=== PATIENT | female | born 1955 | race Caucasian/White ===

== ENCOUNTER 2019-04-12 14:16 | Outpatient (CLI) | payer MEDICARE ==
--- NOTE | 2019-04-12 16:46 | CT ---
CT Abdomen WO Con 04/12/2019 12:00 AM HISTORY: Cirrhosis in a patient with hepatitis. Hepatic encephalopathy. COMPARISON: 03/17/2016 Technique: Multiple contiguous axial CT images are obtained through the abdomen and pelvis without IV contrast. Coronal reformats are provided. FINDINGS: This examination is limited for the evaluation of solid organs and vascular structures due to the lac k of intravenous contrast. Lower Chest: No consolidation or pleural fluid is seen at either lung base. There is evidence of kamla iation of fat into the posterior mediastinum from the upper abdomen with prominent vessels in the region of the area of fat likely related to varices. However, this is a stable finding dating back to prior study in 2012. Abdomen: Liver: Peripheral nodular contour is present suggesting cirrhosis. Calcified granuloma seen left hepa tic lobe. Gallbladder: Surgically absent. Pancreas: Grossly normal nonenhanced CT appearance. Spleen: Enlarged measuring 14.1 cm in craniocaudal dimensions. Adrenals: Grossly normal nonenhanced CT appearance. Kidneys: Stable superior pole hypodense lesions are again seen in each kidney and are likely related to renal cysts. Lymph Nodes: No enlarged lymph nodes. Bowel: Normal caliber. Peritoneum: No free fluid, free air, or fluid collection. Retroperitoneum: within normal limits. Vessels: Vascular calcifications are seen in the abdominal aorta and involving the iliac arteries. Abdominal Wall: within normal limits. Bones: Degenerative changes are seen in the lumbar spine with was thought to be prominent Schmorl's n ode in the superior endplate of the L3 vertebral body with degenerative changes at this level. IMPRESSION: 1. Evidence of cirrhosis and splenomegaly with probable portal hypertension with varices seen in the region of the gastrohepatic ligament and probable varices within the herniated fat into the posterior mediastinum. 2. Cholecystectomy. 3. Probable superior pole renal cysts.
== END 2019-04-12 14:17 | disposition home or self-care (01) ==
LOC: BICCT 14:16
PROVIDERS: ATTEND Physician Assistant Medical
DX: K72.90 Hepatic failure, unspecified without coma (principal); B18.2 Chronic viral hepatitis C; K74.60 Unspecified cirrhosis of liver; I85.00 Esophageal varices without bleeding; B37.2 Candidiasis of skin and nail; R16.1 Splenomegaly, not elsewhere classified; I86.4 Gastric varices; Z90.49 Acquired absence of other specified parts of digestive tract
CPT/HCPCS: 74150; 82565

== ENCOUNTER 2019-05-10 07:00 | Day surgery (SDC) | payer MEDICARE, MEDICAID ==
[2019-05-09 09:49] VITALS: BMI 41.1
--- NOTE | 2019-05-10 09:45 | OP ---
DATE OF PROCEDURE: 05/10/2019 PROCEDURE PERFORMED: Esophagogastroduodenoscopy. PREOPERATIVE DIAGNOSES: 1. Esophageal varices. 2. Portal hypertension. DESCRIPTION OF PROCEDURE: Informed consent was obtained from the patient. She was sedated with total intravenous anesthesia. The bite block was placed and the endoscope was advanced easily to the second portion of the duodenum and retroflexion was performed in the stomach. The esophagus was normal. The GE junction was normal. There were no varices present. The stomach was normal including retroflexed views. The pylorus and first and second portions of the duodenum were normal. Air was suctioned from the stomach and the procedure was completed. IMPRESSION: Normal esophagogastroduodenoscopy. RECOMMENDATIONS: Repeat EGD in a year for varices surveillance. Job ID: [id number]
[2019-05-10] MEDS ORDERED: PROPOFOL 200 MG/20 ML VIAL ONE (10:44)
[2019-05-10] MEDS ORDERED: Lidocaine 1% PF 5 ML VIAL ONE (10:44)
--- NOTE | 2019-05-11 13:09 | HP ---
DATE OF PROCEDURE: 05/10/2019. CHIEF COMPLAINT: Hepatitis C and cirrhosis of the liver, here for esophageal varices screening. HISTORY OF PRESENT ILLNESS: Ms. Puentes has hepatitis C and cirrhosis. She presents for screening for varices with endoscopy. PAST MEDICAL HISTORY: Hepatitis C, cirrhosis, diabetes, depression, gastroesophageal reflux, and hepatic encephalopathy. FAMILY HISTORY: Negative for GI malignancy or liver disease. SOCIAL HISTORY: No alcohol, tobacco, or drugs. ALLERGIES: SULFA. MEDICATIONS: 1. Abilify. 2. Aldactone. 3. Alendronate. 4. Alprazolam. 5. Aripiprazole. 6. Lactulose. 7. Epclusa. 8. Fentanyl. 9. Furosemide. 10. Fentanyl patch 25 mcg/hour. 11. Furosemide. 12. Gabapentin. 13. Glipizide. 14. Hydrocodone. 15. Hydroxyzine. 16. Januvia. 17. Lantus. 18. Lyrica. 19. Metformin. 20. Nystatin. 21. Omeprazole. 22. Oxcarbazepine. 23. Sertraline. 24. Propranolol. 25. Spironolactone. 26. Trazodone. PHYSICAL EXAMINATION: GENERAL: She is awake, alert, and oriented x3. LUNGS: Clear to auscultation bilaterally. HEART: Regular rate and rhythm without murmur. ABDOMEN: Soft, nontender, and nondistended. Bowel sounds are present. EXTREMITIES: No lower extremity edema. IMPRESSION: Cirrhosis and hepatitis C with a history of hepatic encephalopathy and evidence of varices by imaging. PLAN: Upper endoscopy. Job ID: [id number]
== END 2019-05-10 10:10 | disposition home or self-care (01) ==
LOC: SDC 07:00
PROVIDERS: ATTEND Internal Medicine Gastroenterology
PROC: 0DJ08ZZ Inspection of Upper Intestinal Tract, Via Natural or Artificial Opening Endoscopic (ICD-10-PCS; principal; 2019-05-10)
DX: K76.6 Portal hypertension (principal); K74.60 Unspecified cirrhosis of liver; I85.10 Secondary esophageal varices without bleeding; B18.2 Chronic viral hepatitis C; E11.9 Type 2 diabetes mellitus without complications; K21.9 Gastro-esophageal reflux disease without esophagitis; Z79.4 Long term (current) use of insulin; Z79.899 Other long term (current) drug therapy; Z88.2 Allergy status to sulfonamides
CPT/HCPCS: 36416; J2001; J2704

== ENCOUNTER 2020-04-12 23:11 | Inpatient (IN) | payer MEDICARE, MEDICAID ==
[2020-04-12] MEDS ORDERED: cefTRIAXone\\ROCEPHIN 2 GM VIAL ONE (23:46)
[2020-04-12] MEDS ORDERED: Albuterol 200 PUFF (6.7GM INHALER) ONE (23:46)
[2020-04-12] MEDS ORDERED: methylPREDNISolone Sod Succ/PF 125 MG/2 ML VIAL ONE (23:46)
[2020-04-12] MEDS ORDERED: Magnesium 2 GM/50 ML BAG (IN WATER) ONE (23:46)
[2020-04-12] MEDS ORDERED: Nitroglycerin 2% Ointment 1 INCH/1 GM Packet ONE ×2 (23:46)
[2020-04-12] MEDS ORDERED: Nitroglycerin 50 MG/250 ML BOT 0 ML ONE (23:47)
--- NOTE | 2020-04-12 23:50 | RAD ---
EXAM: Single view of the chest HISTORY: Chest pain and shortness of breath COMPARISON: 03/22/2016 FINDINGS: Single view of the chest shows an enlarged cardiomediastinal silhouette. Bilateral pulmona ry vascular enlargement is seen. Increased interstitial markings are present. There may be left basilar atelectasis versus infiltrate. No acute osseous abnormality. IMPRESSION: 1. Findings are most consistent with congestive heart failure 2. Possible left lower lobe infiltrate
[2020-04-12 23:56] LABS: Hemoglobin 10.7 g/dL (12.0-16.0); Mean Corpuscular HGB CONC 33.4 g/dL (32.0-36.0); Mean Corpuscular Hemoglobin 29.1 pg (27.0-31.0); Mean Corpuscular Volume 87.3 fL (78.0-98.0); RBC Distribution Width 14.9 % (11.5-14.5); Red Blood Cell (RBC) Count 3.67 mill/uL (4.20-5.40); White Blood Cell (WBC) Count 5.5 thou/uL (4.8-10.8)
[2020-04-13 00:13] LABS: ALT (SGPT) 17 U/L (8-55); AST (SGOT) 23 U/L (5-34); Albumin 3.6 g/dL (3.4-4.8); Alkaline Phosphatase 98 U/L (40-110); Anion Gap 12 mmol/L (10-20); BUN (Urea Nitrogen) 21 mg/dL (9.8-20.1); Bilirubin, Total 0.9 mg/dL (0.2-1.2); Calc. Creatinine Clearance 0 mL/min (70-130); Calcium 8.4 mg/dL (7.8-10.44); Carbon Dioxide 29 mmol/L (23-31); Chloride 94 mmol/L (98-107); Globulin 3.9 g/dL (2.4-3.5); Glucose 194 mg/dL (80-115); Potassium 5.2 mmol/L (3.5-5.1); Protein, Total 7.5 g/dL (5.8-8.1); Sodium 130 mmol/L (136-145)
[2020-04-13 00:20] LABS: #Basophils 0.1 thou/uL (0.0-0.2); #Lymphocytes 0.3 thou/uL (1.20-3.40); #Monocytes 0.3 thou/uL (0.11-0.59); #Neutrophils 4.8 thou/uL (1.40-6.50); %Eosinophils 0.1 % (0.0-10.0); %Lymphocytes 4.8 % (21.0-51.0); %Monocytes 5.8 % (0.0-10.0); %Neutrophils 87.3 % (42.0-75.0); Mean Platelet Volume 7.6 fL (7.4-10.4); Platelet Count 81 thou/uL (130-400); Platelet Morphology Comment Appears Decreased
[2020-04-13] MEDS ORDERED: Azithromycin 500 MG VIAL ONE (00:21)
[2020-04-13] MEDS ORDERED: Azithromycin 250 MG TAB ONE (00:32)
[2020-04-13 01:04] LABS: Bilirubin Negative (Negative); Blood, Urine 2+ (Negative); Clarity Clear (Clear); Glucose, Urine (Dipstick) Normal (Negative); Ketone, Urine Negative (Negative); Leukocyte Negative Leu/uL (Negative); Nitrite Negative (Negative); Protein, Urine (Dipstick) 100 mg/dL (Neg-Trace); Specific Gravity, Urine 1.009 (1.002-1.036); Squamous Epithelial 0-3 HPF (0-3); Urobilinogen Normal mg/dL (Less than 2); WBC/HPF 0-3 HPF (0-3); pH, Urine 5.5 (5.0-9.0)
[2020-04-13 01:05] LABS: Bacteria/HPF Rare-Few HPF (None Seen)
[2020-04-13] MEDS ORDERED: Lorazepam 2 MG/ML VIAL ONE (01:06)
[2020-04-13] MEDS ORDERED: Furosemide 40 MG/4 ML VIAL ONE (02:10)
--- NOTE | 2020-04-13 02:50 | PDOC.FPRHP ---
- History of Present Illness Chief Complaint: SOB History of Present Illness: Pt is a 64yo female with hx of cirrhosis, COPD, DM2 who presents with worsening SOB. She comes from a [facility] in [place]. She was diagnosed with a UTI 2 weeks ago and started on an antibiotic. Since that time she has had increased swelling in her legs, hands and abdomen. For the past week she has had worsening SOB and CAMPBELL. Also positive for orthopnea. She describes a feeling in her chest of "feeling like I am drowning". She denies any significant heart history and has never been to a relay associate. She says she has been taken off all anti-hyp ertensives. She continues to smoke 6 cigarettes per day. Normally she does not need home O2 but this week she has been on 3L nasal cannula. It also seems that they were giving her 80mg of lasix daily and a medrol dose pack, according to [facility] records sent with patient. In the ED she was noted to be tachypneic and put on short trial of bipap with improvement in work of breathing. ED Course: lasix 40mg IV, ativan 0.5mg, hydralazine 10mg, azithromycin, ceftriaxone, methylprenisolone, nitro paste, mag sulfate - Allergies/Adverse Reactions Allergies Allergy/AdvReac Type Severity Reaction Status Date / Time Sulfa (Sulfonamide Allergy Unknown Verified 07/31/19 22:07 Antibiotics) - Home Medications Medication Instructions Recorded Confirmed Type Furosemide [Lasix] 40 mg PO BID 04/02/14 04/13/20 History Omeprazole 20 mg PO DAILY 04/02/14 04/13/20 History Sertraline HCl [Zoloft] 100 mg PO DAILY 04/02/14 04/13/20 History hydrOXYzine [Atarax] 25 mg PO Q6H PRN 04/02/14 04/13/20 History traZODone HCl 100 mg PO QPM 04/02/14 04/13/20 History ARIPiprazole [Abilify] 15 mg PO DAILY 03/18/16 04/13/20 History Alendronate Sodium [Fosamax] 70 mg PO Q7D 05/09/19 04/13/20 History Alprazolam [ALPRAZolam] 0.25 mg PO BID 05/09/19 04/13/20 History Cetirizine HCl [Zyrtec] 10 mg PO PRN PRN 05/09/19 04/13/20 History Docusate [Colace] 100 mg PO DAILY PRN 05/09/19 04/13/20 History Gabapentin 600 mg PO TID 05/09/19 04/13/20 History Ibuprofen 400 mg PO BID 05/09/19 04/13/20 History Insulin Glargine,Hum.Rec.Anlog 40 units SQ QAM 05/09/19 04/13/20 History [Lantus] Ipratropium/Albuterol Sulfate 3 ml NEB QID PRN 05/09/19 04/13/20 History [Duoneb] Loperamide HCl [Loperamide] 2 mg PO PRN PRN 05/09/19 04/13/20 History Ondansetron HCl [Zofran] 4 mg PO Q4HR PRN 05/09/19 04/13/20 History fentaNYL [Fentanyl] 1 each TD ASDIR 05/09/19 04/13/20 History glipiZIDE [Glipizide] 5 mg PO BID 05/09/19 04/13/20 History sitaGLIPtin Phosphate [Januvia] 100 mg PO DAILY 05/09/19 04/13/20 History HYDROcodone Bit/APAP 7.5/325 1 tab PO TID 04/13/20 04/13/20 History [[place] 7.5/325] Insulin Glargine,Hum.Rec.Anlog 20 units SC QPM 04/13/20 04/13/20 History [Lantus] Losartan [Cozaar] 25 mg PO DAILY 04/13/20 04/13/20 History Meloxicam 15 mg PO QPM 04/13/20 04/13/20 History busPIRone HCl [Buspirone HCl] 10 mg PO BID 04/13/20 04/13/20 History - History PMHx: cirrhosis, Hep C - treated, COPD, DM2, HTN, GERD PSHx: tubal ligation, tonsillectomy, cholecystectomy, appendectomy FHx: drug and alcohol abuse Social: smokes 6 cigarettes/day, has smoked since she was a child, no alcohol or drug use. Lives in [facility] in [place] - Review of Systems General: reports: weight/appetite/sleep changes. denies: fever/chills Eyes: denies: vision changes ENT: denies: nasal congestion Respiratory: reports: shortness of breath. denies: cough, congestion Cardiovascular: reports: edema, orthopnea. denies: chest pain Gastrointestinal: reports: diarrhea, other (bloating). denies: nausea, vomiting Genitourinary: reports: incontinence (chronic). denies: dysuria Skin: denies: rashes Musculoskeletal: reports: swelling Neurological: denies: numbness, syncope Psychological: reports: anxiety - Vital signs BP: 206/86, HR 92, RR 20, O2 100% on 3L, T 98.7F - Physical Exam Constitutional: NAD, awake, alert and oriented HEENT: normocephalic and atraumatic, grossly normal hearing -HEENT: pupils unequal, R pupil dilated and not reactive to light, pt states this is chronic Neck: supple, trachea midline Chest: no-tender to palpation Heart: RRR, normal S1/S2, pulses present -Heart: pitting edema of b/l LE Lungs: no respiratory distress -Lungs: b/l inspiratory wheezing on upper lung campbell Abdomen: bowel sounds present -Abdomen: distended, taught abdomen, caput medusa Musculoskeletal: normal structure, normal tone Neurological: no focal deficit Heme/Lymphatic: no unusual bruising or bleeding Psychiatric: normal mood and affect, good judgment and insight, intact recent and remote memory FMR H&P: Results - Labs Result Diagrams: 04/12/20 23:43 04/13/20 03:47 Lab results: WBC 5.5 thou/uL (4.8-10.8) 04/12/20 23:43 Hgb 10.7 g/dL (12.0-16.0) L 04/12/20 23:43 Hct 32.0 % (36.0-47.0) L 04/12/20 23:43 MCV 87.3 fL (78.0-98.0) 04/12/20 23:43 Plt Count 81 thou/uL (130-400) L 04/12/20 23:43 Neutrophils % 87.3 % (42.0-75.0) H 04/12/20 23:43 Sodium 130 mmol/L (136-145) L 04/12/20 23:43 Potassium 5.2 mmol/L (3.5-5.1) H 04/12/20 23:43 Chloride 94 mmol/L (98-107) L 04/12/20 23:43 Carbon Dioxide 29 mmol/L (23-31) 04/12/20 23:43 BUN 21 mg/dL (9.8-20.1) H 04/12/20 23:43 Creatinine 1.27 mg/dL (0.6-1.1) H 04/12/20 23:43 Glucose 194 mg/dL (80-115) H 04/12/20 23:43 Lactic Acid 1.2 mmol/L (0.5-2.2) 04/13/20 00:10 Calcium 8.4 mg/dL (7.8-10.44) 04/12/20 23:43 Total Bilirubin 0.9 mg/dL (0.2-1.2) 04/12/20 23:43 AST 23 U/L (5-34) 04/12/20 23:43 ALT 17 U/L (8-55) 04/12/20 23:43 Alkaline Phosphatase 98 U/L (40-110) 04/12/20 23:43 B-Natriuretic Peptide 1001.9 pg/mL (0-100) H 04/12/20 23:43 Serum Total Protein 7.5 g/dL (5.8-8.1) 04/12/20 23:43 Albumin 3.6 g/dL (3.4-4.8) 04/12/20 23:43 Urine Ketones Negative mg/dL (Negative) 04/13/20 00:50 Urine Blood 2+ (Negative) A 04/13/20 00:50 Urine Nitrite Negative (Negative) 04/13/20 00:50 Ur Leukocyte Esterase Negative Katey/uL (Negative) 04/13/20 00:50 Urine RBC 4-6 HPF (0-3) A 04/13/20 00:50 Urine WBC 0-3 HPF (0-3) 04/13/20 00:50 Ur Squamous Epith Cells 0-3 HPF (0-3) 04/13/20 00:50 Urine Bacteria Rare-Few HPF (None Seen) 04/13/20 00:50 - EKG Interpretation EKG: reviewed: sinus w/ PACs - Radiology Interpretation Chest x-ray Status: report reviewed by mt FMR H&P: A/P - Plan Acute hypoxic respiratory failure 2/2 likely new onset CHF w/exacerbation - CXR: cardiomegaly, b/l pulm vascular enlargement, BNP 1000 - dependent pitting edema - was put on bipap in ED, currently on 3L NC, will wean as tolerated - pending echo - s/p Lasix 40 IV in ED, will continue 40 IV daily, strict I/Os - admit to tele: ekg showed sinus rhythm with PACs and possible dropped beats Cirrhosis 2/2 Hep C - treated -GI, Dr. Gaspar -has had 1 paracentesis in the past -on physical exam, abdomen very distended and uncomfortable, may resolve with diuresis -consider further work up for ascites Hypertensive urgency - SBP 200 in ED, given hydralazine and nitro paste - Restart home losartan, hydralazine prn, expect improvement with diuresis JOANNE vs CKD -Cr 1.25, was 1.27 in January -continue to monitor while diuresing COPD -was started on Azithromycin and ceftriaxone in ED, will not continue as pt is not in acute exacerbation -pt was on duoneb treatments at [facility], will continue Chronic thrombocytopenia - At baseline, 2/2 liver disease Hypervolemic hyponatremia - Na 130 - Expect improvement with diuresis Elevated d-dimer - 2.24 with negative CTA report per ED, await official report DM -continue home meds -accuchecks ACHS, mild SSI Code: FULL (Has OOH-DNR on chart but patient is clear she wants FULL code while in hospital) VTE ppx: Lovenox PCP: CC - OOT Diet: HH/CC Disposition: Admit inpatient tele, pending echo, continue diuresing, LOS > 48hrs FMR H&P: Upper Level - Plan Date/Time: 04/13/20 0250 Prisca Moore, have evaluated this patient and agree with findings/plan as outlined by international trade analyst resident. Pertinent changes/additions are listed here. 64 yo F with PMH cirrhosis, COPD presents to ED from [place] for SOB and swelling worsening over the past 2 weeks. She was started on O2 3L one week ago, is not chronically on this. Seems to have tried to been managed outpatient with PO lasix and maybe a medrol dose pack. Has significant abdominal fluid retention and extremities, dyspnea with any exertion, orthopnea, feels like she is "drowning". No cough, fever. Had negative COVID test today in her facility. Temp: 98.9, 186/130, Pulse: 94, Resp: 22, Pain: 5, O2 sat: 100 on (3L Oxygen) PE: Gen: NAD HEENT: dilated, fixed R pupil Heart: few dropped beats, no murmurs. Normal cap refill Lungs: Wheezing, No increased work of breathing. Abd: nontender, distended with ascites, caput medusae Ext: edema in BLE up to abdomen, small amount in feet Skin: no rashes, various petechial areas on extremities Acute hypoxic respiratory failure likely 2/2 new onset CHF w/exacerbation - CXR with cardiomegaly and interstitial markings, new O2 requirement, BNP 1000, dependent pitting edema up to abdomen - Initial troponin negative, continue to trend - EKG with rate 95, normal [place] , QTc, no ST changes, few dropped beats, being monitored on telemetry - Echo in am - Just given Lasix 40 IV in ED, will order another 40 to be given this morning, will monitor I/Os and response, may need more HTN urgency - Likely 2/2 volume overload, nitro patch given in ED - Restart home losartan, hydralazine prn, expect improvement with diuresis Cirrhosis 2/2 Hep C treated - Seems to have regular follow up and routine screenings with Dr. Gaspar, had 1 paracentesis years ago. Pending clinical course may consider paracentesis this hospitalization - Albumin is normal - Imaging reviewed from past year shows splenomegaly, signs of portal HTN COPD, not in exacerbation - Some wheezing on exam, no signs of infection at this time. SOB more likely 2/2 volume overload rather than COPD. Will not continue antibiotics or steroids at this time. Monitor for clinical improvement with diuresis and continue bibi duonebs (patient gets 4x daily at home). Chronic thrombocytopenia - At baseline, 2/2 liver disease Hypervolemic hyponatremia - New for patient, 130 on admission - Expect gradual improvement with diuresis Elevated d-dimer - 2.24 with negative CTA report per ED, await official report Other lab abnormalities include mild hyperkalemia, chronic normocytic anemia, C KD3 Code: FULL (Has OOH-DNR on chart but patient is clear she wants FULL code while in hospital). Medical decision makers would be her sister and granddaughter. Prophylaxis: Lovenox PCP: Dr. Melodie Estevez from [place] Attending: Tayler Disposition: admit to telemetry inpatient, expected LOS >48h Addendum - Attending - Attending Attestation Date/Time: 04/13/20 3031 I personally evaluated the patient and discussed the management with Dr. Mtz/Ankit. I agree with the History, Examination, Assessment and Plan documented above with any addition or exceptions noted below. Patient with longstanding history of end stage cirrhosis here with increasing edema, hypertension, and respiratory issues. Reports this has occurred over the last 1 week. Suspect that she is either having volume overload issues related to her worsening cirrhosis, or has some new onset cardiac process. We will work to nevaeh, strict I/O, obtain TTE. She also has converted to Afib RVR, will begin Dilt. May need Cardiology and GI on board over the coming days depending on progression and clinical course.
[2020-04-13] MEDS ORDERED: HumaLOG 300 UNITS/3 ML VIAL SC PRN ×2 (02:53)
[2020-04-13] MEDS ORDERED: Dextrose 50% Abboject 50 ML SYRINGE SLOW IVP PRN (02:53)
[2020-04-13] MEDS ORDERED: Ondansetron ODT 4 MG TAB PO PRN (02:53)
[2020-04-13] MEDS ORDERED: Dextrose 5% in Water 1,000 ML IV PRN (02:53)
[2020-04-13 02:57] LABS: SARS-CoV-2 NAA Rapid Test Not Detected (NotDetected)
[2020-04-13] MEDS ORDERED: hydrOXYzine 25 MG TAB PO PRN ×2 (03:29→04:54)
[2020-04-13] MEDS ORDERED: Non-Formulary Item 1 EACH (Fentanyl [Fentanyl] 1 EACH Patch.Td72) TOP SCH (03:30)
[2020-04-13] MEDS ORDERED: hydrALAZINE 20 MG/ML VIAL ONE (03:38)
[2020-04-13 04:06] LABS: INR-International Normal Ratio 1.1; PTT 31.5 sec (22.9-36.1); Prothrombin Time 14.3 sec (12.0-14.7)
[2020-04-13 04:20] LABS: Anion Gap 13 mmol/L (10-20); BUN (Urea Nitrogen) 21 mg/dL (9.8-20.1); Calc. Creatinine Clearance 0 mL/min (70-130); Calcium 8.8 mg/dL (7.8-10.44); Carbon Dioxide 28 mmol/L (23-31); Chloride 93 mmol/L (98-107); Glucose 172 mg/dL (80-115); Sodium 129 mmol/L (136-145)
[2020-04-13] MEDS ORDERED: hydrALAZINE 10 MG TAB PO PRN (04:54)
[2020-04-13] MEDS ORDERED: Losartan 25 MG TAB PO SCH ×2 (05:00→09:00)
[2020-04-13] MEDS ORDERED: Ibuprofen 600 MG TAB PO SCH (06:30)
[2020-04-13] MEDS ORDERED: Diltiazem 125 MG in Sodium Chloride 0.9% 100 ML IVPB SCH (07:00)
[2020-04-13] MEDS ORDERED: Furosemide 40 MG/4 ML VIAL SLOW IVP SCH (09:00)
[2020-04-13] MEDS ORDERED: Enoxaparin Sodium 40 MG/0.4 ML SYRINGE SC SCH (09:00)
[2020-04-13] MEDS ORDERED: FLU VACC QS2020-21(6MOS UP)/PF 60 MCG/0.5 ML SYRINGE IM ONE (09:00)
--- NOTE | 2020-04-13 09:00 | CT ---
PRELIMINARY REPORT/[facility]/AFTER HOURS PROCEDURE CTA CHEST WITH IV CONTRAST: CLINICAL HISTORY: Dyspnea. TECHNIQUE: Axial CTA images of the chest with intravenous contrast. Three-dimensional MIP/volume rendered reform ations were performed. CONTRAST: With Isovue-370 60 mL. COMPARISON: None provided. FINDINGS: PULMONARY ARTERIES: No filling defects within the pulmonary arteries. Pulmonary artery is mildly enla rged suggesting possible hypertension. AORTA: No aortic aneurysm or dissection. LUNGS: Mild compressive atelectasis in the left lung base. No other consolidative airspace disease id entified. Suggestion of centrilobular emphysema. Prominent cyst is seen in left lung base. No pulmonary mass or concerning pulmonary nodule visualized. PLEURAL SPACES: Small to moderate volume left sided pleural effusion. No pneumothorax. HEART AND MEDIASTINUM: Heart is mildly enlarged. Small pericardial effusion. Coronary calcifications. No mediastinal mass. LYMPH NODES: No lymphadenopathy. BONES: No focal osseous abnormality or acute fracture. CHEST WALL AND UPPER ABDOMEN: Liver demonstrates mildly nodular contour suggesting possible cirrhosis . There is also suggestion of a small amount of ascites along the periphery of the liver. Spleen also appears enlarged. Moderate-sized hiatal hernia. IMPRESSION: 1. No pulmonary embolism. Mild pulmonary artery enlargement suggesting possible hypertension. 2. Coronary calcifications as well as cardiac enlargement. 3. Small to moderate volume left sided pleural effusion with compressive atelectasis seen adjacently. 4. Finding suggestive of cirrhosis with nodular contour of the liver, small amount of ascites and spl enic enlargement is visualized. Correlate clinically. 5. See above for additional findings. ELECTRONICALLY SIGNED BY: Scott Bauer DO Apr 13, 2020 1:26:58 AM DESIGN COORDINATOR This report is intended for review by the ordering physician only, in accordance of law. If you recei ve this report in error, please call [facility] at [phone]. FINAL REPORT CT ANGIOGRAM CHEST INCLUDING 3D RENDERING: EMERGENCY AFTER HOURS EXAM 04/13/2020 12:58 a.m. FINDINGS: Evidence for cardiomegaly with small left pleural effusion. Evidence for cirrhosis of the liver with small amount ascites and splenic enlargement. No CT evidence for acute pulmonary embolism. Some fat herniation adjacent to the inferior esophagus. Report agrees with preliminary report. CODE QA Transcribed Date/Time: 04/13/2020 10:45 AM
[2020-04-13] MEDS: Aripiprazole 15 MG TAB PO SCH (09:35)
[2020-04-13] MEDS: glipiZIDE 5 MG TAB PO SCH ×2 (09:35→21:01)
[2020-04-13] MEDS: busPIRone HCl 10 MG TAB PO SCH ×2 (09:35→21:02)
[2020-04-13] MEDS: Gabapentin 300 MG CAP PO SCH ×3 (09:36→21:01)
[2020-04-13] MEDS: HYDROcodone/Acetaminophen 7.5/325 mg Tablet PO SCH ×3 (09:36→21:02)
[2020-04-13] MEDS: ALPRAZolam 0.5 MG TAB PO SCH ×2 (09:37→20:57)
[2020-04-13] MEDS: Calcium Carbonate 500 MG ChewTAB PO PRN ×2 (09:42→20:57)
[2020-04-13] MEDS: Ondansetron PF 4 MG/2 ML Vial IVP PRN ×2 (10:00→18:52)
[2020-04-13] MEDS ORDERED: Iopamidol-370 76% 500 ML 1 ML ONE (10:05)
[2020-04-13 10:17] LABS: Cardiac Risk 2.5 (Less than 4.5); Magnesium 1.6 mg/dL (1.6-2.6); Troponin I 0.036 ng/mL (< 0.028)
[2020-04-13] MEDS: Alogliptin 25 MG TAB PO SCH (10:51)
[2020-04-13] MEDS: Insulin Glargine 40 UNITS in Pre-Filled Syringe 1 EACH SC SCH (10:51)
--- NOTE | 2020-04-13 13:20 | CON ---
DATE OF CONSULTATION: 04/13/2020 REASON FOR CONSULTATION: A-flutter and possible heart failure. HISTORY OF PRESENT ILLNESS: Ms. Puentes is a pleasant 64-year-old white female, who comes to the hospital for shortness of breath. She had worsening shortness of breath. She has a history of cirrhosis and COPD. She was at a alf in [place], diagnosed with urinary tract infection about 2 weeks ago and had been on antibiotics. She had noticed from that time progressive increase in her swelling both legs and abdomen and could not lay flat anymore because she would get short of breath and she decided to come in for further evaluation. She was apparently taken off blood pressure medications and she smokes about 1/4 of a pack a day. She was placed in the hospital and on telemetry, she was found to be having runs of atrial flutter. Heart rate goes up to the 130s and then comes back down. On my evaluation, Ms. Puentes's only complaint was that she was having a lot of diarrhea as she was getting lactulose and it was really bad for her stomach. PAST MEDICAL HISTORY: 1. History of cirrhosis secondary to hep C, which has been treated. 2. Hep C, fully treated apparently. 3. COPD. 4. Type 2 diabetes. 5. Hypertension. 6. GERD. SURGICAL HISTORY: 1. Tubal ligation. 2. Tonsillectomy. 3. Cholecystectomy. 4. Appendectomy. FAMILY HISTORY: Noncontributory. SOCIAL HISTORY: Smokes 6 cigarettes a day since she was small kid. No alcohol or drugs. OUTPATIENT MEDICATIONS: Include: 1. Lasix 40 mg b.i.d. 2. Cozaar 25 mg a day. 3. Lantus. 4. Omeprazole. 5. Meloxicam. 6. Langston p.r.n. 7. Abilify. 8. BuSpar. 9. Alprazolam p.r.n. 10. Trazodone. 11. Atarax. 12. Januvia. 13. Glipizide. 14. Fentanyl topical. 15. Zoloft. 16. Zofran p.r.n. 17. Loperamide p.r.n. 18. DuoNeb. 19. Ibuprofen p.r.n. 20. Gabapentin. 21. Docusate. 22. Zyrtec. 23. Fosamax every week. ALLERGIES: SULFA DRUGS. REVIEW OF SYSTEMS: A 12-point review of systems was done and was found to be negative other than stated in the history of present illness. PHYSICAL EXAMINATION: VITAL SIGNS: Temperature 98.2, pulse anywhere from the 90s to 140s when she is in flutter and 90s when she is in sinus, respiratory rate 20, saturation 99% on 2 L, blood pressure 183/95; however, on arrival, her blood pressure was 206/86, as high as 203/121. GENERAL: Awake, alert and oriented to person and place, some difficulty with time was able to answer and in mild distress more for nausea and vomiting. She states that the medicine she is getting make her nauseated. HEENT: Normocephalic, atraumatic. NECK: Short secondary to body habitus. Cannot evaluate JVD. LUNGS: Distant lung sounds. CARDIOVASCULAR: Distant heart sounds. When I evaluated, she was in sinus. ABDOMEN: Prominent. Positive ascitic wave. EXTREMITIES: 3+ edema. SKIN: Warm and dry. LABORATORY DATA: Laboratory work was reviewed. White count of 5, hemoglobin of 10, hematocrit of 32, and platelet count of 81. Coags were reviewed. INR is 1.1. Chemistries were also reviewed. Her BNP was a 1001. Troponin was negative x3. Creatinine was 1.27, potassium was 5.2, and sodium 130. Her magnesium is normal at 1.6, and her bilirubin was also normal at 0.9 with normal AST, ALT, and alkaline phosphatase. Triglycerides of 82, cholesterol 153, LDL of 75, HDL of 62. UA with 2+ blood, 4-6 red cells. COVID-19 PCR was not detected. Echocardiogram was reviewed done earlier today. EF was 60%-65% with diastolic dysfunction grade 1, some LVH. RVSP was a little bit elevated at 47 mmHg and a small pericardial effusion without tamponade. CT of the chest showed no evidence of pulmonary embolism, pulmonary artery enlargement suggestive of hypertension, coronary calcification, cardiac enlargement. There is left-sided pleural effusions and a nodular contour of the liver suggestive of cirrhosis with a small amount of ascites and splenic enlargement. ASSESSMENT: 1. Volume overload. 2. Anemia. 3. Thrombocytopenia. 4. Atrial flutter/Afib. PLAN: - Concern this coming from a hepatic source versus just undiagnosed sleep apnea and right-sided heart failure. At this point, IV Lasix to get some of this fluid out. - Would recommend consultation with Gastroenterology to assess the extent of her cirrhosis given her normal bilirubin and her normal INR, I am not sure how bad her cirrhosis really is, it has been called end-stage in the past. Her albumin though is 3.6. - Will start diltiazem drip for rate control. Will start full anticoagulation with Lovenox. - Will consult EP for consideration of an ablatio in the near future. Currently she is unable to lay flat without breathing difficulty. Thank you for letting us to participate in the care of your patient. We will follow. Job ID: [id number] [id number]
[2020-04-13] MEDS: Furosemide 40 MG/4 ML VIAL SLOW IVP SCH (13:39)
[2020-04-13] MEDS: HumaLOG 300 UNITS/3 ML VIAL SC PRN (13:39)
[2020-04-13] MEDS: Diltiazem 125 MG in Sodium Chloride 0.9% 100 ML IVPB SCH (16:05)
[2020-04-13 17:02] LABS: Hemoglobin 10.8 g/dL (12.0-16.0)
[2020-04-13] MEDS ORDERED: Meloxicam 15 MG TAB PO SCH (21:00)
[2020-04-13] MEDS: traZODone HCl 50 MG TAB PO SCH (21:01)
[2020-04-13] MEDS: Insulin Glargine 20 UNITS in Pre-Filled Syringe 1 EACH SC SCH (21:03)
[2020-04-13] MEDS: Enoxaparin Sodium 120 MG/0.8 ML SYRINGE SC SCH (21:03)
[2020-04-13] MEDS ORDERED: Pantoprazole 40 MG VIAL IVP SCH (22:00)
[2020-04-13 22:03] LABS: Platelet Count 96 thou/uL (130-400)
[2020-04-13] MEDS: Promethazine HCl 12.5 MG in Sodium Chloride 0.9% 50 ML IVPB PRN (22:45)
[2020-04-14] MEDS: Ondansetron PF 4 MG/2 ML Vial IVP PRN (01:17)
[2020-04-14] MEDS: Calcium Carbonate 500 MG ChewTAB PO PRN ×3 (03:13→20:05)
[2020-04-14 04:30] LABS: Hemoglobin 11.3 g/dL (12.0-16.0); Platelet Count 112 thou/uL (130-400)
[2020-04-14] MEDS: Promethazine HCl 12.5 MG in Sodium Chloride 0.9% 50 ML IVPB PRN ×3 (04:44→21:44)
[2020-04-14 04:46] LABS: Anion Gap 18 mmol/L (10-20); BUN (Urea Nitrogen) 39 mg/dL (9.8-20.1); Calc. Creatinine Clearance 69 mL/min (70-130); Calcium 9.1 mg/dL (7.8-10.44); Carbon Dioxide 36 mmol/L (23-31); Chloride 87 mmol/L (98-107); Glucose 226 mg/dL (80-115); Magnesium 1.8 mg/dL (1.6-2.6); Potassium 3.6 mmol/L (3.5-5.1); Sodium 137 mmol/L (136-145)
[2020-04-14] MEDS: Furosemide 40 MG/4 ML VIAL SLOW IVP SCH (05:31)
--- NOTE | 2020-04-14 05:45 | PDOC.FM ---
- Subjective Subjective: Patient had episodes of N/V with dark emesis. Due to concern for bleed, her lovenox was held and she was given IV protonix with plans to consult GI this morning. She continues to reports pain due to her abdominal distension. She is still requiring O2. - Objective MAR Reviewed: Yes Vital Signs & Weight: Vital Signs (12 hours) Temp Pulse Resp BP Pulse Ox 04/14/20 03:14 97.8 F 100 20 161/88 H 93 L 04/14/20 00:49 20 04/13/20 19:45 97.9 F 100 20 165/90 H 94 L 04/13/20 18:27 64 20 100 Weight Weight 129.002 kg I&O: 04/12/20 04/13/20 04/14/20 06:59 06:59 06:59 Intake Total 120 Balance 120 Result Diagrams: 04/14/20 04:18 04/14/20 04:18 EKG Reviewed by me: Yes (Afib/flutter 100-130) Phys Exam - Physical Examination Constitutional: NAD Neck: supple Respiratory: no wheezing, clear to auscultation bilateral irregularly, irregula distended, diffusely tender to palpation 2+ pitting edema up to the knees Neurological: non-focal Psychiatric: normal affect, A&O x 3 Dx/Plan - Plan Plan: Acute hypoxic respiratory failure 2/2 likely new onset CHF w/exacerbation vs. cirrhosis - CXR: cardiomegaly, b/l pulm vascular enlargement, BNP 1000 - dependent pitting edema - O2: 2 L NC - ECHO: EF 60-65%, Grade 1/3 diastolic dysfunction - holding lasix today due to contraction alkalosis and bump in Cr. Afib/flutter with RVR - cardiology, Dr. Moreno consulted on 04/13 - started on dilt drip, continue lasix - recommended therapeutic lovenox, held due to concern for bleed - consulted EP N/V with dark emesis - concern for GI bleed, Hgb stable at 11.3 - Lovenox held - GI consulted as below - BID protonix, rocephin started for SBP ppx - zofran and phenergan prn Cirrhosis 2/2 Hep C - treated -GI, Dr. Gaspar - consulted on 04/14, will see patient, appreciate recs -has had 1 paracentesis in the past -on physical exam, abdomen very distended and uncomfortable, may resolve with diuresis Hypertensive urgency, improved - SBP 200 in ED, given hydralazine and nitro paste - Restart home losartan, hydralazine prn JOANNE vs CKD -Cr 1.25 > 1.68 - likely 2/2 to diuresis, will hold lasix today -continue to monitor while diuresing Contraction Alkalosis - 2/2 to diuresis, will hold lasix COPD -s/p Azithromycin and ceftriaxone in ED, will not continue as pt is not in acute exacerbation -pt was on duoneb treatments at [place], will continue Chronic thrombocytopenia - At baseline, 2/2 liver disease Hypervolemic hyponatremia, resolved - Na 130 > 137 - Expect improvement with diuresis Elevated d-dimer - 2.24 with negative CTA DM -continue home meds -accuchecks ACHS, mild SSI
[2020-04-14] MEDS: ALPRAZolam 0.5 MG TAB PO SCH ×2 (08:43→20:07)
[2020-04-14] MEDS: Gabapentin 300 MG CAP PO SCH ×3 (08:43→20:06)
[2020-04-14] MEDS: Aripiprazole 15 MG TAB PO SCH (08:44)
[2020-04-14] MEDS: HYDROcodone/Acetaminophen 7.5/325 mg Tablet PO SCH ×3 (08:44→20:07)
[2020-04-14] MEDS: Losartan 25 MG TAB PO SCH (08:44)
[2020-04-14] MEDS: glipiZIDE 5 MG TAB PO SCH ×2 (08:44→20:09)
[2020-04-14] MEDS: busPIRone HCl 10 MG TAB PO SCH ×2 (08:45→20:07)
[2020-04-14] MEDS: Pantoprazole 40 MG VIAL IVP SCH ×2 (09:11→20:06)
[2020-04-14] MEDS: Insulin Glargine 40 UNITS in Pre-Filled Syringe 1 EACH SC SCH (09:12)
[2020-04-14] MEDS: Enoxaparin Sodium 120 MG/0.8 ML SYRINGE SC SCH ×2 (09:13→20:09)
[2020-04-14] MEDS: cefTRIAXone\\ROCEPHIN 1 GM in Sodium Chloride 0.9% 100 ML IVPB SCH (09:26)
[2020-04-14] MEDS: Alogliptin 25 MG TAB PO SCH (10:26)
[2020-04-14] MEDS: HumaLOG 300 UNITS/3 ML VIAL SC PRN (12:35)
--- NOTE | 2020-04-14 14:14 | PDOC.CPN ---
- Subjective Date: 04/14/20 Time: 14:07 Interval history: Feels some improvement in her breathing but still SOB. Dark stool earlier today concerning for melena. - Review of Systems General: denies: fever/chills, weight/appetite/sleep changes, night sweats, fatigue Respiratory: reports: shortness of breath. denies: cough, congestion, exercise intolerance Cardiovascular: reports: edema. denies: chest pain, palpitation, paroxysmal nocturnal dyspnea, orthopnea Gastrointestinal: denies: nausea, vomiting, diarrhea, constipation, abd pain, GI bleeding Musculoskeletal: denies: pain, tenderness, stiffness, swelling, arthritis/arthralgias Neurological: denies: numbness, syncope, seizure, weakness - Objective Allergies/Adverse Reactions: Allergies Allergy/AdvReac Type Severity Reaction Status Date / Time Sulfa (Sulfonamide Allergy Unknown Verified 07/31/19 22:07 Antibiotics) Visit Medications: Current Medications Acetaminophen (Acetaminophen 325 Mg Tab) 650 mg PO Q4H PRN PRN Reason: Headache/Fever/Mild Pain (1-3) Hydrocodone Bitart/Acetaminophen (Hydrocodone/Acetaminophen 7.5/325 Mg Tablet) 1 tab PO TID [facility] Last Admin: 04/14/20 08:44 Dose: 1 tab Documented by: Albuterol/Ipratropium (Ipratropium/Albuterol Sulfate 3 Ml Neb) 3 ml NEB [id number] [facility] Last Admin: 04/14/20 13:31 Dose: 3 ml Documented by: Albuterol/Ipratropium (Ipratropium/Albuterol Sulfate 3 Ml Neb) 3 ml NEB Q4H PRN PRN Reason: SOB &/or Wheezing Last Admin: 04/13/20 04:57 Dose: 3 ml Documented by: Alogliptin Benzoate (Alogliptin 25 Mg Tab) 25 mg PO DAILY [facility] Last Admin: 04/14/20 10:26 Dose: 25 mg Documented by: Alprazolam (Alprazolam 0.5 Mg Tab) 0.25 mg PO BID [facility] Last Admin: 04/14/20 08:43 Dose: 0.25 mg Documented by: Aripiprazole (Aripiprazole 15 Mg Tab) 15 mg PO DAILY [facility] Last Admin: 04/14/20 08:44 Dose: 15 mg Documented by: Buspirone HCl (Buspirone Hcl 10 Mg Tab) 10 mg PO BID [facility] Last Admin: 04/14/20 08:45 Dose: 10 mg Documented by: Calcium Carbonate (Calcium Carbonate 500 Mg Chewtab) 1,000 mg PO Q4H PRN PRN Reason: Heartburn or Indigestion Last Admin: 04/14/20 08:42 Dose: 1,000 mg Documented by: Dextrose/Water (Dextrose 50% Abboject 50 Ml Syringe) 25 gm SLOW IVP PRN PRN PRN Reason: Hypoglycemia Enoxaparin Sodium (Enoxaparin Sodium 120 Mg/0.8 Ml Syringe) 120 mg SC 0900,2100 [facility] Last Admin: 04/14/20 09:13 Dose: Not Given Documented by: Furosemide (Furosemide 40 Mg/4 Ml Vial) 40 mg SLOW IVP 0600,1400 [facility] Last Admin: 04/14/20 05:31 Dose: 40 mg Documented by: Gabapentin (Gabapentin 300 Mg Cap) 600 mg PO TID [facility] Last Admin: 04/14/20 08:43 Dose: 600 mg Documented by: Glipizide (Glipizide 5 Mg Tab) 5 mg PO BID [facility] Last Admin: 04/14/20 08:44 Dose: 5 mg Documented by: Glucagon (Glucagon 1 Mg/Ml Vial) 1 mg IM PRN PRN PRN Reason: Hypoglycemia Hydralazine HCl (Hydralazine 10 Mg Tab) 10 mg PO Q4H PRN PRN Reason: Hypertension Hydroxyzine HCl (Hydroxyzine 25 Mg Tab) 25 mg PO Q6H PRN PRN Reason: Anxiety Last Admin: 04/13/20 05:13 Dose: 25 mg Documented by: Dextrose/Water (D5w) 1,000 mls @ 0 mls/hr IV .Q0M PRN PRN Reason: Hypoglycemia Insulin Glargine 20 units/ (Miscellaneous Medication) 0.2 mls @ 0 mls/hr SC HS [facility] Last Admin: 04/13/20 21:03 Dose: Not Given Documented by: Insulin Glargine 40 units/ (Miscellaneous Medication) 0.4 mls @ 0 mls/hr SC QAM [facility] Last Admin: 04/14/20 09:12 Dose: 0.4 mls Documented by: Diltiazem HCl 125 mg/ Sodium (Chloride) 125 mls @ 5 mls/hr IVPB INF [facility]; Protocol Last Admin: 04/13/20 16:05 Dose: 125 mls Documented by: Promethazine HCl 12.5 mg/ (Sodium Chloride) 50.5 mls @ 202 mls/hr IVPB Q6H PRN PRN Reason: Nausea/Vomiting Last Admin: 04/14/20 12:35 Dose: 50.5 mls Documented by: Ceftriaxone Sodium 1 gm/ (Sodium Chloride) 100 mls @ 200 mls/hr IVPB 0900 [facility] Last Admin: 04/14/20 09:26 Dose: 100 mls Documented by: Insulin Human Lispro (Humalog 300 Units/3 Ml Vial) 0 units SC .BEDTIME SLIDING SC PRN PRN Reason: Bedtime Correctional Scale Insulin Human Lispro (Humalog 300 Units/3 Ml Vial) 0 units SC .MODERATE SLIDING SC PRN PRN Reason: Moderate Correctional Scale Last Admin: 04/14/20 12:35 Dose: 2 unit Documented by: Losartan Potassium (Losartan 25 Mg Tab) 25 mg PO DAILY [facility] Last Admin: 04/14/20 08:44 Dose: 25 mg Documented by: Non-Formulary Medication (Fentanyl [Fentanyl]) [facility] Ondansetron HCl (Ondansetron Odt 4 Mg Tab) 4 mg PO Q6H PRN PRN Reason: Nausea/Vomiting Ondansetron HCl (Ondansetron Pf 4 Mg/2 Ml Vial) 4 mg IVP Q6H PRN PRN Reason: Nausea/Vomiting Last Admin: 04/14/20 01:17 Dose: 4 mg Documented by: Pantoprazole Sodium (Pantoprazole 40 Mg Vial) 40 mg IVP Q12HR [facility] Last Admin: 04/14/20 09:11 Dose: 40 mg Documented by: Sertraline HCl (Sertraline Hcl 100 Mg Tab) 100 mg PO DAILY [facility] Last Admin: 04/14/20 08:45 Dose: 100 mg Documented by: Trazodone HCl (Trazodone Hcl 50 Mg Tab) 100 mg PO QPM [facility] Last Admin: 04/13/20 21:01 Dose: 100 mg Documented by: Vital Signs & Weight: Vital Signs Temp Pulse Resp BP Pulse Ox 04/14/20 13:33 97 04/14/20 13:31 102 H 20 97 04/14/20 12:18 97.6 F 60 14 177/83 H 98 04/14/20 08:16 93 L 04/14/20 08:15 107 H 20 93 L 04/14/20 07:53 97 04/14/20 07:35 98.7 F 107 H 17 161/84 H 97 04/14/20 03:14 97.8 F 100 20 161/88 H 93 L Admit Weight 284 lb 6.4 oz Weight 278 lb 4 oz - Physical Exam General: alert & oriented x3 HEENT: mucus membranes moist Neck: supple neck Cardiac: irregularly regular Lungs: normal breath sounds Neuro: no lateralizing findings Abdomen: distended Extremities: 1+ LE edema Skin: clear Musculoskeletal: no pain - Labs Result Diagrams: 04/14/20 04:18 04/14/20 04:18 Troponin/CKMB Troponin I 0.036 ng/mL (< 0.028) H 04/13/20 09:14 - Telemetry Supraventricular conduction: atrial fibrillation - Assessment/Plan Assessment/Plan: 1. Paroxysmal afib/flutter. 2. Volume overload. 3. Diastolic heart failure. 4. Cirrhosis of the liver, appears compensated by lab values 5. Ascitis and pleural effusions 6. Hx of Esophageal varices. PLAN: - Will hold off on IV lasix for now as her creatinine continues to climb - Not suggestive of cardiorenal JOANNE as her LV function is normal - EP consult for her afib/flutter - Continue diltiazem drip for rate control for now. - Currently full dose lovenox on hold due to risk of bleeding and dark stool. High risk for bleeding usp due to cirrhosis and esophageal varices. - Will follow.
[2020-04-14] MEDS: Diltiazem 125 MG in Sodium Chloride 0.9% 100 ML IVPB SCH (16:06)
[2020-04-14] MEDS: Digoxin 0.5 MG/2 ML AMP SLOW IVP SCH ×2 (17:53→20:08)
[2020-04-14] MEDS: traZODone HCl 50 MG TAB PO SCH (20:06)
--- NOTE | 2020-04-14 21:19 | CON ---
DATE OF CONSULTATION: 04/14/2020 CHIEF COMPLAINT: Shortness of breath and abdominal swelling. HISTORY OF PRESENT ILLNESS: Ms. Puentes is a 64-year-old woman who presents to the hospital with shortness of breath. When she lies down at night she feels like she is drowning. She is very anxious about this. She has had no nausea or vomiting. No diarrhea or constipation or blood in the stool. Nursing reports that she has had just brown stools yesterday and no bowel movement today. She is unable to tell if her weight is increased or not; however, the swelling in her abdomen and legs has progressively worsened over the last 3 weeks. PAST MEDICAL HISTORY: Cirrhosis of the liver, previous hepatitis C, COPD, diabetes mellitus type 2, hypertension. PAST SURGICAL HISTORY: Tubal ligation, tonsillectomy, cholecystectomy, appendectomy. Her last upper endoscopy was in April of 2019 and at that time, she had no varices. FAMILY HISTORY: Negative for GI malignancy. SOCIAL HISTORY: She continues to smoke 6 cigarettes per day. She used to smoke much heavier up to 2 packs per day. She has a prior history of extensive drug abuse, but not recently. No alcohol. ALLERGIES: SULFA. MEDICATIONS: Currently in the hospital include; 1. Ceftriaxone. 2. Abilify. 3. Xanax. 4. Digoxin. 5. Diltiazem. 6. Enoxaparin 120 mg q.12 hours. 7. Furosemide she was getting 40 mg IV twice daily, but this has been held for now as her creatinine is bumped up. 8. Neurontin. 9. Glipizide. 10. Glucagon. 11. Hydrocodone. 12. Fentanyl patch. 13. Insulin. 14. Trazodone. 15. Sertraline. 16. Pantoprazole. REVIEW OF SYSTEMS: Negative x10 systems reviewed except as stated in History of Present Illness. PHYSICAL EXAMINATION: VITAL SIGNS: Temperature is 98.0, pulse 111, blood pressure 140/76. GENERAL: She is in no acute distress. Alert and oriented x3. HEENT: Eyes have no scleral icterus. Oropharynx is clear without lesions. No cervical or supraclavicular lymphadenopathy. LUNGS: Clear to auscultation bilaterally. HEART: Tachycardic, S1, S2, without murmur. ABDOMEN: Soft, somewhat distended, but currently nontender. She has shifting dullness. EXTREMITIES: Trace lower extremity edema. NEUROLOGICAL: Cranial nerves are grossly intact. LABORATORY DATA: White blood cell count 5.5, hemoglobin has increased from 10.8 to 11.3 from yesterday to today. INR 1.1. Creatinine is up to 1.68 from 1.25 yesterday. BNP 1000. IMPRESSION: 1. Cirrhosis of the liver secondary to previous hepatitis C. She failed ribavirin and interferon treatment in the past. More recently, she has taken Epclusa. We will check hepatitis C RNA level to verify cure. The synthetic function of her liver is well preserved given the normal INR, albumin of 3.6, normal bilirubin is 0.9. She has had no encephalopathy. Upper endoscopy in April of 2019 was negative for varices. Hepatoma screening is up to date. She does present with fluid retention and evidence of ascites by shifting dullness on exam now. This is her primary sign of decompensation; however, this likely has a significant contributing factor from a cardiac standpoint. 2. Ascites. Again, shifting dullness by physical exam. We will schedule ultrasound-guided paracentesis for tomorrow, but no more than 3 L removed. She currently has her diuretics on hold. 3. Acute renal insufficiency. Her creatinine is bumped up with diuresis. Her hemoglobin and platelets have increased likely from hemoconcentration. 4. Atrial flutter. She is on Lovenox full dose for that. I will hold the Lovenox in the morning for paracentesis. Given that she had no varices on her most recent upper endoscopy just close to year ago, there should not be any absolute contraindication for anticoagulation at this point. RECOMMENDATIONS: 1. Ultrasound-guided paracentesis tomorrow. No more than 3 L removed given the bump in her creatinine today with diuresis. 2. Enoxaparin will be held in the morning for the paracentesis. We can restart after that. 3. Regarding the ascites, she has been advised to maintain a low-salt diet, which she has already been doing. She can be started back on spironolactone and furosemide after her creatinine improves again. Job ID: [id number]
[2020-04-14] MEDS: Insulin Glargine 20 UNITS in Pre-Filled Syringe 1 EACH SC SCH (21:52)
[2020-04-14] MEDS ORDERED: hydrALAZINE 10 MG TAB PO PRN (22:40)
[2020-04-15] MEDS: Digoxin 0.5 MG/2 ML AMP SLOW IVP SCH ×2 (00:42→04:27)
--- NOTE | 2020-04-15 05:42 | PDOC.FM ---
- Subjective Subjective: Resting comfortably in bed. No episodes of dark emesis or melena reported. Denies pain this morning. Still having difficulty breathing while laying flat. - Objective MAR Reviewed: Yes Vital Signs & Weight: Vital Signs (12 hours) Temp Pulse Resp BP BP Pulse Ox 04/15/20 04:27 102 H 04/15/20 03:03 98.1 F 93 18 172/72 H 98 04/15/20 02:53 100 20 97 04/15/20 02:50 98 04/15/20 00:42 103 H 04/15/20 00:35 98 04/14/20 22:50 190/88 H 04/14/20 20:08 103 H 04/14/20 19:45 98.5 F 106 H 18 182/85 H 98 04/14/20 18:37 98 04/14/20 18:34 100 20 98 04/14/20 17:53 107 H Weight Admit Weight 129.002 kg Weight 126.212 kg I&O: 04/13/20 04/14/20 04/15/20 06:59 06:59 06:59 Intake Total 1275 457 Output Total 1000 700 Balance 275 -243 Result Diagrams: 04/14/20 04:18 04/15/20 06:24 EKG Reviewed by me: Yes (Afib 80-90) Phys Exam - Physical Examination Constitutional: NAD HEENT: moist MMs Neck: supple Respiratory: no wheezing, clear to auscultation bilateral irregularly, irregular distended, firm 2+ edema Neurological: non-focal, moves all 4 limbs Psychiatric: normal affect Dx/Plan - Plan Plan: Acute hypoxic respiratory failure 2/2 likely new onset CHF w/exacerbation vs. cirrhosis - CXR: cardiomegaly, b/l pulm vascular enlargement, BNP 1000 - dependent pitting edema - O2: 2 L NC - ECHO: EF 60-65%, Grade 1/3 diastolic dysfunction - holding lasix today due to contraction alkalosis and bump in Cr. Afib/flutter with RVR - cardiology, Dr. Moreno consulted on 04/13 - started on dilt drip, continue lasix once Cr improves - recommended therapeutic lovenox, held for paracentesis today - consulted EP N/V with dark emesis - concern for GI bleed, Hgb stable at 11.3 - GI consulted - due to normal EGD in Apr 2019 low concern for bleed, lovenox held for paracentesis this AM - BID protonix, rocephin started for SBP ppx - zofran and phenergan prn Cirrhosis 2/2 Hep C - treated -GI, Dr. Gaspar - consulted on 04/14, will see patient, appreciate recs - plan for paracentesis today - GI bleed unlikely given normal EGD in Apr 2019 - resume spironolactone and furosemide once Cr improves -has had 1 paracentesis in the past -on physical exam, abdomen very distended and uncomfortable, may resolve with diuresis Hypertensive urgency, improved - SBP 200 in ED, given hydralazine and nitro paste - Restart home losartan, hydralazine prn - will adjust BP meds following paracentesis today JOANNE vs CKD -Cr 1.25 > 1.68 - likely 2/2 to diuresis, will hold lasix today -continue to monitor while diuresing Contraction Alkalosis - 2/2 to diuresis, will hold lasix COPD -s/p Azithromycin and ceftriaxone in ED, will not continue as pt is not in acute exacerbation -pt was on duoneb treatments at [place], will continue Chronic thrombocytopenia - At baseline, 2/2 liver disease Hypervolemic hyponatremia, resolved - Na 130 > 137 - Expect improvement with diuresis Elevated d-dimer - 2.24 with negative CTA DM -continue home meds -accuchecks ACHS, mild SSI
[2020-04-15 07:13] LABS: Anion Gap 11 mmol/L (10-20); BUN (Urea Nitrogen) 49 mg/dL (9.8-20.1); Calc. Creatinine Clearance 68 mL/min (70-130); Calcium 9.4 mg/dL (7.8-10.44); Carbon Dioxide 36 mmol/L (23-31); Chloride 92 mmol/L (98-107); Glucose 187 mg/dL (80-115); Potassium 3.7 mmol/L (3.5-5.1); Sodium 135 mmol/L (136-145)
--- NOTE | 2020-04-15 07:36 | CON ---
DATE OF CONSULTATION: 04/14/2020 Dictated by Brooke Valverde, nurse practitioner, as a scribe for Dr. Dash Edward. REASON FOR CONSULTATION: Atrial fibrillation. HISTORY OF PRESENT ILLNESS: I am seeing Ms. Puentes for an electrophysiology consult while inpatient at [facility] on the telemetry unit. Her problems are as follows: 1. Atrial fibrillation with RVR, diagnosed this admission. a. Rate controlled with diltiazem. 2. History of cirrhosis. 3. History of hepatitis C, previously treated. 4. COPD. 5. Type 2 diabetes. 6. Hypertension. 7. GERD. 8. Recent urinary tract infection, 2 weeks ago, preceding onset of symptoms, treated with antibiotics. 9. Tobacco habituation, quarter pack a day. 10. Esophageal varices. a. Dark emesis concerning for upper GI bleed, pending GI consult. SUBJECTIVE: Ms. Puentes is a pleasant 64-year-old woman who presented to the hospital with progressive shortness of breath. Her symptoms began approximately 2 weeks ago when she was diagnosed with a urinary tract infection and started on antibiotics. A few days following that, her shortness of breath began, which was progressive with abdominal distention and peripheral edema correlating to her shortness of breath. Eventually, this was severe enough that she presented to the hospital for further evaluation. She was placed on telemetry and found to have runs of atrial fibrillation with RVR. She was placed on Lovenox for oral anticoagulation and diltiazem drip for rate control. Due to her recent concern over bloody emesis, her Lovenox is held pending GI consult. EP consultation was requested for recommendations and management of her atrial fibrillation. REVIEW OF SYSTEMS: Positive for shortness of breath, orthopnea, peripheral edema, abdominal distention. Negative for stroke, stroke-like symptoms/unilateral neurologic deficits. FAMILY HISTORY: Noncontributory. SOCIAL HISTORY: Positive for tobacco habituation since a small child. No alcohol or drugs. PAST MEDICAL HISTORY: As above. SURGICAL HISTORY: Tubal ligation, tonsillectomy, cholecystectomy, and appendectomy. ALLERGIES: SULFA-BASED MEDICATIONS. MEDICATIONS: Home medication list: 1. Cozaar 25 mg daily. 2. Lantus 40 q.a.m., 20 q.p.m. 3. Omeprazole 20 mg daily. 4. Meloxicam 15 mg q.p.m. 5. [place] 7.5/325 t.i.d. 6. Abilify 15 mg daily. 7. BuSpar 10 mg b.i.d. 8. Xanax 0.25 mg b.i.d. 9. Trazodone 100 mg q.p.m. 10. Atarax 25 mg p.r.n. 11. Januvia 100 mg p.o. daily. 12. Glipizide 5 mg b.i.d. 13. Fentanyl patch transdermal as directed. 14. Zoloft 100 mg daily. 15. Zofran 4 mg q.4 hours p.r.n. 16. Ibuprofen 400 mg p.o. b.i.d. 17. Gabapentin 600 mg t.i.d. 18. Furosemide 40 mg b.i.d. 19. Colace 100 mg p.o. daily. 20. Cetirizine 10 mg p.o. p.r.n. 21. Fosamax 70 mg p.o. weekly. OBJECTIVE: VITAL SIGNS: Temperature 97.6, pulse 102, respirations 20, oxygen is 97% on 2 L via nasal cannula, blood pressure 177/83. GENERAL: The patient is alert, oriented. Speech is clear. Affect is appropriate. She is resting in bed, in no apparent distress. HEENT: Normocephalic, atraumatic. Poor dentition. NECK: Supple with jugular venous distention. Trachea is midline. HEART: Rate is irregularly irregular, slightly rapid. PMI is nondisplaced, but minimally palpable due to habitus. LUNGS: Diminished, distant lung sounds throughout. Bibasilar crackles are appreciated. ABDOMEN: Hepatojugular reflux is positive. Abdomen is obese, distended, evidence of ascites. EXTREMITIES: Warm and dry to touch without clubbing or cyanosis, but positive for bilateral lower extremity edema. NEUROLOGIC: Grossly intact and nonfocal. LABORATORY DATA: WBC 5.5; hemoglobin 11.3; hematocrit 32.6; platelet count 112, initially 81. Chemistry; potassium 3.6, creatinine 1.68, magnesium 1.8. TSH 1.8. Liver enzymes within normal ranges on 04/12/2020. Albumin at that time was 3.6. BNP on admission 1002. Echocardiogram on 04/13/2020; LVEF 60% to 65%. LA dimension 4.4 cm, mild MR, sclerosis of the aortic valve, mild TR, RVSP 47, small pericardial effusion without tamponade. Telemetry and EKG show NSR originally. Now atrial fibrillation with RVR, moderately rate controlled. IMPRESSION: 1. Volume overload. 2. Atrial fibrillation with RVR. 3. Cirrhosis of the liver. 4. History of esophageal varices. PLAN AND RECOMMENDATIONS: Ms. Puentes is a 64-year-old woman with a complicated past medical history including cirrhosis; hepatitis C, which has previously been treated; esophageal bleeding, esophageal varices, who presents with volume overload in atrial fibrillation. At this point, the etiology of her symptoms and fluid overload are unclear, atrial fibrillation versus liver disease versus a combination. GI consult is pending. Anticoagulation with Lovenox is on hold due to concern for bloody emesis this morning despite stable hemoglobin. She does have a history of bleeding esophageal varices. I discussed atrial fibrillation and its disease process as well as treatment options at length with Ms. Puentes. Right now, our goal is rate control, but there is concern that her atrial arrhythmias are a significant contributor to her symptoms and volume overload. Unfortunately, ablative options cannot be considered unless consistent oral anticoagulation can be tolerated for at least 3 months post ablation. She has significant comorbidities that make her a less ideal candidate for antoiarhythmic medicatins as well. Long-term if she is felt to be high risk for continued oral anticoagulation due to her esophageal varices, we could consider evaluation for a Watchman implant, although this would need to be done as an outpatient in [place] and she would still need to tolerate a short course of oral anticoagulation for at least 6 weeks surrounding the time of Watchman implant. For now, continue with rate control. Loading with Dig tonight. Titrate PO Diltiazem. Hope to wean off dilt gtt tomorrow. Thank you for allowing me to participate in the care of this patient. Job ID: [id number] [id number]
[2020-04-15] MEDS: Gabapentin 300 MG CAP PO SCH ×3 (08:34→22:25)
[2020-04-15] MEDS: ALPRAZolam 0.5 MG TAB PO SCH ×2 (08:36→22:25)
[2020-04-15] MEDS: busPIRone HCl 10 MG TAB PO SCH ×2 (08:39→22:25)
[2020-04-15] MEDS: HYDROcodone/Acetaminophen 7.5/325 mg Tablet PO SCH ×3 (08:39→22:26)
[2020-04-15] MEDS: Aripiprazole 15 MG TAB PO SCH (08:40)
[2020-04-15] MEDS: Losartan 25 MG TAB PO SCH (08:40)
[2020-04-15] MEDS: Pantoprazole 40 MG VIAL IVP SCH ×2 (08:41→22:24)
[2020-04-15] MEDS: Promethazine HCl 12.5 MG in Sodium Chloride 0.9% 50 ML IVPB PRN (09:16)
[2020-04-15 09:42] LABS: #Eosinphils 0.1 thou/uL (0.0-0.7); #Lymphocytes 0.7 thou/uL (1.20-3.40); %Eosinophils 0.5 % (0.0-10.0); %Lymphocytes 6.3 % (21.0-51.0); %Monocytes 9.3 % (0.0-10.0); %Neutrophils 83.9 % (42.0-75.0); Mean Corpuscular HGB CONC 32.6 g/dL (32.0-36.0); Mean Corpuscular Hemoglobin 29.4 pg (27.0-31.0); Mean Corpuscular Volume 90.3 fL (78.0-98.0); Platelet Count 92 thou/uL (130-400); RBC Distribution Width 14.9 % (11.5-14.5); Red Blood Cell (RBC) Count 3.41 mill/uL (4.20-5.40); White Blood Cell (WBC) Count 10.7 thou/uL (4.8-10.8)
[2020-04-15] MEDS: cefTRIAXone\\ROCEPHIN 1 GM in Sodium Chloride 0.9% 100 ML IVPB SCH (09:53)
[2020-04-15] MEDS: Alogliptin 25 MG TAB PO SCH (12:07)
[2020-04-15] MEDS: glipiZIDE 5 MG TAB PO SCH ×2 (12:07→22:26)
[2020-04-15] MEDS: Insulin Glargine 40 UNITS in Pre-Filled Syringe 1 EACH SC SCH (12:08)
--- NOTE | 2020-04-15 12:12 | PDOC.CPN ---
- Subjective Date: 04/15/20 Time: 12:11 Interval history: No new issues. Awaiting paracenthesis. - Review of Systems General: denies: fever/chills, weight/appetite/sleep changes, night sweats, fatigue Respiratory: denies: cough, congestion, shortness of breath, exercise intolerance Cardiovascular: denies: chest pain, palpitation, edema, paroxysmal nocturnal dyspnea, orthopnea Gastrointestinal: denies: nausea, vomiting, diarrhea, constipation, abd pain, GI bleeding Musculoskeletal: reports: pain. denies: tenderness, stiffness, swelling, arthritis/arthralgias Neurological: denies: numbness, syncope, seizure, weakness - Objective Allergies/Adverse Reactions: Allergies Allergy/AdvReac Type Severity Reaction Status Date / Time Sulfa (Sulfonamide Allergy Unknown Verified 07/31/19 22:07 Antibiotics) Visit Medications: Current Medications Acetaminophen (Acetaminophen 325 Mg Tab) 650 mg PO Q4H PRN PRN Reason: Headache/Fever/Mild Pain (1-3) Hydrocodone Bitart/Acetaminophen (Hydrocodone/Acetaminophen 7.5/325 Mg Tablet) 1 tab PO TID [facility] Last Admin: 04/15/20 08:39 Dose: 1 tab Documented by: Albuterol/Ipratropium (Ipratropium/Albuterol Sulfate 3 Ml Neb) 3 ml NEB [id number] [facility] Last Admin: 04/15/20 07:22 Dose: 3 ml Documented by: Albuterol/Ipratropium (Ipratropium/Albuterol Sulfate 3 Ml Neb) 3 ml NEB Q4H PRN PRN Reason: SOB &/or Wheezing Last Admin: 04/13/20 04:57 Dose: 3 ml Documented by: Alogliptin Benzoate (Alogliptin 25 Mg Tab) 25 mg PO DAILY [facility] Last Admin: 04/15/20 12:07 Dose: Not Given Documented by: Alprazolam (Alprazolam 0.5 Mg Tab) 0.25 mg PO BID [facility] Last Admin: 04/15/20 08:36 Dose: 0.25 mg Documented by: Aripiprazole (Aripiprazole 15 Mg Tab) 15 mg PO DAILY [facility] Last Admin: 04/15/20 08:40 Dose: 15 mg Documented by: Buspirone HCl (Buspirone Hcl 10 Mg Tab) 10 mg PO BID [facility] Last Admin: 04/15/20 08:39 Dose: 10 mg Documented by: Calcium Carbonate (Calcium Carbonate 500 Mg Chewtab) 1,000 mg PO Q4H PRN PRN Reason: Heartburn or Indigestion Last Admin: 04/14/20 20:05 Dose: 1,000 mg Documented by: Dextrose/Water (Dextrose 50% Abboject 50 Ml Syringe) 25 gm SLOW IVP PRN PRN PRN Reason: Hypoglycemia Digoxin (Digoxin 0.125 Mg Tab) 0.125 mg PO DAILY [facility] Diltiazem HCl (Diltiazem Hcl 30 Mg Tablet) 60 mg PO QID [facility] Furosemide (Furosemide 40 Mg/4 Ml Vial) 40 mg SLOW IVP 0600,1400 [facility] Last Admin: 04/14/20 05:31 Dose: 40 mg Documented by: Gabapentin (Gabapentin 300 Mg Cap) 600 mg PO TID [facility] Last Admin: 04/15/20 08:34 Dose: 600 mg Documented by: Glipizide (Glipizide 5 Mg Tab) 5 mg PO BID [facility] Last Admin: 04/15/20 12:07 Dose: Not Given Documented by: Glucagon (Glucagon 1 Mg/Ml Vial) 1 mg IM PRN PRN PRN Reason: Hypoglycemia Hydralazine HCl (Hydralazine 20 Mg/Ml Vial) 10 mg SLOW IVP Q4H PRN PRN Reason: SBP Greater Than 180 Hydroxyzine HCl (Hydroxyzine 25 Mg Tab) 25 mg PO Q6H PRN PRN Reason: Anxiety Last Admin: 04/13/20 05:13 Dose: 25 mg Documented by: Dextrose/Water (D5w) 1,000 mls @ 0 mls/hr IV .Q0M PRN PRN Reason: Hypoglycemia Insulin Glargine 20 units/ (Miscellaneous Medication) 0.2 mls @ 0 mls/hr SC HS [facility] Last Admin: 04/14/20 21:52 Dose: Not Given Documented by: Insulin Glargine 40 units/ (Miscellaneous Medication) 0.4 mls @ 0 mls/hr SC QAM [facility] Last Admin: 04/15/20 12:08 Dose: Not Given Documented by: Diltiazem HCl 125 mg/ Sodium (Chloride) 125 mls @ 5 mls/hr IVPB INF [facility]; Protocol Last Admin: 04/14/20 16:06 Dose: 125 mls Documented by: Promethazine HCl 12.5 mg/ (Sodium Chloride) 50.5 mls @ 202 mls/hr IVPB Q6H PRN PRN Reason: Nausea/Vomiting Last Admin: 04/15/20 09:16 Dose: 50.5 mls Documented by: Ceftriaxone Sodium 1 gm/ (Sodium Chloride) 100 mls @ 200 mls/hr IVPB 0900 [facility] Last Admin: 04/15/20 09:53 Dose: 100 mls Documented by: Insulin Human Lispro (Humalog 300 Units/3 Ml Vial) 0 units SC .BEDTIME SLIDING SC PRN PRN Reason: Bedtime Correctional Scale Insulin Human Lispro (Humalog 300 Units/3 Ml Vial) 0 units SC .MODERATE SLIDING SC PRN PRN Reason: Moderate Correctional Scale Last Admin: 04/14/20 12:35 Dose: 2 unit Documented by: Losartan Potassium (Losartan 25 Mg Tab) 25 mg PO DAILY [facility] Last Admin: 04/15/20 08:40 Dose: 25 mg Documented by: Non-Formulary Medication (Fentanyl [Fentanyl]) 1 [facility] Ondansetron HCl (Ondansetron Odt 4 Mg Tab) 4 mg PO Q6H PRN PRN Reason: Nausea/Vomiting Ondansetron HCl (Ondansetron Pf 4 Mg/2 Ml Vial) 4 mg IVP Q6H PRN PRN Reason: Nausea/Vomiting Last Admin: 04/14/20 01:17 Dose: 4 mg Documented by: Pantoprazole Sodium (Pantoprazole 40 Mg Vial) 40 mg IVP Q12HR [facility] Last Admin: 04/15/20 08:41 Dose: 40 mg Documented by: Sertraline HCl (Sertraline Hcl 100 Mg Tab) 100 mg PO DAILY [facility] Last Admin: 04/15/20 08:41 Dose: 100 mg Documented by: Trazodone HCl (Trazodone Hcl 50 Mg Tab) 100 mg PO QPM [facility] Last Admin: 04/14/20 20:06 Dose: 100 mg Documented by: Vital Signs & Weight: Vital Signs Temp Pulse Resp BP Pulse Ox 04/15/20 11:14 98.1 F 92 16 141/67 H 98 04/15/20 09:22 142/66 H 04/15/20 09:04 96 04/15/20 07:27 97.4 F L 91 18 196/84 H 96 04/15/20 07:24 98 04/15/20 07:22 89 20 98 04/15/20 04:27 102 H 04/15/20 03:03 98.1 F 93 18 172/72 H 98 04/15/20 02:53 100 20 97 04/15/20 02:50 98 04/15/20 00:42 103 H 04/15/20 00:35 98 Admit Weight 284 lb 6.4 oz Weight 277 lb 9 oz - Physical Exam General: alert & oriented x3 HEENT: mucus membranes moist Neck: supple neck Cardiac: irregularly regular Lungs: normal breath sounds Neuro: no lateralizing findings Abdomen: active bowel sounds, other (Ascitis.) Extremities: 1+ LE edema Skin: clear Musculoskeletal: normal range of motion - Labs Result Diagrams: 04/15/20 06:24 04/15/20 06:24 Troponin/CKMB Troponin I 0.036 ng/mL (< 0.028) H 04/13/20 09:14 - Telemetry Supraventricular conduction: atrial fibrillation - Assessment/Plan Assessment/Plan: 1. Paroxysmal afib/flutter. 2. Volume overload. 3. Diastolic heart failure. 4. Cirrhosis of the liver, appears compensated by lab values 5. Ascitis and pleural effusions 6. Hx of Esophageal varices. PLAN: - Continue diltiazem drip for rate control for now. - Lovenox on hold as she needs paracenthesis. - No evidence of varices on endoscopy about a year ago per GI. 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 - Currently rate controlled.
--- NOTE | 2020-04-15 12:33 | PDOC.EP ---
- Subjective Date: 04/15/20 Time: 08:00 Interval History: No events/significant changes overnight. Plan for paracentesis later today. - Review of Systems Constitutional: denies: chills, fever, malaise, sweats, weakness, other Respiratory: reports: shortness of breath. denies: cough, dry, hemoptysis, pleuritic pain, SOB with excertion, sputum, wheezing, other Cardiology: denies: chest pain, edema, heart racing, light headedness, paroxysmal noc. dyspnea, orthopnea, palpitations, passing out, pleuritic pain, pressure, swelling, other Gastrointestinal: reports: abdominal pain Musculoskeletal: reports: unstable gait. denies: falls, neck pain, shoulder pain, arm pain, hand pain, leg pain, foot pain, other - Objective Allergies/Adverse Reactions: Allergies Allergy/AdvReac Type Severity Reaction Status Date / Time Sulfa (Sulfonamide Allergy Unknown Verified 07/31/19 22:07 Antibiotics) Current Medications Acetaminophen (Acetaminophen 325 Mg Tab) 650 mg PO Q4H PRN PRN Reason: Headache/Fever/Mild Pain (1-3) Hydrocodone Bitart/Acetaminophen (Hydrocodone/Acetaminophen 7.5/325 Mg Tablet) 1 tab PO TID [facility] Last Admin: 04/15/20 08:39 Dose: 1 tab Documented by: Albuterol/Ipratropium (Ipratropium/Albuterol Sulfate 3 Ml Neb) 3 ml NEB [id number] [facility] Last Admin: 04/15/20 07:22 Dose: 3 ml Documented by: Albuterol/Ipratropium (Ipratropium/Albuterol Sulfate 3 Ml Neb) 3 ml NEB Q4H PRN PRN Reason: SOB &/or Wheezing Last Admin: 04/13/20 04:57 Dose: 3 ml Documented by: Alogliptin Benzoate (Alogliptin 25 Mg Tab) 25 mg PO DAILY [facility] Last Admin: 04/15/20 12:07 Dose: Not Given Documented by: Alprazolam (Alprazolam 0.5 Mg Tab) 0.25 mg PO BID [facility] Last Admin: 04/15/20 08:36 Dose: 0.25 mg Documented by: Aripiprazole (Aripiprazole 15 Mg Tab) 15 mg PO DAILY [facility] Last Admin: 04/15/20 08:40 Dose: 15 mg Documented by: Buspirone HCl (Buspirone Hcl 10 Mg Tab) 10 mg PO BID [facility] Last Admin: 04/15/20 08:39 Dose: 10 mg Documented by: Calcium Carbonate (Calcium Carbonate 500 Mg Chewtab) 1,000 mg PO Q4H PRN PRN Reason: Heartburn or Indigestion Last Admin: 04/14/20 20:05 Dose: 1,000 mg Documented by: Dextrose/Water (Dextrose 50% Abboject 50 Ml Syringe) 25 gm SLOW IVP PRN PRN PRN Reason: Hypoglycemia Digoxin (Digoxin 0.125 Mg Tab) 0.125 mg PO DAILY [facility] Diltiazem HCl (Diltiazem Hcl 30 Mg Tablet) 60 mg PO QID [facility] Last Admin: 04/15/20 12:13 Dose: 60 mg Documented by: Furosemide (Furosemide 40 Mg/4 Ml Vial) 40 mg SLOW IVP 0600,1400 [facility] Last Admin: 04/14/20 05:31 Dose: 40 mg Documented by: Gabapentin (Gabapentin 300 Mg Cap) 600 mg PO TID [facility] Last Admin: 04/15/20 08:34 Dose: 600 mg Documented by: Glipizide (Glipizide 5 Mg Tab) 5 mg PO BID [facility] Last Admin: 04/15/20 12:07 Dose: Not Given Documented by: Glucagon (Glucagon 1 Mg/Ml Vial) 1 mg IM PRN PRN PRN Reason: Hypoglycemia Hydralazine HCl (Hydralazine 20 Mg/Ml Vial) 10 mg SLOW IVP Q4H PRN PRN Reason: SBP Greater Than 180 Hydroxyzine HCl (Hydroxyzine 25 Mg Tab) 25 mg PO Q6H PRN PRN Reason: Anxiety Last Admin: 04/13/20 05:13 Dose: 25 mg Documented by: Dextrose/Water (D5w) 1,000 mls @ 0 mls/hr IV .Q0M PRN PRN Reason: Hypoglycemia Insulin Glargine 20 units/ (Miscellaneous Medication) 0.2 mls @ 0 mls/hr SC HS [facility] Last Admin: 04/14/20 21:52 Dose: Not Given Documented by: Insulin Glargine 40 units/ (Miscellaneous Medication) 0.4 mls @ 0 mls/hr SC QAM [facility] Last Admin: 04/15/20 12:08 Dose: Not Given Documented by: Diltiazem HCl 125 mg/ Sodium (Chloride) 125 mls @ 5 mls/hr IVPB INF [facility]; Protocol Last Admin: 04/14/20 16:06 Dose: 125 mls Documented by: Promethazine HCl 12.5 mg/ (Sodium Chloride) 50.5 mls @ 202 mls/hr IVPB Q6H PRN PRN Reason: Nausea/Vomiting Last Admin: 04/15/20 09:16 Dose: 50.5 mls Documented by: Ceftriaxone Sodium 1 gm/ (Sodium Chloride) 100 mls @ 200 mls/hr IVPB 0900 [facility] Last Admin: 04/15/20 09:53 Dose: 100 mls Documented by: Insulin Human Lispro (Humalog 300 Units/3 Ml Vial) 0 units SC .BEDTIME SLIDING SC PRN PRN Reason: Bedtime Correctional Scale Insulin Human Lispro (Humalog 300 Units/3 Ml Vial) 0 units SC .MODERATE SLIDING SC PRN PRN Reason: Moderate Correctional Scale Last Admin: 04/14/20 12:35 Dose: 2 unit Documented by: Losartan Potassium (Losartan 25 Mg Tab) 25 mg PO DAILY [facility] Last Admin: 04/15/20 08:40 Dose: 25 mg Documented by: Non-Formulary Medication (Fentanyl [Fentanyl]) 1 each TOP ASDIR [facility] Ondansetron HCl (Ondansetron Odt 4 Mg Tab) 4 mg PO Q6H PRN PRN Reason: Nausea/Vomiting Ondansetron HCl (Ondansetron Pf 4 Mg/2 Ml Vial) 4 mg IVP Q6H PRN PRN Reason: Nausea/Vomiting Last Admin: 04/14/20 01:17 Dose: 4 mg Documented by: Pantoprazole Sodium (Pantoprazole 40 Mg Vial) 40 mg IVP Q12HR [facility] Last Admin: 04/15/20 08:41 Dose: 40 mg Documented by: Sertraline HCl (Sertraline Hcl 100 Mg Tab) 100 mg PO DAILY [facility] Last Admin: 04/15/20 08:41 Dose: 100 mg Documented by: Trazodone HCl (Trazodone Hcl 50 Mg Tab) 100 mg PO QPM [facility] Last Admin: 04/14/20 20:06 Dose: 100 mg Documented by: Vital Signs & Weight: Vital Signs Temp Pulse Resp BP Pulse Ox 04/15/20 11:14 98.1 F 92 16 141/67 H 98 04/15/20 09:22 142/66 H 04/15/20 09:04 96 04/15/20 07:27 97.4 F L 91 18 196/84 H 96 04/15/20 07:24 98 04/15/20 07:22 89 20 98 04/15/20 04:27 102 H 04/15/20 03:03 98.1 F 93 18 172/72 H 98 04/15/20 02:53 100 20 97 04/15/20 02:50 98 04/15/20 00:42 103 H 04/15/20 00:35 98 Admit Weight 284 lb 6.4 oz Weight 277 lb 9 oz I/O: I/O 04/14/20 04/15/20 04/16/20 06:59 06:59 06:59 Intake Total 1275 912 Output Total 1000 1150 Balance 275 -238 - Quality Measures Condition: Atrial Fibrillation/Flutter (hx or current) - Medication Contraindications No Anticoagulant reason: Anticoagulant not tolerated - Physical Exam General: alert & oriented x3, no apparent distress, speech clear, affect appropriate. negative: appears well HEENT: mucus membranes moist, normocephaly Neck: supple neck, midline trachea, no JVD/HJR, no masses, no bruit, no lymphadenopathy, no thromegaly Cardiology: irregularly irregular Lungs: no wheeze, rales, rhonchi, decreased breath sounds Neurology: cranial nerve 2-12 intact, grossly intact Abdomen: HJR negative, ascites Extremities: dry, strong pulses, warm - Chadsvasc Risk factors Hypertension: 1 Female: 1 Risk Score: 2 - Labs Result Diagrams: 04/15/20 06:24 04/15/20 06:24 - EKG Interpretation EKG Method: Telemetry EKG shows: Atrial fibrillation - Assessment/Plan Assessment/Plan: 1. Atrial fibrillation with RVR, diagnosed this admission. a. Rate controlled with diltiazem. 2. History of cirrhosis. 3. History of hepatitis C, previously treated. 4. COPD. 5. Type 2 diabetes. 6. Hypertension. 7. GERD. 8. Recent urinary tract infection, 2 weeks ago, preceding onset of symptoms, treated with antibiotics. 9. Tobacco habituation, quarter pack a day. 10. Esophageal varices. a. Dark emesis concerning for upper GI bleed, pending GI consult. 11. Preserved LVEF 60-65% 12. History of esophageal varices Dig loading completed last night. Dilt gtt at 5mg/hr this AM. Rate control is better. Started PO diltiazem 60mg QID. Stop diltiazem gtt when HR staying <100bpm. Added po digoxin as well. No ideal antiarrhythmic options for her with her liver disease, kidney disease,and COPD.
[2020-04-15] MEDS ORDERED: Digoxin 0.5 MG/2 ML AMP SLOW IVP SCH (13:00)
--- NOTE | 2020-04-15 13:39 | ULT ---
LIMITED ABDOMINAL ULTRASOUND: 04/15/20 HISTORY: Assessment for ascites. Real time imaging in all four quadrants of the abdomen showed no ascites. IMPRESSION: No evidence of ascites. POS: ROSALIE
--- NOTE | 2020-04-15 14:08 | PRG ---
DATE OF SERVICE: 04/15/2020 SUBJECTIVE: Ms. Puentes is breathing much better today. She could sleep last night without feeling if she was drowning. OBJECTIVE: VITAL SIGNS: Her temperature is 98.1, pulse is 89, and blood pressure 141/67. LUNGS: Clear to auscultation bilaterally. HEART: Irregularly irregular without murmur. ABDOMEN: Soft, nontender. Bowel sounds are present. EXTREMITIES: Trace lower extremity edema. LABORATORY DATA: INR is 1.1. White blood cell count 10.7, hemoglobin 10.0, and platelets 92. Creatinine 1.66. IMPRESSION: 1. Cirrhosis of the liver secondary to past hepatitis C. her synthetic function of her liver is well preserved at this point with normal bilirubin, normal INR, normal albumin, no encephalopathy. She does have mild ascites, but ultrasound today showed inadequate fluid to perform paracentesis. 2. History of esophageal varices. She had small grade 1 varices noted by esophagogastroduodenoscopy in 2015. However, followup esophagogastroduodenoscopy in April of 2019 actually showed no significant varices. There is no contraindication directly for anticoagulation at this point from a GI standpoint. We have not seen signs of overt bleeding. 3. Atrial fibrillation, now rate controlled. 4. Acute kidney disease. She had a rise in her creatinine with diuresis and her diuretics are currently held. RECOMMENDATIONS: 1. Primary treatment for the ascites will be sought restriction and she can restart furosemide and spironolactone when it is reasonable from a renal standpoint. 2. Rechecked hepatitis C RNA level to verify if she achieved cure with Epclusa with previous treatment. 3. We will continue to follow trend of her creatinine and hemoglobin. Job ID: [id number]
[2020-04-15] MEDS: Nitroglycerin 0.4 MG TAB (25 Tab Bottle) SL PRN (16:19)
[2020-04-15] MEDS: traZODone HCl 50 MG TAB PO SCH (22:25)
[2020-04-15] MEDS: Insulin Glargine 20 UNITS in Pre-Filled Syringe 1 EACH SC SCH (22:26)
--- NOTE | 2020-04-16 07:52 | PDOC.FM ---
- Subjective Subjective: Patient had episode of Afib with RVR which responded to Dig push. She was also experiencing chest pain. The patient O2 had been removed and her O2sats were in the high 70s. An EKG was obtained which revealed new T wave inversions. A troponin was obtained which was negative. The patient's chest pain resolved with placement of O2. She was also given a Nitro during this time. The patient denies chest pain since this episodes, but reports some chest soreness that is tender to palpation. She denies any episodes of melena or emesis. She reports continued abdominal tenderness. - Objective MAR Reviewed: Yes Vital Signs & Weight: Vital Signs (12 hours) Temp Pulse Resp BP Pulse Ox 04/16/20 07:15 96 04/16/20 07:13 98 16 96 04/16/20 03:00 97.6 F 93 16 107/51 L 95 04/16/20 00:22 100 20 97 04/15/20 22:20 97.5 F L 96 16 120/63 95 Weight Admit Weight 129.002 kg Weight 126.297 kg I&O: 04/15/20 04/16/20 04/17/20 06:59 06:59 06:59 Intake Total 912 1140 Output Total 1150 150 Balance -238 990 Result Diagrams: 04/16/20 08:51 04/16/20 08:51 EKG Reviewed by me: Yes Phys Exam - Physical Examination Constitutional: NAD HEENT: moist MMs NC in place Respiratory: no wheezing, clear to auscultation bilateral Cardiovascular: no significant murmur Distended, mildly tender 2+ edema Neurological: non-focal, moves all 4 limbs Psychiatric: normal affect Dx/Plan - Plan Plan: Acute hypoxic respiratory failure 2/2 likely new onset CHF w/exacerbation vs. cirrhosis - CXR: cardiomegaly, b/l pulm vascular enlargement, BNP 1000 - dependent pitting edema - O2: 2 L NC - ECHO: EF 60-65%, Grade 1/3 diastolic dysfunction - holding lasix today due to elevated Cr. Afib/flutter with RVR - cardiology, Dr. Moreno consulted on 04/13 - started on dilt drip, continue lasix once Cr improves - recommended therapeutic lovenox, held due to concern for bleed - consulted EP - EP, Dr. Edward - dilt drip stopped, PO dilt - started on dig - possible conversion if on anticoagulants for appropriate amount of time Typical Chest Pain, resolved - EKG: inverted T waves - Trop: 0.025 - likely 2/2 to hypoxia as patient's NC was removed - resolved with replacement of NC N/V with dark emesis - concern for GI bleed; Hgb 11.3 > 10 > 10.3 - GI consulted - BID protonix, rocephin started for SBP ppx - zofran and phenergan prn Cirrhosis 2/2 Hep C - treated -GI, Dr. Gaspar - consulted on 04/14, will see patient, appreciate recs - no fluid seen for paracentesis - resume spironolactone and furosemide once Cr improves -has had 1 paracentesis in the past -on physical exam, abdomen very distended and uncomfortable, may resolve with diuresis Hypertensive urgency, improved - SBP 200 in ED, given hydralazine and nitro paste - Restart home losartan, hydralazine prn JOANNE vs CKD -Cr 1.25 > 1.68 > 2.10; concern for hepatorenal - likely 2/2 to diuresis, diuretics currently being held -continue to monitor while diuresing Contraction Alkalosis - 2/2 to diuresis, will hold lasix COPD -s/p Azithromycin and ceftriaxone in ED, will not continue as pt is not in acute exacerbation -pt was on duoneb treatments at [place], will continue Chronic thrombocytopenia - At baseline, 2/2 liver disease Hypervolemic hyponatremia, resolved - Na 130 > 137 - Expect improvement with diuresis Elevated d-dimer - 2.24 with negative CTA DM -continue home meds -accuchecks ACHS, mild SSI
[2020-04-16 09:14] LABS: Anion Gap 15 mmol/L (10-20); BUN (Urea Nitrogen) 58 mg/dL (9.8-20.1); Calc. Creatinine Clearance 54 mL/min (70-130); Calcium 9.1 mg/dL (7.8-10.44); Carbon Dioxide 24 mmol/L (23-31); Chloride 98 mmol/L (98-107); Glucose 222 mg/dL (80-115); Potassium 4.4 mmol/L (3.5-5.1); Sodium 133 mmol/L (136-145)
[2020-04-16] MEDS: Insulin Glargine 40 UNITS in Pre-Filled Syringe 1 EACH SC SCH (09:30)
[2020-04-16] MEDS: Digoxin 0.125 MG TAB PO SCH (09:30)
[2020-04-16] MEDS: glipiZIDE 5 MG TAB PO SCH ×2 (09:30→21:07)
[2020-04-16] MEDS: busPIRone HCl 10 MG TAB PO SCH ×2 (09:31→21:00)
[2020-04-16] MEDS: Gabapentin 300 MG CAP PO SCH ×3 (09:31→21:00)
[2020-04-16] MEDS: Aripiprazole 15 MG TAB PO SCH (09:31)
[2020-04-16] MEDS: ALPRAZolam 0.5 MG TAB PO SCH ×2 (09:32→21:00)
[2020-04-16] MEDS: cefTRIAXone\\ROCEPHIN 1 GM in Sodium Chloride 0.9% 100 ML IVPB SCH (09:34)
[2020-04-16] MEDS: HYDROcodone/Acetaminophen 7.5/325 mg Tablet PO SCH ×3 (09:34→21:00)
[2020-04-16] MEDS: Losartan 25 MG TAB PO SCH (09:34)
[2020-04-16] MEDS: Pantoprazole 40 MG VIAL IVP SCH ×2 (09:35→21:09)
[2020-04-16 09:36] LABS: #Eosinphils 0.1 thou/uL (0.0-0.7); #Lymphocytes 0.5 thou/uL (1.20-3.40); #Monocytes 0.6 thou/uL (0.11-0.59); #Neutrophils 6.4 thou/uL (1.40-6.50); %Eosinophils 1.5 % (0.0-10.0); %Monocytes 7.9 % (0.0-10.0); %Neutrophils 83.7 % (42.0-75.0); Hemoglobin 10.3 g/dL (12.0-16.0); MDiff Complete? YES; Mean Corpuscular HGB CONC 30.4 g/dL (32.0-36.0); Mean Corpuscular Hemoglobin 27.7 pg (27.0-31.0); Mean Platelet Volume 8.5 fL (7.4-10.4); Platelet Count 99 thou/uL (130-400); Platelet Morphology Comment Appears Decreased; Polychromasia SLIGHT = 2-3 cells (100X) (0-2/hpf); RBC Distribution Width 15.2 % (11.5-14.5); White Blood Cell (WBC) Count 7.6 thou/uL (4.8-10.8)
[2020-04-16] MEDS: Alogliptin 25 MG TAB PO SCH (09:45)
--- NOTE | 2020-04-16 11:00 | PRG ---
DATE OF SERVICE: 04/16/2020 SUBJECTIVE: Mrs. Puentes continues to feel better. She is able to sleep without orthopnea. She is breathing much better. Appetite remains poor with intermittent nausea. PHYSICAL EXAMINATION: VITAL SIGNS: Temperature is 97.3, blood pressure 119/58, pulse of 85. GENERAL: She is alert and lucid. HEENT: Anicteric sclerae. CV: Shows normal S1, S2. Regular rate and rhythm. CHEST: Shows breath sounds. No obvious adventitious sounds. ABDOMEN: Very protuberant, but soft. She has active bowel sounds. Ascites and organomegaly cannot be assessed secondary to size. EXTREMITIES: Show trace to 1+ pretibial and pedal edema. LABORATORY DATA: Electrolytes fairly stable. Creatinine 2.1, up from 1.66 yesterday. WBC 7.6, hemoglobin 10.3, and platelet count of 99. ASSESSMENT: 1. Cirrhosis from previous hepatitis C, synthetic function remains intact. She appears to be fairly compensated with minimal ascites on ultrasound and no varices on upper endoscopy. 2. Acute renal failure, increasing creatinine, likely from diuresis. The patient is currently on furosemide 40 mg b.i.d. 3. Diastolic heart failure with evidence of right-sided heart failure. 4. Atrial fibrillation, rate controlled. 5. History of hepatitis C, cleared with antiviral therapy. RECOMMENDATION: 1. Overall doing well from GI standpoint. 2. Continue symptomatic treatment for nausea. Increase the liquid nutritional supplement with Ensure ad natali. 3. Close monitoring of renal function, may have to reduce her diuresis per Primary Care Team and Cardiology. 4. Otherwise stable from GI standpoint without any acute issues. GI will sign off for now, please recall if needed. Job ID: [id number]
[2020-04-16] MEDS ORDERED: Lactated Ringer's 500 ML IV SCH (11:45)
--- NOTE | 2020-04-16 14:10 | PDOC.EP ---
- Subjective Date: 04/16/20 Time: 14:06 Interval History: no significant change overnight. no paracentesis done yesterday/not needed. - Review of Systems Constitutional: denies: chills, fever, malaise, sweats, weakness, other Respiratory: reports: shortness of breath. denies: cough, dry, hemoptysis, pleuritic pain, wheezing Cardiology: denies: chest pain, edema, heart racing, light headedness, palpitat ions, passing out Gastrointestinal: reports: abdominal pain. denies: constipation, nausea, vomitting Musculoskeletal: denies: unstable gait, falls, leg pain, foot pain - Objective Allergies/Adverse Reactions: Allergies Allergy/AdvReac Type Severity Reaction Status Date / Time Sulfa (Sulfonamide Allergy Unknown Verified 07/31/19 22:07 Antibiotics) Current Medications Acetaminophen (Acetaminophen 325 Mg Tab) 650 mg PO Q4H PRN PRN Reason: Headache/Fever/Mild Pain (1-3) Hydrocodone Bitart/Acetaminophen (Hydrocodone/Acetaminophen 7.5/325 Mg Tablet) 1 tab PO TID [facility] Last Admin: 04/16/20 09:34 Dose: 1 tab Documented by: Albuterol/Ipratropium (Ipratropium/Albuterol Sulfate 3 Ml Neb) 3 ml NEB [id number] [facility] Last Admin: 04/16/20 12:25 Dose: 3 ml Documented by: Albuterol/Ipratropium (Ipratropium/Albuterol Sulfate 3 Ml Neb) 3 ml NEB Q4H PRN PRN Reason: SOB &/or Wheezing Last Admin: 04/13/20 04:57 Dose: 3 ml Documented by: Alogliptin Benzoate (Alogliptin 25 Mg Tab) 25 mg PO DAILY [facility] Last Admin: 04/16/20 09:45 Dose: 25 mg Documented by: Alprazolam (Alprazolam 0.5 Mg Tab) 0.25 mg PO BID [facility] Last Admin: 04/16/20 09:32 Dose: 0.25 mg Documented by: Aripiprazole (Aripiprazole 15 Mg Tab) 15 mg PO DAILY [facility] Last Admin: 04/16/20 09:31 Dose: 15 mg Documented by: Buspirone HCl (Buspirone Hcl 10 Mg Tab) 10 mg PO BID [facility] Last Admin: 04/16/20 09:31 Dose: 10 mg Documented by: Calcium Carbonate (Calcium Carbonate 500 Mg Chewtab) 1,000 mg PO Q4H PRN PRN Reason: Heartburn or Indigestion Last Admin: 04/14/20 20:05 Dose: 1,000 mg Documented by: Dextrose/Water (Dextrose 50% Abboject 50 Ml Syringe) 25 gm SLOW IVP PRN PRN PRN Reason: Hypoglycemia Digoxin (Digoxin 0.125 Mg Tab) 0.125 mg PO DAILY [facility] Last Admin: 04/16/20 09:30 Dose: 0.125 mg Documented by: Diltiazem HCl (Diltiazem Hcl 30 Mg Tablet) 60 mg PO QID [facility] Last Admin: 04/16/20 09:31 Dose: 60 mg Documented by: Furosemide (Furosemide 40 Mg/4 Ml Vial) 40 mg SLOW IVP 0600,1400 [facility] Last Admin: 04/14/20 05:31 Dose: 40 mg Documented by: Gabapentin (Gabapentin 300 Mg Cap) 600 mg PO TID [facility] Last Admin: 04/16/20 09:31 Dose: 600 mg Documented by: Glipizide (Glipizide 5 Mg Tab) 5 mg PO BID [facility] Last Admin: 04/16/20 09:30 Dose: 5 mg Documented by: Glucagon (Glucagon 1 Mg/Ml Vial) 1 mg IM PRN PRN PRN Reason: Hypoglycemia Hydralazine HCl (Hydralazine 20 Mg/Ml Vial) 10 mg SLOW IVP Q4H PRN PRN Reason: SBP Greater Than 180 Hydroxyzine HCl (Hydroxyzine 25 Mg Tab) 25 mg PO Q6H PRN PRN Reason: Anxiety Last Admin: 04/13/20 05:13 Dose: 25 mg Documented by: Dextrose/Water (D5w) 1,000 mls @ 0 mls/hr IV .Q0M PRN PRN Reason: Hypoglycemia Insulin Glargine 20 units/ (Miscellaneous Medication) 0.2 mls @ 0 mls/hr SC HS [facility] Last Admin: 04/15/20 22:26 Dose: Not Given Documented by: Insulin Glargine 40 units/ (Miscellaneous Medication) 0.4 mls @ 0 mls/hr SC QAM [facility] Last Admin: 04/16/20 09:30 Dose: Not Given Documented by: Promethazine HCl 12.5 mg/ (Sodium Chloride) 50.5 mls @ 202 mls/hr IVPB Q6H PRN PRN Reason: Nausea/Vomiting Last Admin: 04/15/20 09:16 Dose: 50.5 mls Documented by: Ceftriaxone Sodium 1 gm/ (Sodium Chloride) 100 mls @ 200 mls/hr IVPB 0900 [facility] Last Admin: 04/16/20 09:34 Dose: 100 mls Documented by: Insulin Human Lispro (Humalog 300 Units/3 Ml Vial) 0 units SC .BEDTIME SLIDING SC PRN PRN Reason: Bedtime Correctional Scale Insulin Human Lispro (Humalog 300 Units/3 Ml Vial) 0 units SC .MODERATE SLIDING SC PRN PRN Reason: Moderate Correctional Scale Last Admin: 04/14/20 12:35 Dose: 2 unit Documented by: Losartan Potassium (Losartan 25 Mg Tab) 25 mg PO DAILY [facility] Last Admin: 04/16/20 09:34 Dose: 25 mg Documented by: Nitroglycerin (Nitroglycerin 0.4 Mg Tab (25 Tab Bottle)) 0.4 mg SL Q5MIN PRN PRN Reason: Chest Pain Last Admin: 04/15/20 16:19 Dose: 0.4 mg Documented by: Ondansetron HCl (Ondansetron Odt 4 Mg Tab) 4 mg PO Q6H PRN PRN Reason: Nausea/Vomiting Ondansetron HCl (Ondansetron Pf 4 Mg/2 Ml Vial) 4 mg IVP Q6H PRN PRN Reason: Nausea/Vomiting Last Admin: 04/14/20 01:17 Dose: 4 mg Documented by: Pantoprazole Sodium (Pantoprazole 40 Mg Vial) 40 mg IVP Q12HR [facility] Last Admin: 04/16/20 09:35 Dose: 40 mg Documented by: Sertraline HCl (Sertraline Hcl 100 Mg Tab) 100 mg PO DAILY [facility] Last Admin: 04/16/20 09:31 Dose: 100 mg Documented by: Trazodone HCl (Trazodone Hcl 50 Mg Tab) 100 mg PO QPM [facility] Last Admin: 04/15/20 22:25 Dose: 100 mg Documented by: Vital Signs & Weight: Vital Signs Temp Pulse Resp BP Pulse Ox 04/16/20 12:25 85 16 97 04/16/20 07:50 97.3 F L 85 16 119/58 L 94 L 04/16/20 07:15 96 04/16/20 07:13 98 16 96 04/16/20 03:00 97.6 F 93 16 107/51 L 95 Admit Weight 284 lb 6.4 oz Weight 278 lb 7 oz I/O: I/O 04/15/20 04/16/20 04/17/20 06:59 06:59 06:59 Intake Total 912 1140 Output Total 1150 150 Balance -238 990 - Quality Measures Condition: Atrial Fibrillation/Flutter (hx or current) - Physical Exam General: alert & oriented x3, appears well, no apparent distress, speech clear, affect appropriate HEENT: mucus membranes moist, normocephaly Neck: supple neck, midline trachea, no JVD/HJR, no masses, no bruit, no lymphadenopathy, no thromegaly Cardiology: regular rate, PMI nondisplaced, irregularly irregular Lungs: no wheeze, rales, rhonchi, decreased breath sounds Neurology: cranial nerve 2-12 intact, grossly intact, no lateralizing findings Abdomen: active bowel sounds, no pulsations/bruits, ascites Extremities: dry, strong pulses, warm - Labs Result Diagrams: 04/16/20 08:51 04/16/20 08:51 - EKG Interpretation EKG Method: Telemetry EKG shows: Atrial fibrillation - Assessment/Plan Assessment/Plan: 1. Atrial fibrillation with RVR, diagnosed this admission. a. Rate controlled with diltiazem 60 QID and dig 125mcg daily 2. History of cirrhosis. 3. History of hepatitis C, previously treated. 4. COPD. 5. Type 2 diabetes. 6. Hypertension. 7. GERD. 8. Recent urinary tract infection, 2 weeks ago, preceding onset of symptoms, treated with antibiotics. 9. Tobacco habituation, quarter pack a day. 10. Esophageal varices. a. Dark emesis concerning for upper GI bleed 11. Preserved LVEF 60-65% 12. History of esophageal varices GI states she has no contraindication to OAC. Eliquis 5mg BID would be adequate. dilt gtt was stopped yesterday before PO meds were given and RVR was seen. Now she is adequately rate controlled on PO regimen of dilt 60mg QID and dig 125mcg daily. BP better controlled as well. No good antiarrhythmic options. Would continue rate control and could attempt OAC. I feel she is still high risk for bleeding, could consider future watchman implant. CV after 30 days on OAC. If symptomatic then consider OSBALDO/CV prior to DC.
[2020-04-16] MEDS: Furosemide 40 MG/4 ML VIAL SLOW IVP SCH (15:43)
--- NOTE | 2020-04-16 17:12 | PDOC.CPN ---
- Subjective Date: 04/16/20 Time: 17:11 Interval history: She is feeling a lot better. She has diuresed, There was no significant pool of ascitis to tap so diuresis is the only option for fluid control at this time. - Review of Systems General: denies: fever/chills, weight/appetite/sleep changes, night sweats, fatigue Respiratory: denies: cough, congestion, shortness of breath, exercise intolerance Cardiovascular: denies: chest pain, palpitation, edema, paroxysmal nocturnal dyspnea, orthopnea Gastrointestinal: denies: nausea, vomiting, diarrhea, constipation, abd pain, GI bleeding Musculoskeletal: denies: pain, tenderness, stiffness, swelling, arth ritis/arthralgias Neurological: denies: numbness, syncope, seizure, weakness - Objective Allergies/Adverse Reactions: Allergies Allergy/AdvReac Type Severity Reaction Status Date / Time Sulfa (Sulfonamide Allergy Unknown Verified 07/31/19 22:07 Antibiotics) Visit Medications: Current Medications Acetaminophen (Acetaminophen 325 Mg Tab) 650 mg PO Q4H PRN PRN Reason: Headache/Fever/Mild Pain (1-3) Hydrocodone Bitart/Acetaminophen (Hydrocodone/Acetaminophen 7.5/325 Mg Tablet) 1 tab PO TID [facility] Last Admin: 04/16/20 15:43 Dose: 1 tab Documented by: Albuterol/Ipratropium (Ipratropium/Albuterol Sulfate 3 Ml Neb) 3 ml NEB [id number] [facility] Last Admin: 04/16/20 12:25 Dose: 3 ml Documented by: Albuterol/Ipratropium (Ipratropium/Albuterol Sulfate 3 Ml Neb) 3 ml NEB Q4H PRN PRN Reason: SOB &/or Wheezing Last Admin: 04/13/20 04:57 Dose: 3 ml Documented by: Alogliptin Benzoate (Alogliptin 25 Mg Tab) 25 mg PO DAILY [facility] Last Admin: 04/16/20 09:45 Dose: 25 mg Documented by: Alprazolam (Alprazolam 0.5 Mg Tab) 0.25 mg PO BID [facility] Last Admin: 04/16/20 09:32 Dose: 0.25 mg Documented by: Apixaban (Apixaban 5 Mg Tab) 5 mg PO BID [facility] Aripiprazole (Aripiprazole 15 Mg Tab) 15 mg PO DAILY [facility] Last Admin: 04/16/20 09:31 Dose: 15 mg Documented by: Buspirone HCl (Buspirone Hcl 10 Mg Tab) 10 mg PO BID [facility] Last Admin: 04/16/20 09:31 Dose: 10 mg Documented by: Calcium Carbonate (Calcium Carbonate 500 Mg Chewtab) 1,000 mg PO Q4H PRN PRN Reason: Heartburn or Indigestion Last Admin: 04/14/20 20:05 Dose: 1,000 mg Documented by: Dextrose/Water (Dextrose 50% Abboject 50 Ml Syringe) 25 gm SLOW IVP PRN PRN PRN Reason: Hypoglycemia Digoxin (Digoxin 0.125 Mg Tab) 0.125 mg PO DAILY [facility] Last Admin: 04/16/20 09:30 Dose: 0.125 mg Documented by: Diltiazem HCl (Diltiazem Hcl 30 Mg Tablet) 60 mg PO QID [facility] Last Admin: 04/16/20 15:43 Dose: 60 mg Documented by: Furosemide (Furosemide 40 Mg/4 Ml Vial) 40 mg SLOW IVP 0600,1400 [facility] Last Admin: 04/16/20 15:43 Dose: 40 mg Documented by: Gabapentin (Gabapentin 300 Mg Cap) 600 mg PO TID [facility] Last Admin: 04/16/20 15:43 Dose: 600 mg Documented by: Glipizide (Glipizide 5 Mg Tab) 5 mg PO BID [facility] Last Admin: 04/16/20 09:30 Dose: 5 mg Documented by: Glucagon (Glucagon 1 Mg/Ml Vial) 1 mg IM PRN PRN PRN Reason: Hypoglycemia Hydralazine HCl (Hydralazine 20 Mg/Ml Vial) 10 mg SLOW IVP Q4H PRN PRN Reason: SBP Greater Than 180 Hydroxyzine HCl (Hydroxyzine 25 Mg Tab) 25 mg PO Q6H PRN PRN Reason: Anxiety Last Admin: 04/13/20 05:13 Dose: 25 mg Documented by: Dextrose/Water (D5w) 1,000 mls @ 0 mls/hr IV .Q0M PRN PRN Reason: Hypoglycemia Insulin Glargine 20 units/ (Miscellaneous Medication) 0.2 mls @ 0 mls/hr SC [facility] Last Admin: 04/15/20 22:26 Dose: Not Given Documented by: Insulin Glargine 40 units/ (Miscellaneous Medication) 0.4 mls @ 0 mls/hr SC QAM [facility] Last Admin: 04/16/20 09:30 Dose: Not Given Documented by: Promethazine HCl 12.5 mg/ (Sodium Chloride) 50.5 mls @ 202 mls/hr IVPB Q6H PRN PRN Reason: Nausea/Vomiting Last Admin: 04/15/20 09:16 Dose: 50.5 mls Documented by: Ceftriaxone Sodium 1 gm/ (Sodium Chloride) 100 mls @ 200 mls/hr IVPB 0900 [facility] Last Admin: 04/16/20 09:34 Dose: 100 mls Documented by: Insulin Human Lispro (Humalog 300 Units/3 Ml Vial) 0 units SC .BEDTIME SLIDING SC PRN PRN Reason: Bedtime Correctional Scale Insulin Human Lispro (Humalog 300 Units/3 Ml Vial) 0 units SC .MODERATE SLIDING SC PRN PRN Reason: Moderate Correctional Scale Last Admin: 04/14/20 12:35 Dose: 2 unit Documented by: Losartan Potassium (Losartan 25 Mg Tab) 25 mg PO DAILY [facility] Last Admin: 04/16/20 09:34 Dose: 25 mg Documented by: Nitroglycerin (Nitroglycerin 0.4 Mg Tab (25 Tab Bottle)) 0.4 mg SL Q5MIN PRN PRN Reason: Chest Pain Last Admin: 04/15/20 16:19 Dose: 0.4 mg Documented by: Ondansetron HCl (Ondansetron Odt 4 Mg Tab) 4 mg PO Q6H PRN PRN Reason: Nausea/Vomiting Ondansetron HCl (Ondansetron Pf 4 Mg/2 Ml Vial) 4 mg IVP Q6H PRN PRN Reason: Nausea/Vomiting Last Admin: 04/14/20 01:17 Dose: 4 mg Documented by: Pantoprazole Sodium (Pantoprazole 40 Mg Vial) 40 mg IVP Q12HR [facility] Last Admin: 04/16/20 09:35 Dose: 40 mg Documented by: Sertraline HCl (Sertraline Hcl 100 Mg Tab) 100 mg PO DAILY [facility] Last Admin: 04/16/20 09:31 Dose: 100 mg Documented by: Trazodone HCl (Trazodone Hcl 50 Mg Tab) 100 mg PO QPM [facility] Last Admin: 04/15/20 22:25 Dose: 100 mg Documented by: Vital Signs & Weight: Vital Signs Temp Pulse Resp BP Pulse Ox 04/16/20 15:55 98.1 F 75 18 118/57 L 96 04/16/20 12:40 97.4 F L 81 18 133/60 97 04/16/20 12:25 85 16 97 04/16/20 07:50 97.3 F L 85 16 119/58 L 94 L 04/16/20 07:15 96 04/16/20 07:13 98 16 96 Admit Weight 284 lb 6.4 oz Weight 278 lb 7 oz - Medication Contraindications No Anticoagulant reason: Anticoagulant not tolerated - Physical Exam General: alert & oriented x3 HEENT: mucus membranes moist Neck: supple neck Cardiac: regular rate and rhythm, other (2-1 flutter.) Lungs: clear to auscultation Neuro: grossly intact Abdomen: non-tender, distended, other Extremities: 1+ LE edema Skin: clear Musculoskeletal: no pain - Labs Result Diagrams: 04/16/20 08:51 04/16/20 08:51 Troponin/CKMB Troponin I 0.025 ng/mL (< 0.028) 04/15/20 15:57 - Telemetry Supraventricular conduction: atrial flutter - Assessment/Plan Assessment/Plan: 1. Paroxysmal afib/flutter. 2. Volume overload. 3. Diastolic heart failure. 4. Cirrhosis of the liver, appears compensated by lab values 5. Hx of Esophageal varices, none seen on EGD in late 2019. PLAN: - Continue rate control. - High risk for bleeding and would agree she would benefit from watchman device. - May need Cardioversion in the near future if she can tolerate Anticoagulation. - Agree with Eliquis 5 mg BID for stroke prophlyaxis. - Switch lasix to PO daily dosage. - Home soon.
[2020-04-16] MEDS: HumaLOG 300 UNITS/3 ML VIAL SC PRN (17:39)
[2020-04-16] MEDS: Apixaban 5 MG TAB PO SCH (21:00)
[2020-04-16] MEDS: Insulin Glargine 20 UNITS in Pre-Filled Syringe 1 EACH SC SCH (21:00)
[2020-04-16] MEDS: traZODone HCl 50 MG TAB PO SCH (21:07)
[2020-04-16] MEDS: Promethazine HCl 12.5 MG in Sodium Chloride 0.9% 50 ML IVPB PRN (21:40)
[2020-04-17 05:17] LABS: Hemoglobin 8.8 g/dL (12.0-16.0); Platelet Count 77 thou/uL (130-400)
--- NOTE | 2020-04-17 05:34 | PDOC.FM ---
- Subjective Subjective: Patient denies any episodes of dark emesis or melena overnight, but nurse reported a black stool early this morning. Patient did not urinate overnight. She reports feeling the urge to go, but says that she is unable to go. Nurse performed in and out cath with 500 mls of urine. Her abdomen remains tender, but improved. She converted to SR around 0118. - Objective MAR Reviewed: Yes Vital Signs & Weight: Vital Signs (12 hours) Temp Pulse Resp BP Pulse Ox 04/17/20 03:58 97.7 F 63 18 102/55 L 95 04/17/20 00:53 96 04/16/20 23:57 97.5 F L 74 102/55 L 04/16/20 19:25 96.2 F L 80 22 H 106/51 L 98 04/16/20 18:50 96 Weight Admit Weight 129.002 kg Weight 126.297 kg I&O: 04/15/20 04/16/20 04/17/20 06:59 06:59 06:59 Intake Total 912 1140 Output Total 1150 150 Balance -238 990 Result Diagrams: 04/17/20 04:21 04/17/20 04:21 EKG Reviewed by me: Yes (converted to SR @ 0118) Phys Exam - Physical Examination Constitutional: NAD HEENT: moist MMs NC in place Neck: supple, full ROM Respiratory: no wheezing, clear to auscultation bilateral Cardiovascular: RRR Gastrointestinal: soft diffusley tender to palpation 1+ edema Neurological: moves all 4 limbs Psychiatric: normal affect Skin: no rash Dx/Plan - Plan Plan: Acute hypoxic respiratory failure 2/2 likely new onset CHF w/exacerbation vs. cirrhosis - CXR: cardiomegaly, b/l pulm vascular enlargement, BNP 1000 - dependent pitting edema - O2: 2 L NC - ECHO: EF 60-65%, Grade 1/3 diastolic dysfunction - Cardiology ordered IV lasix yesterday and switched to PO today Afib/flutter with RVR - cardiology, Dr. Moreno consulted on 04/13 - started on dilt drip, on PO lasix - consulted EP - EP, Dr. Edward - dilt drip stopped, PO dilt - started on dig - started on Eliquis, but held this am due to concern for bleed Typical Chest Pain, resolved - EKG: inverted T waves - Trop: 0.025 - likely 2/2 to hypoxia as patient's NC was removed - resolved with replacement of NC N/V with dark emesis, melena - concern for GI bleed; Hgb 11.3 > 10 > 10.3 > 8.8 - GI consulted, eliquis held - BID protonix, rocephin started for SBP ppx - zofran and phenergan prn Cirrhosis 2/2 Hep C - treated -GI, Dr. Gaspar - consulted on 04/14, will see patient, appreciate recs - no fluid seen for paracentesis - resume spironolactone and furosemide once Cr improves -has had 1 paracentesis in the past -on physical exam, abdomen very distended and uncomfortable, may resolve with diuresis Hypertensive urgency, improved - SBP 200 in ED, given hydralazine and nitro paste - Restart home losartan, hydralazine prn JOANNE vs CKD -Cr 1.25 > 1.68 > 2.10 > 2.93; concern for hepatorenal vs. cardiorenal -will likely consult nephro today -continue to monitor Urinary Retention - 500 mls with straight cath - will continue to monitor, could be 2/2 to medication Contraction Alkalosis, resolved COPD -s/p Azithromycin and ceftriaxone in ED, will not continue as pt is not in acute exacerbation -pt was on duoneb treatments at [facility], will continue Chronic thrombocytopenia - At baseline, 2/2 liver disease Hypervolemic hyponatremia, resolved - Na 130 > 137 - Expect improvement with diuresis Elevated d-dimer - 2.24 with negative CTA DM -continue home meds -accuchecks ACHS, mild SSI Dispo: will hold Eliquis at this time, will discuss further medical management with specialists.
[2020-04-17] MEDS: HumaLOG 300 UNITS/3 ML VIAL SC PRN ×2 (06:20→17:58)
[2020-04-17] MEDS ORDERED: Furosemide 40 MG TAB PO SCH (07:30)
[2020-04-17] MEDS ORDERED: Enoxaparin Sodium 40 MG/0.4 ML SYRINGE SC SCH (09:00)
[2020-04-17] MEDS: cefTRIAXone\\ROCEPHIN 1 GM in Sodium Chloride 0.9% 100 ML IVPB SCH (09:26)
[2020-04-17] MEDS: Pantoprazole 40 MG VIAL IVP SCH ×2 (09:27→22:31)
[2020-04-17] MEDS: HYDROcodone/Acetaminophen 7.5/325 mg Tablet PO SCH ×3 (09:27→22:25)
[2020-04-17] MEDS: Insulin Glargine 40 UNITS in Pre-Filled Syringe 1 EACH SC SCH (09:27)
[2020-04-17] MEDS: ALPRAZolam 0.5 MG TAB PO SCH ×2 (09:28→22:24)
[2020-04-17] MEDS: Gabapentin 300 MG CAP PO SCH ×3 (09:28→22:22)
[2020-04-17] MEDS: Losartan 25 MG TAB PO SCH (09:29)
[2020-04-17] MEDS: glipiZIDE 5 MG TAB PO SCH ×2 (09:29→22:25)
[2020-04-17] MEDS: Digoxin 0.125 MG TAB PO SCH (09:30)
[2020-04-17] MEDS: Apixaban 5 MG TAB PO SCH (10:23)
[2020-04-17] MEDS: Alogliptin 25 MG TAB PO SCH (10:23)
[2020-04-17] MEDS: Aripiprazole 15 MG TAB PO SCH (11:25)
[2020-04-17] MEDS: Promethazine HCl 12.5 MG in Sodium Chloride 0.9% 50 ML IVPB PRN (11:25)
[2020-04-17] MEDS: busPIRone HCl 10 MG TAB PO SCH ×2 (11:26→22:25)
[2020-04-17 12:11] LABS: Hep C PCR-Quant HCV Not Detected IU/mL (.)
--- NOTE | 2020-04-17 13:15 | EKG ---
Test Reason : C/O CHEST PAIN Blood Pressure : / mmHG Vent. Rate : 106 BPM Atrial Rate : 106 BPM P-R Int : 216 ms QRS Dur : 086 ms QT Int : 302 ms P-R-T Axes : 075 -20 122 degrees QTc Int : 401 ms Sinus tachycardia with 1st degree A-V block Abnormal ECG When compared with ECG of 12-APR-2020 23:23, (Unconfirmed) Premature supraventricular complexes are no longer Present CO interval has increased T wave inversion now evident in Lateral leads Confirmed by DR. Lori GOODRICH ([id number]) on 04/17/2020 1:14:55 PM Referred By: MIHIR Confirmed By:DR. Lori GOODRICH
--- NOTE | 2020-04-17 15:45 | PDOC.EP ---
- Subjective Date: 04/17/20 Time: 08:00 Interval History: Dark tarry stool this AM. Corrine galeano. - Review of Systems Constitutional: denies: chills, fever, malaise, sweats, weakness, other Respiratory: reports: shortness of breath. denies: cough, dry, hemoptysis, pleuritic pain, SOB with excertion, sputum, wheezing, other Cardiology: denies: chest pain, edema, heart racing, light headedness, paroxysmal noc. dyspnea, orthopnea, palpitations, passing out, pleuritic pain, pressure, swelling, other Gastrointestinal: reports: abdominal pain, melena. denies: constipation, diarrh ea, hematochezia, nausea, vomitting, other - Objective Allergies/Adverse Reactions: Allergies Allergy/AdvReac Type Severity Reaction Status Date / Time Sulfa (Sulfonamide Allergy Unknown Verified 07/31/19 22:07 Antibiotics) Current Medications Acetaminophen (Acetaminophen 325 Mg Tab) 650 mg PO Q4H PRN PRN Reason: Headache/Fever/Mild Pain (1-3) Hydrocodone Bitart/Acetaminophen (Hydrocodone/Acetaminophen 7.5/325 Mg Tablet) 1 tab PO TID [facility] Last Admin: 04/17/20 15:10 Dose: 1 tab Documented by: Albuterol/Ipratropium (Ipratropium/Albuterol Sulfate 3 Ml Neb) 3 ml NEB [id number] [facility] Last Admin: 04/17/20 13:48 Dose: 3 ml Documented by: Albuterol/Ipratropium (Ipratropium/Albuterol Sulfate 3 Ml Neb) 3 ml NEB Q4H PRN PRN Reason: SOB &/or Wheezing Last Admin: 04/13/20 04:57 Dose: 3 ml Documented by: Alogliptin Benzoate (Alogliptin 25 Mg Tab) 25 mg PO DAILY [facility] Last Admin: 04/17/20 10:23 Dose: Not Given Documented by: Alprazolam (Alprazolam 0.5 Mg Tab) 0.25 mg PO BID [facility] Last Admin: 04/17/20 09:28 Dose: 0.25 mg Documented by: Apixaban (Apixaban 5 Mg Tab) 5 mg PO BID [facility] Last Admin: 04/17/20 10:23 Dose: Not Given Documented by: Aripiprazole (Aripiprazole 15 Mg Tab) 15 mg PO DAILY [facility] Last Admin: 04/17/20 11:25 Dose: 15 mg Documented by: Buspirone HCl (Buspirone Hcl 10 Mg Tab) 10 mg PO BID [facility] Last Admin: 04/17/20 11:26 Dose: 10 mg Documented by: Calcium Carbonate (Calcium Carbonate 500 Mg Chewtab) 1,000 mg PO Q4H PRN PRN Reason: Heartburn or Indigestion Last Admin: 04/14/20 20:05 Dose: 1,000 mg Documented by: Dextrose/Water (Dextrose 50% Abboject 50 Ml Syringe) 25 gm SLOW IVP PRN PRN PRN Reason: Hypoglycemia Digoxin (Digoxin 0.125 Mg Tab) 0.125 mg PO DAILY [facility] Last Admin: 04/17/20 09:30 Dose: 0.125 mg Documented by: Diltiazem HCl (Diltiazem Hcl 30 Mg Tablet) 60 mg PO QID [facility] Last Admin: 04/17/20 15:09 Dose: 60 mg Documented by: Furosemide (Furosemide 40 Mg Tab) 40 mg PO DAILY[facility] Last Admin: 04/17/20 09:30 Dose: 40 mg Documented by: Gabapentin (Gabapentin 300 Mg Cap) 600 mg PO TID [facility] Last Admin: 04/17/20 15:10 Dose: 600 mg Documented by: Glipizide (Glipizide 5 Mg Tab) 5 mg PO BID [facility] Last Admin: 04/17/20 09:29 Dose: 5 mg Documented by: Glucagon (Glucagon 1 Mg/Ml Vial) 1 mg IM PRN PRN PRN Reason: Hypoglycemia Hydralazine HCl (Hydralazine 20 Mg/Ml Vial) 10 mg SLOW IVP Q4H PRN PRN Reason: SBP Greater Than 180 Hydroxyzine HCl (Hydroxyzine 25 Mg Tab) 25 mg PO Q6H PRN PRN Reason: Anxiety Last Admin: 04/13/20 05:13 Dose: 25 mg Documented by: Dextrose/Water (D5w) 1,000 mls @ 0 mls/hr IV .Q0M PRN PRN Reason: Hypoglycemia Insulin Glargine 20 units/ (Miscellaneous Medication) 0.2 mls @ 0 mls/hr SC [facility] Last Admin: 04/16/20 21:00 Dose: 0.2 mls Documented by: Insulin Glargine 40 units/ (Miscellaneous Medication) 0.4 mls @ 0 mls/hr SC QAM [facility] Last Admin: 04/17/20 09:27 Dose: 0.4 mls Documented by: Promethazine HCl 12.5 mg/ (Sodium Chloride) 50.5 mls @ 202 mls/hr IVPB Q6H PRN PRN Reason: Nausea/Vomiting Last Admin: 04/17/20 11:25 Dose: 50.5 mls Documented by: Ceftriaxone Sodium 1 gm/ (Sodium Chloride) 100 mls @ 200 mls/hr IVPB 0900 [facility] Last Admin: 04/17/20 09:26 Dose: 100 mls Documented by: Insulin Human Lispro (Humalog 300 Units/3 Ml Vial) 0 units SC .BEDTIME SLIDING SC PRN PRN Reason: Bedtime Correctional Scale Insulin Human Lispro (Humalog 300 Units/3 Ml Vial) 0 units SC .MODERATE SLIDING SC PRN PRN Reason: Moderate Correctional Scale Last Admin: 04/17/20 06:20 Dose: 2 unit Documented by: Losartan Potassium (Losartan 25 Mg Tab) 25 mg PO DAILY [facility] Last Admin: 04/17/20 09:29 Dose: 25 mg Documented by: Nitroglycerin (Nitroglycerin 0.4 Mg Tab (25 Tab Bottle)) 0.4 mg SL Q5MIN PRN PRN Reason: Chest Pain Last Admin: 04/15/20 16:19 Dose: 0.4 mg Documented by: Ondansetron HCl (Ondansetron Odt 4 Mg Tab) 4 mg PO Q6H PRN PRN Reason: Nausea/Vomiting Ondansetron HCl (Ondansetron Pf 4 Mg/2 Ml Vial) 4 mg IVP Q6H PRN PRN Reason: Nausea/Vomiting Last Admin: 04/14/20 01:17 Dose: 4 mg Documented by: Pantoprazole Sodium (Pantoprazole 40 Mg Vial) 40 mg IVP Q12HR [facility] Last Admin: 04/17/20 09:27 Dose: 40 mg Documented by: Sertraline HCl (Sertraline Hcl 100 Mg Tab) 100 mg PO DAILY [facility] Last Admin: 04/17/20 09:28 Dose: 100 mg Documented by: Trazodone HCl (Trazodone Hcl 50 Mg Tab) 100 mg PO QPM [facility] Last Admin: 04/16/20 21:07 Dose: 100 mg Documented by: Vital Signs & Weight: Vital Signs Temp Pulse Resp BP Pulse Ox 04/17/20 15:00 97.1 F L 63 18 112/53 L 93 L 04/17/20 13:48 64 16 99 04/17/20 12:00 97.4 F L 18 L 18 118/76 98 04/17/20 09:30 63 04/17/20 07:43 63 18 100 04/17/20 07:30 97.5 F L 68 16 118/56 L 92 L 04/17/20 03:58 97.7 F 63 18 102/55 L 95 Admit Weight 284 lb 6.4 oz Weight 285 lb 11.2 oz I/O: I/O 04/16/20 04/17/20 04/18/20 06:59 06:59 06:59 Intake Total 1140 240 Output Total 150 600 Balance 990 240 -600 - Quality Measures Condition: Atrial Fibrillation/Flutter (hx or current) - Medication Contraindications No Anticoagulant reason: Anticoagulant not tolerated - Physical Exam General: alert & oriented x3, appears well, no apparent distress, speech clear, affect appropriate HEENT: mucus membranes moist, normocephaly Neck: supple neck, midline trachea, no JVD/HJR, no masses, no bruit, no lymphadenopathy, no thromegaly Cardiology: regular rate, irregularly irregular Lungs: clear to auscultation, normal breath sounds, no wheeze, rales, rhonchi Neurology: cranial nerve 2-12 intact, grossly intact, no lateralizing findings Abdomen: unremarkable, active bowel sounds, no pulsations/bruits - Labs Result Diagrams: 04/17/20 04:21 04/17/20 04:21 - EKG Interpretation EKG Method: Telemetry EKG shows: Atrial fibrillation - Assessment/Plan Assessment/Plan: 1. Atrial fibrillation with RVR, diagnosed this admission. a. Rate controlled with diltiazem 60 QID and dig 125mcg daily 2. History of cirrhosis. 3. History of hepatitis C, previously treated. 4. COPD. 5. Type 2 diabetes. 6. Hypertension. 7. GERD. 8. Recent urinary tract infection, 2 weeks ago, preceding onset of symptoms, treated with antibiotics. 9. Tobacco habituation, quarter pack a day. 10. Esophageal varices. a. Dark emesis concerning for upper GI bleed b. melena stool 2/4, with Hgb drop 11. Preserved LVEF 60-65% 12. History of esophageal varices Rate control is adequate. Had dark stool this AM concerning for melena wth Hgb decrease from 10 --> 8.8. Unsure if guiac was tested. OAC now on hold. Continue rate control for AF. If short term OAC of 2-3 months would be possible we could discuss OP watchman implant, but this does require short term OAC.
--- NOTE | 2020-04-17 16:56 | PDOC.CPN ---
- Subjective Date: 04/17/20 Time: 16:56 Interval history: No new issues. A little more somnolent today. had black tarry stools today and hgb dropped so ELiquis has been held. - Review of Systems ROS unobtainable: due to mental status - Objective Allergies/Adverse Reactions: Allergies Allergy/AdvReac Type Severity Reaction Status Date / Time Sulfa (Sulfonamide Allergy Unknown Verified 07/31/19 22:07 Antibiotics) Visit Medications: Current Medications Acetaminophen (Acetaminophen 325 Mg Tab) 650 mg PO Q4H PRN PRN Reason: Headache/Fever/Mild Pain (1-3) Hydrocodone Bitart/Acetaminophen (Hydrocodone/Acetaminophen 7.5/325 Mg Tablet) 1 tab PO TID [facility] Last Admin: 04/17/20 15:10 Dose: 1 tab Documented by: Albuterol/Ipratropium (Ipratropium/Albuterol Sulfate 3 Ml Neb) 3 ml NEB [id number] [facility] Last Admin: 04/17/20 13:48 Dose: 3 ml Documented by: Albuterol/Ipratropium (Ipratropium/Albuterol Sulfate 3 Ml Neb) 3 ml NEB Q4H PRN PRN Reason: SOB &/or Wheezing Last Admin: 04/13/20 04:57 Dose: 3 ml Documented by: Alogliptin Benzoate (Alogliptin 25 Mg Tab) 25 mg PO DAILY [facility] Last Admin: 04/17/20 10:23 Dose: Not Given Documented by: Alprazolam (Alprazolam 0.5 Mg Tab) 0.25 mg PO BID [facility] Last Admin: 04/17/20 09:28 Dose: 0.25 mg Documented by: Aripiprazole (Aripiprazole 15 Mg Tab) 15 mg PO DAILY [facility] Last Admin: 04/17/20 11:25 Dose: 15 mg Documented by: Buspirone HCl (Buspirone Hcl 10 Mg Tab) 10 mg PO BID [facility] Last Admin: 04/17/20 11:26 Dose: 10 mg Documented by: Calcium Carbonate (Calcium Carbonate 500 Mg Chewtab) 1,000 mg PO Q4H PRN PRN Reason: Heartburn or Indigestion Last Admin: 04/14/20 20:05 Dose: 1,000 mg Documented by: Dextrose/Water (Dextrose 50% Abboject 50 Ml Syringe) 25 gm SLOW IVP PRN PRN PRN Reason: Hypoglycemia Digoxin (Digoxin 0.125 Mg Tab) 0.125 mg PO DAILY [facility] Last Admin: 04/17/20 09:30 Dose: 0.125 mg Documented by: Diltiazem HCl (Diltiazem Hcl 30 Mg Tablet) 60 mg PO QID [facility] Last Admin: 04/17/20 15:09 Dose: 60 mg Documented by: Furosemide (Furosemide 40 Mg Tab) 40 mg PO DAILY-AC [facility] Last Admin: 04/17/20 09:30 Dose: 40 mg Documented by: Gabapentin (Gabapentin 300 Mg Cap) 600 mg PO TID [facility] Last Admin: 04/17/20 15:10 Dose: 600 mg Documented by: Glipizide (Glipizide 5 Mg Tab) 5 mg PO BID [facility] Last Admin: 04/17/20 09:29 Dose: 5 mg Documented by: Glucagon (Glucagon 1 Mg/Ml Vial) 1 mg IM PRN PRN PRN Reason: Hypoglycemia Hydralazine HCl (Hydralazine 20 Mg/Ml Vial) 10 mg SLOW IVP Q4H PRN PRN Reason: SBP Greater Than 180 Hydroxyzine HCl (Hydroxyzine 25 Mg Tab) 25 mg PO Q6H PRN PRN Reason: Anxiety Last Admin: 04/13/20 05:13 Dose: 25 mg Documented by: Dextrose/Water (D5w) 1,000 mls @ 0 mls/hr IV .Q0M PRN PRN Reason: Hypoglycemia Insulin Glargine 20 units/ (Miscellaneous Medication) 0.2 mls @ 0 mls/hr SC HS [facility] Last Admin: 04/16/20 21:00 Dose: 0.2 mls Documented by: Insulin Glargine 40 units/ (Miscellaneous Medication) 0.4 mls @ 0 mls/hr SC QAM [facility] Last Admin: 04/17/20 09:27 Dose: 0.4 mls Documented by: Promethazine HCl 12.5 mg/ (Sodium Chloride) 50.5 mls @ 202 mls/hr IVPB Q6H PRN PRN Reason: Nausea/Vomiting Last Admin: 04/17/20 11:25 Dose: 50.5 mls Documented by: Ceftriaxone Sodium 1 gm/ (Sodium Chloride) 100 mls @ 200 mls/hr IVPB 0900 [facility] Last Admin: 04/17/20 09:26 Dose: 100 mls Documented by: Insulin Human Lispro (Humalog 300 Units/3 Ml Vial) 0 units SC .BEDTIME SLIDING SC PRN PRN Reason: Bedtime Correctional Scale Insulin Human Lispro (Humalog 300 Units/3 Ml Vial) 0 units SC .MODERATE SLIDING SC PRN PRN Reason: Moderate Correctional Scale Last Admin: 04/17/20 06:20 Dose: 2 unit Documented by: Losartan Potassium (Losartan 25 Mg Tab) 25 mg PO DAILY [facility] Last Admin: 04/17/20 09:29 Dose: 25 mg Documented by: Nitroglycerin (Nitroglycerin 0.4 Mg Tab (25 Tab Bottle)) 0.4 mg SL Q5MIN PRN PRN Reason: Chest Pain Last Admin: 04/15/20 16:19 Dose: 0.4 mg Documented by: Ondansetron HCl (Ondansetron Odt 4 Mg Tab) 4 mg PO Q6H PRN PRN Reason: Nausea/Vomiting Ondansetron HCl (Ondansetron Pf 4 Mg/2 Ml Vial) 4 mg IVP Q6H PRN PRN Reason: Nausea/Vomiting Last Admin: 04/14/20 01:17 Dose: 4 mg Documented by: Pantoprazole Sodium (Pantoprazole 40 Mg Vial) 40 mg IVP Q12HR [facility] Last Admin: 04/17/20 09:27 Dose: 40 mg Documented by: Sertraline HCl (Sertraline Hcl 100 Mg Tab) 100 mg PO DAILY [facility] Last Admin: 04/17/20 09:28 Dose: 100 mg Documented by: Trazodone HCl (Trazodone Hcl 50 Mg Tab) 100 mg PO QPM [facility] Last Admin: 04/16/20 21:07 Dose: 100 mg Documented by: Vital Signs & Weight: Vital Signs Temp Pulse Resp BP Pulse Ox 04/17/20 15:00 97.1 F L 63 18 112/53 L 93 L 04/17/20 13:48 64 16 99 04/17/20 12:00 97.4 F L 78 18 118/76 98 04/17/20 09:30 63 04/17/20 07:43 63 18 100 04/17/20 07:30 97.5 F L 68 16 118/56 L 92 L Admit Weight 284 lb 6.4 oz Weight 285 lb 11.2 oz - Medication Contraindications No Anticoagulant reason: Anticoagulant not tolerated - Physical Exam General: no apparent distress HEENT: normocephaly Neck: supple neck Cardiac: regular rate and rhythm Lungs: clear to auscultation Neuro: no lateralizing findings Abdomen: active bowel sounds Extremities: 1+ LE edema Skin: clear Musculoskeletal: normal range of motion - Labs Result Diagrams: 04/17/20 04:21 04/17/20 04:21 Troponin/CKMB Troponin I 0.025 ng/mL (< 0.028) 04/15/20 15:57 - Telemetry Sinus rhythms and dysrhythmias: sinus rhythm - Assessment/Plan Assessment/Plan: 1. Paroxysmal afib/flutter. 2. Volume overload. 3. Diastolic heart failure. 4. Cirrhosis of the liver, appears compensated by lab values 5. Hx of Esophageal varices, none seen on EGD in late 2019. 6. JOANNE on CKD. PLAN: - Seems to be in sinus this morning HR in the 80's. - Likely GI bleeding from varices. GI following. - Would be high risk for any anticoagulation. Hold Eliquis indefinitely for now. - Continue other meds. - Hold any further diuresis at this time due to worsening renal failure.
--- NOTE | 2020-04-17 21:17 | PRG ---
DATE OF SERVICE: 04/17/2020 SUBJECTIVE: The patient had a black bowel movement yesterday and also dropped her hemoglobin from 10.3 to 8.8, platelet dropped too from 99 to 77. She has had no nausea or vomiting. No real abdominal pain. OBJECTIVE: VITAL SIGNS: Temperature 97.1, pulse 63, respiratory rate 18, and blood pressure 112/53. CHEST: Clear. CARDIOVASCULAR: Regular rate and rhythm. ABDOMEN: Protuberant, obese, soft, nontender. LABORATORY DATA: As mentioned in above note. ASSESSMENT: 1. Melena with drop in hemoglobin and hematocrit. 2. Diastolic heart failure with evidence of right-sided heart failure. 3. Atrial fibrillation. 4. History of hepatitis C. RECOMMENDATIONS: 1. EGD in a.m. 2. Recheck H and H in a.m. Job ID: [id number]
[2020-04-17] MEDS: Furosemide 20 MG TAB PO SCH (22:24)
[2020-04-17] MEDS: traZODone HCl 50 MG TAB PO SCH (22:25)
[2020-04-17] MEDS: Insulin Glargine 20 UNITS in Pre-Filled Syringe 1 EACH SC SCH (22:26)
--- NOTE | 2020-04-18 02:25 | CON ---
DATE OF CONSULTATION: REASON FOR CONSULTATION: Acute on chronic kidney disease. IMPRESSION: 1. Acute on chronic kidney disease. This is likely hemodynamically mediated in the context of improved blood pressure with attendant reduced renal perfusion. 2. Chronic kidney disease, partly cardiorenal. 3. End-stage liver disease may have a contributing factor to potential hepatorenal, but I do believe that acute kidney injury is mainly hemodynamically mediated. 4. Chronic obstructive pulmonary disease. 5. Morbid obesity. PLAN: 1. 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 2. Lasix changed to 20 mg p.o. b.i.d. to maintain consistent smooth diuresis. 3. Renally dosed all medications and avoid potentially nephrotoxic agents. 4. Further management will be dependent on the clinical course. HISTORY OF PRESENT ILLNESS: History is that of a 64, morbidly obese patient, who presented here with apparent atrial flutter with symptoms of heart failure. According to record, the patient was taken off some antihypertensive medications and on presentation noted to be hypertensive. The patient was started on diuretics with diuretic response. However, over the past couple of days, the patient's blood pressure has improved, dropping up to 70 points and this drop in blood pressure relates with the rise in the creatinine of this patient, which I do believe is a strong indication of this rise in creatinine being a reflection of reduced renal perfusion in a patient that is used to hire a mean arterial pressure for renal perfusion. As a result of the rise of creatinine of up to 2.9, decision has been taken to involve Renal in the management of this case. PAST MEDICAL HISTORY: Significant for cirrhosis, likely in the context of hepatitis C; COPD; type 2 diabetes; hypertension; reflux disease. MEDICATIONS: Reviewed as documented on [employer]. FAMILY HISTORY: Not significantly related to present illness. SOCIAL HISTORY: Significant for tobacco use, which she has been doing for long time. No alcohol. No illicit drug use. REVIEW OF SYSTEMS: As documented in the body of the history. All the other systems were reviewed and found not to be significantly related to the presenting illness. ALLERGIES: TO SULFA DRUGS. PHYSICAL EXAMINATION: GENERAL: The patient was found not to be in any obvious distress. VITAL SIGNS: Noted with the following vital signs; afebrile, temperature 97.1, pulse 63, respiratory rate of 18, O2 saturation 93%, blood pressure 102/53. HEENT: Unremarkable. CARDIOVASCULAR: First and second heart sounds were heard. RESPIRATORY SYSTEM: Clear to auscultation anteriorly. DIGESTIVE SYSTEM: Revealed an obese abdomen. EXTREMITIES: Showed 2+ bilateral lower extremity edema. SKIN: No new gross rash. LYMPHATICS: No peripheral lymphadenopathy. LABORATORY DATA: Laboratory investigation showed a hemoglobin of 8.8, creatinine of 2.93 with BUN of 58. In summary, a 64-year-old female patient who is experiencing acute on chronic kidney disease, likely hemodynamically mediated. Thank you for this consultation. We will follow with you. Job ID: [id number]
[2020-04-18 04:36] LABS: #Eosinphils 0.1 thou/uL (0.0-0.7); #Lymphocytes 0.5 thou/uL (1.20-3.40); #Monocytes 0.5 thou/uL (0.11-0.59); #Neutrophils 4.8 thou/uL (1.40-6.50); %Basophils 0.5 % (0.0-1.0); %Eosinophils 1.5 % (0.0-10.0); %Lymphocytes 7.8 % (21.0-51.0); %Monocytes 8.1 % (0.0-10.0); %Neutrophils 82.1 % (42.0-75.0); Hemoglobin 8.5 g/dL (12.0-16.0); Mean Corpuscular HGB CONC 32.6 g/dL (32.0-36.0); Mean Platelet Volume 8.7 fL (7.4-10.4); Platelet Count 71 thou/uL (130-400); RBC Distribution Width 15.4 % (11.5-14.5); Red Blood Cell (RBC) Count 2.84 mill/uL (4.20-5.40); White Blood Cell (WBC) Count 5.9 thou/uL (4.8-10.8)
[2020-04-18 04:54] LABS: Anion Gap 15 mmol/L (10-20); BUN (Urea Nitrogen) 78 mg/dL (9.8-20.1); Calc. Creatinine Clearance 28 mL/min (70-130); Calcium 8.7 mg/dL (7.8-10.44); Carbon Dioxide 32 mmol/L (23-31); Chloride 94 mmol/L (98-107); Glucose 164 mg/dL (80-115); Potassium 4.9 mmol/L (3.5-5.1); Sodium 136 mmol/L (136-145)
--- NOTE | 2020-04-18 06:48 | PDOC.FM ---
- Subjective Subjective: Patient NPO and heading to EGD this morning. Patient required straight cath yesterday, but has since been urinating without difficulty. No episodes of emesis or melena. Denies pain. - Objective MAR Reviewed: Yes Vital Signs & Weight: Vital Signs (12 hours) Temp Pulse Resp BP Pulse Ox 04/18/20 04:50 97.4 F L 70 18 133/62 92 L 04/18/20 01:55 98 04/17/20 23:45 98.0 F 69 18 124/60 96 04/17/20 20:10 97.4 F L 67 17 127/61 97 04/17/20 18:56 98 04/17/20 18:55 98 Weight Admit Weight 129.002 kg Weight 128.367 kg I&O: 04/16/20 04/17/20 04/18/20 06:59 06:59 06:59 Intake Total 0304 709 6564 Output Total 150 1200 Balance 990 240 -50 Result Diagrams: 04/18/20 04:13 04/18/20 04:13 EKG Reviewed by me: Yes (SR) Phys Exam - Physical Examination Constitutional: NAD Respiratory: no wheezing, clear to auscultation bilateral Cardiovascular: RRR Neurological: moves all 4 limbs Psychiatric: normal affect, A&O x 3 Skin: no rash Dx/Plan - Plan Plan: Acute hypoxic respiratory failure 2/2 likely new onset CHF w/exacerbation vs. cirrhosis - CXR: cardiomegaly, b/l pulm vascular enlargement, BNP 1000 - dependent pitting edema - O2: 2 L NC - ECHO: EF 60-65%, Grade 1/3 diastolic dysfunction - Cardiology, GI, and Nephro consulted; currently on 20 mg PO lasix BID added by nephro Afib/flutter with RVR - cardiology, Dr. Moreno consulted on 04/13 - started on dilt drip, on PO lasix - consulted EP - EP, Dr. Edward - dilt drip stopped, PO dilt - started on dig - started on Eliquis, but held this am due to concern for bleed Typical Chest Pain, resolved - EKG: inverted T waves - Trop: 0.025 - likely 2/2 to hypoxia as patient's NC was removed - resolved with replacement of NC N/V with dark emesis, melena - concern for GI bleed; Hgb 11.3 > 10 > 10.3 > 8.8 > 8.5 - GI consulted, sonu galeano -EGD this morning - BID protonix, rocephin started for SBP ppx Cirrhosis 2/2 Hep C - treated -GI, Dr. Gaspar - consulted on 04/14, will see patient, appreciate recs - no fluid seen for paracentesis - resume spironolactone and furosemide once Cr improves -has had 1 paracentesis in the past -on physical exam, abdomen very distended and uncomfortable, may resolve with diuresis Hypertensive urgency, improved - SBP 200 in ED, given hydralazine and nitro paste - Restart home losartan, hydralazine prn JOANNE vs CKD -Cr 1.25 > 1.68 > 2.10 > 2.93 > 4.15; concern for hepatorenal vs. cardiorenal -BUN: 78 -Nephro consulted (04/17), decreased lasix to 20 mg PO BID, discontinued losartan,avoid renal cleared meds -discontinued glipizide -concern that patient may need dialysis in the future -will continue to follow recs Urinary Retention - 500 mls with straight cath, no issues reported overnight - will continue to monitor Contraction Alkalosis, resolved COPD -s/p Azithromycin and ceftriaxone in ED, will not continue as pt is not in acute exacerbation -pt was on duoneb treatments at [place], will continue Chronic thrombocytopenia - At baseline, 2/2 liver disease Hypervolemic hyponatremia, resolved - Na 130 > 137 - Expect improvement with diuresis Elevated d-dimer - 2.24 with negative CTA DM -continue home meds -accuchecks ACHS, mild SSI Dispo: EGD today, will continue to follow recs of specialists
[2020-04-18] MEDS ORDERED: Ketamine 50 MG/ML (10ML VIAL) ONE (08:38)
[2020-04-18] MEDS: Pantoprazole 40 MG VIAL IVP SCH ×2 (10:06→21:19)
[2020-04-18] MEDS: Metoclopramide HCl 10 MG/2 ML VIAL IVP SCH ×2 (10:06→17:11)
[2020-04-18] MEDS: Gabapentin 300 MG CAP PO SCH ×3 (10:07→21:19)
[2020-04-18] MEDS: Digoxin 0.125 MG TAB PO SCH (10:07)
[2020-04-18] MEDS: Insulin Glargine 40 UNITS in Pre-Filled Syringe 1 EACH SC SCH (10:07)
[2020-04-18] MEDS: Furosemide 20 MG TAB PO SCH ×2 (10:07→21:16)
[2020-04-18] MEDS: cefTRIAXone\\ROCEPHIN 1 GM in Sodium Chloride 0.9% 100 ML IVPB SCH (10:07)
[2020-04-18] MEDS: HYDROcodone/Acetaminophen 7.5/325 mg Tablet PO SCH ×3 (10:08→21:16)
[2020-04-18] MEDS: busPIRone HCl 10 MG TAB PO SCH ×2 (10:08→21:19)
[2020-04-18] MEDS: ALPRAZolam 0.5 MG TAB PO SCH ×2 (10:09→21:16)
[2020-04-18] MEDS: Alogliptin 25 MG TAB PO SCH (10:30)
[2020-04-18] MEDS: Aripiprazole 15 MG TAB PO SCH (10:36)
[2020-04-18] MEDS ORDERED: Lidocaine 1% PF 5 ML VIAL ONE (11:14)
[2020-04-18] MEDS ORDERED: PROPOFOL 200 MG/20 ML VIAL ONE (11:14)
--- NOTE | 2020-04-18 11:52 | OP ---
DATE OF PROCEDURE: 04/18/2020 PREOPERATIVE DIAGNOSIS: Melena. DESCRIPTION OF PROCEDURE: After informed consent was obtained, the patient was placed in a left lateral decubitus position. Anesthesia was administered by the Anesthesia Department. Forward-viewing endoscope was inserted into esophagus under direct visualization with ease and passed to the second portion of the duodenum with ease. Second portion of the duodenum was normal. The duodenal bulb was normal. There was retained gastric and duodenal contents. There was a superficial erosion in the pylorus. No visible vessel or bleeding was noted. The antrum, body, fundus, and cardia were all normal with decreased visualization secondary to retained gastric contents. Portal hypertensive gastropathy was noted. No blood was seen in the upper GI tract. The distal third of the esophagus showed grade 4 reflux esophagitis. Again, no visible vessels or other abnormalities were noted. ASSESSMENT: 1. Portal hypertensive gastropathy. 2. Large amount of retained gastric contents. 3. Grade D reflux esophagitis involving the distal third of the esophagus. 4. Superficial pyloric erosion. RECOMMENDATIONS: 1. Continue b.i.d. PPI. 2. 24 to 48 hours of IV Reglan. We will need to hold Phenergan, Abilify and trazodone secondary to interaction. We will restart these once the patient is off Reglan. 3. Minimize narcotics as this may be contributing to the patient's abnormal gastric emptying. 4. Safe to resume Eliquis if needed in 3 days. Job ID: [id number]
--- NOTE | 2020-04-18 12:30 | PDOC.EP ---
- Subjective Date: 04/18/20 Time: 12:28 Interval History: Back in SR this am. Felling better. S/p GI evaluation/EGD. - Review of Systems Constitutional: denies: chills, fever, malaise, sweats, weakness, other Respiratory: reports: SOB with excertion Cardiology: denies: chest pain, edema, heart racing, light headedness, paroxysmal noc. dyspnea, orthopnea, palpitations, passing out, pleuritic pain, pressure, swelling, other Gastrointestinal: reports: melena Musculoskeletal: denies: unstable gait, falls, neck pain, shoulder pain, arm pain, hand pain, leg pain, foot pain, other Neurological: denies: headache, vision changes, other - Objective Allergies/Adverse Reactions: Allergies Allergy/AdvReac Type Severity Reaction Status Date / Time Sulfa (Sulfonamide Allergy Unknown Verified 07/31/19 22:07 Antibiotics) Current Medications Acetaminophen (Acetaminophen 325 Mg Tab) 650 mg PO Q4H PRN PRN Reason: Headache/Fever/Mild Pain (1-3) Hydrocodone Bitart/Acetaminophen (Hydrocodone/Acetaminophen 7.5/325 Mg Tablet) 1 tab PO TID [facility] Last Admin: 04/18/20 10:08 Dose: 1 tab Documented by: Albuterol/Ipratropium (Ipratropium/Albuterol Sulfate 3 Ml Neb) 3 ml NEB [id number] [facility] Last Admin: 04/18/20 07:11 Dose: 3 ml Documented by: Albuterol/Ipratropium (Ipratropium/Albuterol Sulfate 3 Ml Neb) 3 ml NEB Q4H PRN PRN Reason: SOB &/or Wheezing Last Admin: 04/13/20 04:57 Dose: 3 ml Documented by: Alogliptin Benzoate (Alogliptin 25 Mg Tab) 25 mg PO DAILY [facility] Last Admin: 04/18/20 10:30 Dose: 25 mg Documented by: Alprazolam (Alprazolam 0.5 Mg Tab) 0.25 mg PO BID [facility] Last Admin: 04/18/20 10:09 Dose: 0.25 mg Documented by: Buspirone HCl (Buspirone Hcl 10 Mg Tab) 10 mg PO BID [facility] Last Admin: 04/18/20 10:08 Dose: 10 mg Documented by: Calcium Carbonate (Calcium Carbonate 500 Mg Chewtab) 1,000 mg PO Q4H PRN PRN Reason: Heartburn or Indigestion Last Admin: 04/14/20 20:05 Dose: 1,000 mg Documented by: Dextrose/Water (Dextrose 50% Abboject 50 Ml Syringe) 25 gm SLOW IVP PRN PRN PRN Reason: Hypoglycemia Digoxin (Digoxin 0.125 Mg Tab) 0.125 mg PO DAILY [facility] Last Admin: 04/18/20 10:07 Dose: 0.125 mg Documented by: Diltiazem HCl (Diltiazem Hcl 30 Mg Tablet) 60 mg PO QID [facility] Last Admin: 04/18/20 10:08 Dose: 60 mg Documented by: Furosemide (Furosemide 20 Mg Tab) 20 mg PO BID [facility] Last Admin: 04/18/20 10:07 Dose: 20 mg Documented by: Gabapentin (Gabapentin 300 Mg Cap) 600 mg PO TID [facility] Last Admin: 04/18/20 10:07 Dose: 600 mg Documented by: Glucagon (Glucagon 1 Mg/Ml Vial) 1 mg IM PRN PRN PRN Reason: Hypoglycemia Hydralazine HCl (Hydralazine 20 Mg/Ml Vial) 10 mg SLOW IVP Q4H PRN PRN Reason: SBP Greater Than 180 Hydroxyzine HCl (Hydroxyzine 25 Mg Tab) 25 mg PO Q6H PRN PRN Reason: Anxiety Last Admin: 04/13/20 05:13 Dose: 25 mg Documented by: Dextrose/Water (D5w) 1,000 mls @ 0 mls/hr IV .Q0M PRN PRN Reason: Hypoglycemia Insulin Glargine 20 units/ (Miscellaneous Medication) 0.2 mls @ 0 mls/hr SC HS [facility] Last Admin: 04/17/20 22:26 Dose: 0.2 mls Documented by: Insulin Glargine 40 units/ (Miscellaneous Medication) 0.4 mls @ 0 mls/hr SC QAM [facility] Last Admin: 04/18/20 10:07 Dose: 0.4 mls Documented by: Ceftriaxone Sodium 1 gm/ (Sodium Chloride) 100 mls @ 200 mls/hr IVPB 0900 [facility] Last Admin: 04/18/20 10:07 Dose: 100 mls Documented by: Insulin Human Lispro (Humalog 300 Units/3 Ml Vial) 0 units SC .BEDTIME SLIDING SC PRN PRN Reason: Bedtime Correctional Scale Insulin Human Lispro (Humalog 300 Units/3 Ml Vial) 0 units SC .MODERATE SLIDING SC PRN PRN Reason: Moderate Correctional Scale Last Admin: 04/17/20 17:58 Dose: 2 unit Documented by: Metoclopramide HCl (Metoclopramide Hcl 10 Mg/2 Ml Vial) 10 mg IVP Q8H [facility] Last Admin: 04/18/20 10:06 Dose: 10 mg Documented by: Nitroglycerin (Nitroglycerin 0.4 Mg Tab (25 Tab Bottle)) 0.4 mg SL Q5MIN PRN PRN Reason: Chest Pain Last Admin: 04/15/20 16:19 Dose: 0.4 mg Documented by: Ondansetron HCl (Ondansetron Odt 4 Mg Tab) 4 mg PO Q6H PRN PRN Reason: Nausea/Vomiting Ondansetron HCl (Ondansetron Pf 4 Mg/2 Ml Vial) 4 mg IVP Q6H PRN PRN Reason: Nausea/Vomiting Last Admin: 04/14/20 01:17 Dose: 4 mg Documented by: Pantoprazole Sodium (Pantoprazole 40 Mg Vial) 40 mg IVP Q12HR [facility] Last Admin: 04/18/20 10:06 Dose: 40 mg Documented by: Sodium Chloride (Flush - Normal Saline 10 Ml Syringe) 10 ml IVF PRN PRN PRN Reason: Saline Flush Last Admin: 04/17/20 22:26 Dose: 10 ml Documented by: Trazodone HCl (Trazodone Hcl 50 Mg Tab) 100 mg PO QPM [facility] Last Admin: 04/17/20 22:25 Dose: 100 mg Documented by: Vital Signs & Weight: Vital Signs Temp Pulse Resp BP Pulse Ox 04/18/20 11:00 97.7 F 77 16 130/61 92 L 04/18/20 10:07 77 04/18/20 07:11 57 L 18 93 L 04/18/20 07:02 97.8 F 71 18 112/49 L 92 L 04/18/20 04:50 97.4 F L 70 18 133/62 92 L 04/18/20 01:55 98 Admit Weight 284 lb 6.4 oz Weight 283 lb I/O: I/O 04/17/20 04/18/20 04/19/20 06:59 06:59 06:59 Intake Total 240 1150 Output Total 1200 Balance 240 -50 - Quality Measures Condition: Atrial Fibrillation/Flutter (hx or current) - Medication Contraindications No Anticoagulant reason: Anticoagulant not tolerated - Physical Exam General: alert & oriented x3, appears well, other (Morbidly obese) HEENT: normocephaly Neck: no JVD/HJR Cardiology: no murmur, regular rate Lungs: normal breath sounds Neurology: grossly intact, motor function intact Abdomen: non-tender Extremities: warm Skin: device site stable w/o swelling Musculoskeletal: no pain - Chadsvasc Risk factors Congestive heart failure: 1 Hypertension: 1 Diabetes mellitus: 1 Female: 1 Risk Score: 4 - Labs Result Diagrams: 04/18/20 04:13 04/18/20 04:13 - EKG Interpretation EKG Method: Telemetry EKG shows: Sinus rhythm, Atypical atrial flutter (Converted to SR this am.) - Assessment/Plan Assessment/Plan: 1. Atrial fibrillation with RVR, diagnosed this admission, organised to slow atypical atrial flutter/atch with variable VR. a. Rate controlled with diltiazem 60 QID and dig 125mcg daily b. Converted to SR 04/18/20 1 am. 2. History of cirrhosis. 3. History of hepatitis C, previously treated. 4. COPD. 5. Type 2 diabetes. 6. Hypertension. 7. GERD. 8. Recent urinary tract infection, 2 weeks ago, preceding onset of symptoms, treated with antibiotics. 9. Tobacco habituation, quarter pack a day. 10. Esophageal varices. a. Dark emesis concerning for upper GI bleed b. melena stool 2/, with Hgb drop 11. Preserved LVEF 60-65% 12. History of esophageal varices Rate control is adequate. Had dark stool this AM concerning for melena wth Hgb decrease from 10 --> 8.8. Unsure if guiac was tested. OAC now on hold. Continue rate control for AF. If short term OAC of 2-3 months would be possible we could discuss OP watchman implant, but this does require short term OAC. 04/18/20 Converted to SR this am. Continue PO dilt. May consolidate to Dilt CD 240mg once stable absorption. S/P EGD. with no acute bleed, but esophagitis found. Questionable senior care candidate for OAC - now on hold. If short term OAC of 2-3 months would be possible we could discuss OP watchman implant, but this does require short term OAC. Happy to follow as outpt. Would sign off. call if further questions.
--- NOTE | 2020-04-18 13:23 | PDOC.CPN ---
- Subjective Date: 04/18/20 Time: 13:21 Interval history: She is feeling better today. She had her EGD and it showed erosive gastritis. Likely source of bleeding. No varices. Her creatinine continues to climb - Review of Systems General: denies: fever/chills, weight/appetite/sleep changes, night sweats, fatigue Respiratory: denies: cough, congestion, shortness of breath, exercise intolerance Cardiovascular: denies: chest pain, palpitation, edema, paroxysmal nocturnal dyspnea, orthopnea Gastrointestinal: denies: nausea, vomiting, diarrhea, constipation, abd pain, GI bleeding Musculoskeletal: denies: pain, tenderness, stiffness, swelling, arthritis/ar thralgias Neurological: denies: numbness, syncope, seizure, weakness - Objective Allergies/Adverse Reactions: Allergies Allergy/AdvReac Type Severity Reaction Status Date / Time Sulfa (Sulfonamide Allergy Unknown Verified 07/31/19 22:07 Antibiotics) Visit Medications: Current Medications Acetaminophen (Acetaminophen 325 Mg Tab) 650 mg PO Q4H PRN PRN Reason: Headache/Fever/Mild Pain (1-3) Hydrocodone Bitart/Acetaminophen (Hydrocodone/Acetaminophen 7.5/325 Mg Tablet) 1 tab PO TID [facility] Last Admin: 04/18/20 10:08 Dose: 1 tab Documented by: Albuterol/Ipratropium (Ipratropium/Albuterol Sulfate 3 Ml Neb) 3 ml NEB [id number] [facility] Last Admin: 04/18/20 07:11 Dose: 3 ml Documented by: Albuterol/Ipratropium (Ipratropium/Albuterol Sulfate 3 Ml Neb) 3 ml NEB Q4H PRN PRN Reason: SOB &/or Wheezing Last Admin: 04/13/20 04:57 Dose: 3 ml Documented by: Alogliptin Benzoate (Alogliptin 25 Mg Tab) 25 mg PO DAILY [facility] Last Admin: 04/18/20 10:30 Dose: 25 mg Documented by: Alprazolam (Alprazolam 0.5 Mg Tab) 0.25 mg PO BID [facility] Last Admin: 04/18/20 10:09 Dose: 0.25 mg Documented by: Buspirone HCl (Buspirone Hcl 10 Mg Tab) 10 mg PO BID [facility] Last Admin: 04/18/20 10:08 Dose: 10 mg Documented by: Calcium Carbonate (Calcium Carbonate 500 Mg Chewtab) 1,000 mg PO Q4H PRN PRN Reason: Heartburn or Indigestion Last Admin: 04/14/20 20:05 Dose: 1,000 mg Documented by: Dextrose/Water (Dextrose 50% Abboject 50 Ml Syringe) 25 gm SLOW IVP PRN PRN PRN Reason: Hypoglycemia Digoxin (Digoxin 0.125 Mg Tab) 0.125 mg PO DAILY [facility] Last Admin: 04/18/20 10:07 Dose: 0.125 mg Documented by: Diltiazem HCl (Diltiazem Hcl 30 Mg Tablet) 60 mg PO QID [facility] Last Admin: 04/18/20 10:08 Dose: 60 mg Documented by: Furosemide (Furosemide 20 Mg Tab) 20 mg PO BID [facility] Last Admin: 04/18/20 10:07 Dose: 20 mg Documented by: Gabapentin (Gabapentin 300 Mg Cap) 600 mg PO TID [facility] Last Admin: 04/18/20 10:07 Dose: 600 mg Documented by: Glucagon (Glucagon 1 Mg/Ml Vial) 1 mg IM PRN PRN PRN Reason: Hypoglycemia Hydralazine HCl (Hydralazine 20 Mg/Ml Vial) 10 mg SLOW IVP Q4H PRN PRN Reason: SBP Greater Than 180 Hydroxyzine HCl (Hydroxyzine 25 Mg Tab) 25 mg PO Q6H PRN PRN Reason: Anxiety Last Admin: 04/13/20 05:13 Dose: 25 mg Documented by: Dextrose/Water (D5w) 1,000 mls @ 0 mls/hr IV .Q0M PRN PRN Reason: Hypoglycemia Insulin Glargine 20 units/ (Miscellaneous Medication) 0.2 mls @ 0 mls/hr SC HS [facility] Last Admin: 04/17/20 22:26 Dose: 0.2 mls Documented by: Insulin Glargine 40 units/ (Miscellaneous Medication) 0.4 mls @ 0 mls/hr SC QAM [facility] Last Admin: 04/18/20 10:07 Dose: 0.4 mls Documented by: Ceftriaxone Sodium 1 gm/ (Sodium Chloride) 100 mls @ 200 mls/hr IVPB 0900 [facility] Last Admin: 04/18/20 10:07 Dose: 100 mls Documented by: Insulin Human Lispro (Humalog 300 Units/3 Ml Vial) 0 units SC .BEDTIME SLIDING SC PRN PRN Reason: Bedtime Correctional Scale Insulin Human Lispro (Humalog 300 Units/3 Ml Vial) 0 units SC .MODERATE SLIDING SC PRN PRN Reason: Moderate Correctional Scale Last Admin: 04/17/20 17:58 Dose: 2 unit Documented by: Metoclopramide HCl (Metoclopramide Hcl 10 Mg/2 Ml Vial) 10 mg IVP Q8H [facility] Last Admin: 04/18/20 10:06 Dose: 10 mg Documented by: Nitroglycerin (Nitroglycerin 0.4 Mg Tab (25 Tab Bottle)) 0.4 mg SL Q5MIN PRN PRN Reason: Chest Pain Last Admin: 04/15/20 16:19 Dose: 0.4 mg Documented by: Ondansetron HCl (Ondansetron Odt 4 Mg Tab) 4 mg PO Q6H PRN PRN Reason: Nausea/Vomiting Ondansetron HCl (Ondansetron Pf 4 Mg/2 Ml Vial) 4 mg IVP Q6H PRN PRN Reason: Nausea/Vomiting Last Admin: 04/14/20 01:17 Dose: 4 mg Documented by: Pantoprazole Sodium (Pantoprazole 40 Mg Vial) 40 mg IVP Q12HR [facility] Last Admin: 04/18/20 10:06 Dose: 40 mg Documented by: Sodium Chloride (Flush - Normal Saline 10 Ml Syringe) 10 ml IVF PRN PRN PRN Reason: Saline Flush Last Admin: 04/17/20 22:26 Dose: 10 ml Documented by: Trazodone HCl (Trazodone Hcl 50 Mg Tab) 100 mg PO QPM [facility] Last Admin: 04/17/20 22:25 Dose: 100 mg Documented by: Vital Signs & Weight: Vital Signs Temp Pulse Resp BP Pulse Ox 04/18/20 11:00 97.7 F 77 16 130/61 92 L 04/18/20 10:07 77 04/18/20 07:11 57 L 18 93 L 04/18/20 07:02 97.8 F 71 18 112/49 L 92 L 04/18/20 04:50 97.4 F L 70 18 133/62 92 L 04/18/20 01:55 98 Admit Weight 284 lb 6.4 oz Weight 283 lb - Medication Contraindications No Anticoagulant reason: Anticoagulant not tolerated - Physical Exam General: alert & oriented x3 HEENT: mucus membranes moist Neck: supple neck Cardiac: regular rate and rhythm Lungs: normal breath sounds Neuro: grossly intact Abdomen: active bowel sounds Extremities: 1+ LE edema Skin: clear Musculoskeletal: no pain - Labs Result Diagrams: 04/18/20 04:13 04/18/20 04:13 Troponin/CKMB Troponin I 0.025 ng/mL (< 0.028) 04/15/20 15:57 - Telemetry Sinus rhythms and dysrhythmias: sinus rhythm - Assessment/Plan Assessment/Plan: 1. Paroxysmal afib/flutter. Back in sinus. 2. Volume overload. 3. Diastolic heart failure. Improved. 4. Cirrhosis of the liver, appears compensated by lab values 5. Hx of Esophageal varices, none seen on EGD today. 6. JOANNE on CKD. Worsening. 7. Portal hypertensive gastropathy. PLAN: - Remains in sinus HR in the 70's. - Anemia from gastritis. - Would be high risk for any anticoagulation. Hold Eliquis indefinitely for now. Candidate for Watchman in the future. - Unlikely renal failure to be cardiorenal given normal LV function, pt back in sinus and diastolic dysfunction is compensated for days now. Would suspect hepatorenal vs ATN vs hypotension from bleeding. - CV currently stable. - Continue to hold any diuresis.
[2020-04-18] MEDS: HumaLOG 300 UNITS/3 ML VIAL SC PRN (17:12)
[2020-04-18] MEDS: Insulin Glargine 20 UNITS in Pre-Filled Syringe 1 EACH SC SCH (21:33)
[2020-04-19] MEDS: Metoclopramide HCl 10 MG/2 ML VIAL IVP SCH ×2 (01:59→09:10)
[2020-04-19 04:58] LABS: #Eosinphils 0.1 thou/uL (0.0-0.7); #Lymphocytes 0.4 thou/uL (1.20-3.40); #Monocytes 0.5 thou/uL (0.11-0.59); #Neutrophils 4.9 thou/uL (1.40-6.50); %Eosinophils 1.9 % (0.0-10.0); %Lymphocytes 6.9 % (21.0-51.0); %Monocytes 8.4 % (0.0-10.0); %Neutrophils 82.9 % (42.0-75.0); Hemoglobin 8.6 g/dL (12.0-16.0); Mean Corpuscular Hemoglobin 30.1 pg (27.0-31.0); Mean Corpuscular Volume 91.3 fL (78.0-98.0); Mean Platelet Volume 8.9 fL (7.4-10.4); Platelet Count 86 thou/uL (130-400); RBC Distribution Width 15.3 % (11.5-14.5); Red Blood Cell (RBC) Count 2.86 mill/uL (4.20-5.40); White Blood Cell (WBC) Count 5.9 thou/uL (4.8-10.8)
[2020-04-19 05:05] LABS: Anion Gap 17 mmol/L (10-20); BUN (Urea Nitrogen) 85 mg/dL (9.8-20.1); Calc. Creatinine Clearance 23 mL/min (70-130); Calcium 8.3 mg/dL (7.8-10.44); Carbon Dioxide 31 mmol/L (23-31); Chloride 93 mmol/L (98-107); Glucose 86 mg/dL (80-115); Potassium 5.5 mmol/L (3.5-5.1); Sodium 135 mmol/L (136-145)
--- NOTE | 2020-04-19 05:34 | PDOC.FM ---
- Subjective Subjective: Resting comfortably in bed this morning. Reports improved pain. Continues to have pain to palpation of chest and abdomen. Denies any episodes of emesis or melena. Reports that she is unable to urinate. - Objective MAR Reviewed: Yes Vital Signs & Weight: Vital Signs (12 hours) Temp Pulse Resp BP Pulse Ox 04/19/20 03:54 97.9 F 70 18 136/59 L 94 L 04/18/20 23:51 95 04/18/20 20:13 98.0 F 67 18 121/57 L 97 04/18/20 19:41 94 L 04/18/20 19:40 93 L Weight Admit Weight 129.002 kg Weight 129.472 kg I&O: 04/17/20 04/18/20 04/19/20 06:59 06:59 06:59 Intake Total 240 1150 700 Output Total 1200 Balance 240 -50 700 Result Diagrams: 04/19/20 04:21 04/19/20 04:21 Phys Exam - Physical Examination Constitutional: NAD HEENT: moist MMs Neck: supple, full ROM Respiratory: no wheezing, clear to auscultation bilateral Cardiovascular: RRR, no significant murmur Gastrointestinal: positive bowel sounds distended, mildly tender to palpation Musculoskeletal: pulses present 1+ edema of BLE Neurological: non-focal, normal sensation Psychiatric: normal affect, A&O x 3 Skin: no rash Dx/Plan - Plan Plan: Acute hypoxic respiratory failure 2/2 likely new onset CHF w/exacerbation vs. cirrhosis - CXR: cardiomegaly, b/l pulm vascular enlargement, BNP 1000 - dependent pitting edema - O2: 2 L NC - ECHO: EF 60-65%, Grade 1/3 diastolic dysfunction - Cardiology, GI, EP, and Nephro consulted; currently on 20 mg PO lasix BID added by nephro - cote to be placed for strict Is and Os and due to concern for anuria JOANNE on CKD -Cr 1.25 > 1.68 > 2.10 > 2.93 > 4.15 > 5.40 -BUN: 78 > 85 -Nephro consulted (/), decreased lasix to 20 mg PO BID, discontinued losartan, avoid renal cleared meds -discontinued glipizide, decreased alogliptine -concern that patient may need dialysis in the future -will continue to follow recs -cote placed to monitor Is and Os and due to concern for anuria Afib/flutter with RVR, resolved - cardiology, Dr. Moreno consulted on 04/13 - started on dilt drip, on PO lasix - consulted EP - EP, Dr. Edward - dilt drip stopped, PO dilt - started on dig - started on Eliquis, but held this am due to concern for bleed Typical Chest Pain, resolved - EKG: inverted T waves - Trop: 0.025 - likely 2/2 to hypoxia as patient's NC was removed - resolved with replacement of NC Anemia - resolution of N/V with dark emesis, melena - concern for GI bleed; Hgb 11.3 > 10 > 10.3 > 8.8 > 8.5 - GI consulted, eliquis held -EGD: portal HTN gastropathy, large armount of retained gastric contents, superficial pyloric erosion - started on reglan for 24-48 hours, avoid abilify, trazodone, and phenergan during this time - okay to resume eliquis in 3 days - BID protonix, rocephin started for SBP ppx Cirrhosis 2/ Hep C - treated -GI, Dr. Gaspar - consulted on 04/14, will see patient, appreciate recs - no fluid seen for paracentesis - resume spironolactone and furosemide once Cr improves -has had 1 paracentesis in the past -on physical exam, abdomen very distended and uncomfortable, may resolve with diuresis Hyperkalemia -K: 5.5 -will repeat BMP and order EKG Hypertensive urgency, resolved - SBP 200 in ED, given hydralazine and nitro paste - Losartan DC'd due to renal function, on dilt 2/2 to Afib with RVR, hydralazine prn Contraction Alkalosis, resolved COPD -s/p Azithromycin and ceftriaxone in ED, will not continue as pt is not in acute exacerbation -pt was on duoneb treatments at [facility], will continue Chronic thrombocytopenia - At baseline, 2/2 liver disease Hypervolemic hyponatremia, resolved - Na 130 > 137 - Expect improvement with diuresis Elevated d-dimer - 2.24 with negative CTA DM -continue home meds -DC'd glipizide and decreased alogliptine -accuchecks ACHS, mild SSI Dispo: continue to monitor patient on tele, appreciate recs from GI, Cardiology, EP, and Nephro Addendum - Attending - Attending Attestation Date/Time: 04/19/20 [id number] I personally evaluated the patient and discussed the management with the team. I agree with the History, Examination, Assessment and Plan documented above with any addition or exceptions noted below.
--- NOTE | 2020-04-19 05:50 | PRG ---
DATE OF SERVICE: 04/18/2020 SUBJECTIVE: The patient is seen, claims to be feeling better. Noted with the following vital signs. OBJECTIVE: VITAL SIGNS: Afebrile. Temperature 97.6, pulse 68, respiratory rate of 18, O2 saturations are 94% with blood pressure 120/58. HEENT: Unremarkable. CARDIOVASCULAR SYSTEM: First and second heart sounds were heard. RESPIRATORY SYSTEM: Clear to auscultation. DIGESTIVE SYSTEM: Revealed a benign abdomen with positive bowel sounds. EXTREMITIES: No peripheral edema. SKIN: No new gross rash. LYMPHATICS: No peripheral lymphadenopathy. LABORATORY INVESTIGATION: Hemoglobin 8.5. Chemistry showed a creatinine of 4.15 with BUN of 78, bicarb of 32. BNP 353. IMPRESSION: 1. Smlri-js-titzoid kidney disease. This is likely hemodynamically mediated in the context of relative hypotension in a patient who is used to a higher level of blood pressure. 2. Anemia, partly due to iatrogenic, on daily blood draws. PLAN: 1. Continue current renal supportive measures allowing liberalizing the hemodynamics. 2. Avoid potentially nephrotoxic agents. 3. Deescalate daily blood draws to avoid worsening iatrogenic anemia. 4. Further management to be dependent on the clinical course. Job ID: [id number]
[2020-04-19] MEDS ORDERED: Alogliptin 25 MG TAB PO SCH (08:56)
[2020-04-19] MEDS: Gabapentin 300 MG CAP PO SCH ×3 (09:06→20:55)
[2020-04-19] MEDS: busPIRone HCl 10 MG TAB PO SCH ×2 (09:07→20:58)
[2020-04-19] MEDS: ALPRAZolam 0.5 MG TAB PO SCH ×2 (09:07→20:53)
[2020-04-19] MEDS: Digoxin 0.125 MG TAB PO SCH (09:07)
[2020-04-19] MEDS: Furosemide 20 MG TAB PO SCH (09:07)
[2020-04-19] MEDS: HYDROcodone/Acetaminophen 7.5/325 mg Tablet PO SCH ×3 (09:07→20:56)
[2020-04-19] MEDS: cefTRIAXone\\ROCEPHIN 1 GM in Sodium Chloride 0.9% 100 ML IVPB SCH (09:09)
[2020-04-19] MEDS: Insulin Glargine 40 UNITS in Pre-Filled Syringe 1 EACH SC SCH (09:09)
[2020-04-19] MEDS: Pantoprazole 40 MG VIAL IVP SCH ×2 (09:10→20:59)
[2020-04-19 11:25] LABS: Bilirubin Negative (Negative); Blood, Urine 1+ (Negative); Clarity Turbid (Clear); Glucose, Urine (Dipstick) Normal (Negative); Ketone, Urine Negative (Negative); Leukocyte Negative Leu/uL (Negative); Nitrite Negative (Negative); Protein, Urine (Dipstick) 50 mg/dL (Neg-Trace); Specific Gravity, Urine 1.018 (1.002-1.036); Squamous Epithelial 0-3 HPF (0-3); Urobilinogen Normal mg/dL (Less than 2); Yeast-Budding 1+ HPF (None Seen)
[2020-04-19 11:26] LABS: Bacteria/HPF 1+ HPF (None Seen)
[2020-04-19 11:27] LABS: Urine Culture Reflex Yes Yes
[2020-04-19 12:15] LABS: Anion Gap 16 mmol/L (10-20); BUN (Urea Nitrogen) 86 mg/dL (9.8-20.1); Calc. Creatinine Clearance 23 mL/min (70-130); Calcium 8.2 mg/dL (7.8-10.44); Carbon Dioxide 30 mmol/L (23-31); Chloride 93 mmol/L (98-107); Glucose 90 mg/dL (80-115); Potassium 5.1 mmol/L (3.5-5.1); Sodium 134 mmol/L (136-145)
[2020-04-19] MEDS ORDERED: Furosemide 100 MG/10 ML VIAL SLOW IVP SCH (13:15)
[2020-04-19] MEDS ORDERED: Metolazone 5 MG TAB PO SCH (13:15)
--- NOTE | 2020-04-19 13:42 | PRG ---
DATE OF SERVICE: 04/19/2020 SUBJECTIVE: The patient is complaining of difficulty urinating. She did have one bowel movement, which she described as dark. She has had no nausea or vomiting. She has no abdominal pain. OBJECTIVE: VITAL SIGNS: Temperature 97.6, pulse 67, respiratory rate 18, and blood pressure 177/70. CHEST: Clear. CARDIOVASCULAR: Regular rate and rhythm. ABDOMEN: Soft, nontender without organomegaly or masses. LABORATORY DATA: Shows a hemoglobin of 8.6, hematocrit 26.1, platelet count of 86,000, white blood cell count 5.9. Chemistries significant for sodium 134, BUN 86, creatinine 4.99. ASSESSMENT: 1. Gastrointestinal bleed - probably secondary to portal hypertensive gastropathy and/or grade D reflux esophagitis. 2. Retained gastric contents. 3. Portal hypertensive gastropathy. 4. Grade D reflux esophagitis. 5. Pyloric erosion. 6. Cirrhosis. RECOMMENDATIONS: 1. Continue PPI. 2. Discontinue Reglan. 3. Continue to follow H and H. Job ID: [id number]
--- NOTE | 2020-04-19 14:02 | ULT ---
RENAL ULTRASOUND HISTORY: Acute renal failure COMPARISON: CT the abdomen without contrast dated April 12, 2019 FINDINGS: Right Kidney: Size: 9.6 x 4.8 x 3.8 cm Abnormality: There is a 2 x 1.9 x 1.6 cm cyst seen within the superior pole of the right kidney. Left Kidney: Size: 9.6 x 4.8 x 3.8 cm Abnormality: There is a 1.5 cm cyst seen within the superior pole of the left kidney. Urinary bladder: The bladder is decompressed with a Dove catheter. IMPRESSION: No focal solid renal lesion or hydronephrosis. Bilateral renal cysts.
[2020-04-19] MEDS: hydrALAZINE 20 MG/ML VIAL SLOW IVP PRN (16:26)
[2020-04-19] MEDS: traZODone HCl 50 MG TAB PO SCH (20:55)
[2020-04-19] MEDS: Melatonin 3 MG TAB PO PRN (20:55)
[2020-04-19] MEDS: Metoprolol Tartrate 25 MG TAB PO SCH (20:57)
[2020-04-19] MEDS: Insulin Glargine 20 UNITS in Pre-Filled Syringe 1 EACH SC SCH (20:59)
[2020-04-19] MEDS: Ondansetron PF 4 MG/2 ML Vial IVP PRN (21:06)
[2020-04-20] MEDS: Furosemide 40 MG/4 ML VIAL SLOW IVP SCH ×2 (05:26→15:31)
[2020-04-20 05:38] LABS: #Eosinphils 0.1 thou/uL (0.0-0.7); #Lymphocytes 0.5 thou/uL (1.20-3.40); #Monocytes 0.6 thou/uL (0.11-0.59); #Neutrophils 4.8 thou/uL (1.40-6.50); %Eosinophils 1.9 % (0.0-10.0); %Lymphocytes 8.8 % (21.0-51.0); %Monocytes 9.5 % (0.0-10.0); %Neutrophils 79.8 % (42.0-75.0); Hemoglobin 8.7 g/dL (12.0-16.0); Mean Corpuscular HGB CONC 31.5 g/dL (32.0-36.0); Mean Corpuscular Hemoglobin 28.8 pg (27.0-31.0); Mean Corpuscular Volume 91.3 fL (78.0-98.0); Mean Platelet Volume 9.2 fL (7.4-10.4); Platelet Count 105 thou/uL (130-400); RBC Distribution Width 15.4 % (11.5-14.5); Red Blood Cell (RBC) Count 3.02 mill/uL (4.20-5.40)
[2020-04-20 05:46] LABS: Albumin 3.1 g/dL (3.4-4.8); Anion Gap 13 mmol/L (10-20); BUN (Urea Nitrogen) 83 mg/dL (9.8-20.1); BUN/Creatinine Ratio 17.55; Calc. Creatinine Clearance 25 mL/min (70-130); Calcium 7.8 mg/dL (7.8-10.44); Carbon Dioxide 33 mmol/L (23-31); Chloride 91 mmol/L (98-107); Glucose 69 mg/dL (80-115); Phosphorus 7.1 mg/dL (2.3-4.7); Potassium 4.9 mmol/L (3.5-5.1); Sodium 132 mmol/L (136-145)
--- NOTE | 2020-04-20 06:06 | PDOC.FM ---
- Subjective Subjective: Patient reports that she slept well throughout the night. Denies N/V/D. Reports minimal chest and abdominal pain to palpation, but improved from initial pain. Denies SOB. - Objective MAR Reviewed: Yes Vital Signs & Weight: Vital Signs (12 hours) Temp Pulse Resp BP Pulse Ox 04/20/20 04:23 97.7 F 50 L 20 117/56 L 94 L 04/20/20 00:00 98.1 F 56 L 22 H 139/65 98 04/19/20 23:50 95 04/19/20 20:10 96 04/19/20 20:09 97.4 F L 63 18 185/74 H 96 04/19/20 18:55 95 Weight Admit Weight 129.002 kg Weight 129.501 kg I&O: 04/18/20 04/19/20 04/20/20 06:59 06:59 06:59 Intake Total 1150 940 878 Output Total 1200 1250 Balance -50 940 -372 Result Diagrams: 04/20/20 04:49 04/20/20 04:49 Phys Exam - Physical Examination Constitutional: NAD HEENT: moist MMs Neck: supple, full ROM Respiratory: no wheezing, clear to auscultation bilateral bradycardia distended, mildly tender to palpation 1+ pitting edema of BLE Neurological: non-focal, moves all 4 limbs Psychiatric: normal affect Skin: no rash Dx/Plan - Plan Plan: Acute hypoxic respiratory failure 2/2 likely new onset CHF w/exacerbation vs. cirrhosis - CXR: cardiomegaly, b/l pulm vascular enlargement, BNP 1000 - dependent pitting edema - O2: 2 L NC - ECHO: EF 60-65%, Grade 1/3 diastolic dysfunction - Cardiology, GI, EP, and Nephro consulted; switched to 40 mg IV lasix BID added by nephro - cote to be placed for strict Is and Os JOANNE on CKD -Cr 1.25 > 1.68 > 2.10 > 2.93 > 4.15 > 5.40 > 4.73 -BUN: 78 > 85 > 83 -Nephro consulted (04/17), Lasix 40 IV BID, discontinued losartan, avoid renal cleared meds -discontinued glipizide -concern that patient may need dialysis in the future -will continue to follow recs -cote placed to monitor Is and Os; ipatroprium dc'd due to concerns for urinary retention Afib/flutter with RVR, resolved - cardiology, Dr. Moreno consulted on 04/13 - started on dilt drip, transitioned to po dilt and dig added - consulted EP - EP, Dr. Edward - dilt drip stopped, PO dilt - started on dig - started on Eliquis, but held due to anemia Typical Chest Pain, resolved - EKG: inverted T waves - Trop: 0.025 - likely 2/2 to hypoxia as patient's NC was removed - resolved with replacement of NC Anemia - resolution of N/V with dark emesis, melena - concern for GI bleed; Hgb 11.3 > 10 > 10.3 > 8.8 > 8.5 > 8.7 - GI consulted, eliquis held -EGD: portal HTN gastropathy, large armount of retained gastric contents, superficial pyloric erosion - s/p reglan for 24 hours - okay to resume eliquis 3 days after EGD - BID protonix, rocephin started for SBP ppx Cirrhosis 2/2 Hep C - treated -GI, Dr. Gaspar - consulted on 04/14 - no fluid seen for paracentesis - resume spironolactone and furosemide once Cr improves -has had 1 paracentesis in the past -on physical exam, abdomen very distended and uncomfortable, may resolve with diuresis -s/p rocephin for SBP ppx Hyperkalemia -K: 5.5 > 4.2 -no EKG changes Hypertensive urgency, resolved - SBP 200 in ED, given hydralazine and nitro paste - Losartan DC'd due to renal function, on dilt 2/2 to Afib with RVR, hydralazine prn Contraction Alkalosis - likely 2/2 to diuresis COPD -s/p Azithromycin and ceftriaxone in ED, will not continue as pt is not in acute exacerbation -dc'd duoneb due to possible urinary retention, albuterol neb prn Chronic thrombocytopenia - At baseline, 2/2 liver disease Hypervolemic hyponatremia, resolved - Na 130 > 137 - Expect improvement with diuresis Elevated d-dimer - 2.24 with negative CTA DM -continue home meds -DC'd glipizide -accuchecks ACHS, mild SSI Dispo: continue to monitor patient on tele, appreciate recs from GI, Cardiology, EP, and Nephro Addendum - Attending - Attending Attestation Date/Time: 04/20/20 1027 I personally evaluated the patient and discussed the management with Dr. Rodriguez. I agree with the History, Examination, Assessment and Plan documented above with any addition or exceptions noted below. Symptomatically worse today. Await recovery of kidney function. Unfortunately started on metoprolol with resultant bradycardia. Metoprolol dc'd. Consultants believe JONANE may be hemodynamically mediated. Meds adjusted d/t eGFR yesterday. Increased back to prior dose by government operations consultant per EHR.
[2020-04-20] MEDS ORDERED: Albuterol Sulfate 2.5 mg/3 ml Neb NEB PRN (07:56)
--- NOTE | 2020-04-20 10:01 | PRG ---
DATE OF SERVICE: 04/19/2020 SUBJECTIVE: The patient was seen and examined, seems to be in some respiratory distress as well as physical distress from abdominal distention. Noted with the following vital signs. OBJECTIVE: VITAL SIGNS: Afebrile, temperature 97.4, pulse 64, respiratory rate of 18, O2 saturation of 97% on 2 L with a blood pressure of 177/72 to 207/82. HEENT: Unremarkable. CARDIOVASCULAR SYSTEM: First and second heart sounds were heard. RESPIRATORY SYSTEM: Clear to auscultation anteriorly. DIGESTIVE SYSTEM: Noted grossly distended abdomen. EXTREMITIES: Showed no significant edema. LABORATORY INVESTIGATION: Significant for potassium of 5.5 and BUN of 87 with a creatinine of 5.04. IMPRESSION: 1. Acute on chronic kidney disease in the context of acute tubular necrosis, likely secondary to contrast nephropathy. The patient did expose to contrast and 48 hours later, the patient started experiencing rise in creatinine, typical of contrast nephropathy. the patient has shown pattern of established contrast-induced acute tubular necrosis. 2. Hypervolemia with . 3. Chronic kidney disease. 4. Diabetes mellitus. PLAN: 1. The patient will be started on aggressive diuretics. 2. Renally dose all medications. 3. Pay close attention to the patient's electrolytes, especially potassium. 4. I did discuss with the patient that hopefully kidney function turn around. Otherwise, if the patient does not respond well to medical diuresis and renal function continues to deteriorate, will prepare for management and potassium management, hemodialysis will become an option. 5. Further management to be dependent on the clinical course. Job ID: [id number]
[2020-04-20] MEDS: Alogliptin 25 MG TAB PO SCH (10:15)
[2020-04-20] MEDS: ALPRAZolam 0.5 MG TAB PO SCH ×2 (10:15→21:15)
[2020-04-20] MEDS: Digoxin 0.125 MG TAB PO SCH (10:16)
[2020-04-20] MEDS: HYDROcodone/Acetaminophen 7.5/325 mg Tablet PO SCH ×3 (10:16→21:16)
[2020-04-20] MEDS: Insulin Glargine 40 UNITS in Pre-Filled Syringe 1 EACH SC SCH (10:17)
[2020-04-20] MEDS: Metoprolol Tartrate 25 MG TAB PO SCH (10:18)
[2020-04-20] MEDS: busPIRone HCl 10 MG TAB PO SCH ×2 (10:27→21:16)
[2020-04-20] MEDS: Gabapentin 300 MG CAP PO SCH ×3 (10:28→21:17)
[2020-04-20] MEDS: Pantoprazole 40 MG VIAL IVP SCH ×2 (10:34→21:17)
--- NOTE | 2020-04-20 12:18 | PRG ---
DATE OF SERVICE: 04/20/2020 SUBJECTIVE: The patient reports she feels poorly. She describes abdominal discomfort, chest discomfort, and just feels generalized fatigue. She has had one bowel movement today which was dark. No nausea or vomiting. OBJECTIVE: VITAL SIGNS: Temperature is 97.3, pulse 48, respiratory rate 18, blood pressure 121/58. CHEST: Clear. CARDIOVASCULAR: Regular rate and rhythm. ABDOMEN: Obese, nontender with anasarca. EXTREMITIES: Show bilateral edema. LABORATORY DATA: Shows a hemoglobin 8.7, hematocrit 27.5, platelet counts 105. Chemistries significant for sodium of 132, BUN 83, creatinine of 4.73, glucose 69, albumin of 3.1. Renal ultrasound showed no abnormalities. ASSESSMENT: 1. GI bleed-H and H is stabilized. Her stools seem to be still dark, but no active bleeding. It is probably related to portal hypertensive gastropathy and possibly her grade D reflux esophagitis. 2. Retained gastric contents-treated with 24 hours of IV Reglan. 3. Portal hypertensive gastropathy. 4. Grade D reflux esophagitis. 5. Pyloric erosion. 6. Cirrhosis-stable. 7. Atrial fib/flutter with rapid ventricular rate-resolved. 8. Anemia-multifactorial. 9. Renal insufficiency-renal team thinks this is secondary to contrast. RECOMMENDATIONS: 1. Continue PPI. 2. Serial H and H. 3. Reglan discontinued. 4. Consider Sandostatin, midodrine, and IV albumin if renal function continues to deteriorate. Job ID: [id number]
--- NOTE | 2020-04-20 16:41 | PRG ---
DATE OF SERVICE: 04/20/2020 SUBJECTIVE: The patient was seen and examined, seems to be feeling much better today. Noted with the following vital signs. OBJECTIVE: VITAL SIGNS: Afebrile, temperature 97.4, pulse 61, respiratory rate of 18, O2 saturation of 94% with a blood pressure of 158/69. HEENT: Unremarkable. CARDIOVASCULAR SYSTEM: First and second heart sounds were heard. RESPIRATORY SYSTEM: Clear to auscultation. DIGESTIVE SYSTEM: Revealed an obese abdomen. EXTREMITIES: Showed improving peripheral edema. SKIN: No new gross rash. LABORATORY INVESTIGATION: Showed hemoglobin of 8.7. Chemistry showed a creatinine down to 4.73 with BUN of 83 and bicarb of 33. IMPRESSION: 1. Hypervolemia, seems to be responding well to diuretics. 2. Acute on chronic kidney disease in the context of contrast-induced acute tubular necrosis, seems to be stabilizing. 3. Morbid obesity. PLAN: 1. We will continue with renal supportive measures. 2. Diuresis to continue. 3. Maintain stable hemodynamics. 4. Further management to be dependent on the clinical course. Job ID: [id number]
[2020-04-20] MEDS ORDERED: Metoprolol Tartrate 25 MG TAB PO SCH (21:00)
[2020-04-20] MEDS: Melatonin 3 MG TAB PO PRN (21:16)
[2020-04-20] MEDS: traZODone HCl 50 MG TAB PO SCH (21:16)
[2020-04-20] MEDS: Insulin Glargine 20 UNITS in Pre-Filled Syringe 1 EACH SC SCH (21:32)
--- NOTE | 2020-04-20 22:02 | PDOC.BPN ---
- Brief Progress Note Transition of Care Note Patient is a 64 yo F with past medical history of cirrhosis, COPD, and DM2 admitted for AHRF 04/15 to Fluid Overload. The patient was initially started on IV lasix for diuresis; however, she experienced a bump in her Cr. and a contraction alkalosis so the diuretic was held. The patient also developed Afib/flutter with RVR on 04/13. At this time, cardiology and EP were consulted. The patient was initially started on a dilt drip and was later transitioned to PO dilt and dig. She was also started on Therapeutic lovenox. GI was also consulted due to patient's cirrhosis and possible paracentesis. Paracentesis was unable to be performed as a fluid pocket was not visualized. The patient's Hgb was initially stable, but she experienced a drop from 10.3 to 8.8 on 04/17. Anticoagulants have since been held. GI performed EGD on 04/18 which revealed portal HTN gastropathy, large armount of retained gastric contents, superficial pyloric erosion. Despite adjustments in the patient's diuretics and home medication (stopped home losartan and glipizide), the patient's kidney function has continued to decline. Nephro was consulted on 04/17. On 04/19, metoprolol was added to the patient's orders by another provider. The patient experienced bradycardia with the medication and it was quickly discontinued. Consults: Cardiology, EP, GI, Nephro Abx history: Rocephin and Azithro in ED, Rocephin from 04/14-04/19 for SBP ppx Ppx: BID protonix; anticoagulation currently being held Changes in home meds: DC'd losartan and glipizide due to renal function; renally adjusted alogliptin to 6.25 mg, but medication has since been increased back to home dose.
[2020-04-21 05:35] LABS: #Eosinphils 0.1 thou/uL (0.0-0.7); #Lymphocytes 0.4 thou/uL (1.20-3.40); #Monocytes 0.5 thou/uL (0.11-0.59); #Neutrophils 4.4 thou/uL (1.40-6.50); %Basophils 0.3 % (0.0-1.0); %Eosinophils 1.3 % (0.0-10.0); %Monocytes 9.8 % (0.0-10.0); %Neutrophils 81.7 % (42.0-75.0); Hemoglobin 8.5 g/dL (12.0-16.0); Mean Corpuscular HGB CONC 32.8 g/dL (32.0-36.0); Mean Corpuscular Hemoglobin 29.9 pg (27.0-31.0); Mean Corpuscular Volume 91.2 fL (78.0-98.0); Mean Platelet Volume 8.9 fL (7.4-10.4); Platelet Count 105 thou/uL (130-400); RBC Distribution Width 15.5 % (11.5-14.5); Red Blood Cell (RBC) Count 2.83 mill/uL (4.20-5.40); White Blood Cell (WBC) Count 5.4 thou/uL (4.8-10.8)
[2020-04-21 05:48] LABS: Albumin 3.3 g/dL (3.4-4.8); Anion Gap 16 mmol/L (10-20); BUN (Urea Nitrogen) 94 mg/dL (9.8-20.1); BUN/Creatinine Ratio 20.66; Calc. Creatinine Clearance 26 mL/min (70-130); Calcium 7.9 mg/dL (7.8-10.44); Carbon Dioxide 31 mmol/L (23-31); Chloride 90 mmol/L (98-107); Glucose 129 mg/dL (80-115); Phosphorus 6.5 mg/dL (2.3-4.7); Potassium 4.7 mmol/L (3.5-5.1); Sodium 132 mmol/L (136-145)
--- NOTE | 2020-04-21 06:25 | PDOC.FM ---
- Subjective Subjective: Pt resting comfortably this morning. She says she continues to have decreased appetite 2/2 abd distention. Denies SOB, CP, N/V. - Objective Vital Signs & Weight: Vital Signs (12 hours) Temp Pulse Resp BP Pulse Ox 04/21/20 04:26 97 04/21/20 04:00 97.0 F L 97 18 148/66 H 97 04/20/20 23:33 97.5 F L 64 146/66 H 93 L 04/20/20 20:43 95 04/20/20 20:42 95 04/20/20 20:00 95 04/20/20 19:57 97.4 F L 67 18 166/70 H 93 L Weight Admit Weight 129.002 kg Weight 129.501 kg I&O: 04/19/20 04/20/20 04/21/20 06:59 06:59 06:59 Intake Total 940 958 650 Output Total 1750 280 Balance 940 -792 370 Result Diagrams: 04/21/20 04:45 04/21/20 04:45 Phys Exam - Physical Examination Constitutional: NAD Neck: supple, full ROM crackles R lung base Cardiovascular: RRR, no significant murmur Gastrointestinal: soft, non-tender abd distention b/l LE edemea Neurological: non-focal Psychiatric: normal affect, A&O x 3 Dx/Plan - Plan Plan: Acute hypoxic respiratory failure 2/2 likely new onset CHF w/exacerbation vs. cirrhosis - CXR: cardiomegaly, b/l pulm vascular enlargement, BNP 1000 - dependent pitting edema - O2: 2 L NC - ECHO: EF 60-65%, Grade 1/3 diastolic dysfunction - Cardiology, GI, EP, and Nephro consulted; switched to 40 mg IV lasix BID added by nephro - cote placed for strict Is and Os JOANNE on CKD -Cr 1.25 > 1.68 > 2.10 > 2.93 > 4.15 > 5.40 > 4.73> 4.55 -BUN: 78 > 85 > 83 > 94 -Nephro consulted (04/17), Lasix 40 IV BID, discontinued losartan, avoid renal cleared meds -discontinued glipizide -concern that patient may need dialysis in the future -will continue to follow recs -cote placed to monitor Is and Os; ipatroprium dc'd due to concerns for urinary retention Afib/flutter with RVR, resolved - cardiology, Dr. Moreno consulted on 04/13 - started on dilt drip, transitioned to po dilt and dig added - indefinite hold on eliquis for now, consider watchman in future - consulted EP - EP, Dr. Edward - dilt drip stopped, PO dilt - started on dig - started on Eliquis, but held due to anemia Typical Chest Pain, resolved - EKG: inverted T waves - Trop: 0.025 - likely 2/2 to hypoxia as patient's NC was removed - resolved with replacement of NC Anemia - resolution of N/V with dark emesis, melena - concern for GI bleed; Hgb 11.3 > 10 > 10.3 > 8.8 > 8.5 > 8.7 - GI consulted, eliquis held -EGD: portal HTN gastropathy, large armount of retained gastric contents, superficial pyloric erosion - s/p reglan for 24 hours - okay to resume eliquis 3 days after EGD - BID protonix Cirrhosis 2/2 Hep C - treated -GI, Dr. Gaspar - consulted on 04/14 - no fluid seen for paracentesis - resume spironolactone and furosemide once Cr improves -has had 1 paracentesis in the past -on physical exam, abdomen very distended and uncomfortable, may resolve with diuresis -s/p rocephin for SBP ppx Hyperkalemia -K: 5.5 > 4.2 -no EKG changes Hypertensive urgency, resolved - SBP 200 in ED, given hydralazine and nitro paste - Losartan DC'd due to renal function, on dilt 2/2 to Afib with RVR, hydralazine prn - will adjust po meds to optimize control of BP Contraction Alkalosis - likely 2/2 to diuresis COPD -s/p Azithromycin and ceftriaxone in ED, will not continue as pt is not in acute exacerbation -dc'd duoneb due to possible urinary retention, albuterol neb prn Chronic thrombocytopenia - At baseline, 2/2 liver disease Hypervolemic hyponatremia - Na 130 > 137 > 132 - Expect improvement with diuresis Elevated d-dimer - 2.24 with negative CTA DM -continue home meds, will adjust as needed due to pt decrease appetite -DC'd glipizide -accuchecks ACHS, mild SSI Dispo: continue to monitor patient on tele, appreciate recs from GI, Cardiology, EP, and Nephro Addendum - Attending - Attending Attestation Date/Time: 04/21/20 3587 I personally evaluated the patient and discussed the management with Dr. Mtz. I agree with the History, Examination, Assessment and Plan documented above with any addition or exceptions noted below.
[2020-04-21] MEDS: Furosemide 40 MG/4 ML VIAL SLOW IVP SCH ×2 (07:12→13:58)
[2020-04-21] MEDS: ALPRAZolam 0.5 MG TAB PO SCH ×2 (08:52→21:23)
[2020-04-21] MEDS: HYDROcodone/Acetaminophen 7.5/325 mg Tablet PO SCH ×3 (08:52→21:16)
[2020-04-21] MEDS: busPIRone HCl 10 MG TAB PO SCH ×2 (08:52→21:15)
[2020-04-21] MEDS: Digoxin 0.125 MG TAB PO SCH (08:54)
[2020-04-21] MEDS: Pantoprazole 40 MG VIAL IVP SCH ×2 (08:55→21:15)
[2020-04-21] MEDS: Gabapentin 300 MG CAP PO SCH ×3 (08:55→21:15)
[2020-04-21] MEDS: Insulin Glargine 40 UNITS in Pre-Filled Syringe 1 EACH SC SCH (08:56)
[2020-04-21] MEDS: Alogliptin 25 MG TAB PO SCH (08:56)
--- NOTE | 2020-04-21 13:03 | PRG ---
DATE OF SERVICE: SUBJECTIVE: Ms. Puentes says she is feeling pretty well today. Nausea and chest discomfort have improved. She has been tolerating her diet. Minimal abdominal discomfort. Renal function remains tenuous. She has no other complaints. OBJECTIVE: VITAL SIGNS: Temperature 98, pulse 74, blood pressure 153/69, 95% oxygen saturation on 2 L nasal cannula. GENERAL: Obese, appearing comfortable, sitting up in bed, in no acute distress. HEART: Regular rate and rhythm. LUNGS: Clear to auscultation bilaterally. ABDOMEN: Obese. Bowel sounds present. Nontender to palpation. EXTREMITIES: No peripheral edema. LABORATORY STUDIES: Hemoglobin stable at 8.5, WBC 5.4, platelets 105. INR 1.1. Sodium 132, potassium 4.7, BUN 94, creatinine slightly down to 4.55, glucose 132, phosphorus 6.5, albumin 3.3. Hepatitis C RNA not detected. COVID negative. ASSESSMENT AND PLAN: 1. GI bleeding, felt to be secondary to portal hypertensive gastropathy and grade D reflux esophagitis. This appears to be resolved. Hemoglobin is stable. 2. Anemia, chronic, multifactorial. 3. Grade D reflux esophagitis. She continues on twice daily PPI. 4. Cirrhosis, stable. 5. Renal insufficiency. This is possibly secondary to contrast nephropathy. Nephrology is following. GI will sign off at this time. Please call back anytime with questions or concerns. Job ID: [id number]
[2020-04-21] MEDS ORDERED: NIFEdipine XL 30 MG TAB PO SCH (13:30)
--- NOTE | 2020-04-21 13:47 | PDOC.EP ---
- Subjective Date: 04/21/20 Time: 08:00 Interval History: No new cardiac concerns over the weekend. Some low appetite reported. - Review of Systems Constitutional: reports: weakness. denies: chills, fever Respiratory: denies: cough, hemoptysis, pleuritic pain, shortness of breath Cardiology: reports: edema. denies: chest pain, heart racing, light headedness, palpitations, passing out Gastrointestinal: reports: abdominal pain. denies: constipation, diarrhea - Objective Allergies/Adverse Reactions: Allergies Allergy/AdvReac Type Severity Reaction Status Date / Time Sulfa (Sulfonamide Allergy Unknown Verified 07/31/19 22:07 Antibiotics) Current Medications Acetaminophen (Acetaminophen 325 Mg Tab) 650 mg PO Q4H PRN PRN Reason: Headache/Fever/Mild Pain (1-3) Hydrocodone Bitart/Acetaminophen (Hydrocodone/Acetaminophen 7.5/325 Mg Tablet) 1 tab PO TID [facility] Last Admin: 04/21/20 08:52 Dose: 1 tab Documented by: Albuterol Sulfate (Albuterol Sulfate 2.5 Mg/3 Ml Neb) 2.5 mg NEB [id number] PRN PRN Reason: Wheezing Alogliptin Benzoate (Alogliptin 25 Mg Tab) 25 mg PO DAILY [facility] Last Admin: 04/21/20 08:56 Dose: Not Given Documented by: Alprazolam (Alprazolam 0.5 Mg Tab) 0.25 mg PO BID [facility] Last Admin: 04/21/20 08:52 Dose: 0.25 mg Documented by: Buspirone HCl (Buspirone Hcl 10 Mg Tab) 10 mg PO BID [facility] Last Admin: 04/21/20 08:52 Dose: 10 mg Documented by: Calcium Carbonate (Calcium Carbonate 500 Mg Chewtab) 1,000 mg PO Q4H PRN PRN Reason: Heartburn or Indigestion Last Admin: 04/14/20 20:05 Dose: 1,000 mg Documented by: Dextrose/Water (Dextrose 50% Abboject 50 Ml Syringe) 25 gm SLOW IVP PRN PRN PRN Reason: Hypoglycemia Digoxin (Digoxin 0.125 Mg Tab) 0.125 mg PO DAILY [facility] Last Admin: 04/21/20 08:54 Dose: 0.125 mg Documented by: Diltiazem HCl (Diltiazem Hcl 30 Mg Tablet) 60 mg PO QID [facility] Last Admin: 04/21/20 08:53 Dose: 60 mg Documented by: Furosemide (Furosemide 40 Mg/4 Ml Vial) 40 mg SLOW IVP 0600,1400 [facility] Last Admin: 04/21/20 07:12 Dose: 40 mg Documented by: Gabapentin (Gabapentin 300 Mg Cap) 600 mg PO TID [facility] Last Admin: 04/21/20 08:55 Dose: 600 mg Documented by: Glucagon (Glucagon 1 Mg/Ml Vial) 1 mg IM PRN PRN PRN Reason: Hypoglycemia Hydralazine HCl (Hydralazine 20 Mg/Ml Vial) 10 mg SLOW IVP Q4H PRN PRN Reason: SBP Greater Than 180 Last Admin: 04/19/20 16:26 Dose: 10 mg Documented by: Hydroxyzine HCl (Hydroxyzine 25 Mg Tab) 25 mg PO Q6H PRN PRN Reason: Anxiety Last Admin: 04/13/20 05:13 Dose: 25 mg Documented by: Dextrose/Water (D5w) 1,000 mls @ 0 mls/hr IV .Q0M PRN PRN Reason: Hypoglycemia Insulin Glargine 20 units/ (Miscellaneous Medication) 0.2 mls @ 0 mls/hr SC HS [facility] Last Admin: 04/20/20 21:32 Dose: Not Given Documented by: Insulin Glargine 40 units/ (Miscellaneous Medication) 0.4 mls @ 0 mls/hr SC QAM [facility] Last Admin: 04/21/20 08:56 Dose: Not Given Documented by: Insulin Human Lispro (Humalog 300 Units/3 Ml Vial) 0 units SC .BEDTIME SLIDING SC PRN PRN Reason: Bedtime Correctional Scale Insulin Human Lispro (Humalog 300 Units/3 Ml Vial) 0 units SC .MODERATE SLIDING SC PRN PRN Reason: Moderate Correctional Scale Last Admin: 04/18/20 17:12 Dose: 2 unit Documented by: Melatonin (Melatonin 3 Mg Tab) 3 mg PO HS PRN PRN Reason: Insomnia Last Admin: 04/20/20 21:16 Dose: 3 mg Documented by: Nifedipine (Nifedipine Xl 30 Mg Tab) 30 mg PO DAILY [facility] Nifedipine (Nifedipine Xl 30 Mg Tab) 30 mg PO NOW [facility] Stop: 04/21/20 15:30 Nitroglycerin (Nitroglycerin 0.4 Mg Tab (25 Tab Bottle)) 0.4 mg SL Q5MIN PRN PRN Reason: Chest Pain Last Admin: 04/15/20 16:19 Dose: 0.4 mg Documented by: Ondansetron HCl (Ondansetron Odt 4 Mg Tab) 4 mg PO Q6H PRN PRN Reason: Nausea/Vomiting Ondansetron HCl (Ondansetron Pf 4 Mg/2 Ml Vial) 4 mg IVP Q6H PRN PRN Reason: Nausea/Vomiting Last Admin: 04/19/20 21:06 Dose: 4 mg Documented by: Pantoprazole Sodium (Pantoprazole 40 Mg Vial) 40 mg IVP Q12HR [facility] Last Admin: 04/21/20 08:55 Dose: 40 mg Documented by: Sodium Chloride (Flush - Normal Saline 10 Ml Syringe) 10 ml IVF PRN PRN PRN Reason: Saline Flush Last Admin: 04/17/20 22:26 Dose: 10 ml Documented by: Trazodone HCl (Trazodone Hcl 50 Mg Tab) 100 mg PO HS [facility] Last Admin: 04/20/20 21:16 Dose: 100 mg Documented by: Vital Signs & Weight: Vital Signs Temp Pulse Resp BP Pulse Ox 04/21/20 11:24 98.0 F 74 16 153/69 H 95 04/21/20 08:54 74 04/21/20 07:09 97.4 F L 72 20 163/70 H 95 04/21/20 04:26 97 04/21/20 04:00 97.0 F L 97 18 148/66 H 97 Admit Weight 284 lb 6.4 oz Weight 285 lb 6 oz I/O: I/O 04/20/20 04/21/20 04/22/20 06:59 06:59 06:59 Intake Total 958 890 Output Total 5040 1030 Balance -792 140 - Quality Measures Condition: Atrial Fibrillation/Flutter (hx or current) - Medication Contraindications No Anticoagulant reason: Anticoagulant not tolerated - Physical Exam General: alert & oriented x3, appears well, no apparent distress, speech clear, affect appropriate HEENT: mucus membranes moist, normocephaly Neck: supple neck, midline trachea, no lymphadenopathy Cardiology: regular rate and rhythm, no murmur, PMI nondisplaced Lungs: clear to auscultation, no wheeze, rales, rhonchi, decreased breath sounds Neurology: cranial nerve 2-12 intact, grossly intact, no lateralizing findings Abdomen: decreased bowel sounds, tender, ascites - Chadsvasc Risk factors Hypertension: 1 Diabetes mellitus: 1 Female: 1 Risk Score: 3 - Labs Result Diagrams: 04/21/20 04:45 04/21/20 04:45 - EKG Interpretation EKG Method: Telemetry EKG shows: Sinus rhythm - Assessment/Plan Assessment/Plan: 1. Atrial fibrillation with RVR, diagnosed this admission, organised to slow atypical atrial flutter/atch with variable VR. a. Rate controlled with diltiazem 60 QID and dig 125mcg daily b. Converted to SR 04/18/20 1 am. 2. History of cirrhosis. 3. History of hepatitis C, previously treated. 4. COPD. 5. Type 2 diabetes. 6. Hypertension. 7. GERD. 8. Recent urinary tract infection, 2 weeks ago, preceding onset of symptoms, treated with antibiotics. 9. Tobacco habituation, quarter pack a day. 10. Esophageal varices. a. Dark emesis concerning for upper GI bleed b. melena stool 04/17, with Hgb drop 11. Preserved LVEF 60-65% 12. History of esophageal varices 04/18/20 Converted to SR. Continue PO dilt. May consolidate to Dilt CD 240mg once stable absorption. S/P EGD. with no acute bleed, but esophagitis found. Questionable shelter candidate for OAC - now on hold. If short term OAC of 2-3 months would be possible we could discuss OP watchman implant, but this does require short term OAC. 2.8.21- Remains in SR over weekend. Short pauses up to 1.3 seconds seen. Co ntinue current regimen.
[2020-04-21] MEDS ORDERED: Calcium Acetate 667 MG CAP PO SCH (18:00)
[2020-04-21] MEDS: HumaLOG 300 UNITS/3 ML VIAL SC PRN (18:02)
--- NOTE | 2020-04-21 18:07 | PDOC.CPN ---
- Subjective Date: 04/21/20 Time: 18:04 Interval history: Remains in sinus. No new issues. No angina, no SOB. - Review of Systems General: denies: fever/chills, weight/appetite/sleep changes, night sweats, fatigue Respiratory: denies: cough, congestion, shortness of breath, exercise intolerance Cardiovascular: reports: edema. denies: chest pain, palpitation, paroxysmal nocturnal dyspnea, orthopnea Gastrointestinal: denies: nausea, vomiting, diarrhea, constipation, abd pain, GI bleeding Musculoskeletal: denies: pain, tenderness, stiffness, swelling, arthritis/arthralgias Neurological: denies: numbness, syncope, seizure, weakness - Objective Allergies/Adverse Reactions: Allergies Allergy/AdvReac Type Severity Reaction Status Date / Time Sulfa (Sulfonamide Allergy Unknown Verified 07/31/19 22:07 Antibiotics) Visit Medications: Current Medications Acetaminophen (Acetaminophen 325 Mg Tab) 650 mg PO Q4H PRN PRN Reason: Headache/Fever/Mild Pain (1-3) Hydrocodone Bitart/Acetaminophen (Hydrocodone/Acetaminophen 7.5/325 Mg Tablet) 1 tab PO TID [facility] Last Admin: 04/21/20 13:58 Dose: 1 tab Documented by: Albuterol Sulfate (Albuterol Sulfate 2.5 Mg/3 Ml Neb) 2.5 mg NEB [id number] PRN PRN Reason: Wheezing Alogliptin Benzoate (Alogliptin 25 Mg Tab) 25 mg PO DAILY [facility] Last Admin: 04/21/20 08:56 Dose: Not Given Documented by: Alprazolam (Alprazolam 0.5 Mg Tab) 0.25 mg PO BID [facility] Last Admin: 04/21/20 08:52 Dose: 0.25 mg Documented by: Buspirone HCl (Buspirone Hcl 10 Mg Tab) 10 mg PO BID [facility] Last Admin: 04/21/20 08:52 Dose: 10 mg Documented by: Calcium Acetate (Calcium Acetate 667 Mg Cap) 1,334 mg PO TID-[facility] Calcium Acetate (Calcium Acetate 667 Mg Cap) 1,334 mg PO NOW [facility] Stop: 04/21/20 20:00 Calcium Carbonate (Calcium Carbonate 500 Mg Chewtab) 1,000 mg PO Q4H PRN PRN Reason: Heartburn or Indigestion Last Admin: 04/14/20 20:05 Dose: 1,000 mg Documented by: Dextrose/Water (Dextrose 50% Abboject 50 Ml Syringe) 25 gm SLOW IVP PRN PRN PRN Reason: Hypoglycemia Digoxin (Digoxin 0.125 Mg Tab) 0.125 mg PO DAILY [facility] Last Admin: 04/21/20 08:54 Dose: 0.125 mg Documented by: Diltiazem HCl (Diltiazem Hcl 30 Mg Tablet) 60 mg PO QID [facility] Last Admin: 04/21/20 17:42 Dose: 60 mg Documented by: Furosemide (Furosemide 40 Mg Tab) 40 mg PO 0900,1400 [facility] Gabapentin (Gabapentin 300 Mg Cap) 600 mg PO TID [facility] Last Admin: 04/21/20 13:58 Dose: 600 mg Documented by: Glucagon (Glucagon 1 Mg/Ml Vial) 1 mg IM PRN PRN PRN Reason: Hypoglycemia Hydralazine HCl (Hydralazine 20 Mg/Ml Vial) 10 mg SLOW IVP Q4H PRN PRN Reason: SBP Greater Than 180 Last Admin: 04/19/20 16:26 Dose: 10 mg Documented by: Hydroxyzine HCl (Hydroxyzine 25 Mg Tab) 25 mg PO Q6H PRN PRN Reason: Anxiety Last Admin: 04/13/20 05:13 Dose: 25 mg Documented by: Dextrose/Water (D5w) 1,000 mls @ 0 mls/hr IV .Q0M PRN PRN Reason: Hypoglycemia Insulin Glargine 20 units/ (Miscellaneous Medication) 0.2 mls @ 0 mls/hr SC HS [facility] Last Admin: 04/20/20 21:32 Dose: Not Given Documented by: Insulin Glargine 40 units/ (Miscellaneous Medication) 0.4 mls @ 0 mls/hr SC QAM [facility] Last Admin: 04/21/20 08:56 Dose: Not Given Documented by: Insulin Human Lispro (Humalog 300 Units/3 Ml Vial) 0 units SC .BEDTIME SLIDING SC PRN PRN Reason: Bedtime Correctional Scale Insulin Human Lispro (Humalog 300 Units/3 Ml Vial) 0 units SC .MODERATE SLIDING SC PRN PRN Reason: Moderate Correctional Scale Last Admin: 04/18/20 17:12 Dose: 2 unit Documented by: Melatonin (Melatonin 3 Mg Tab) 3 mg PO HS PRN PRN Reason: Insomnia Last Admin: 04/20/20 21:16 Dose: 3 mg Documented by: Nifedipine (Nifedipine Xl 30 Mg Tab) 30 mg PO DAILY [facility] Nitroglycerin (Nitroglycerin 0.4 Mg Tab (25 Tab Bottle)) 0.4 mg SL Q5MIN PRN PRN Reason: Chest Pain Last Admin: 04/15/20 16:19 Dose: 0.4 mg Documented by: Ondansetron HCl (Ondansetron Odt 4 Mg Tab) 4 mg PO Q6H PRN PRN Reason: Nausea/Vomiting Ondansetron HCl (Ondansetron Pf 4 Mg/2 Ml Vial) 4 mg IVP Q6H PRN PRN Reason: Nausea/Vomiting Last Admin: 04/19/20 21:06 Dose: 4 mg Documented by: Pantoprazole Sodium (Pantoprazole 40 Mg Vial) 40 mg IVP Q12HR JAMES Last Admin: 04/21/20 08:55 Dose: 40 mg Documented by: Sodium Chloride (Flush - Normal Saline 10 Ml Syringe) 10 ml IVF PRN PRN PRN Reason: Saline Flush Last Admin: 04/17/20 22:26 Dose: 10 ml Documented by: Trazodone HCl (Trazodone Hcl 50 Mg Tab) 100 mg PO HS [facility] Last Admin: 04/20/20 21:16 Dose: 100 mg Documented by: Vital Signs & Weight: Vital Signs Temp Pulse Resp BP Pulse Ox 04/21/20 16:23 148/65 H 04/21/20 16:00 97.6 F 67 20 190/80 H 96 04/21/20 11:24 98.0 F 74 16 153/69 H 95 04/21/20 08:54 74 04/21/20 07:09 97.4 F L 72 20 163/70 H 95 Admit Weight 284 lb 6.4 oz Weight 285 lb 6 oz - Medication Contraindications No Anticoagulant reason: Anticoagulant not tolerated - Physical Exam General: alert & oriented x3 HEENT: mucus membranes moist Neck: supple neck Cardiac: regular rate and rhythm Lungs: normal breath sounds Neuro: no lateralizing findings Abdomen: active bowel sounds Extremities: 1+ LE edema Skin: clear Musculoskeletal: no pain - Labs Result Diagrams: 04/21/20 04:45 04/21/20 04:45 Troponin/CKMB Troponin I 0.025 ng/mL (< 0.028) 04/15/20 15:57 - Telemetry Sinus rhythms and dysrhythmias: sinus rhythm - Assessment/Plan Assessment/Plan: 1. Paroxysmal afib/flutter. Back in sinus. 2. Volume overload. 3. Diastolic heart failure. Improved. 4. Cirrhosis of the liver, appears compensated by lab values 5. Hx of Esophageal varices, none seen on EGD last week. 6. JOANNE on CKD. Likely ATN, improving. 7. Portal hypertensive gastropathy. PLAN: - Remains in sinus HR in the 60's. - Anemia from gastritis. - Would be high risk for any anticoagulation. Hold Eliquis indefinitely. Candidate for Watchman in the future. - CV currently stable.
--- NOTE | 2020-04-21 18:12 | PRG ---
DATE OF SERVICE: 04/21/2020 SUBJECTIVE: The patient is seen and examined, noted with the following vital signs. OBJECTIVE: VITAL SIGNS: Afebrile, temperature 97.6, pulse , respiratory rate of 20, O2 saturations 96%, blood pressure 148/65 . HEENT: Unremarkable. CARDIOVASCULAR SYSTEM: First and second sounds were heard. RESPIRATORY SYSTEM: Clear to auscultation. DIGESTIVE SYSTEM: Revealed an obese abdomen. EXTREMITIES: No peripheral edema. SKIN: No new gross rash. LYMPHATIC: No peripheral lymphadenopathy. LABORATORY INVESTIGATION: Showed a hemoglobin of 8.5. Chemistry showed creatinine down to 4.55, BUN of 94, phosphorus of 6.5. IMPRESSION: 1. Acute on chronic kidney disease in the context of contrast nephropathy, seems to be improving, and the patient seems to be heading towards post acute tubular necrosis diuretic phase. 2. Hyperphosphatemia in the context of decreased renal clearance. 3. Obesity. PLAN: 1. Continue current renal supportive measures. We will gradually begin to deescalate diuresis. 2. We will start this patient on phosphate binders. 3. Start the patient on active vitamin D also. 4. Further management to be dependent on the clinical course. Job ID: [id number]
[2020-04-21] MEDS: Melatonin 3 MG TAB PO PRN (21:16)
[2020-04-21] MEDS: traZODone HCl 50 MG TAB PO SCH (21:16)
[2020-04-21] MEDS: Insulin Glargine 20 UNITS in Pre-Filled Syringe 1 EACH SC SCH (21:33)
[2020-04-22 05:05] LABS: #Eosinphils 0.1 thou/uL (0.0-0.7); #Lymphocytes 0.4 thou/uL (1.20-3.40); #Monocytes 0.5 thou/uL (0.11-0.59); %Basophils 0.2 % (0.0-1.0); %Lymphocytes 9.6 % (21.0-51.0); %Monocytes 12.5 % (0.0-10.0); %Neutrophils 75.7 % (42.0-75.0); Hemoglobin 8.2 g/dL (12.0-16.0); Mean Corpuscular HGB CONC 33.8 g/dL (32.0-36.0); Mean Corpuscular Hemoglobin 30.7 pg (27.0-31.0); Mean Corpuscular Volume 90.8 fL (78.0-98.0); Mean Platelet Volume 8.9 fL (7.4-10.4); Platelet Count 111 thou/uL (130-400); RBC Distribution Width 15.1 % (11.5-14.5); Red Blood Cell (RBC) Count 2.66 mill/uL (4.20-5.40)
[2020-04-22 05:21] LABS: Albumin 3.1 g/dL (3.4-4.8); Anion Gap 16 mmol/L (10-20); BUN (Urea Nitrogen) 93 mg/dL (9.8-20.1); BUN/Creatinine Ratio 22.14; Calc. Creatinine Clearance 28 mL/min (70-130); Calcium 7.8 mg/dL (7.8-10.44); Carbon Dioxide 32 mmol/L (23-31); Chloride 89 mmol/L (98-107); Glucose 140 mg/dL (80-115); Phosphorus 5.4 mg/dL (2.3-4.7); Potassium 4.3 mmol/L (3.5-5.1); Sodium 133 mmol/L (136-145)
--- NOTE | 2020-04-22 06:56 | PDOC.FM ---
- Subjective Subjective: Pt resting comfortably in bed with krish hugger in place. Overnight pt had episode of HR 30s-40s, asymptomatic and T of 94.1. She says she is feeling much better and that her swelling is improved. Denies CP, SOB, N/V. - Objective Vital Signs & Weight: Vital Signs (12 hours) Temp Pulse Resp BP Pulse Ox 04/22/20 04:00 56 L 18 149/66 H 92 L 04/22/20 03:39 92 L 04/21/20 20:00 97.6 F 59 L 18 161/69 H 92 L Weight Admit Weight 129.002 kg Weight 129.841 kg I&O: 04/20/20 04/21/20 04/22/20 06:59 06:59 06:59 Intake Total 958 890 778 Output Total 1750 1030 900 Balance -792 -140 -122 Result Diagrams: 04/22/20 04:17 04/22/20 04:17 Phys Exam - Physical Examination Constitutional: NAD HEENT: sclera anicteric Neck: supple, full ROM Respiratory: no wheezing, clear to auscultation bilateral Cardiovascular: RRR, no significant murmur Gastrointestinal: soft, non-tender b/l LE edema Neurological: non-focal Psychiatric: normal affect, A&O x 3 Dx/Plan - Plan Plan: Acute hypoxic respiratory failure 2/2 likely new onset CHF w/exacerbation vs. cirrhosis - CXR: cardiomegaly, b/l pulm vascular enlargement, BNP 1000 - dependent pitting edema - O2: 2 L NC - ECHO: EF 60-65%, Grade 1/3 diastolic dysfunction - Cardiology, GI, EP, and Nephro consulted; - nephro recs: 40 mg IV lasix BID, kidney function improving, likely to slow down diuresis soon - cote placed for strict Is and Os JOANNE on CKD -Cr 1.25 > 1.68 > 2.10 > 2.93 > 4.15 > 5.40 > 4.73> 4.55 >4.2 -Nephro consulted (04/17): recs as above -discontinued glipizide -ipatroprium dc'd due to concerns for urinary retention Afib/flutter with RVR, resolved - cardiology, Dr. Moreno consulted on 04/13: indefinite hold on eliquis for now, consider watchman in future - EP, Dr. Edward: PO dilt and dig, consider watchman in future if she can tolerate short course of oral anticoagulation - overnight had episode of symptomatic bradycardia, will reach out to Dr Edward to make him aware UTI -UCx: yeast -will do one time fluconazole Typical Chest Pain, resolved - EKG: inverted T waves - Trop: 0.025 - likely 2/2 to hypoxia as patient's NC was removed - resolved with replacement of NC Anemia - resolution of N/V with dark emesis, melena - concern for GI bleed; Hgb 11.3 > 10 > 10.3 > 8.8 > 8.5 > 8.7 - GI consulted, EGD: portal HTN gastropathy, large armount of retained gastric contents, superficial pyloric erosion - BID protonix Cirrhosis 2/2 Hep C - treated -GI, Dr. Gaspar - consulted on 04/14 - no fluid seen for paracentesis - resume spironolactone and furosemide once Cr improves -has had 1 paracentesis in the past -on physical exam, abdomen very distended and uncomfortable, may resolve with diuresis -s/p rocephin for SBP ppx Hyperkalemia -resolved, K 4.3 -no EKG changes Hypertensive urgency, resolved - SBP 200 in ED, given hydralazine and nitro paste - Losartan DC'd due to renal function, on dilt 2/2 to Afib with RVR, hydralazine prn - will adjust po meds to optimize control of BP Contraction Alkalosis - likely 2/2 to diuresis COPD -s/p Azithromycin and ceftriaxone in ED, will not continue as pt is not in acute exacerbation -dc'd duoneb due to possible urinary retention, albuterol neb prn Chronic thrombocytopenia - At baseline, 2/2 liver disease Hypervolemic hyponatremia - Na 133 - Expect improvement with diuresis Elevated d-dimer - 2.24 with negative CTA DM -continue home meds, will adjust as needed due to pt decrease appetite -DC'd glipizide -accuchecks ACHS, mild SSI Dispo: continue to monitor patient on tele, appreciate recs from GI, Cardiology, EP, and Nephro Addendum - Attending - Attending Attestation Date/Time: 04/22/20 1417 I personally evaluated the patient and discussed the management with Dr. Mtz. I agree with the History, Examination, Assessment and Plan documented above with any addition or exceptions noted below.
[2020-04-22] MEDS: Insulin Glargine 40 UNITS in Pre-Filled Syringe 1 EACH SC SCH (08:41)
[2020-04-22] MEDS: Alogliptin 25 MG TAB PO SCH (08:41)
[2020-04-22] MEDS: Digoxin 0.125 MG TAB PO SCH (08:42)
[2020-04-22] MEDS: ALPRAZolam 0.5 MG TAB PO SCH ×2 (08:45→21:54)
[2020-04-22] MEDS: HYDROcodone/Acetaminophen 7.5/325 mg Tablet PO SCH ×3 (08:45→21:41)
--- NOTE | 2020-04-22 08:45 | PDOC.EP ---
- Subjective Date: 04/22/20 Time: 08:44 - Review of Systems Constitutional: denies: chills, fever, malaise, sweats, weakness, other Respiratory: reports: SOB with excertion. denies: cough, dry, hemoptysis, pleuritic pain, shortness of breath, sputum, wheezing, other Cardiology: denies: chest pain, edema, heart racing, light headedness, paroxysmal noc. dyspnea, orthopnea, palpitations, passing out, pleuritic pain, pressure, swelling, other Gastrointestinal: denies: abdominal pain, constipation, diarrhea, hematochezia, melena, nausea, vomitting, other - Objective Allergies/Adverse Reactions: Allergies Allergy/AdvReac Type Severity Reaction Status Date / Time Sulfa (Sulfonamide Allergy Unknown Verified 07/31/19 22:07 Antibiotics) Current Medications Acetaminophen (Acetaminophen 325 Mg Tab) 650 mg PO Q4H PRN PRN Reason: Headache/Fever/Mild Pain (1-3) Hydrocodone Bitart/Acetaminophen (Hydrocodone/Acetaminophen 7.5/325 Mg Tablet) 1 tab PO TID [facility] Last Admin: 04/21/20 21:16 Dose: 1 tab Documented by: Albuterol Sulfate (Albuterol Sulfate 2.5 Mg/3 Ml Neb) 2.5 mg NEB [id number] PRN PRN Reason: Wheezing Alogliptin Benzoate (Alogliptin 25 Mg Tab) 25 mg PO DAILY [facility] Last Admin: 04/22/20 08:41 Dose: Not Given Documented by: Alprazolam (Alprazolam 0.5 Mg Tab) 0.25 mg PO BID [facility] Last Admin: 04/21/20 21:23 Dose: 0.25 mg Documented by: Buspirone HCl (Buspirone Hcl 10 Mg Tab) 10 mg PO BID [facility] Last Admin: 04/21/20 21:15 Dose: 10 mg Documented by: Calcium Acetate (Calcium Acetate 667 Mg Cap) 1,334 mg PO TID-[facility] Calcium Carbonate (Calcium Carbonate 500 Mg Chewtab) 1,000 mg PO Q4H PRN PRN Reason: Heartburn or Indigestion Last Admin: 04/14/20 20:05 Dose: 1,000 mg Documented by: Dextrose/Water (Dextrose 50% Abboject 50 Ml Syringe) 25 gm SLOW IVP PRN PRN PRN Reason: Hypoglycemia Digoxin (Digoxin 0.125 Mg Tab) 0.125 mg PO DAILY [facility] Last Admin: 04/22/20 08:42 Dose: Not Given Documented by: Diltiazem HCl (Diltiazem Hcl 30 Mg Tablet) 60 mg PO QID [facility] Last Admin: 04/22/20 08:41 Dose: Not Given Documented by: Furosemide (Furosemide 40 Mg Tab) 40 mg PO 0900,1400 [facility] Gabapentin (Gabapentin 300 Mg Cap) 600 mg PO TID [facility] Last Admin: 04/21/20 21:15 Dose: 600 mg Documented by: Glucagon (Glucagon 1 Mg/Ml Vial) 1 mg IM PRN PRN PRN Reason: Hypoglycemia Hydralazine HCl (Hydralazine 20 Mg/Ml Vial) 10 mg SLOW IVP Q4H PRN PRN Reason: SBP Greater Than 180 Last Admin: 04/19/20 16:26 Dose: 10 mg Documented by: Hydroxyzine HCl (Hydroxyzine 25 Mg Tab) 25 mg PO Q6H PRN PRN Reason: Anxiety Last Admin: 04/13/20 05:13 Dose: 25 mg Documented by: Dextrose/Water (D5w) 1,000 mls @ 0 mls/hr IV .Q0M PRN PRN Reason: Hypoglycemia Insulin Glargine 20 units/ (Miscellaneous Medication) 0.2 mls @ 0 mls/hr SC HS [facility] Last Admin: 04/21/20 21:33 Dose: Not Given Documented by: Insulin Glargine 40 units/ (Miscellaneous Medication) 0.4 mls @ 0 mls/hr SC QAM [facility] Last Admin: 04/22/20 08:41 Dose: Not Given Documented by: Insulin Human Lispro (Humalog 300 Units/3 Ml Vial) 0 units SC .BEDTIME SLIDING SC PRN PRN Reason: Bedtime Correctional Scale Insulin Human Lispro (Humalog 300 Units/3 Ml Vial) 0 units SC .MODERATE SLIDING SC PRN PRN Reason: Moderate Correctional Scale Last Admin: 04/21/20 18:02 Dose: 2 unit Documented by: Melatonin (Melatonin 3 Mg Tab) 3 mg PO HS PRN PRN Reason: Insomnia Last Admin: 04/21/20 21:16 Dose: 3 mg Documented by: Nifedipine (Nifedipine Xl 30 Mg Tab) 30 mg PO DAILY [facility] Nitroglycerin (Nitroglycerin 0.4 Mg Tab (25 Tab Bottle)) 0.4 mg SL Q5MIN PRN PRN Reason: Chest Pain Last Admin: 04/15/20 16:19 Dose: 0.4 mg Documented by: Ondansetron HCl (Ondansetron Odt 4 Mg Tab) 4 mg PO Q6H PRN PRN Reason: Nausea/Vomiting Ondansetron HCl (Ondansetron Pf 4 Mg/2 Ml Vial) 4 mg IVP Q6H PRN PRN Reason: Nausea/Vomiting Last Admin: 04/19/20 21:06 Dose: 4 mg Documented by: Pantoprazole Sodium (Pantoprazole 40 Mg Vial) 40 mg IVP Q12HR JAMES Last Admin: 04/21/20 21:15 Dose: 40 mg Documented by: Sodium Chloride (Flush - Normal Saline 10 Ml Syringe) 10 ml IVF PRN PRN PRN Reason: Saline Flush Last Admin: 04/17/20 22:26 Dose: 10 ml Documented by: Trazodone HCl (Trazodone Hcl 50 Mg Tab) 100 mg PO HS [facility] Last Admin: 04/21/20 21:16 Dose: 100 mg Documented by: Vital Signs & Weight: Vital Signs Temp Pulse Resp BP Pulse Ox 04/22/20 08:42 57 L 04/22/20 07:10 97.5 F L 60 16 170/74 H 92 L 04/22/20 04:00 56 L 18 149/66 H 92 L 04/22/20 03:39 92 L Admit Weight 284 lb 6.4 oz Weight 286 lb 4 oz I/O: I/O 04/21/20 04/22/20 04/23/20 06:59 06:59 06:59 Intake Total 890 778 Output Total 1030 900 Balance -140 -122 - Quality Measures Condition: Atrial Fibrillation/Flutter (hx or current) - Medication Contraindications No Anticoagulant reason: Anticoagulant not tolerated - Physical Exam General: appears well, other (M. Obese) HEENT: normocephaly Neck: supple neck, no JVD/HJR Cardiology: regular rate and rhythm, no murmur, audible murmur Lungs: normal breath sounds Neurology: grossly intact Abdomen: active bowel sounds - Chadsvasc Risk factors Hypertension: 1 Female: 1 Risk Score: 2 - Labs Result Diagrams: 04/22/20 04:17 04/22/20 04:17 - EKG Interpretation EKG Method: Telemetry EKG shows: Sinus rhythm - Assessment/Plan Assessment/Plan: 1. Atrial fibrillation with RVR, diagnosed this admission, organised to slow atypical atrial flutter/atch with variable VR. a. Rate controlled with diltiazem 60 QID and dig 125mcg daily b. Converted to SR 04/18/20 1 am. 2. History of cirrhosis. 3. History of hepatitis C, previously treated. 4. COPD. 5. Type 2 diabetes. 6. Hypertension. 7. GERD. 8. Recent urinary tract infection, 2 weeks ago, preceding onset of symptoms, treated with antibiotics. 9. Tobacco habituation, quarter pack a day. 10. Esophageal varices. a. Dark emesis concerning for upper GI bleed b. melena stool 04/17, with Hgb drop 11. Preserved LVEF 60-65% 12. History of esophageal varices 04/18/20 Converted to SR. Continue PO dilt. May consolidate to Dilt CD 240mg once stable absorption. S/P EGD. with no acute bleed, but esophagitis found. Questionable skilled nursing candidate for OAC - now on hold. If short term OAC of 2-3 months would be pos sible we could discuss OP watchman implant, but this does require short term OAC. 04.21.20- Remains in SR over weekend. Short pauses up to 1.3 seconds seen. Continue current regimen. 04/21/20- Continues in SR. remins off oAC. 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 Currently back in SR, but afib recurrence is likely. Once GI status improves may consider for watchman procedure as outptl.
[2020-04-22] MEDS: Furosemide 40 MG TAB PO SCH ×2 (08:46→14:29)
[2020-04-22] MEDS: busPIRone HCl 10 MG TAB PO SCH ×2 (08:46→21:54)
[2020-04-22] MEDS: Calcium Acetate 667 MG CAP PO SCH ×3 (08:46→16:22)
[2020-04-22] MEDS: Gabapentin 300 MG CAP PO SCH ×3 (08:46→21:41)
[2020-04-22] MEDS: Pantoprazole 40 MG VIAL IVP SCH ×2 (08:47→21:42)
[2020-04-22] MEDS ORDERED: NIFEdipine XL 30 MG TAB PO SCH (09:00)
--- NOTE | 2020-04-22 16:57 | PDOC.CPN ---
- Subjective Date: 04/22/20 Time: 16:56 Interval history: She is doing better every day. No chest pain. - Review of Systems General: denies: fever/chills, weight/appetite/sleep changes, night sweats, fatigue Respiratory: denies: cough, congestion, shortness of breath, exercise intolerance Cardiovascular: denies: chest pain, palpitation, edema, paroxysmal nocturnal dyspnea, orthopnea Gastrointestinal: denies: nausea, vomiting, diarrhea, constipation, abd pain, GI bleeding Musculoskeletal: denies: pain, tenderness, stiffness, swelling, arthritis/arthra lgias Neurological: denies: numbness, syncope, seizure, weakness - Objective Allergies/Adverse Reactions: Allergies Allergy/AdvReac Type Severity Reaction Status Date / Time Sulfa (Sulfonamide Allergy Unknown Verified 07/31/19 22:07 Antibiotics) Visit Medications: Current Medications Acetaminophen (Acetaminophen 325 Mg Tab) 650 mg PO Q4H PRN PRN Reason: Headache/Fever/Mild Pain (1-3) Hydrocodone Bitart/Acetaminophen (Hydrocodone/Acetaminophen 7.5/325 Mg Tablet) 1 tab PO TID [facility] Last Admin: 04/22/20 14:29 Dose: 1 tab Documented by: Albuterol Sulfate (Albuterol Sulfate 2.5 Mg/3 Ml Neb) 2.5 mg NEB [id number] PRN PRN Reason: Wheezing Alogliptin Benzoate (Alogliptin 25 Mg Tab) 25 mg PO DAILY [facility] Last Admin: 04/22/20 08:41 Dose: Not Given Documented by: Alprazolam (Alprazolam 0.5 Mg Tab) 0.25 mg PO BID [facility] Last Admin: 04/22/20 08:45 Dose: 0.25 mg Documented by: Buspirone HCl (Buspirone Hcl 10 Mg Tab) 10 mg PO BID [facility] Last Admin: 04/22/20 08:46 Dose: 10 mg Documented by: Calcium Acetate (Calcium Acetate 667 Mg Cap) 1,334 mg PO TID[facility] Last Admin: 04/22/20 16:22 Dose: 1,334 mg Documented by: Calcium Carbonate (Calcium Carbonate 500 Mg Chewtab) 1,000 mg PO Q4H PRN PRN Reason: Heartburn or Indigestion Last Admin: 04/14/20 20:05 Dose: 1,000 mg Documented by: Dextrose/Water (Dextrose 50% Abboject 50 Ml Syringe) 25 gm SLOW IVP PRN PRN PRN Reason: Hypoglycemia Digoxin (Digoxin 0.125 Mg Tab) 0.125 mg PO DAILY [facility] Last Admin: 04/22/20 08:42 Dose: Not Given Documented by: Diltiazem HCl (Diltiazem Hcl 30 Mg Tablet) 60 mg PO QID [facility] Last Admin: 04/22/20 16:22 Dose: 60 mg Documented by: Fluconazole (Fluconazole 100 Mg Tab) 150 mg PO DAILY [facility] Stop: 04/23/20 11:00 Furosemide (Furosemide 40 Mg Tab) 40 mg PO 0900,1400 [facility] Last Admin: 04/22/20 14:29 Dose: 40 mg Documented by: Gabapentin (Gabapentin 300 Mg Cap) 600 mg PO TID [facility] Last Admin: 04/22/20 14:30 Dose: 600 mg Documented by: Glucagon (Glucagon 1 Mg/Ml Vial) 1 mg IM PRN PRN PRN Reason: Hypoglycemia Hydralazine HCl (Hydralazine 20 Mg/Ml Vial) 10 mg SLOW IVP Q4H PRN PRN Reason: SBP Greater Than 180 Last Admin: 04/19/20 16:26 Dose: 10 mg Documented by: Hydroxyzine HCl (Hydroxyzine 25 Mg Tab) 25 mg PO Q6H PRN PRN Reason: Anxiety Last Admin: 04/13/20 05:13 Dose: 25 mg Documented by: Dextrose/Water (D5w) 1,000 mls @ 0 mls/hr IV .Q0M PRN PRN Reason: Hypoglycemia Insulin Glargine 20 units/ (Miscellaneous Medication) 0.2 mls @ 0 mls/hr SC [facility] Last Admin: 04/21/20 21:33 Dose: Not Given Documented by: Insulin Glargine 40 units/ (Miscellaneous Medication) 0.4 mls @ 0 mls/hr [facility] Last Admin: 04/22/20 08:41 Dose: Not Given Documented by: Insulin Human Lispro (Humalog 300 Units/3 Ml Vial) 0 units SC .BEDTIME SLIDING SC PRN PRN Reason: Bedtime Correctional Scale Insulin Human Lispro (Humalog 300 Units/3 Ml Vial) 0 units SC .MODERATE SLIDING SC PRN PRN Reason: Moderate Correctional Scale Last Admin: 04/21/20 18:02 Dose: 2 unit Documented by: Melatonin (Melatonin 3 Mg Tab) 3 mg PO HS PRN PRN Reason: Insomnia Last Admin: 04/21/20 21:16 Dose: 3 mg Documented by: Nifedipine (Nifedipine Xl 30 Mg Tab) 30 mg PO DAILY [facility] Last Admin: 04/22/20 08:46 Dose: 30 mg Documented by: Nitroglycerin (Nitroglycerin 0.4 Mg Tab (25 Tab Bottle)) 0.4 mg SL Q5MIN PRN PRN Reason: Chest Pain Last Admin: 04/15/20 16:19 Dose: 0.4 mg Documented by: Ondansetron HCl (Ondansetron Odt 4 Mg Tab) 4 mg PO Q6H PRN PRN Reason: Nausea/Vomiting Ondansetron HCl (Ondansetron Pf 4 Mg/2 Ml Vial) 4 mg IVP Q6H PRN PRN Reason: Nausea/Vomiting Last Admin: 04/19/20 21:06 Dose: 4 mg Documented by: Pantoprazole Sodium (Pantoprazole 40 Mg Vial) 40 mg IVP Q12HR [facility] Last Admin: 04/22/20 08:47 Dose: 40 mg Documented by: Sodium Chloride (Flush - Normal Saline 10 Ml Syringe) 10 ml IVF PRN PRN PRN Reason: Saline Flush Last Admin: 04/17/20 22:26 Dose: 10 ml Documented by: Trazodone HCl (Trazodone Hcl 50 Mg Tab) 100 mg PO HS [facility] Last Admin: 04/21/20 21:16 Dose: 100 mg Documented by: Vital Signs & Weight: Vital Signs Temp Pulse Resp BP Pulse Ox 04/22/20 15:10 98.3 F 70 18 149/66 H 92 L 04/22/20 11:20 97.6 F 63 16 155/67 H 93 L 04/22/20 08:46 57 L 04/22/20 08:42 57 L 04/22/20 07:10 97.5 F L 60 16 170/74 H 92 L Admit Weight 284 lb 6.4 oz Weight 286 lb 4 oz - Medication Contraindications No Anticoagulant reason: Anticoagulant not tolerated - Physical Exam General: alert & oriented x3 HEENT: mucus membranes moist Neck: supple neck Cardiac: regular rate and rhythm Lungs: normal breath sounds Neuro: grossly intact Abdomen: active bowel sounds, non-tender, distended Extremities: 1+ LE edema Skin: clear Musculoskeletal: no pain - Labs Result Diagrams: 04/22/20 04:17 04/22/20 04:17 Troponin/CKMB Troponin I 0.025 ng/mL (< 0.028) 04/15/20 15:57 - Telemetry Sinus rhythms and dysrhythmias: sinus rhythm - Assessment/Plan Assessment/Plan: 1. Paroxysmal afib/flutter. Remains in sinus. 2. Volume overload. 3. Diastolic heart failure. Improved. 4. Cirrhosis of the liver, appears compensated by lab values 5. Hx of Esophageal varices, none seen on EGD last week. 6. JOANNE on CKD. Likely ATN, improving. 7. Portal hypertensive gastropathy. PLAN: - Remains in sinus HR in the 60's. - Anemia from gastritis. - Would be high risk for any anticoagulation. Hold Eliquis indefinitely. Candidate for Watchman in the future. - CV remains stable.
[2020-04-22] MEDS: HumaLOG 300 UNITS/3 ML VIAL SC PRN (18:26)
--- NOTE | 2020-04-22 18:30 | PRG ---
DATE OF SERVICE: 04/22/2020 OBJECTIVE: VITAL SIGNS: The patient is noted with the following vital signs; afebrile, temperature 98.3, pulse 70, respiratory rate of 18, O2 saturations of 92%, blood pressure . HEENT: Unremarkable. CARDIOVASCULAR SYSTEM: First and second heart sounds were heard. RESPIRATORY SYSTEM: Clear to auscultation. DIGESTIVE SYSTEM: Revealed a benign abdomen with positive bowel sounds. EXTREMITIES: No peripheral edema. SKIN: No new gross rash. LYMPHATICS: No peripheral lymphadenopathy. LABORATORY INVESTIGATION: Showed a white count of 4000, hemoglobin 8.2. Chemistry showed a creatinine of 4.2 with BUN of 93, phosphorus 5.4. IMPRESSION: 1. Acute on chronic kidney disease in the context of contrast nephropathy, seems to be improving. 2. Anemia. 3. Hyponatremia. PLAN: 1. We will continue with current renal supportive measures. 2. No indication for renal replacement therapy. 3. Further management to be dependent on the clinical course. Job ID: [id number]
[2020-04-22] MEDS: traZODone HCl 50 MG TAB PO SCH (21:42)
[2020-04-22] MEDS: Insulin Glargine 20 UNITS in Pre-Filled Syringe 1 EACH SC SCH (23:52)
[2020-04-23 04:48] LABS: Albumin 3.4 g/dL (3.4-4.8); Anion Gap 15 mmol/L (10-20); BUN (Urea Nitrogen) 98 mg/dL (9.8-20.1); BUN/Creatinine Ratio 23.96; Calc. Creatinine Clearance 28 mL/min (70-130); Calcium 8.5 mg/dL (7.8-10.44); Carbon Dioxide 33 mmol/L (23-31); Chloride 89 mmol/L (98-107); Glucose 199 mg/dL (80-115); Phosphorus 5.1 mg/dL (2.3-4.7); Potassium 4.2 mmol/L (3.5-5.1); Sodium 133 mmol/L (136-145)
[2020-04-23] MEDS: HumaLOG 300 UNITS/3 ML VIAL SC PRN ×2 (06:28→17:48)
--- NOTE | 2020-04-23 06:28 | PDOC.FM ---
- Subjective Subjective: Pt resting comfortably. States she is having trouble sleeping. She says her breathing and her LE edema is improved. She says she has tried to get out of bed and use her walker once but would like to work with PT. C/o distention and pain in abdomen. - Objective Vital Signs & Weight: Vital Signs (12 hours) Temp Pulse Resp BP Pulse Ox 04/23/20 05:29 97.6 F 63 18 162/68 H 93 L 04/23/20 00:10 60 18 144/63 H 94 L 04/22/20 19:58 97.3 F L 61 18 137/62 94 L Weight Admit Weight 129.002 kg Weight 128.026 kg I&O: 04/21/20 04/22/20 04/23/20 06:59 06:59 06:59 Intake Total 285 598 6054 Output Total 1030 1100 850 Balance -140 -152 220 Result Diagrams: 04/22/20 04:17 04/23/20 03:57 Phys Exam - Physical Examination Constitutional: NAD HEENT: sclera anicteric Neck: supple, full ROM Respiratory: no wheezing, clear to auscultation bilateral Cardiovascular: RRR, no significant murmur Gastrointestinal: soft moderate distention 1+ b/l LE edema Neurological: non-focal, moves all 4 limbs Psychiatric: normal affect, A&O x 3 Dx/Plan - Plan Plan: Acute hypoxic respiratory failure 2/2 likely new onset CHF w/exacerbation vs. cirrhosis - CXR: cardiomegaly, b/l pulm vascular enlargement, BNP 1000 - dependent pitting edema - O2: 2 L NC - ECHO: EF 60-65%, Grade 1/3 diastolic dysfunction - Cardiology, GI, EP, and Nephro consulted; GI has signed off - nephro recs: 40 mg IV lasix BID, kidney function improving, likely to slow down diuresis soon - cote placed for strict Is and Os and had some urinary retention JOANNE on CKD -Cr 1.25 > 1.68 > 2.10 > 2.93 > 4.15 > 5.40 > 4.73> 4.55 >4.2>4.09 -Nephro consulted (04/17): recs as above -discontinued glipizide -ipatroprium dc'd due to concerns for urinary retention Afib/flutter with RVR, resolved - cardiology, Dr. Moreno consulted on 04/13: indefinite hold on eliquis for now, consider watchman in future - EP, Dr. Edward: PO dilt and dig, consider watchman in future if she can tolerate short course of oral anticoagulation - 2 nights ago had episode of asymptomatic bradycardia, spoke with Dr Edward and he recommended she get outpatient evaluation for RAJESH UTI -UCx: yeast -will do one time fluconazole Typical Chest Pain, resolved - EKG: inverted T waves - Trop: 0.025 - likely 2/2 to hypoxia as patient's NC was removed - resolved with replacement of NC Anemia - resolution of N/V with dark emesis, melena - GI consulted, EGD: portal HTN gastropathy, large armount of retained gastric contents, superficial pyloric erosion - BID protonix Cirrhosis 2/2 Hep C - treated -GI, Dr. Gaspar, consulted on 04/14: no fluid seen for paracentesis, resume spironolactone and furosemide once Cr improves -has had 1 paracentesis in the past -on physical exam, abdomen very distended and uncomfortable, may resolve with diuresis -s/p rocephin for SBP ppx Hyperkalemia -resolved, K 4.3 -no EKG changes Hypertensive urgency, resolved - SBP 200 in ED, given hydralazine and nitro paste - Losartan DC'd due to renal function, on dilt 2/2 to Afib with RVR, hydralazine prn - will adjust po meds to optimize control of BP Contraction Alkalosis - likely 2/2 to diuresis COPD -s/p Azithromycin and ceftriaxone in ED, will not continue as pt is not in acute exacerbation -dc'd duoneb due to possible urinary retention, albuterol neb prn Chronic thrombocytopenia - At baseline, 2/2 liver disease Hypervolemic hyponatremia - Na 133 - Expect improvement with diuresis Elevated d-dimer - 2.24 with negative CTA DM -continue home meds, will adjust as needed due to pt decreased appetite -DC'd glipizide -accuchecks ACHS, mild SSI Dispo: continue to monitor patient on tele, appreciate recs from GI, Cardiology, EP, and Nephro Addendum - Attending - Attending Attestation Date/Time: 04/23/20 3229 I personally evaluated the patient and discussed the management with Dr. Mtz. I agree with the History, Examination, Assessment and Plan documented above with any addition or exceptions noted below.
--- NOTE | 2020-04-23 07:55 | PDOC.CPN ---
- Subjective Date: 04/23/20 Time: 07:54 Interval history: No new issues. No angina. Still feels bloated. - Review of Systems General: denies: fever/chills, weight/appetite/sleep changes, night sweats, fatigue Respiratory: denies: cough, congestion, shortness of breath, exercise intolerance Cardiovascular: reports: edema. denies: chest pain, palpitation, paroxysmal nocturnal dyspnea, orthopnea Gastrointestinal: denies: nausea, vomiting, diarrhea, constipation, abd pain, GI bleeding Musculoskeletal: denies: pain, tenderness, stiffness, swelling, arthr itis/arthralgias Neurological: denies: numbness, syncope, seizure, weakness - Objective Allergies/Adverse Reactions: Allergies Allergy/AdvReac Type Severity Reaction Status Date / Time Sulfa (Sulfonamide Allergy Unknown Verified 07/31/19 22:07 Antibiotics) Visit Medications: Current Medications Acetaminophen (Acetaminophen 325 Mg Tab) 650 mg PO Q4H PRN PRN Reason: Headache/Fever/Mild Pain (1-3) Hydrocodone Bitart/Acetaminophen (Hydrocodone/Acetaminophen 7.5/325 Mg Tablet) 1 tab PO TID [facility] Last Admin: 04/22/20 21:41 Dose: 1 tab Documented by: Albuterol Sulfate (Albuterol Sulfate 2.5 Mg/3 Ml Neb) 2.5 mg NEB [id number] PRN PRN Reason: Wheezing Alogliptin Benzoate (Alogliptin 25 Mg Tab) 25 mg PO DAILY [facility] Last Admin: 04/22/20 08:41 Dose: Not Given Documented by: Alprazolam (Alprazolam 0.5 Mg Tab) 0.25 mg PO BID [facility] Last Admin: 04/22/20 21:54 Dose: 0.25 mg Documented by: Buspirone HCl (Buspirone Hcl 10 Mg Tab) 10 mg PO BID [facility] Last Admin: 04/22/20 21:54 Dose: 10 mg Documented by: Calcium Acetate (Calcium Acetate 667 Mg Cap) 1,334 mg PO TID[facility] Last Admin: 04/22/20 16:22 Dose: 1,334 mg Documented by: Calcium Carbonate (Calcium Carbonate 500 Mg Chewtab) 1,000 mg PO Q4H PRN PRN Reason: Heartburn or Indigestion Last Admin: 04/14/20 20:05 Dose: 1,000 mg Documented by: Dextrose/Water (Dextrose 50% Abboject 50 Ml Syringe) 25 gm SLOW IVP PRN PRN PRN Reason: Hypoglycemia Digoxin (Digoxin 0.125 Mg Tab) 0.125 mg PO DAILY [facility] Last Admin: 04/22/20 08:42 Dose: Not Given Documented by: Diltiazem HCl (Diltiazem Hcl 30 Mg Tablet) 60 mg PO QID [facility] Last Admin: 04/22/20 21:42 Dose: 60 mg Documented by: Fluconazole (Fluconazole 100 Mg Tab) 150 mg PO DAILY [facility] Stop: 04/23/20 11:00 Furosemide (Furosemide 40 Mg Tab) 40 mg PO 0900,1400 [facility] Last Admin: 04/22/20 14:29 Dose: 40 mg Documented by: Gabapentin (Gabapentin 300 Mg Cap) 600 mg PO TID [facility] Last Admin: 04/22/20 21:41 Dose: 600 mg Documented by: Glucagon (Glucagon 1 Mg/Ml Vial) 1 mg IM PRN PRN PRN Reason: Hypoglycemia Hydralazine HCl (Hydralazine 20 Mg/Ml Vial) 10 mg SLOW IVP Q4H PRN PRN Reason: SBP Greater Than 180 Last Admin: 04/19/20 16:26 Dose: 10 mg Documented by: Hydroxyzine HCl (Hydroxyzine 25 Mg Tab) 25 mg PO Q6H PRN PRN Reason: Anxiety Last Admin: 04/13/20 05:13 Dose: 25 mg Documented by: Dextrose/Water (D5w) 1,000 mls @ 0 mls/hr IV .Q0M PRN PRN Reason: Hypoglycemia Insulin Glargine 20 units/ (Miscellaneous Medication) 0.2 mls @ 0 mls/hr SC HS [facility] Last Admin: 04/22/20 23:52 Dose: 0.2 mls Documented by: Insulin Glargine 40 units/ (Miscellaneous Medication) 0.4 mls @ 0 mls/hr SC [facility] Last Admin: 04/22/20 08:41 Dose: Not Given Documented by: Insulin Human Lispro (Humalog 300 Units/3 Ml Vial) 0 units SC .BEDTIME SLIDING SC PRN PRN Reason: Bedtime Correctional Scale Insulin Human Lispro (Humalog 300 Units/3 Ml Vial) 0 units SC .MODERATE SLIDING SC PRN PRN Reason: Moderate Correctional Scale Last Admin: 04/23/20 06:28 Dose: 4 unit Documented by: Melatonin (Melatonin 3 Mg Tab) 3 mg PO HS PRN PRN Reason: Insomnia Last Admin: 04/21/20 21:16 Dose: 3 mg Documented by: Nifedipine (Nifedipine Xl 60 Mg Tab) 60 mg PO DAILY [facility] Nitroglycerin (Nitroglycerin 0.4 Mg Tab (25 Tab Bottle)) 0.4 mg SL Q5MIN PRN PRN Reason: Chest Pain Last Admin: 04/15/20 16:19 Dose: 0.4 mg Documented by: Ondansetron HCl (Ondansetron Odt 4 Mg Tab) 4 mg PO Q6H PRN PRN Reason: Nausea/Vomiting Ondansetron HCl (Ondansetron Pf 4 Mg/2 Ml Vial) 4 mg IVP Q6H PRN PRN Reason: Nausea/Vomiting Last Admin: 04/19/20 21:06 Dose: 4 mg Documented by: Pantoprazole Sodium (Pantoprazole 40 Mg Vial) 40 mg IVP Q12HR [facility] Last Admin: 04/22/20 21:42 Dose: 40 mg Documented by: Sodium Chloride (Flush - Normal Saline 10 Ml Syringe) 10 ml IVF PRN PRN PRN Reason: Saline Flush Last Admin: 04/17/20 22:26 Dose: 10 ml Documented by: Trazodone HCl (Trazodone Hcl 50 Mg Tab) 100 mg PO HS [facility] Last Admin: 04/22/20 21:42 Dose: 100 mg Documented by: Vital Signs & Weight: Vital Signs Temp Pulse Resp BP Pulse Ox 04/23/20 05:29 97.6 F 63 18 162/68 H 93 L 04/23/20 00:10 60 18 144/63 H 94 L 04/22/20 19:58 97.3 F L 61 18 137/62 94 L Admit Weight 284 lb 6.4 oz Weight 282 lb 4 oz - Medication Contraindications No Anticoagulant reason: Anticoagulant not tolerated - Physical Exam General: alert & oriented x3 HEENT: mucus membranes moist Neck: supple neck Cardiac: regular rate and rhythm Lungs: normal breath sounds Neuro: grossly intact Abdomen: active bowel sounds, non-tender, distended Extremities: 1+ LE edema Skin: clear Musculoskeletal: no pain - Labs Result Diagrams: 04/22/20 04:17 04/23/20 03:57 Troponin/CKMB Troponin I 0.025 ng/mL (< 0.028) 04/15/20 15:57 - Telemetry Sinus rhythms and dysrhythmias: sinus rhythm - Assessment/Plan Assessment/Plan: 1. Paroxysmal afib/flutter. Remains in sinus. 2. Volume overload. 3. Diastolic heart failure. Improved. 4. Cirrhosis of the liver, appears compensated by lab values 5. Hx of Esophageal varices, none seen on recent EGD 6. JOANNE on CKD. Likely ATN, improving. 7. Portal hypertensive gastropathy. PLAN: - Remains in sinus. - Anemia from gastritis. - Would be high risk for any anticoagulation. Hold Eliquis indefinitely. Candidate for Watchman in the future. - CV stable.
[2020-04-23] MEDS ORDERED: Fluconazole 100 MG TAB PO SCH (09:00)
[2020-04-23] MEDS: Digoxin 0.125 MG TAB PO SCH (10:34)
[2020-04-23] MEDS: Pantoprazole 40 MG VIAL IVP SCH (10:34)
[2020-04-23] MEDS: Calcium Acetate 667 MG CAP PO SCH ×3 (10:37→17:49)
[2020-04-23] MEDS: Alogliptin 25 MG TAB PO SCH (10:37)
[2020-04-23] MEDS: NIFEdipine XL 60 MG TAB PO SCH (10:38)
[2020-04-23] MEDS: Gabapentin 300 MG CAP PO SCH ×3 (10:39→21:21)
[2020-04-23] MEDS: busPIRone HCl 10 MG TAB PO SCH ×2 (10:39→21:20)
[2020-04-23] MEDS: Insulin Glargine 40 UNITS in Pre-Filled Syringe 1 EACH SC SCH (10:40)
[2020-04-23] MEDS: Furosemide 40 MG TAB PO SCH (10:40)
[2020-04-23] MEDS ORDERED: HYDROcodone/Acetaminophen 7.5/325 mg Tablet PO SCH (11:30)
[2020-04-23] MEDS ORDERED: ALPRAZolam 0.5 MG TAB PO SCH (11:30)
--- NOTE | 2020-04-23 12:52 | PDOC.EP ---
- Subjective Date: 04/23/20 Time: 12:48 Interval History: no new events overnight. - Review of Systems Constitutional: reports: weakness. denies: chills, fever, malaise Respiratory: denies: cough, dry, hemoptysis, shortness of breath Cardiology: denies: chest pain, heart racing, light headedness, palpitations Gastrointestinal: reports: abdominal pain. denies: diarrhea, nausea, vomitting Musculoskeletal: denies: unstable gait, falls, leg pain, foot pain - Objective Allergies/Adverse Reactions: Allergies Allergy/AdvReac Type Severity Reaction Status Date / Time Sulfa (Sulfonamide Allergy Unknown Verified 07/31/19 22:07 Antibiotics) Current Medications Acetaminophen (Acetaminophen 325 Mg Tab) 650 mg PO Q4H PRN PRN Reason: Headache/Fever/Mild Pain (1-3) Hydrocodone Bitart/Acetaminophen (Hydrocodone/Acetaminophen 7.5/325 Mg Tablet) 1 tab PO NOW [facility] Stop: 04/23/20 14:00 Albuterol Sulfate (Albuterol Sulfate 2.5 Mg/3 Ml Neb) 2.5 mg NEB [id number] PRN PRN Reason: Wheezing Alogliptin Benzoate (Alogliptin 25 Mg Tab) 25 mg PO DAILY [facility] Last Admin: 04/23/20 10:37 Dose: 25 mg Documented by: Alprazolam (Alprazolam 0.5 Mg Tab) 0.25 mg PO NOW [facility] Stop: 04/23/20 14:00 Buspirone HCl (Buspirone Hcl 10 Mg Tab) 10 mg PO BID [facility] Last Admin: 04/23/20 10:39 Dose: 10 mg Documented by: Calcium Acetate (Calcium Acetate 667 Mg Cap) 1,334 mg PO TID-[facility] Last Admin: 04/23/20 10:37 Dose: 1,334 mg Documented by: Calcium Carbonate (Calcium Carbonate 500 Mg Chewtab) 1,000 mg PO Q4H PRN PRN Reason: Heartburn or Indigestion Last Admin: 04/14/20 20:05 Dose: 1,000 mg Documented by: Dextrose/Water (Dextrose 50% Abboject 50 Ml Syringe) 25 gm SLOW IVP PRN PRN PRN Reason: Hypoglycemia Digoxin (Digoxin 0.125 Mg Tab) 0.125 mg PO DAILY [facility] Last Admin: 04/23/20 10:34 Dose: 0.125 mg Documented by: Diltiazem HCl (Diltiazem Hcl 30 Mg Tablet) 60 mg PO QID [facility] Last Admin: 04/23/20 10:37 Dose: 60 mg Documented by: Furosemide (Furosemide 40 Mg Tab) 40 mg PO BID [facility] Gabapentin (Gabapentin 300 Mg Cap) 600 mg PO TID [facility] Last Admin: 04/23/20 10:39 Dose: 600 mg Documented by: Glucagon (Glucagon 1 Mg/Ml Vial) 1 mg IM PRN PRN PRN Reason: Hypoglycemia Hydralazine HCl (Hydralazine 20 Mg/Ml Vial) 10 mg SLOW IVP Q4H PRN PRN Reason: SBP Greater Than 180 Last Admin: 04/19/20 16:26 Dose: 10 mg Documented by: Hydroxyzine HCl (Hydroxyzine 25 Mg Tab) 25 mg PO Q6H PRN PRN Reason: Anxiety Last Admin: 04/13/20 05:13 Dose: 25 mg Documented by: Dextrose/Water (D5w) 1,000 mls @ 0 mls/hr IV .Q0M PRN PRN Reason: Hypoglycemia Insulin Glargine 20 units/ (Miscellaneous Medication) 0.2 mls @ 0 mls/hr SC HS [facility] Last Admin: 04/22/20 23:52 Dose: 0.2 mls Documented by: Insulin Glargine 40 units/ (Miscellaneous Medication) 0.4 mls @ 0 mls/hr SC QAM [facility] Last Admin: 04/23/20 10:40 Dose: 0.4 mls Documented by: Insulin Human Lispro (Humalog 300 Units/3 Ml Vial) 0 units SC .BEDTIME SLIDING SC PRN PRN Reason: Bedtime Correctional Scale Last Admin: 04/23/20 10:57 Dose: 2 unit Documented by: Insulin Human Lispro (Humalog 300 Units/3 Ml Vial) 0 units SC .MODERATE SLIDING SC PRN PRN Reason: Moderate Correctional Scale Last Admin: 04/23/20 06:28 Dose: 4 unit Documented by: Melatonin (Melatonin 3 Mg Tab) 3 mg PO HS PRN PRN Reason: Insomnia Last Admin: 04/21/20 21:16 Dose: 3 mg Documented by: Nifedipine (Nifedipine Xl 60 Mg Tab) 60 mg PO DAILY [facility] Last Admin: 04/23/20 10:38 Dose: 60 mg Documented by: Nitroglycerin (Nitroglycerin 0.4 Mg Tab (25 Tab Bottle)) 0.4 mg SL Q5MIN PRN PRN Reason: Chest Pain Last Admin: 04/15/20 16:19 Dose: 0.4 mg Documented by: Ondansetron HCl (Ondansetron Odt 4 Mg Tab) 4 mg PO Q6H PRN PRN Reason: Nausea/Vomiting Ondansetron HCl (Ondansetron Pf 4 Mg/2 Ml Vial) 4 mg IVP Q6H PRN PRN Reason: Nausea/Vomiting Last Admin: 04/19/20 21:06 Dose: 4 mg Documented by: Pantoprazole Sodium (Pantoprazole 40 Mg Tab) 40 mg PO DAILY [facility] Sertraline HCl (Sertraline Hcl 100 Mg Tab) 100 mg PO DAILY [facility] Last Admin: 04/23/20 10:39 Dose: 100 mg Documented by: Sodium Chloride (Flush - Normal Saline 10 Ml Syringe) 10 ml IVF PRN PRN PRN Reason: Saline Flush Last Admin: 04/23/20 10:40 Dose: 10 ml Documented by: Trazodone HCl (Trazodone Hcl 50 Mg Tab) 100 mg PO HS [facility] Last Admin: 04/22/20 21:42 Dose: 100 mg Documented by: Vital Signs & Weight: Vital Signs Temp Pulse Pulse Pulse Resp BP BP 04/23/20 10:38 69 145/70 H 04/23/20 10:34 69 04/23/20 09:00 64 69 146/65 H 04/23/20 08:00 97.7 F 69 16 04/23/20 05:29 97.6 F 63 18 BP BP Pulse Ox 04/23/20 10:38 04/23/20 10:34 04/23/20 09:00 171/70 H 04/23/20 08:00 161/71 H 93 L 04/23/20 05:29 162/68 H 93 L Admit Weight 284 lb 6.4 oz Weight 282 lb 4 oz I/O: I/O 04/22/20 04/23/20 04/24/20 06:59 06:59 06:59 Intake Total 948 1070 Output Total 1100 850 Balance -152 220 - Quality Measures Condition: Atrial Fibrillation/Flutter (hx or current) - Medication Contraindications No Anticoagulant reason: Anticoagulant not tolerated - Physical Exam General: alert & oriented x3, appears well, no apparent distress, speech clear, affect appropriate HEENT: mucus membranes moist, normocephaly Neck: supple neck, midline trachea, no JVD/HJR, no masses, no bruit, no lymphadenopathy, no thromegaly Cardiology: regular rate and rhythm, no murmur, regular rate, regular rhythm, PMI nondisplaced Lungs: no wheeze, rales, rhonchi, decreased breath sounds Neurology: cranial nerve 2-12 intact, grossly intact, no lateralizing findings Abdomen: tender, distended - Labs Result Diagrams: 04/22/20 04:17 04/23/20 03:57 - EKG Interpretation EKG Method: Telemetry EKG shows: Sinus rhythm - Assessment/Plan Assessment/Plan: 1. Atrial fibrillation with RVR, diagnosed this admission, organised to slow atypical atrial flutter/atch with variable VR. a. Rate controlled with diltiazem 60 QID and dig 125mcg daily b. Converted to SR 04/18/20 1 am. 2. History of cirrhosis. 3. History of hepatitis C, previously treated. 4. COPD. 5. Type 2 diabetes. 6. Hypertension. 7. GERD. 8. Recent urinary tract infection, 2 weeks ago, preceding onset of symptoms, treated with antibiotics. 9. Tobacco habituation, quarter pack a day. 10. Esophageal varices. a. Dark emesis concerning for upper GI bleed b. melena stool 2/4, with Hgb drop 11. Preserved LVEF 60-65% 12. History of esophageal varices 13. Acute anemia -S/P EGD. with no acute bleed, but esophagitis found. Questionable alf candidate for OAC 04/18/20 Converted to SR. Continue PO dilt. May consolidate to Dilt CD 240mg once stable absorption. 04.21.20- Remains in SR over weekend. Short pauses up to 1.3 seconds seen. Continue current regimen. 04/22/20- Continues in SR. remins off oAC. Poor terminal makeup operator candidate. Currently back in SR, but afib recurrence is likely. 04/23/20- Remains in SR. Mainly renal issues at this time. GI signed off 04/21. Was tried on eliquis 5mg BID on 2/3 PM with dark stool 2/4 AM with 1 point Hgb drop. Following that, her Creat began climbing drastically, so she was maybe supratherapeutic on that dose. Eliquis 2.5mg BID would now be a more appropriate dose for her now and is adequate for watchman implant. Will discuss this option as OP but would refrain from OAC for now. If she cannot tolerate any OAC she is not a watchman candidate.
[2020-04-23] MEDS: ALPRAZolam 0.5 MG TAB PO SCH (12:54)
[2020-04-23] MEDS: HYDROcodone/Acetaminophen 7.5/325 mg Tablet PO SCH ×2 (12:54→21:22)
--- NOTE | 2020-04-23 18:01 | PRG ---
DATE OF SERVICE: 04/23/2020 SUBJECTIVE: The patient is seen and examined. Noted with the following vital signs. OBJECTIVE: VITAL SIGNS: Afebrile. Temperature 97.6, pulse 61, respiratory rate of 16, O2 saturations 95% with blood pressure 150/67. HEENT: Unremarkable. CARDIOVASCULAR SYSTEM: First and second heart sounds were heard. RESPIRATORY SYSTEM: Clear to auscultation. DIGESTIVE SYSTEM: Revealed an obese abdomen. EXTREMITIES: Showed no peripheral edema. SKIN: No new gross rash. LYMPHATICS: No peripheral lymphadenopathy. IMPRESSION: 1. [id number] kidney disease, which seems to be improving. 2. Metabolic alkalosis, possibly contraction alkalosis setting. 3. Obesity. PLAN: 1. Begin to deescalate the diuretics. We will reduce the furosemide to 20 mg p.o. b.i.d. If contraction alkalosis continues, we will temporarily hold the diuretics. 2. Further management to be dependent on the clinical course. Job ID: [id number]
[2020-04-23] MEDS ORDERED: Furosemide 40 MG TAB PO SCH (21:00)
[2020-04-23] MEDS: ALPRAZolam 0.25 MG TAB PO SCH (21:19)
[2020-04-23] MEDS: Furosemide 20 MG TAB PO SCH (21:20)
[2020-04-23] MEDS: Insulin Glargine 20 UNITS in Pre-Filled Syringe 1 EACH SC SCH (21:24)
[2020-04-23] MEDS: traZODone HCl 50 MG TAB PO SCH (21:25)
[2020-04-24 05:00] LABS: Albumin 3.5 g/dL (3.4-4.8); Anion Gap 19 mmol/L (10-20); BUN (Urea Nitrogen) 100 mg/dL (9.8-20.1); BUN/Creatinine Ratio 22.57; Calc. Creatinine Clearance 26 mL/min (70-130); Carbon Dioxide 30 mmol/L (23-31); Chloride 88 mmol/L (98-107); Glucose 192 mg/dL (80-115); Phosphorus 5.5 mg/dL (2.3-4.7); Potassium 4.7 mmol/L (3.5-5.1); Sodium 132 mmol/L (136-145)
--- NOTE | 2020-04-24 06:15 | PDOC.FM ---
- Subjective Subjective: Pt states she is doing better every day. She was able to work with PT yesterday but feels she is weaker than she used to be. She had some nausea overnight but it has resolved. She feels she is ready to go back to [place]. - Objective Vital Signs & Weight: Vital Signs (12 hours) Temp Pulse Resp BP Pulse Ox 04/24/20 05:32 17 04/24/20 04:00 98.0 F 69 146/64 H 92 L 04/23/20 23:50 97.4 F L 62 14 151/68 H 92 L 04/23/20 20:00 97.6 F 56 L 16 146/64 H 92 L Weight Admit Weight 129.002 kg Weight 128.026 kg I&O: 04/22/20 04/23/20 04/24/20 06:59 06:59 06:59 Intake Total 948 1070 490 Output Total 1100 850 200 Balance -152 220 290 Result Diagrams: 04/22/20 04:17 04/24/20 04:23 Phys Exam - Physical Examination Constitutional: NAD HEENT: sclera anicteric Neck: supple, full ROM Respiratory: no wheezing, clear to auscultation bilateral Cardiovascular: RRR, no significant murmur Gastrointestinal: soft, non-tender distended Musculoskeletal: no edema Neurological: non-focal Psychiatric: normal affect, A&O x 3 Dx/Plan - Plan Plan: Acute hypoxic respiratory failure 2/2 likely new onset CHF w/exacerbation vs. cirrhosis - CXR: cardiomegaly, b/l pulm vascular enlargement, BNP 1000 - dependent pitting edema - O2: 2 L NC - ECHO: EF 60-65%, Grade 1/3 diastolic dysfunction - Cardiology, GI, EP, and Nephro consulted; GI has signed off - nephro recs: 20mg lasix po bid, will monitor for contraction alkalosis - cote placed for strict Is and Os and had some urinary retention. Will remove and do voiding trial JOANNE on CKD -Cr 1.25 > 1.68 > 2.10 > 2.93 > 4.15 > 5.40 > 4.73> 4.55 >4.2>4.09>4.43 -Nephro consulted (04/17): recs as above -discontinued glipizide -ipatroprium dc'd due to concerns for urinary retention Afib/flutter with RVR, resolved - cardiology, Dr. Moreno consulted on 04/13: indefinite hold on eliquis for now, consider watchman in future - EP, Dr. Edward: PO dilt and dig, consider watchman in future if she can tolerate short course of oral anticoagulation, needs f/u outpt - 2 nights ago had episode of asymptomatic bradycardia, spoke with Dr Edward and he recommended she get outpatient evaluation for RAJESH UTI -UCx: yeast -will do one time fluconazole Typical Chest Pain, resolved - EKG: inverted T waves - Trop: 0.025 - likely 2/2 to hypoxia as patient's NC was removed - resolved with replacement of NC Anemia - resolution of N/V with dark emesis, melena - GI consulted, EGD: portal HTN gastropathy, large armount of retained gastric contents, superficial pyloric erosion - BID protonix Cirrhosis 2/2 Hep C - treated -GI, Dr. Gaspar, consulted on 04/14: no fluid seen for paracentesis, resume furosemide once Cr improves -has had 1 paracentesis in the past -on physical exam, abdomen very distended and uncomfortable, may resolve with diuresis -s/p rocephin for SBP ppx Hyperkalemia -resolved, K 4.3 -no EKG changes Hypertensive urgency, resolved - SBP 200 in ED, given hydralazine and nitro paste - Losartan DC'd due to renal function, on dilt 2/2 to Afib with RVR, hydralazine prn - will adjust po meds to optimize control of BP Contraction Alkalosis - likely 2/2 to diuresis COPD -s/p Azithromycin and ceftriaxone in ED, will not continue as pt is not in acute exacerbation -dc'd duoneb due to possible urinary retention, albuterol neb prn Chronic thrombocytopenia - At baseline, 2/2 liver disease Hypervolemic hyponatremia - Na 133 - Expect improvement with diuresis Elevated d-dimer - 2.24 with negative CTA DM -continue home meds, will adjust as needed due to pt decreased appetite -DC'd glipizide -accuchecks ACHS, mild SSI Dispo: Stable, nephro monitoring kidney function, likely to discharge soon Addendum - Attending - Attending Attestation Date/Time: 04/25/20 [id number] I personally evaluated the patient and discussed the management with Dr. Mtz yesterday. I agree with the History, Examination, Assessment and Plan documented above with any addition or exceptions noted below.
[2020-04-24] MEDS: HumaLOG 300 UNITS/3 ML VIAL SC PRN ×2 (06:37→17:22)
[2020-04-24] MEDS: Alogliptin 25 MG TAB PO SCH (10:27)
[2020-04-24] MEDS: busPIRone HCl 10 MG TAB PO SCH ×2 (10:27→20:59)
[2020-04-24] MEDS: HYDROcodone/Acetaminophen 7.5/325 mg Tablet PO SCH ×3 (10:28→21:01)
[2020-04-24] MEDS: Gabapentin 300 MG CAP PO SCH ×3 (10:31→20:59)
[2020-04-24] MEDS: ALPRAZolam 0.25 MG TAB PO SCH ×2 (10:31→21:00)
[2020-04-24] MEDS: NIFEdipine XL 60 MG TAB PO SCH (10:32)
[2020-04-24] MEDS: Calcium Acetate 667 MG CAP PO SCH ×3 (10:33→17:21)
[2020-04-24] MEDS: Digoxin 0.125 MG TAB PO SCH (10:34)
[2020-04-24] MEDS: Insulin Glargine 40 UNITS in Pre-Filled Syringe 1 EACH SC SCH (10:37)
[2020-04-24] MEDS: Furosemide 20 MG TAB PO SCH (10:37)
--- NOTE | 2020-04-24 15:48 | PRG ---
DATE OF SERVICE: 04/24/2020 SUBJECTIVE: The patient noted with the following vital signs. OBJECTIVE: VITAL SIGNS: Afebrile, temperature 98.2, pulse 90, respiratory rate of 14, O2 saturation 92%, blood pressure 145/65. HEENT: Unremarkable. CARDIOVASCULAR SYSTEM: First and second heart sounds were heard. RESPIRATORY SYSTEM: Clear to auscultation. DIGESTIVE SYSTEM: Revealed an obese abdomen. EXTREMITIES: Showed no peripheral edema. SKIN: No new gross rash. LYMPHATICS: No peripheral lymphadenopathy. LABORATORY INVESTIGATION: Showed BUN has gone up to 100, creatinine gone up to 4.43. IMPRESSION: 1. Acute on chronic kidney disease. Creatinine seems to be going in the wrong direction. 2. Mild hyponatremia. 3. Profound azotemia. PLAN: 1. We will hold diuretics. 2. Continue renal supportive measures. 3. Hopefully, the renal function will improve. Otherwise, we might be looking at renal replacement therapy very soon. 4. Further management to be dependent on the clinical course. Job ID: [id number]
--- NOTE | 2020-04-24 15:48 | PDOC.EP ---
- Subjective Date: 04/24/20 Time: 08:00 Interval History: no new events. She is eager to discharge when possible - Review of Systems Constitutional: reports: weakness. denies: chills, fever Respiratory: denies: cough, pleuritic pain, shortness of breath Cardiology: denies: chest pain, edema, heart racing, light headedness Gastrointestinal: reports: abdominal pain. denies: constipation, diarrhea, hematochezia Musculoskeletal: denies: unstable gait, falls, neck pain - Objective Allergies/Adverse Reactions: Allergies Allergy/AdvReac Type Severity Reaction Status Date / Time Sulfa (Sulfonamide Allergy Unknown Verified 07/31/19 22:07 Antibiotics) Current Medications Acetaminophen (Acetaminophen 325 Mg Tab) 650 mg PO Q4H PRN PRN Reason: Headache/Fever/Mild Pain (1-3) Hydrocodone Bitart/Acetaminophen (Hydrocodone/Acetaminophen 7.5/325 Mg Tablet) 1 tab PO TID [facility] Last Admin: 04/24/20 14:17 Dose: Not Given Documented by: Albuterol Sulfate (Albuterol Sulfate 2.5 Mg/3 Ml Neb) 2.5 mg NEB [id number] PRN PRN Reason: Wheezing Alogliptin Benzoate (Alogliptin 25 Mg Tab) 25 mg PO DAILY [facility] Last Admin: 04/24/20 10:27 Dose: 25 mg Documented by: Alprazolam (Alprazolam 0.25 Mg Tab) 0.25 mg PO BID [facility] Last Admin: 04/24/20 10:31 Dose: 0.25 mg Documented by: Buspirone HCl (Buspirone Hcl 10 Mg Tab) 10 mg PO BID [facility] Last Admin: 04/24/20 10:27 Dose: 10 mg Documented by: Calcium Acetate (Calcium Acetate 667 Mg Cap) 1,334 mg PO TID-[facility] Last Admin: 04/24/20 12:14 Dose: 1,334 mg Documented by: Calcium Carbonate (Calcium Carbonate 500 Mg Chewtab) 1,000 mg PO Q4H PRN PRN Reason: Heartburn or Indigestion Last Admin: 04/14/20 20:05 Dose: 1,000 mg Documented by: Dextrose/Water (Dextrose 50% Abboject 50 Ml Syringe) 25 gm SLOW IVP PRN PRN PRN Reason: Hypoglycemia Digoxin (Digoxin 0.125 Mg Tab) 0.125 mg PO DAILY [facility] Last Admin: 04/24/20 10:34 Dose: 0.125 mg Documented by: Diltiazem HCl (Diltiazem Cd 120 Mg Cap) 240 mg PO DAILY [facility] Gabapentin (Gabapentin 300 Mg Cap) 600 mg PO TID [facility] Last Admin: 04/24/20 14:16 Dose: 600 mg Documented by: Glucagon (Glucagon 1 Mg/Ml Vial) 1 mg IM PRN PRN PRN Reason: Hypoglycemia Hydralazine HCl (Hydralazine 20 Mg/Ml Vial) 10 mg SLOW IVP Q4H PRN PRN Reason: SBP Greater Than 180 Last Admin: 04/19/20 16:26 Dose: 10 mg Documented by: Hydroxyzine HCl (Hydroxyzine 25 Mg Tab) 25 mg PO Q6H PRN PRN Reason: Anxiety Last Admin: 04/13/20 05:13 Dose: 25 mg Documented by: Dextrose/Water (D5w) 1,000 mls @ 0 mls/hr IV .Q0M PRN PRN Reason: Hypoglycemia Insulin Glargine 20 units/ (Miscellaneous Medication) 0.2 mls @ 0 mls/hr SC HS [facility] Last Admin: 04/23/20 21:24 Dose: 0.2 mls Documented by: Insulin Glargine 40 units/ (Miscellaneous Medication) 0.4 mls @ 0 mls/hr SC QAM [facility] Last Admin: 04/24/20 10:37 Dose: 0.4 mls Documented by: Insulin Human Lispro (Humalog 300 Units/3 Ml Vial) 0 units SC .BEDTIME SLIDING SC PRN PRN Reason: Bedtime Correctional Scale Last Admin: 04/23/20 10:57 Dose: 2 unit Documented by: Insulin Human Lispro (Humalog 300 Units/3 Ml Vial) 0 units SC .MODERATE SLIDING SC PRN PRN Reason: Moderate Correctional Scale Last Admin: 04/24/20 06:37 Dose: 2 unit Documented by: Melatonin (Melatonin 3 Mg Tab) 3 mg PO HS PRN PRN Reason: Insomnia Last Admin: 04/21/20 21:16 Dose: 3 mg Documented by: Nifedipine (Nifedipine Xl 60 Mg Tab) 60 mg PO DAILY [facility] Last Admin: 04/24/20 10:32 Dose: 60 mg Documented by: Nitroglycerin (Nitroglycerin 0.4 Mg Tab (25 Tab Bottle)) 0.4 mg SL Q5MIN PRN PRN Reason: Chest Pain Last Admin: 04/15/20 16:19 Dose: 0.4 mg Documented by: Ondansetron HCl (Ondansetron Odt 4 Mg Tab) 4 mg PO Q6H PRN PRN Reason: Nausea/Vomiting Last Admin: 04/24/20 01:43 Dose: 4 mg Documented by: Ondansetron HCl (Ondansetron Pf 4 Mg/2 Ml Vial) 4 mg IVP Q6H PRN PRN Reason: Nausea/Vomiting Last Admin: 04/19/20 21:06 Dose: 4 mg Documented by: Pantoprazole Sodium (Pantoprazole 40 Mg Tab) 40 mg PO DAILY [facility] Last Admin: 04/24/20 10:37 Dose: 40 mg Documented by: Sertraline HCl (Sertraline Hcl 100 Mg Tab) 100 mg PO DAILY [facility] Last Admin: 04/24/20 10:31 Dose: 100 mg Documented by: Sodium Chloride (Flush - Normal Saline 10 Ml Syringe) 10 ml IVF PRN PRN PRN Reason: Saline Flush Last Admin: 04/23/20 21:26 Dose: 10 ml Documented by: Trazodone HCl (Trazodone Hcl 50 Mg Tab) 100 mg PO [facility] Last Admin: 04/23/20 21:25 Dose: 100 mg Documented by: Vital Signs & Weight: Vital Signs Temp Pulse Resp BP BP BP Pulse Ox 04/24/20 12:18 90 14 145/65 H 92 L 04/24/20 09:03 149/67 H 148/65 H 04/24/20 08:20 96 04/24/20 07:45 98.2 F 70 18 141/65 H 96 04/24/20 05:32 17 04/24/20 04:00 98.0 F 69 146/64 H 92 L Admit Weight 284 lb 6.4 oz Weight 284 lb 8 oz I/O: I/O 04/23/20 04/24/20 04/25/20 06:59 06:59 06:59 Intake Total 1070 789 Output Total 850 375 200 Balance 220 414 -200 - Quality Measures Condition: Atrial Fibrillation/Flutter (hx or current) - Medication Contraindications No Anticoagulant reason: Anticoagulant not tolerated - Physical Exam General: alert & oriented x3, appears well, no apparent distress, speech clear, affect appropriate HEENT: mucus membranes moist, normocephaly Neck: supple neck, midline trachea, no JVD/HJR, no masses, no bruit, no lymphadenopathy, no thromegaly Cardiology: regular rate and rhythm, no murmur, regular rate, regular rhythm, PMI nondisplaced Lungs: no wheeze, rales, rhonchi, decreased breath sounds Neurology: cranial nerve 2-12 intact, grossly intact, coordination normal Abdomen: tender. negative: distended, mass, hepatosplenomegaly Extremities: dry, strong pulses, warm - Chadsvasc Risk factors Hypertension: 1 Female: 1 Risk Score: 2 - Labs Result Diagrams: 04/22/20 04:17 04/24/20 04:23 - EKG Interpretation EKG Method: Telemetry EKG shows: Sinus rhythm - Assessment/Plan Assessment/Plan: 1. Atrial fibrillation with RVR, diagnosed this admission, organized to slow atypical atrial flutter/atach with variable VR. a. Rate controlled with diltiazem 60 QID and dig 125mcg daily b. Converted to SR 04/18/20 1 am. 2. History of cirrhosis. 3. History of hepatitis C, previously treated. 4. COPD. 5. Type 2 diabetes. 6. Hypertension. 7. GERD. 8. Recent urinary tract infection, 2 weeks ago, preceding onset of symptoms, treated with antibiotics. 9. Tobacco habituation, quarter pack a day. 10. Esophageal varices. a. Dark emesis concerning for upper GI bleed b. melena stool 2/, with Hgb drop 11. Preserved LVEF 60-65% 12. History of esophageal varices 13. Acute anemia -S/P EGD. with no acute bleed, but esophagitis found. Questionable jail candidate for OAC 04/18/20 Converted to SR. Continue PO dilt. May consolidate to Dilt CD 240mg once stable absorption. 2.8.21- Remains in SR over weekend. Short pauses up to 1.3 seconds seen. Contin ue current regimen. 04/22/20- Continues in SR. remins off oAC. Poor terminal computer operator candidate. Currently back in SR, but afib recurrence is likely. 04/23/20- Remains in SR. Mainly renal issues at this time. GI signed off 04/21. Was tried on eliquis 5mg BID on 2/3 PM with dark stool 2/4 AM with 1 point Hgb drop. Following that, her Creat began climbing drastically, so she was maybe supratherapeutic on that dose. Eliquis 2.5mg BID would now be a more appropriate dose for her now and is adequate for watchman implant. Will discuss this option as OP but would refrain from OAC for now. If she cannot tolerate any OAC she is not a watchman candidate. 04/24/20- switched to diltiazem CD 240mg daily. Recommend avoiding daily NSAIDs jail with her hx of gastritis and need for OAC jail. Will see less often, call me if needed. thank you. 6 week follow up requested.
--- NOTE | 2020-04-24 17:15 | PDOC.CPN ---
- Subjective Date: 04/24/20 Time: 17:14 Interval history: No new issues. No angina. no SOB. - Review of Systems General: denies: fever/chills, weight/appetite/sleep changes, night sweats, fatigue Respiratory: denies: cough, congestion, shortness of breath, exercise intolerance Cardiovascular: reports: edema. denies: chest pain, palpitation, paroxysmal nocturnal dyspnea, orthopnea Gastrointestinal: denies: nausea, vomiting, diarrhea, constipation, abd pain, GI bleeding Musculoskeletal: denies: pain, tenderness, stiffness, swelling, arthritis/arthralgias Neurological: denies: numbness, syncope, seizure, weakness - Objective Allergies/Adverse Reactions: Allergies Allergy/AdvReac Type Severity Reaction Status Date / Time Sulfa (Sulfonamide Allergy Unknown Verified 07/31/19 22:07 Antibiotics) Visit Medications: Current Medications Acetaminophen (Acetaminophen 325 Mg Tab) 650 mg PO Q4H PRN PRN Reason: Headache/Fever/Mild Pain (1-3) Hydrocodone Bitart/Acetaminophen (Hydrocodone/Acetaminophen 7.5/325 Mg Tablet) 1 tab PO TID [facility] Last Admin: 04/24/20 14:17 Dose: Not Given Documented by: Albuterol Sulfate (Albuterol Sulfate 2.5 Mg/3 Ml Neb) 2.5 mg NEB [id number] PRN PRN Reason: Wheezing Alogliptin Benzoate (Alogliptin 25 Mg Tab) 25 mg PO DAILY [facility] Last Admin: 04/24/20 10:27 Dose: 25 mg Documented by: Alprazolam (Alprazolam 0.25 Mg Tab) 0.25 mg PO BID [facility] Last Admin: 04/24/20 10:31 Dose: 0.25 mg Documented by: Buspirone HCl (Buspirone Hcl 10 Mg Tab) 10 mg PO BID [facility] Last Admin: 04/24/20 10:27 Dose: 10 mg Documented by: Calcium Acetate (Calcium Acetate 667 Mg Cap) 1,334 mg PO TID[facility] Last Admin: 04/24/20 12:14 Dose: 1,334 mg Documented by: Calcium Carbonate (Calcium Carbonate 500 Mg Chewtab) 1,000 mg PO Q4H PRN PRN Reason: Heartburn or Indigestion Last Admin: 04/14/20 20:05 Dose: 1,000 mg Documented by: Dextrose/Water (Dextrose 50% Abboject 50 Ml Syringe) 25 gm SLOW IVP PRN PRN PRN Reason: Hypoglycemia Digoxin (Digoxin 0.125 Mg Tab) 0.125 mg PO DAILY [facility] Last Admin: 04/24/20 10:34 Dose: 0.125 mg Documented by: Diltiazem HCl (Diltiazem Hcl Cd 240 Mg Capsule) 240 mg PO [facility] Gabapentin (Gabapentin 300 Mg Cap) 600 mg PO TID [facility] Last Admin: 04/24/20 14:16 Dose: 600 mg Documented by: Glucagon (Glucagon 1 Mg/Ml Vial) 1 mg IM PRN PRN PRN Reason: Hypoglycemia Hydralazine HCl (Hydralazine 20 Mg/Ml Vial) 10 mg SLOW IVP Q4H PRN PRN Reason: SBP Greater Than 180 Last Admin: 04/19/20 16:26 Dose: 10 mg Documented by: Hydroxyzine HCl (Hydroxyzine 25 Mg Tab) 25 mg PO Q6H PRN PRN Reason: Anxiety Last Admin: 04/13/20 05:13 Dose: 25 mg Documented by: Dextrose/Water (D5w) 1,000 mls @ 0 mls/hr IV .Q0M PRN PRN Reason: Hypoglycemia Insulin Glargine 20 units/ (Miscellaneous Medication) 0.2 mls @ 0 mls/hr SC [facility] Last Admin: 04/23/20 21:24 Dose: 0.2 mls Documented by: Insulin Glargine 40 units/ (Miscellaneous Medication) 0.4 mls @ 0 mls/hr [facility] [place] Last Admin: 04/24/20 10:37 Dose: 0.4 mls Documented by: Insulin Human Lispro (Humalog 300 Units/3 Ml Vial) 0 units SC .BEDTIME SLIDING SC PRN PRN Reason: Bedtime Correctional Scale Last Admin: 04/23/20 10:57 Dose: 2 unit Documented by: Insulin Human Lispro (Humalog 300 Units/3 Ml Vial) 0 units SC .MODERATE SLIDING SC PRN PRN Reason: Moderate Correctional Scale Last Admin: 04/24/20 06:37 Dose: 2 unit Documented by: Melatonin (Melatonin 3 Mg Tab) 3 mg PO HS PRN PRN Reason: Insomnia Last Admin: 04/21/20 21:16 Dose: 3 mg Documented by: Nifedipine (Nifedipine Xl 60 Mg Tab) 60 mg PO DAILY [facility] Last Admin: 04/24/20 10:32 Dose: 60 mg Documented by: Nitroglycerin (Nitroglycerin 0.4 Mg Tab (25 Tab Bottle)) 0.4 mg SL Q5MIN PRN PRN Reason: Chest Pain Last Admin: 04/15/20 16:19 Dose: 0.4 mg Documented by: Ondansetron HCl (Ondansetron Odt 4 Mg Tab) 4 mg PO Q6H PRN PRN Reason: Nausea/Vomiting Last Admin: 04/24/20 01:43 Dose: 4 mg Documented by: Ondansetron HCl (Ondansetron Pf 4 Mg/2 Ml Vial) 4 mg IVP Q6H PRN PRN Reason: Nausea/Vomiting Last Admin: 04/19/20 21:06 Dose: 4 mg Documented by: Pantoprazole Sodium (Pantoprazole 40 Mg Tab) 40 mg PO DAILY [facility] Last Admin: 04/24/20 10:37 Dose: 40 mg Documented by: Sertraline HCl (Sertraline Hcl 100 Mg Tab) 100 mg PO DAILY [facility] Last Admin: 04/24/20 10:31 Dose: 100 mg Documented by: Sodium Chloride (Flush - Normal Saline 10 Ml Syringe) 10 ml IVF PRN PRN PRN Reason: Saline Flush Last Admin: 04/23/20 21:26 Dose: 10 ml Documented by: Trazodone HCl (Trazodone Hcl 50 Mg Tab) 100 mg PO HS [facility] Last Admin: 04/23/20 21:25 Dose: 100 mg Documented by: Vital Signs & Weight: Vital Signs Temp Pulse Resp BP BP BP Pulse Ox 04/24/20 16:35 97.6 F 51 L 16 139/63 88 L 04/24/20 12:18 90 14 145/65 H 92 L 04/24/20 09:03 149/67 H 148/65 H 04/24/20 08:20 96 04/24/20 07:45 98.2 F 70 18 141/65 H 96 04/24/20 05:32 17 Admit Weight 284 lb 6.4 oz Weight 284 lb 8 oz - Medication Contraindications No Anticoagulant reason: Anticoagulant not tolerated - Physical Exam General: alert & oriented x3 HEENT: mucus membranes moist Neck: supple neck Cardiac: regular rate and rhythm Lungs: clear to auscultation Neuro: grossly intact Abdomen: non-tender, distended Extremities: 1+ LE edema Skin: clear Musculoskeletal: no pain - Labs Result Diagrams: 04/22/20 04:17 04/24/20 04:23 Troponin/CKMB Troponin I 0.025 ng/mL (< 0.028) 04/15/20 15:57 - Telemetry Sinus rhythms and dysrhythmias: sinus rhythm - Assessment/Plan Assessment/Plan: 1. Paroxysmal afib/flutter. In sinus now. 2. Volume overload, improving. 3. Diastolic heart failure. Improved. 4. Cirrhosis of the liver, appears compensated by lab values 5. Hx of Esophageal varices, none seen on recent EGD 6. JOANNE on CKD. Likely ATN. 7. Portal hypertensive gastropathy. PLAN: - Remains in sinus. - Anemia from gastritis. - Would be high risk for any anticoagulation. Hold Eliquis indefinitely. Can didate for Watchman in the future. - CV stable. - Will monitor from a distance.
[2020-04-24] MEDS: traZODone HCl 50 MG TAB PO SCH (21:01)
[2020-04-24] MEDS: Insulin Glargine 20 UNITS in Pre-Filled Syringe 1 EACH SC SCH (21:07)
--- NOTE | 2020-04-25 06:34 | PDOC.FM ---
- Subjective Subjective: Pt states she had a good night last night and was able to sleep well. She says she is ready to go home and feels that she will be able to take care of herself at home. She plans to establish care with Dr Aguirre in [place]. She will be living with her granddaughter and would like to have HH come to do PT/OT. - Objective Vital Signs & Weight: Vital Signs (12 hours) Temp Pulse Resp BP Pulse Ox 04/25/20 03:58 97.4 F L 04/25/20 03:46 52 L 18 146/65 H 92 L 04/24/20 19:35 97.8 F 45 L 12 135/61 91 L Weight Admit Weight 129.002 kg Weight 129.898 kg I&O: 04/23/20 04/24/20 04/25/20 06:59 06:59 06:59 Intake Total 1070 789 420 Output Total 850 375 400 Balance 220 414 20 Result Diagrams: 04/25/20 10:20 04/25/20 09:49 Phys Exam - Physical Examination Constitutional: NAD HEENT: sclera anicteric Neck: supple, full ROM Respiratory: clear to auscultation bilateral mild end exp wheezing Cardiovascular: RRR, no significant murmur Gastrointestinal: soft distended 1+ pitting edema b/l LE Neurological: non-focal Psychiatric: normal affect, A&O x 3 Dx/Plan - Plan Plan: Acute hypoxic respiratory failure 2/2 likely new onset CHF w/exacerbation vs. cirrhosis - CXR: cardiomegaly, b/l pulm vascular enlargement, BNP 1000 - dependent pitting edema - O2: 2 L NC - ECHO: EF 60-65%, Grade 1/3 diastolic dysfunction - Cardiology, GI, EP, and Nephro consulted; GI has signed off - nephro recs: lasix stopped, severe azotemia, will need outpatient f/u JOANNE on CKD -Cr 4.43 -Nephro consulted (04/17): recs as above -discontinued glipizide -ipatroprium dc'd due to concerns for urinary retention Afib/flutter with RVR, resolved - cardiology, Dr. Moreno consulted on 04/13: indefinite hold on eliquis for now, consider watchman in future - EP, Dr. Cheyanne: PO dilt and dig, consider watchman in future if she can tolerate short course of oral anticoagulation, needs f/u outpt - pt has been getting po dilt 60mg qid, last night she was supposed to switch to 240mg po daily, this was held due to HR in 50s. When looking at MAR it appears she has only gotten about 2 doses of her po dilt per day due to low HR. Will discuss this with Dr Edward before discharging her to make sure to send her home on the appropriate regimen UTI -UCx: yeast -will do one time fluconazole Typical Chest Pain, resolved - EKG: inverted T waves - Trop: 0.025 - likely 2/2 to hypoxia as patient's NC was removed - resolved with replacement of NC Anemia - resolution of N/V with dark emesis, melena - GI consulted, EGD: portal HTN gastropathy, large armount of retained gastric contents, superficial pyloric erosion - BID protonix Cirrhosis 2/2 Hep C - treated -GI, Dr. Gaspar, consulted on 04/14: no fluid seen for paracentesis, resume furosemide once Cr improves -has had 1 paracentesis in the past -on physical exam, abdomen very distended and uncomfortable, may resolve with diuresis -s/p rocephin for SBP ppx Hyperkalemia -resolved, K 4.3 -no EKG changes Hypertensive urgency, resolved - SBP 200 in ED, given hydralazine and nitro paste - Losartan DC'd due to renal function, on dilt 2/2 to Afib with RVR, hydralazine prn - will adjust po meds to optimize control of BP Contraction Alkalosis - likely 2/2 to diuresis COPD -s/p Azithromycin and ceftriaxone in ED, will not continue as pt is not in acute exacerbation -dc'd duoneb due to possible urinary retention, albuterol neb prn Chronic thrombocytopenia - At baseline, 2/2 liver disease Hypervolemic hyponatremia - Na 133 - Expect improvement with diuresis Elevated d-dimer - 2.24 with negative CTA DM -continue home meds, will adjust as needed due to pt decreased appetite -DC'd glipizide -accuchecks ACHS, mild SSI Dispo: Stable, pt has not decided to go home with HH, CM consulted, pending home oxygen approval. She will need close f/u with PCP Addendum - Attending - Attending Attestation Date/Time: 04/25/20 [id number] I personally evaluated the patient and discussed the management with Dr. Mtz. I agree with the History, Examination, Assessment and Plan documented above with any addition or exceptions noted below.
[2020-04-25] MEDS: Calcium Acetate 667 MG CAP PO SCH ×3 (08:26→16:49)
[2020-04-25] MEDS: Alogliptin 25 MG TAB PO SCH (08:26)
[2020-04-25] MEDS: Digoxin 0.125 MG TAB PO SCH (08:26)
[2020-04-25] MEDS: Insulin Glargine 40 UNITS in Pre-Filled Syringe 1 EACH SC SCH (08:27)
[2020-04-25] MEDS: busPIRone HCl 10 MG TAB PO SCH ×2 (08:27→22:03)
[2020-04-25] MEDS: NIFEdipine XL 60 MG TAB PO SCH (08:27)
[2020-04-25] MEDS: Gabapentin 300 MG CAP PO SCH ×3 (08:27→22:02)
[2020-04-25] MEDS: ALPRAZolam 0.25 MG TAB PO SCH ×2 (08:28→22:09)
[2020-04-25] MEDS: HYDROcodone/Acetaminophen 7.5/325 mg Tablet PO SCH ×3 (08:29→22:03)
[2020-04-25] MEDS ORDERED: Furosemide 100 MG/10 ML VIAL SLOW IVP SCH (10:15)
[2020-04-25] MEDS ORDERED: Metolazone 5 MG TAB PO SCH (10:15)
[2020-04-25 10:24] LABS: Digoxin 3.14 ng/mL (0.8-2.0)
[2020-04-25 10:28] LABS: #Eosinphils 0.1 thou/uL (0.0-0.7); #Lymphocytes 0.4 thou/uL (1.20-3.40); #Monocytes 0.6 thou/uL (0.11-0.59); #Neutrophils 5.9 thou/uL (1.40-6.50); %Basophils 0.7 % (0.0-1.0); %Lymphocytes 5.3 % (21.0-51.0); %Monocytes 8.3 % (0.0-10.0); %Neutrophils 84.7 % (42.0-75.0); Hemoglobin 8.5 g/dL (12.0-16.0); Mean Corpuscular HGB CONC 32.4 g/dL (32.0-36.0); Mean Corpuscular Volume 92.4 fL (78.0-98.0); Mean Platelet Volume 8.1 fL (7.4-10.4); Platelet Count 140 thou/uL (130-400); RBC Distribution Width 15.2 % (11.5-14.5); Red Blood Cell (RBC) Count 2.83 mill/uL (4.20-5.40)
[2020-04-25 10:33] LABS: Anion Gap 15 mmol/L (10-20); BUN (Urea Nitrogen) 107 mg/dL (9.8-20.1); Calc. Creatinine Clearance 22 mL/min (70-130); Carbon Dioxide 33 mmol/L (23-31); Chloride 88 mmol/L (98-107); Potassium 4.9 mmol/L (3.5-5.1); Sodium 131 mmol/L (136-145)
[2020-04-25 10:34] LABS: Albumin 3.4 g/dL (3.4-4.8); BUN/Creatinine Ratio 20.54; Calcium 9.4 mg/dL (7.8-10.44); Glucose 195 mg/dL (80-115); Phosphorus 6.2 mg/dL (2.3-4.7)
--- NOTE | 2020-04-25 13:25 | PDOC.CPN ---
- Subjective Date: 04/25/20 Time: 13:24 Interval history: No new complaints. - Review of Systems General: denies: fever/chills, weight/appetite/sleep changes, night sweats, fatigue Respiratory: denies: cough, congestion, shortness of breath, exercise intolerance Cardiovascular: denies: chest pain, palpitation, edema, paroxysmal nocturnal dyspnea, orthopnea Gastrointestinal: denies: nausea, vomiting, diarrhea, constipation, abd pain, GI bleeding Musculoskeletal: denies: pain, tenderness, stiffness, swelling, arthritis/arthralgias Neurological: denies: numbness, syncope, seizure, weakness - Objective Allergies/Adverse Reactions: Allergies Allergy/AdvReac Type Severity Reaction Status Date / Time Sulfa (Sulfonamide Allergy Unknown Verified 07/31/19 22:07 Antibiotics) Visit Medications: Current Medications Acetaminophen (Acetaminophen 325 Mg Tab) 650 mg PO Q4H PRN PRN Reason: Headache/Fever/Mild Pain (1-3) Hydrocodone Bitart/Acetaminophen (Hydrocodone/Acetaminophen 7.5/325 Mg Tablet) 1 tab PO TID [facility] Last Admin: 04/25/20 08:29 Dose: 1 tab Documented by: Albuterol Sulfate (Albuterol Sulfate 2.5 Mg/3 Ml Neb) 2.5 mg NEB [id number] PRN PRN Reason: Wheezing Alogliptin Benzoate (Alogliptin 25 Mg Tab) 25 mg PO DAILY [facility] Last Admin: 04/25/20 08:26 Dose: 25 mg Documented by: Alprazolam (Alprazolam 0.25 Mg Tab) 0.25 mg PO BID [facility] Last Admin: 04/25/20 08:28 Dose: Not Given Documented by: Buspirone HCl (Buspirone Hcl 10 Mg Tab) 10 mg PO BID [facility] Last Admin: 04/25/20 08:27 Dose: 10 mg Documented by: Calcium Acetate (Calcium Acetate 667 Mg Cap) 1,334 mg PO TID[facility] Last Admin: 04/25/20 12:05 Dose: 1,334 mg Documented by: Calcium Carbonate (Calcium Carbonate 500 Mg Chewtab) 1,000 mg PO Q4H PRN PRN Reason: Heartburn or Indigestion Last Admin: 04/14/20 20:05 Dose: 1,000 mg Documented by: Dextrose/Water (Dextrose 50% Abboject 50 Ml Syringe) 25 gm SLOW IVP PRN PRN PRN Reason: Hypoglycemia Furosemide (Furosemide 100 Mg/10 Ml Vial) 80 mg SLOW IVP NOW [facility] Stop: 04/25/20 14:00 Last Admin: 04/25/20 12:06 Dose: 80 mg Documented by: Furosemide (Furosemide 40 Mg/4 Ml Vial) 40 mg SLOW IVP 0600,1400 JAMES Gabapentin (Gabapentin 300 Mg Cap) 600 mg PO TID [facility] Last Admin: 04/25/20 08:27 Dose: 600 mg Documented by: Glucagon (Glucagon 1 Mg/Ml Vial) 1 mg IM PRN PRN PRN Reason: Hypoglycemia Hydralazine HCl (Hydralazine 20 Mg/Ml Vial) 10 mg SLOW IVP Q4H PRN PRN Reason: SBP Greater Than 180 Last Admin: 04/19/20 16:26 Dose: 10 mg Documented by: Hydroxyzine HCl (Hydroxyzine 25 Mg Tab) 25 mg PO Q6H PRN PRN Reason: Anxiety Last Admin: 04/13/20 05:13 Dose: 25 mg Documented by: Dextrose/Water (D5w) 1,000 mls @ 0 mls/hr IV .Q0M PRN PRN Reason: Hypoglycemia Insulin Glargine 20 units/ (Miscellaneous Medication) 0.2 mls @ 0 mls/hr SC HS [facility] Last Admin: 04/24/20 21:07 Dose: Not Given Documented by: Insulin Glargine 40 units/ (Miscellaneous Medication) 0.4 mls @ 0 mls/hr [facility] [place] Last Admin: 04/25/20 08:27 Dose: 0.4 mls Documented by: Insulin Human Lispro (Humalog 300 Units/3 Ml Vial) 0 units SC .BEDTIME SLIDING SC PRN PRN Reason: Bedtime Correctional Scale Last Admin: 04/23/20 10:57 Dose: 2 unit Documented by: Insulin Human Lispro (Humalog 300 Units/3 Ml Vial) 0 units SC .MODERATE SLIDING SC PRN PRN Reason: Moderate Correctional Scale Last Admin: 04/24/20 17:22 Dose: 2 unit Documented by: Melatonin (Melatonin 3 Mg Tab) 3 mg PO HS PRN PRN Reason: Insomnia Last Admin: 04/21/20 21:16 Dose: 3 mg Documented by: Metolazone (Metolazone 5 Mg Tab) 5 mg PO NOW [facility] Stop: 04/25/20 14:00 Last Admin: 04/25/20 10:50 Dose: 5 mg Documented by: Nifedipine (Nifedipine Xl 60 Mg Tab) 60 mg PO DAILY [facility] Last Admin: 04/25/20 08:27 Dose: 60 mg Documented by: Nitroglycerin (Nitroglycerin 0.4 Mg Tab (25 Tab Bottle)) 0.4 mg SL Q5MIN PRN PRN Reason: Chest Pain Last Admin: 04/15/20 16:19 Dose: 0.4 mg Documented by: Ondansetron HCl (Ondansetron Odt 4 Mg Tab) 4 mg PO Q6H PRN PRN Reason: Nausea/Vomiting Last Admin: 04/24/20 01:43 Dose: 4 mg Documented by: Ondansetron HCl (Ondansetron Pf 4 Mg/2 Ml Vial) 4 mg IVP Q6H PRN PRN Reason: Nausea/Vomiting Last Admin: 04/19/20 21:06 Dose: 4 mg Documented by: Pantoprazole Sodium (Pantoprazole 40 Mg Tab) 40 mg PO DAILY [facility] Last Admin: 04/25/20 08:27 Dose: 40 mg Documented by: Sertraline HCl (Sertraline Hcl 100 Mg Tab) 100 mg PO DAILY [facility] Last Admin: 04/25/20 08:27 Dose: 100 mg Documented by: Sodium Chloride (Flush - Normal Saline 10 Ml Syringe) 10 ml IVF PRN PRN PRN Reason: Saline Flush Last Admin: 04/23/20 21:26 Dose: 10 ml Documented by: Trazodone HCl (Trazodone Hcl 50 Mg Tab) 100 mg PO [facility] Last Admin: 04/24/20 21:01 Dose: Not Given Documented by: Vital Signs & Weight: Vital Signs Temp Pulse Resp BP Pulse Ox 04/25/20 12:28 97.5 F L 57 L 18 149/67 H 93 L 04/25/20 08:30 93 L 04/25/20 08:26 52 L 04/25/20 08:05 97.4 F L 54 L 17 140/62 93 L 04/25/20 03:58 97.4 F L 04/25/20 03:46 52 L 18 146/65 H 92 L Admit Weight 284 lb 6.4 oz Weight 286 lb 6 oz - Medication Contraindications No Anticoagulant reason: Anticoagulant not tolerated - Physical Exam General: alert & oriented x3 HEENT: mucus membranes moist Neck: supple neck Cardiac: regular rate and rhythm Lungs: clear to auscultation Neuro: grossly intact Abdomen: non-tender, distended Extremities: 1+ LE edema Skin: clear Musculoskeletal: no pain - Labs Result Diagrams: 04/25/20 10:20 04/25/20 09:49 Troponin/CKMB Troponin I 0.025 ng/mL (< 0.028) 04/15/20 15:57 - Telemetry Sinus rhythms and dysrhythmias: sinus rhythm - Assessment/Plan Assessment/Plan: 1. Paroxysmal afib/flutter. In sinus now. 2. Volume overload, improving. 3. Diastolic heart failure. Improved. 4. Cirrhosis of the liver, appears compensated by lab values 5. Hx of Esophageal varices, none seen on recent EGD 6. JOANNE on CKD. Likely ATN. Worsening. 7. Portal hypertensive gastropathy. PLAN: - Remains in sinus. - Anemia from gastritis. - Would be high risk for any anticoagulation. Hold Eliquis indefinitely. Candidate for Watchman in the future. - CV stable. - Will re evaluate tuesday.
--- NOTE | 2020-04-25 13:52 | PDOC.EP ---
- Subjective Date: 04/25/20 Time: 13:51 Interval History: she continues to do well. No new cardiac symptoms. - Review of Systems Constitutional: denies: chills, fever, malaise, sweats, weakness, other Respiratory: reports: SOB with excertion Cardiology: denies: chest pain, edema, heart racing, light headedness, paroxysmal noc. dyspnea, orthopnea, palpitations, passing out, pleuritic pain, pressure, swelling, other Gastrointestinal: denies: abdominal pain, constipation, diarrhea, hematochezia, melena, nausea, vomitting, other Musculoskeletal: denies: unstable gait, falls, neck pain, shoulder pain, arm pain, hand pain, leg pain, foot pain, other - Objective Allergies/Adverse Reactions: Allergies Allergy/AdvReac Type Severity Reaction Status Date / Time Sulfa (Sulfonamide Allergy Unknown Verified 07/31/19 22:07 Antibiotics) Current Medications Acetaminophen (Acetaminophen 325 Mg Tab) 650 mg PO Q4H PRN PRN Reason: Headache/Fever/Mild Pain (1-3) Hydrocodone Bitart/Acetaminophen (Hydrocodone/Acetaminophen 7.5/325 Mg Tablet) 1 tab PO TID [facility] Last Admin: 04/25/20 08:29 Dose: 1 tab Documented by: Albuterol Sulfate (Albuterol Sulfate 2.5 Mg/3 Ml Neb) 2.5 mg NEB [id number] PRN PRN Reason: Wheezing Alogliptin Benzoate (Alogliptin 25 Mg Tab) 25 mg PO DAILY [facility] Last Admin: 04/25/20 08:26 Dose: 25 mg Documented by: Alprazolam (Alprazolam 0.25 Mg Tab) 0.25 mg PO BID [facility] Last Admin: 04/25/20 08:28 Dose: Not Given Documented by: Buspirone HCl (Buspirone Hcl 10 Mg Tab) 10 mg PO BID [facility] Last Admin: 04/25/20 08:27 Dose: 10 mg Documented by: Calcium Acetate (Calcium Acetate 667 Mg Cap) 1,334 mg PO TID-[facility] Last Admin: 04/25/20 12:05 Dose: 1,334 mg Documented by: Calcium Carbonate (Calcium Carbonate 500 Mg Chewtab) 1,000 mg PO Q4H PRN PRN Reason: Heartburn or Indigestion Last Admin: 04/14/20 20:05 Dose: 1,000 mg Documented by: Dextrose/Water (Dextrose 50% Abboject 50 Ml Syringe) 25 gm SLOW IVP PRN PRN PRN Reason: Hypoglycemia Furosemide (Furosemide 100 Mg/10 Ml Vial) 80 mg SLOW IVP NOW [facility] Stop: 04/25/20 14:00 Last Admin: 04/25/20 12:06 Dose: 80 mg Documented by: Furosemide (Furosemide 40 Mg/4 Ml Vial) 40 mg SLOW IVP 0600,1400 [facility] Gabapentin (Gabapentin 300 Mg Cap) 600 mg PO TID [facility] Last Admin: 04/25/20 08:27 Dose: 600 mg Documented by: Glucagon (Glucagon 1 Mg/Ml Vial) 1 mg IM PRN PRN PRN Reason: Hypoglycemia Hydralazine HCl (Hydralazine 20 Mg/Ml Vial) 10 mg SLOW IVP Q4H PRN PRN Reason: SBP Greater Than 180 Last Admin: 04/19/20 16:26 Dose: 10 mg Documented by: Hydroxyzine HCl (Hydroxyzine 25 Mg Tab) 25 mg PO Q6H PRN PRN Reason: Anxiety Last Admin: 04/13/20 05:13 Dose: 25 mg Documented by: Dextrose/Water (D5w) 1,000 mls @ 0 mls/hr IV .Q0M PRN PRN Reason: Hypoglycemia Insulin Glargine 20 units/ (Miscellaneous Medication) 0.2 mls @ 0 mls/hr [facility] Last Admin: 04/24/20 21:07 Dose: Not Given Documented by: Insulin Glargine 40 units/ (Miscellaneous Medication) 0.4 mls @ 0 mls/hr SC [facility] Last Admin: 04/25/20 08:27 Dose: 0.4 mls Documented by: Insulin Human Lispro (Humalog 300 Units/3 Ml Vial) 0 units SC .BEDTIME SLIDING SC PRN PRN Reason: Bedtime Correctional Scale Last Admin: 04/23/20 10:57 Dose: 2 unit Documented by: Insulin Human Lispro (Humalog 300 Units/3 Ml Vial) 0 units SC .MODERATE SLIDING SC PRN PRN Reason: Moderate Correctional Scale Last Admin: 04/24/20 17:22 Dose: 2 unit Documented by: Melatonin (Melatonin 3 Mg Tab) 3 mg PO HS PRN PRN Reason: Insomnia Last Admin: 04/21/20 21:16 Dose: 3 mg Documented by: Metolazone (Metolazone 5 Mg Tab) 5 mg PO NOW [facility] Stop: 04/25/20 14:00 Last Admin: 04/25/20 10:50 Dose: 5 mg Documented by: Nifedipine (Nifedipine Xl 60 Mg Tab) 60 mg PO DAILY [facility] Last Admin: 04/25/20 08:27 Dose: 60 mg Documented by: Nitroglycerin (Nitroglycerin 0.4 Mg Tab (25 Tab Bottle)) 0.4 mg SL Q5MIN PRN PRN Reason: Chest Pain Last Admin: 04/15/20 16:19 Dose: 0.4 mg Documented by: Ondansetron HCl (Ondansetron Odt 4 Mg Tab) 4 mg PO Q6H PRN PRN Reason: Nausea/Vomiting Last Admin: 04/24/20 01:43 Dose: 4 mg Documented by: Ondansetron HCl (Ondansetron Pf 4 Mg/2 Ml Vial) 4 mg IVP Q6H PRN PRN Reason: Nausea/Vomiting Last Admin: 04/19/20 21:06 Dose: 4 mg Documented by: Pantoprazole Sodium (Pantoprazole 40 Mg Tab) 40 mg PO DAILY [facility] Last Admin: 04/25/20 08:27 Dose: 40 mg Documented by: Sertraline HCl (Sertraline Hcl 100 Mg Tab) 100 mg PO DAILY [facility] Last Admin: 04/25/20 08:27 Dose: 100 mg Documented by: Sodium Chloride (Flush - Normal Saline 10 Ml Syringe) 10 ml IVF PRN PRN PRN Reason: Saline Flush Last Admin: 04/23/20 21:26 Dose: 10 ml Documented by: Trazodone HCl (Trazodone Hcl 50 Mg Tab) 100 mg PO [facility] Last Admin: 04/24/20 21:01 Dose: Not Given Documented by: Vital Signs & Weight: Vital Signs Temp Pulse Resp BP Pulse Ox 04/25/20 12:28 97.5 F L 57 L 18 149/67 H 93 L 04/25/20 08:30 93 L 04/25/20 08:26 52 L 04/25/20 08:05 97.4 F L 54 L 17 140/62 93 L 04/25/20 03:58 97.4 F L 04/25/20 03:46 52 L 18 146/65 H 92 L Admit Weight 284 lb 6.4 oz Weight 286 lb 6 oz I/O: I/O 04/24/20 04/25/20 04/26/20 06:59 06:59 06:59 Intake Total 789 420 Output Total 375 400 Balance 414 20 - Quality Measures Condition: Atrial Fibrillation/Flutter (hx or current) - Medication Contraindications No Anticoagulant reason: Anticoagulant not tolerated - Physical Exam General: alert & oriented x3, appears well, other (Morbidly obese BMI 54) HEENT: normocephaly Neck: no JVD/HJR, no thromegaly Cardiology: regular rate and rhythm, no murmur Lungs: normal breath sounds Neurology: grossly intact Abdomen: unremarkable, soft, no hepatosplenomegaly - Chadsvasc Risk factors Hypertension: 1 Diabetes mellitus: 1 Female: 1 Risk Score: 3 - Labs Result Diagrams: 04/25/20 10:20 04/25/20 09:49 - EKG Interpretation Status: image reviewed by me EKG Method: Telemetry EKG shows: Sinus rhythm - Assessment/Plan Assessment/Plan: 1. Paroxysmal atrial fibrillation with RVR, diagnosed this admission, also seen to organize to slow atypical atrial flutter/atach with variable VR. a. Rate controlled with diltiazem 60 QID and dig 125mcg daily b. Converted to SR 04/18/20 1 am. 2. History of cirrhosis. 3. History of hepatitis C, previously treated. 4. COPD. 5. Type 2 diabetes. 6. Hypertension. 7. GERD. 8. Recent urinary tract infection, 2 weeks ago, preceding onset of symptoms, treated with antibiotics. 9. Tobacco habituation, quarter pack a day. 10. Esophageal varices. a. Dark emesis concerning for upper GI bleed b. melena stool 2/, with Hgb drop 11. Preserved LVEF 60-65% 12. History of esophageal varices 13. Acute anemia -S/P EGD. with no acute bleed, but esophagitis found. Questionable continuous churn buttermaker candidate for OAC 04/18/20 Converted to SR. Continue PO dilt. May consolidate to Dilt CD 240mg once stable absorption. 2.8.21- Remains in SR over weekend. Short pauses up to 1.3 seconds seen. Continue current regimen. 04/22/20- Continues in SR. remins off oAC. Poor continuous churn buttermaker candidate. Currently back in SR, but afib recurrence is likely. 04/23/20- Remains in SR. Mainly renal issues at this time. GI signed off 04/21. Was tried on eliquis 5mg BID on 2/3 PM with dark stool 2/4 AM with 1 point Hgb drop. Following that, her Creat began climbing drastically, so she was maybe supratherapeutic on that dose. Eliquis 2.5mg BID would now be a more appropriate dose for her now and is adequate for watchman implant. Will discuss this option as OP but would refrain from OAC for now. If she cannot tolerate any OAC she is not a watchman candidate. 04/24/20- switched to diltiazem CD 240mg daily. Recommend avoiding daily NSAIDs continuous churn buttermaker with her hx of gastritis and need for OAC continuous churn buttermaker. Will see less often, call me if needed. thank you. 6 week follow up requested. 04/25/20- remains in SR. Creatinin continues to climb Dig level elevated. Discussed with resident service. Agree with stopping digoxin, hol Diltiazem today to avoid bradycarda. can resume and poss adjust dose if HR increase and no signs of dig toxicity by am. Would sign off happy to see her back for office follow up.
--- NOTE | 2020-04-25 13:55 | EKG ---
Test Reason : Blood Pressure : / mmHG Vent. Rate : 069 BPM Atrial Rate : 069 BPM P-R Int : 180 ms QRS Dur : 086 ms QT Int : 358 ms P-R-T Axes : 037 -02 146 degrees QTc Int : 383 ms Poor data quality, interpretation may be adversely affected Normal sinus rhythm Abnormal ECG When compared with ECG of 15-APR-2020 15:43, ME interval has decreased Vent. rate has decreased BY 37 BPM T wave inversion less evident in Lateral leads Confirmed by DR. Lori GOODRICH ([id number]) on 04/25/2020 1:54:59 PM Referred By: KAMARI Confirmed By:DR. Lori GOODRICH
--- NOTE | 2020-04-25 15:21 | PRG ---
DATE OF SERVICE: 04/25/2020 SUBJECTIVE: The patient was seen and examined, seems to be beginning to retain more fluid, noted with the following vital signs. OBJECTIVE: VITAL SIGNS: Afebrile, temperature 97.5, pulse 87, respiratory rate of 18, O2 saturation 93% with a blood pressure of 149/67. HEENT: Unremarkable. CARDIOVASCULAR SYSTEM: First and second sounds were heard. RESPIRATORY SYSTEM: Clear to auscultation. DIGESTIVE SYSTEM: Revealed distended, tense abdomen. EXTREMITIES: Showed peripheral edema. SKIN: No new gross rash. LYMPHATICS: No peripheral lymphadenopathy. LABORATORY INVESTIGATION: Showed sodium of 131, bicarb of 33, BUN of 107, creatinine of 5.21 with phosphorus of 6.2. IMPRESSION: 1. Acute on chronic kidney disease, seems to be heading in the wrong direction. 2. Hypervolemia, off diuretics. 3. Anemia. 4. Congestive heart failure with atrial fibrillation with rapid ventricular response. PLAN: 1. We will start this patient on diuretics. 2. I did discuss with this patient that if she does not respond well to medical diuresis, the only modality of treatment left for us will be hemodialysis with ultrafiltration as tolerated by hemodynamics. 3. Further management will be dependent on the clinical course including possibility of hemodialysis. Job ID: [id number]
[2020-04-25] MEDS: Furosemide 40 MG/4 ML VIAL SLOW IVP SCH (15:48)
[2020-04-25] MEDS: HumaLOG 300 UNITS/3 ML VIAL SC PRN (18:26)
[2020-04-25] MEDS: Ondansetron PF 4 MG/2 ML Vial IVP PRN (22:08)
[2020-04-25] MEDS: Insulin Glargine 20 UNITS in Pre-Filled Syringe 1 EACH SC SCH (22:25)
[2020-04-25] MEDS: traZODone HCl 50 MG TAB PO SCH (22:25)
--- NOTE | 2020-04-25 23:31 | RAD ---
Exam: 1 view abdomen HISTORY: Nausea, vomiting abdominal pain, discomfort and distention FINDINGS: Multiple air-filled distended small bowel loops. Paucity of air in the majority the colon. Small amount of air may be present in the distal sigmoid colon and rectum. IMPRESSION: Multiple distended air-filled loops of small bowel, worrisome for a small bowel obstructi on. Consider placement of nasogastric tube. Consider general surgical consultation.
--- NOTE | 2020-04-25 23:56 | PDOC.EVN ---
Event Note - Event Note Event Note: Pt called to bedside for n/v, abdominal distention/pain. Decreased bowel sounds diffusely. KUB concerning for SBO. Gen Surg consulted. NG tube ordered to low suction. Will order labs to further assess including lactic acid. Deandre Eng, 04/25/20 [id number]
[2020-04-26 00:11] LABS: #Basophils 0.1 thou/uL (0.0-0.2); #Lymphocytes 0.2 thou/uL (1.20-3.40); #Monocytes 0.3 thou/uL (0.11-0.59); #Neutrophils 8.6 thou/uL (1.40-6.50); %Basophils 0.8 % (0.0-1.0); %Eosinophils 0.4 % (0.0-10.0); %Lymphocytes 2.4 % (21.0-51.0); %Monocytes 3.5 % (0.0-10.0); %Neutrophils 92.9 % (42.0-75.0); Hemoglobin 8.9 g/dL (12.0-16.0); Mean Corpuscular Hemoglobin 30.8 pg (27.0-31.0); Mean Corpuscular Volume 90.5 fL (78.0-98.0); Mean Platelet Volume 8.5 fL (7.4-10.4); Platelet Count 173 thou/uL (130-400); Red Blood Cell (RBC) Count 2.89 mill/uL (4.20-5.40); White Blood Cell (WBC) Count 9.3 thou/uL (4.8-10.8)
[2020-04-26] MEDS ORDERED: Lorazepam 2 MG/ML VIAL SLOW IVP SCH ×2 (00:15→22:50)
[2020-04-26 00:26] LABS: Lactic Acid 0.8 mmol/L (0.5-2.2)
[2020-04-26 00:30] LABS: Anion Gap 17 mmol/L (10-20); BUN (Urea Nitrogen) 106 mg/dL (9.8-20.1); Calc. Creatinine Clearance 21 mL/min (70-130); Calcium 9.7 mg/dL (7.8-10.44); Carbon Dioxide 33 mmol/L (23-31); Chloride 86 mmol/L (98-107); Glucose 158 mg/dL (80-115); Magnesium 2.8 mg/dL (1.6-2.6); Sodium 131 mmol/L (136-145)
[2020-04-26 04:37] LABS: Albumin 3.5 g/dL (3.4-4.8); Anion Gap 19 mmol/L (10-20); BUN (Urea Nitrogen) 102 mg/dL (9.8-20.1); BUN/Creatinine Ratio 17.83; Calc. Creatinine Clearance 20 mL/min (70-130); Calcium 9.4 mg/dL (7.8-10.44); Carbon Dioxide 30 mmol/L (23-31); Chloride 86 mmol/L (98-107); Glucose 188 mg/dL (80-115); Phosphorus 6.8 mg/dL (2.3-4.7); Potassium 5.6 mmol/L (3.5-5.1); Sodium 129 mmol/L (136-145)
[2020-04-26] MEDS: Furosemide 40 MG/4 ML VIAL SLOW IVP SCH (05:23)
--- NOTE | 2020-04-26 06:19 | PDOC.FM ---
- Subjective Subjective: Pt had nausea with emesis overnight. Resident service contacted and ordered KUB and it showed possible SBO. NG tube was placed. Pt states she is feeling better since then. She also reported that she was having worsening SOB overnight but that has greatly improved. - Objective Vital Signs & Weight: Vital Signs (12 hours) Temp Pulse Resp BP Pulse Ox 04/26/20 03:46 97.3 F L 57 L 20 147/63 H 100 04/25/20 21:55 97.4 F L 65 18 167/67 H 93 L Weight Admit Weight 129.002 kg Weight 129.898 kg I&O: 04/24/20 04/25/20 04/26/20 06:59 06:59 06:59 Intake Total 024 407 2476 Output Total 375 400 100 Balance 414 20 980 Result Diagrams: 04/26/20 00:00 04/26/20 03:52 Phys Exam - Physical Examination Constitutional: NAD NG tube in place mild wheezing bilaterally Cardiovascular: RRR, no significant murmur increased distention, mildly tender to palpation 1+ edema of b/l LE Neurological: non-focal, moves all 4 limbs Psychiatric: normal affect, A&O x 3 Dx/Plan - Plan Plan: Acute hypoxic respiratory failure 2/2 likely new onset CHF w/exacerbation vs. cirrhosis - CXR: cardiomegaly, b/l pulm vascular enlargement, BNP 1000 - dependent pitting edema - O2: overnight required 4L NC, increased from 2L - ECHO: EF 60-65%, Grade 1/3 diastolic dysfunction - Cardiology and Nephro consulted; GI and EP have signed off - pending CXR and BNP JOANNE on CKD -Cr 5.72, worsening, pt now oliguric -Nephro consulted (04/17): worsening of renal function, had discussion about possibility of dialysis in near futuer -discontinued glipizide -ipatroprium dc'd due to concerns for urinary retention Suspected SBO -overnight pt complained of nausea and abdominal tenderness -KUB: dilated loops of small bowel concerning for SBO -general surgery, Dr Braxton, consulted, appreciate recs -NG tube placed, NPO Afib/flutter with RVR, resolved - cardiology, Dr. Moreno consulted on 04/13: indefinite hold on eliquis for now, consider watchman in future - EP, Dr. Edward: PO dilt and dig, consider watchman in future if she can tolerate short course of oral anticoagulation, needs f/u outpt - digoxin level elevated yesterday, stopped digoxin due to worsening kidney function - diltiazem held for now, consider restarting if heart rate increases UTI -UCx: yeast -will do one time fluconazole Typical Chest Pain, resolved - EKG: inverted T waves - Trop: 0.025 - likely 2/2 to hypoxia as patient's NC was removed - resolved with replacement of NC Anemia - resolution of N/V with dark emesis, melena - GI consulted, EGD: portal HTN gastropathy, large armount of retained gastric contents, superficial pyloric erosion - protonix Cirrhosis 2/2 Hep C - treated -GI, Dr. Gaspar, consulted on 04/14: no fluid seen for paracentesis, resume furosemide once Cr improves -has had 1 paracentesis in the past -on physical exam, abdomen very distended and uncomfortable, may resolve with di uresis -s/p rocephin for SBP ppx Hyperkalemia -resolved, K 4.3 -no EKG changes Hypertensive urgency, resolved - SBP 200 in ED, given hydralazine and nitro paste - Losartan DC'd due to renal function, on dilt 2/2 to Afib with RVR, hydralazine prn - will adjust po meds to optimize control of BP Contraction Alkalosis - likely 2/2 to diuresis COPD -s/p Azithromycin and ceftriaxone in ED, will not continue as pt is not in acute exacerbation -dc'd duoneb due to possible urinary retention, albuterol neb prn Chronic thrombocytopenia - At baseline, 2/2 liver disease Hypervolemic hyponatremia - Na 133 - Expect improvement with diuresis Elevated d-dimer - 2.24 with negative CTA DM -continue home meds, will adjust as needed due to pt decreased appetite -DC'd glipizide -accuchecks ACHS, mild SSI Dispo: Worsening renal function and possible SBO, appreciate nephrology and gen surg recs
[2020-04-26] MEDS: Ondansetron PF 4 MG/2 ML Vial IVP PRN ×3 (06:32→17:48)
[2020-04-26] MEDS: busPIRone HCl 10 MG TAB PO SCH ×2 (10:07→21:30)
[2020-04-26] MEDS: Gabapentin 300 MG CAP PO SCH ×4 (10:07→23:12)
[2020-04-26] MEDS: Alogliptin 25 MG TAB PO SCH (10:07)
[2020-04-26] MEDS: ALPRAZolam 0.25 MG TAB PO SCH ×2 (10:07→21:30)
[2020-04-26] MEDS: Calcium Acetate 667 MG CAP PO SCH ×3 (10:07→16:39)
[2020-04-26] MEDS: HYDROcodone/Acetaminophen 7.5/325 mg Tablet PO SCH ×3 (10:08→21:31)
[2020-04-26] MEDS: NIFEdipine XL 60 MG TAB PO SCH (10:08)
--- NOTE | 2020-04-26 11:11 | RAD ---
CHEST 1 VIEW: Date: 04/26/2020 HISTORY: Fluid retention. COMPARISON: 04/12/2020. FINDINGS: There is a NG tube in place. Cardiomegaly with bilateral vascular congestion and probable minimal int erstitial and alveolar edema with costophrenic angle blunting. Evidence for small pleural effusion, p articularly on the left side. Appearance does not appear significantly changed from 04/12/2020. IMPRESSION: Overall stable appearing chest with cardiomegaly and bilateral vascular congestion with possible mild edema and probable left pleural effusion. Continue short-term follow-up. POS: RRE
--- NOTE | 2020-04-26 12:14 | CON ---
DATE OF CONSULTATION: 04/26/2020 CHIEF COMPLAINT: Nausea and vomiting. HISTORY OF PRESENT ILLNESS: The patient is a 64-year-old female, who has multiple medical problems. She was admitted with an exacerbation of congestive heart failure. She has been in the hospital for the last two weeks. Yesterday, she started developing nausea and vomiting. A KUB was suspicious for a small-bowel obstruction. An NG tube was placed and 710 mL removed. Her last bowel movement was yesterday at 7:00 p.m. PAST MEDICAL HISTORY: Cirrhosis, hepatitis C, COPD, morbid obesity, diabetes mellitus, hypertension, gastroesophageal reflux. PAST SURGERIES: Bilateral tubal ligation, tonsil and adenoidectomy, laparoscopic cholecystectomy, appendectomy. MEDICATIONS: Include; 1. Fentanyl transdermal. 2. Insulin. 3. Omeprazole. 4. [place]. 5. Abilify. 6. Buspirone. 7. Alprazolam. 8. Trazodone. 9. Sertraline. 10. Zofran. 11. Loperamide. 12. Gabapentin. 13. Colace. 14. Zyrtec. 15. Fosamax. 16. Protonix. 17. Nifedipine. 18. Lasix. 19. Cardizem. 20. Digoxin. 21. Calcium. SOCIAL HISTORY: She still smokes cigarettes. She lives in a fci. FAMILY HISTORY: Noncontributory. PHYSICAL EXAMINATION: VITAL SIGNS: Temperature 97.3, pulse 57, blood pressure is 147/63. GENERAL: She is a morbidly obese female. She has an NG tube. It is draining very clear yellow fluid. There is about 100 mL in the canister which was emptied this morning about 7:00 a.m. LUNGS: Clear. HEART: Regular rate and rhythm. ABDOMEN: Morbidly obese and very distended. Really no significant tenderness. No hernias. EXTREMITIES: Unremarkable. LABORATORY DATA: Her white count is 9.3, H and H 8 and 26, platelet count 173. Her electrolytes; her sodium is 129, potassium 5.6, chloride 86, BUN 102, creatinine is 5.7, glucose 173. ASSESSMENT: Ileus versus obstruction based on KUB. PLAN: Continue NG suction. We will repeat the KUB. If not better by tomorrow, we will recommend small bowel follow-through with Gastrografin. Job ID: [id number]
[2020-04-26] MEDS: hydrALAZINE 20 MG/ML VIAL SLOW IVP PRN ×2 (12:23→15:45)
[2020-04-26] MEDS: Sodium Chloride 0.9% 1,000 ML IV SCH (12:23)
--- NOTE | 2020-04-26 12:28 | PRG ---
DATE OF SERVICE: 04/26/2020 Please see the note from Dr. Natalie Mtz, for which I agree. The patient was seen, evaluated, discussed, and examined with the residents by bedside. This is a very complicated 64-year-old who has been here for a couple of weeks. New onset of CHF, although preserved ejection fraction. She also has acute kidney injury on top of chronic kidney problems. She has had some atrial fibrillation and atrial flutter actually with some rapid ventricular response that she has been here, but having a hard time getting her diuresed. Kidney function is down. She was given more Lasix yesterday and then had more vomiting and abdominal problems last night. X-ray showed likely obstruction, so NG tube was placed and Surgery was consulted and not had that much fluid out of the NG tube after the initial amount, so unclear if she maybe other medical issues. This sounds like she maybe dialysis. On exam, chest has decreased breath sounds secondary to probably body habitus more than anything. Abdomen is still pretty protuberant, although does have some bowel sounds and apparently she had a bowel movement yesterday too. So, we will see what Surgery says. Continue NG tube and supportive management. We are also going to have to change a lot of her medicines from p.o. to either per tube and we can clamp the tube for a while after giving medications. We will try to switch as many of these to IV as we can. Job ID: [id number]
[2020-04-26 12:49] LABS: Potassium 4.9 mmol/L (3.5-5.1)
--- NOTE | 2020-04-26 14:58 | RAD ---
KUB: Date: 04/26/2020 COMPARISON: 04/25/2020. HISTORY: Small bowel obstruction. FINDINGS: Anterior views of the abdomen show multiple air-filled loops of small bowel consistent with bowel obs truction. Cholecystectomy clips are seen. There may be a small amount of air in the rectum. No signif icant change has occurred compared to the prior exam. IMPRESSION: Stable small bowel obstruction. POS: EAA
[2020-04-26] MEDS ORDERED: Lidocaine 1% w/Epinephrine 1:100K 20 ML VIAL ONE (16:53)
[2020-04-26] MEDS ORDERED: Heparin 10,000 UNITS/ 10 ML VIAL ONE (16:53)
--- NOTE | 2020-04-26 18:42 | PRG ---
DATE OF SERVICE: 04/26/2020 SUBJECTIVE: The patient was seen and examined. Seems to be uremic. While discussing with this patient, the patient lost into in and out of somnolence. Noted with the following vital signs. OBJECTIVE: VITAL SIGNS: Afebrile, temperature 96.6, pulse 59, respiratory rate of 18, O2 saturations of 96% with a blood pressure of 134/74. HEENT: Unremarkable. CARDIOVASCULAR SYSTEM: First and second heart sounds were heard. RESPIRATORY SYSTEM: Clear to auscultation. DIGESTIVE SYSTEM: Revealed a distended abdomen. EXTREMITIES: Showed some peripheral edema. NEUROLOGIC: Alert and oriented. No lateralizing signs. LYMPHATICS: No peripheral lymphadenopathy. LABORATORY INVESTIGATION: Significant for the following; potassium of 5.6, sodium 129, creatinine 5.72, BUN of 102, phosphorus of 6.8. BNP of 1600. IMPRESSION: 1. Dense acute tubular necrosis triggered by contrast nephropathy. 2. Uremic symptomatology. 3. Hyperkalemia in the context of problem #1. 4. Hypervolemia resistant to medical diuresis. PLAN: 1. The patient is to be initiated on dialysis because of uremic symptoms and the rising potassium. The patient is to undergo dialysis with ultrafiltration as tolerated by hemodynamics to address the hypervolemic state of this patient. 2. Renally dose all medications and avoid potentially nephrotoxic agents. 3. Further management will be dependent on the clinical course. Job ID: [id number]
[2020-04-26] MEDS: traZODone HCl 50 MG TAB PO SCH (21:31)
[2020-04-26 22:04] LABS: HBSAg Index 0.18 S/CO (0-0.99); Hep B Surf Ag Non-Reactive S/CO (NonReactive)
[2020-04-27] MEDS: Sodium Chloride 0.9% 1,000 ML IV SCH (03:53)
[2020-04-27 04:29] LABS: Albumin 3.4 g/dL (3.4-4.8); Anion Gap 17 mmol/L (10-20); BUN (Urea Nitrogen) 81 mg/dL (9.8-20.1); BUN/Creatinine Ratio 18.45; Calc. Creatinine Clearance 27 mL/min (70-130); Calcium 8.8 mg/dL (7.8-10.44); Carbon Dioxide 29 mmol/L (23-31); Chloride 92 mmol/L (98-107); Glucose 121 mg/dL (80-115); Phosphorus 5.6 mg/dL (2.3-4.7); Potassium 4.5 mmol/L (3.5-5.1); Sodium 133 mmol/L (136-145)
--- NOTE | 2020-04-27 06:21 | PDOC.FM ---
- Subjective Subjective: Pt says she doesn't remember much of yesterday. She was started on dialysis yesterday evening due to uremia and anuria. She is unsure if she had a bowel movement yesterday. This morning she denies N/V, CP, SOB - Objective Vital Signs & Weight: Vital Signs (12 hours) Temp Pulse Resp BP Pulse Ox 04/27/20 04:11 69 20 99 04/27/20 03:18 97.2 F L 64 20 163/70 H 99 04/26/20 21:15 97.4 F L 64 14 149/54 H 99 04/26/20 18:55 97.9 F 69 18 166/79 H 98 Weight Admit Weight 129.002 kg Weight 130.379 kg I&O: 04/25/20 04/26/20 04/27/20 06:59 06:59 06:59 Intake Total 420 1440 491 Output Total 400 1010 250 Balance 20 430 241 Result Diagrams: 04/26/20 00:00 04/27/20 03:26 Phys Exam - Physical Examination Constitutional: NAD Neck: supple mild wheezing b/l Cardiovascular: RRR, no significant murmur Gastrointestinal: soft distended but improved 2+ b/l LE edema Neurological: non-focal, moves all 4 limbs Psychiatric: normal affect, A&O x 3 Dx/Plan - Plan Plan: Acute hypoxic respiratory failure 2/2 likely new onset CHF w/exacerbation vs. cirrhosis - CXR: cardiomegaly, b/l pulm vascular enlargement, BNP 1000 - dependent pitting edema - O2: overnight required 4L NC, increased from 2L - ECHO: EF 60-65%, Grade 1/3 diastolic dysfunction - Cardiology and Nephro consulted; GI and EP have signed off - CXR: stable from previous exam, mild edema - BNP 1600 JOANNE on CKD -Cr 4.39, improved, s/p dialysis on 04/26 -Nephro consulted (04/17): placed dialysis catheter on 04/26 and started HD due to anuria and uremia, plan is for another round today -discontinued glipizide Suspected SBO vs Ileus -KUB: dilated loops of small bowel concerning for SBO -general surgery, Dr Braxton, consulted, appreciate recs -NG tube placed on 04/26, output 250mL overnight, NPO Afib/flutter with RVR, resolved - cardiology, Dr. Moreno consulted on 04/13: indefinite hold on eliquis for now, consider watchman in future - EP, Dr. Edward: PO dilt and dig, consider watchman in future if she can tolerate short course of oral anticoagulation, needs f/u outpt - digoxin level elevated yesterday, stopped digoxin due to worsening kidney fu nction - diltiazem held for now, consider restarting if heart rate increases UTI -UCx: yeast -will do one time fluconazole Typical Chest Pain, resolved - EKG: inverted T waves - Trop: 0.025 - likely 2/2 to hypoxia as patient's NC was removed - resolved with replacement of NC Anemia - resolution of N/V with dark emesis, melena - GI consulted, EGD: portal HTN gastropathy, large armount of retained gastric contents, superficial pyloric erosion - protonix Cirrhosis 2/2 Hep C - treated -GI, Dr. Gaspar, consulted on 04/14: no fluid seen for paracentesis, resume furosemide once Cr improves -has had 1 paracentesis in the past -on physical exam, abdomen very distended and uncomfortable, may resolve with diuresis -s/p rocephin for SBP ppx Hyperkalemia -resolved, K 4.3 -no EKG changes Hypertensive urgency, resolved - SBP 200 in ED, given hydralazine and nitro paste - Losartan DC'd due to renal function, on dilt 2/2 to Afib with RVR, hydralazine prn - will adjust po meds to optimize control of BP Contraction Alkalosis - likely 2/2 to diuresis COPD -s/p Azithromycin and ceftriaxone in ED, will not continue as pt is not in acute exacerbation -dc'd duoneb due to possible urinary retention, albuterol neb prn Chronic thrombocytopenia - At baseline, 2/2 liver disease Hypervolemic hyponatremia - Na 133 - Expect improvement with diuresis Elevated d-dimer - 2.24 with negative CTA DM -continue home meds, will adjust as needed due to pt decreased appetite -DC'd glipizide -accuchecks ACHS, mild SSI Dispo: Worsening renal function and possible SBO, appreciate nephrology and gen surg recs
[2020-04-27] MEDS: NIFEdipine XL 60 MG TAB PO SCH (08:23)
[2020-04-27] MEDS: ALPRAZolam 0.25 MG TAB PO SCH ×2 (08:23→20:12)
[2020-04-27] MEDS: Gabapentin 300 MG CAP PO SCH ×3 (08:24→20:10)
[2020-04-27] MEDS: HYDROcodone/Acetaminophen 7.5/325 mg Tablet PO SCH ×3 (08:24→20:11)
[2020-04-27] MEDS: Pantoprazole 40 MG VIAL IVP SCH (08:25)
[2020-04-27] MEDS: Alogliptin 25 MG TAB PO SCH (08:25)
[2020-04-27] MEDS: busPIRone HCl 10 MG TAB PO SCH ×2 (08:25→20:12)
[2020-04-27] MEDS: Calcium Acetate 667 MG CAP PO SCH ×3 (08:25→17:19)
[2020-04-27] MEDS ORDERED: Sodium Chloride 0.9% 1,000 ML IV SCH (10:00)
--- NOTE | 2020-04-27 11:48 | PRG ---
DATE OF SERVICE: 04/27/2020 SUBJECTIVE: The patient reports nausea is gone. She is passing some gas. She had a bowel movement. She denies abdominal pain. OBJECTIVE: On examination, she is currently getting dialysis. She is awake, alert, does not look uncomfortable. Abdomen is obese, soft, and nondistended. Her NG tube put out 375, but she is doing well. ASSESSMENT: Ileus, probably due to renal failure. PLAN: Repeat KUB, maybe I will get the NG tube out if her KUB is back to normal. If her KUB is not back to normal, we would recommend a small bowel follow-through in the morning. Job ID: [id number]
[2020-04-27] MEDS: Dextrose 5 % And 0.9 % NaCl 1,000 ML IV SCH (12:39)
--- NOTE | 2020-04-27 12:46 | PRG ---
DATE OF SERVICE: 04/27/2020 Please see the note from Dr. Natalie Mtz, for which I agree. Big change on her is she is improving. The NG tube is currently clamped. Seems to be less distended and the nurses note say two bowel movements. Got hemodialysis yesterday for altered mental status thought to be secondary to uremia and sounds like they are going to probably do dialysis again today. Unclear if she is going to eventually need permanent dialysis or what to expect with that, and we will see if NG tube is removed by surgeon today or not. Job ID: [id number]
--- NOTE | 2020-04-27 13:11 | RAD ---
Exam: 1 view abdomen COMPARISON: 04/26/2020 HISTORY: Ileus versus small bowel obstruction. FINDINGS: There is a nasogastric tube, terminating in the left or quadrant. Diminished but persistent prominent air-filled loops of small bowel are identified. No evidence of pneumoperitoneum on supine projection IMPRESSION: Diminished but persistent air-filled small bowel loops. Findings may represent resolving obstruction or ileus.
[2020-04-27] MEDS ORDERED: Heparin 10,000 UNITS/ 10 ML VIAL ONE (16:51)
--- NOTE | 2020-04-27 17:41 | OP ---
DATE OF PROCEDURE: 04/26/2020 PROCEDURE PERFORMED: Right femoral dialysis catheter placement. MEDICATIONS: 2% lidocaine. INDICATIONS: Uremia/renal failure. DESCRIPTION OF PROCEDURE: After informed consent was obtained, the patient was prepped and draped in a sterile fashion. The right femoral vein was approached in layers under real-time ultrasound guidance. The femoral vein was secured with one pass and serial dilatation carried out prior to placing Trialysis. All ports were flushed very well. The patient tolerated the procedure very well. Minimal blood loss. No immediate postop complication. Line is ready for use for dialysis. Job ID: [id number]
[2020-04-27] MEDS: traZODone HCl 50 MG TAB PO SCH (20:11)
[2020-04-28] MEDS ORDERED: Ondansetron PF 4 MG/2 ML Vial ONE (04:49)
[2020-04-28] MEDS ORDERED: Gabapentin 300 MG CAP ONE (07:44)
[2020-04-28] MEDS ORDERED: traZODone HCl 50 MG TAB ONE (07:44)
[2020-04-28] MEDS ORDERED: Alogliptin 25 MG TAB PO ONE (07:44)
[2020-04-28] MEDS ORDERED: busPIRone HCl 10 MG TAB ONE (07:44)
[2020-04-28] MEDS ORDERED: HYDROcodone/Acetaminophen 7.5/325 mg Tablet ONE (07:46)
[2020-04-28] MEDS ORDERED: Calcium Acetate 667 MG CAP ONE (07:46)
[2020-04-28] MEDS ORDERED: NIFEdipine XL 60 MG TAB ONE (07:46)
[2020-04-28] MEDS ORDERED: ALPRAZolam 0.25 MG TAB ONE (07:47)
[2020-04-28] MEDS ORDERED: Pantoprazole 40 MG VIAL ONE (07:48)
[2020-04-28] MEDS: Dextrose 5 % And 0.9 % NaCl 1,000 ML IV SCH (09:35)
[2020-04-28] MEDS: busPIRone HCl 10 MG TAB PO SCH ×2 (10:15→22:39)
[2020-04-28] MEDS: Gabapentin 300 MG CAP PO SCH ×3 (10:15→22:37)
[2020-04-28] MEDS: Pantoprazole 40 MG VIAL IVP SCH (10:15)
[2020-04-28] MEDS: Alogliptin 25 MG TAB PO SCH (10:15)
[2020-04-28] MEDS: ALPRAZolam 0.25 MG TAB PO SCH ×2 (10:15→22:38)
[2020-04-28] MEDS: Calcium Acetate 667 MG CAP PO SCH ×3 (10:15→17:11)
[2020-04-28] MEDS: NIFEdipine XL 60 MG TAB PO SCH (10:15)
[2020-04-28] MEDS: Ondansetron PF 4 MG/2 ML Vial IVP PRN (10:18)
[2020-04-28] MEDS ORDERED: Ondansetron ODT 4 MG TAB ONE (10:24)
[2020-04-28] MEDS: Nitroglycerin 0.4 MG TAB (25 Tab Bottle) SL PRN (10:26)
[2020-04-28] MEDS ORDERED: Promethazine HCl 25 MG/ML VIAL SLOW IVP PRN (13:28)
[2020-04-28] MEDS ORDERED: hydrOXYzine 25 MG TAB PER TUBE PRN (13:30)
[2020-04-28] MEDS: HYDROcodone/Acetaminophen 7.5/325 mg Tablet PO SCH ×3 (15:24→22:39)
[2020-04-28 15:31] LABS: Albumin 3.3 g/dL (3.4-4.8); Anion Gap 14 mmol/L (10-20); BUN (Urea Nitrogen) 54 mg/dL (9.8-20.1); BUN/Creatinine Ratio 16.31; Calc. Creatinine Clearance 35 mL/min (70-130); Calcium 8.1 mg/dL (7.8-10.44); Carbon Dioxide 29 mmol/L (23-31); Chloride 96 mmol/L (98-107); Glucose 129 mg/dL (80-115); Phosphorus 3.9 mg/dL (2.3-4.7); Potassium 4.4 mmol/L (3.5-5.1); Sodium 135 mmol/L (136-145)
[2020-04-28] MEDS ORDERED: Heparin 10,000 UNITS/ 10 ML VIAL ONE (16:54)
--- NOTE | 2020-04-28 20:55 | PRG ---
DATE OF SERVICE: 04/28/2020 SUBJECTIVE: The patient is seen and noted with the following vital signs. OBJECTIVE: VITAL SIGNS: Afebrile. Temperature 97.8, pulse 71, respiratory rate of 16, O2 saturation of 99%, blood pressure 139/53. GENERAL: The patient seems to be doing well at dialysis. HEENT: Unremarkable. CARDIOVASCULAR SYSTEM: First and second heart sounds heard. RESPIRATORY SYSTEM: Clear to auscultation. DIGESTIVE SYSTEM: Revealed a benign abdomen with positive bowel sounds. EXTREMITIES: No peripheral edema. SKIN: No new gross rash. LYMPHATICS: No peripheral lymphadenopathy. IMPRESSION: 1. Acute kidney injury, hemodialysis dependent. 2. Small bowel obstruction. 3. Hypervolemia, much improved, status post initiation on hemodialysis with ultrafiltration. 4. Obesity. PLAN: 1. The patient is being dialyzed today, and after dialysis, we will skip dialysis tomorrow, and for now, place this patient on a Tuesday, Tuesday, Tuesday schedule. In between, we will be re-evaluating this patient's renal function to look for possible potential recovery. If the patient's renal function recovers to the point of not requiring dialysis, we will discontinue dialysis. 2. We will defer to the primary team and surgical services to re-evaluate this patient's diagnosis of small-bowel obstruction. 3. Further management will be dependent on the clinical course. Job ID: [id number]
--- NOTE | 2020-04-28 21:59 | RAD ---
Small bowel follow-through HISTORY: Abdominal pain. Evaluate for obstruction. FINDINGS: Gastrografin contrast was administered through the nasogastric tube. Early images show nond ilated loops of jejunum in the upper abdomen. At 2 hours, contrast is present throughout the small bowel, colon, and rectum without dilatation. IMPRESSION : Rapid small bowel transit. No evidence of obstruction.
[2020-04-28] MEDS: traZODone HCl 50 MG TAB PO SCH (22:38)
[2020-04-29 04:20] LABS: Albumin 3.1 g/dL (3.4-4.8); Anion Gap 10 mmol/L (10-20); BUN (Urea Nitrogen) 28 mg/dL (9.8-20.1); BUN/Creatinine Ratio 13.15; Calc. Creatinine Clearance 55 mL/min (70-130); Calcium 7.9 mg/dL (7.8-10.44); Carbon Dioxide 32 mmol/L (23-31); Chloride 102 mmol/L (98-107); Glucose 121 mg/dL (80-115); Phosphorus 2.6 mg/dL (2.3-4.7); Potassium 3.8 mmol/L (3.5-5.1); Sodium 140 mmol/L (136-145)
[2020-04-29] MEDS: Dextrose 5 % And 0.9 % NaCl 1,000 ML IV SCH ×2 (05:33→11:46)
--- NOTE | 2020-04-29 06:13 | PDOC.FM ---
- Subjective Subjective: Pt states that last night she experienced some confusion and pulled out her NG tube. She said she doesn't remember doing it. Her nausea has resolved, she had a few bowel movements and says she is hungry. She is looking forward to working with PT with the goal of leaving the hospital. Denies SOB, N/V. - Objective Vital Signs & Weight: Vital Signs (12 hours) Temp Pulse Resp BP Pulse Ox 04/29/20 04:00 98.0 F 77 20 165/69 H 04/28/20 20:00 97.7 F 69 18 127/58 L 96 Weight Admit Weight 129.002 kg Weight 125.844 kg I&O: 04/27/20 04/28/20 04/29/20 06:59 06:59 06:59 Intake Total 599 85 6018 Output Total 325 200 903 Balance 166 -150 563 Result Diagrams: 04/29/20 13:09 04/29/20 03:27 Phys Exam - Physical Examination Constitutional: NAD Neck: supple mild wheezing bilaterally Cardiovascular: RRR, no significant murmur Gastrointestinal: soft, non-tender Musculoskeletal: no edema Neurological: non-focal Psychiatric: normal affect, A&O x 3 Dx/Plan - Plan Plan: Acute hypoxic respiratory failure 2/2 likely new onset CHF w/exacerbation vs. cirrhosis - CXR: cardiomegaly, b/l pulm vascular enlargement, BNP 1000 - dependent pitting edema - O2: stable on 2L NC - ECHO: EF 60-65%, Grade 1/3 diastolic dysfunction - Cardiology and Nephro consulted; GI and EP have signed off - CXR: stable from previous exam, mild edema JOANNE on CKD -Cr 2., improved, s/p dialysis -Nephro consulted (04/17): placed dialysis catheter on 04/26 and started HD due to anuria and uremia, will continue with HD on MWF, will monitor for improvement and possible DC of dialysis -discontinued glipizide Suspected SBO vs Ileus -KUB: dilated loops of small bowel concerning for SBO -general surgery, Dr Braxton, consulted, appreciate recs -NG tube placed on 04/26, output 250mL overnight, NPO -SBFT: no signs of obstruction. -Will start diet and advance as tolerated Afib/flutter with RVR, resolved - cardiology, Dr. Moreno consulted on 04/13: indefinite hold on eliquis for now, consider watchman in future - EP, Dr. Edward: PO dilt and dig, consider watchman in future if she can tolerate short course of oral anticoagulation, needs f/u outpt - digoxin level elevated yesterday, stopped digoxin due to worsening kidney f unction - will restart diltiazem today and monitor HR UTI -UCx: yeast -will do one time fluconazole Typical Chest Pain, resolved - EKG: inverted T waves - Trop: 0.025 - likely 2/2 to hypoxia as patient's NC was removed - resolved with replacement of NC Anemia - resolution of N/V with dark emesis, melena - GI consulted, EGD: portal HTN gastropathy, large armount of retained gastric contents, superficial pyloric erosion - protonix Cirrhosis 2/2 Hep C - treated -GI, Dr. Gaspar, consulted on 04/14: no fluid seen for paracentesis, resume furosemide once Cr improves -has had 1 paracentesis in the past -on physical exam, abdomen very distended and uncomfortable, may resolve with diuresis -s/p rocephin for SBP ppx Hyperkalemia -resolved, K 3.8 -no EKG changes Hypertensive urgency, resolved - SBP 200 in ED, given hydralazine and nitro paste - Losartan DC'd due to renal function, hydralazine prn - will adjust po meds to optimize control of BP Contraction Alkalosis - likely 2/2 to diuresis COPD -s/p Azithromycin and ceftriaxone in ED, will not continue as pt is not in acute exacerbation -dc'd duoneb due to possible urinary retention, albuterol neb prn Chronic thrombocytopenia - At baseline, 2/2 liver disease Hypervolemic hyponatremia - Na 133 - Expect improvement with diuresis Elevated d-dimer - 2.24 with negative CTA DM -continue home meds, will adjust as needed due to pt decreased appetite -DC'd glipizide -accuchecks ACHS, mild SSI Dispo: Stable, currently on HD MWF, appreciate nephrology and gen surg recs Addendum - Attending - Attending Attestation Date/Time: 04/29/20 2252 I personally evaluated the patient and discussed the management with Dr. Mtz. I agree with the History, Examination, Assessment and Plan documented above with any addition or exceptions noted below. Chest pain, which she describes as pressure. Will d/w cardiology and obtain ECG/TnI.
[2020-04-29] MEDS: ALPRAZolam 0.25 MG TAB PO SCH ×2 (09:07→19:50)
[2020-04-29] MEDS: Alogliptin 25 MG TAB PO SCH (09:07)
[2020-04-29] MEDS: Gabapentin 300 MG CAP PO SCH ×3 (09:07→19:49)
[2020-04-29] MEDS: Calcium Acetate 667 MG CAP PO SCH ×3 (09:07→17:25)
[2020-04-29] MEDS: NIFEdipine XL 60 MG TAB PO SCH (09:08)
[2020-04-29] MEDS: HYDROcodone/Acetaminophen 7.5/325 mg Tablet PO SCH ×3 (09:08→19:49)
[2020-04-29] MEDS: busPIRone HCl 10 MG TAB PO SCH ×2 (09:09→19:50)
[2020-04-29] MEDS: Diltiazem HCl SR 60 mg Capsule PO SCH ×2 (09:11→19:49)
[2020-04-29] MEDS ORDERED: Tuberculin PPD 0.1 ML VIAL I-DERMAL SCH (09:45)
[2020-04-29] MEDS: Nitroglycerin 0.4 MG TAB (25 Tab Bottle) SL PRN (09:51)
[2020-04-29] MEDS: Pantoprazole 40 MG VIAL IVP SCH (12:07)
--- NOTE | 2020-04-29 12:47 | PDOC.CPN ---
- Subjective Date: 04/29/20 Time: 12:45 Interval history: No new issues. - Review of Systems General: denies: fever/chills, weight/appetite/sleep changes, night sweats, fatigue Respiratory: denies: cough, congestion, shortness of breath, exercise intolerance Cardiovascular: denies: chest pain, palpitation, edema, paroxysmal nocturnal dyspnea, orthopnea Gastrointestinal: denies: nausea, vomiting, diarrhea, constipation, abd pain, GI bleeding Musculoskeletal: denies: pain, tenderness, stiffness, swelling, arthritis/arthralgias Neurological: denies: numbness, syncope, seizure, weakness - Objective Allergies/Adverse Reactions: Allergies Allergy/AdvReac Type Severity Reaction Status Date / Time Sulfa (Sulfonamide Allergy Unknown Verified 07/31/19 22:07 Antibiotics) Visit Medications: Current Medications Acetaminophen (Acetaminophen 325 Mg Tab) 650 mg PO Q4H PRN PRN Reason: Headache/Fever/Mild Pain (1-3) Hydrocodone Bitart/Acetaminophen (Hydrocodone/Acetaminophen 7.5/325 Mg Tablet) 1 tab PO TID [facility] Last Admin: 04/29/20 09:08 Dose: 1 tab Documented by: Albuterol Sulfate (Albuterol Sulfate 2.5 Mg/3 Ml Neb) 2.5 mg NEB [id number] PRN PRN Reason: Wheezing Albuterol/Ipratropium (Ipratropium/Albuterol Sulfate 3 Ml Neb) 3 ml NEB [id number] PRN PRN Reason: SOB &/or Wheezing Alogliptin Benzoate (Alogliptin 25 Mg Tab) 25 mg PO DAILY [facility] Last Admin: 04/29/20 09:07 Dose: 25 mg Documented by: Alprazolam (Alprazolam 0.25 Mg Tab) 0.25 mg PO BID [facility] Last Admin: 04/29/20 09:07 Dose: 0.25 mg Documented by: Buspirone HCl (Buspirone Hcl 10 Mg Tab) 10 mg PO BID [facility] Last Admin: 04/29/20 09:09 Dose: 10 mg Documented by: Calcium Acetate (Calcium Acetate 667 Mg Cap) 1,334 mg PO TID-[facility] Last Admin: 04/29/20 11:45 Dose: 1,334 mg Documented by: Calcium Carbonate (Calcium Carbonate 500 Mg Chewtab) 1,000 mg PO Q4H PRN PRN Reason: Heartburn or Indigestion Last Admin: 04/14/20 20:05 Dose: 1,000 mg Documented by: Dextrose/Water (Dextrose 50% Abboject 50 Ml Syringe) 25 gm SLOW IVP PRN PRN PRN Reason: Hypoglycemia Diltiazem HCl (Diltiazem Hcl Sr 60 Mg Capsule) 60 mg PO BID [facility] Last Admin: 04/29/20 09:11 Dose: 60 mg Documented by: Gabapentin (Gabapentin 300 Mg Cap) 600 mg PO TID [facility] Last Admin: 04/29/20 09:07 Dose: 600 mg Documented by: Glucagon (Glucagon 1 Mg/Ml Vial) 1 mg IM PRN PRN PRN Reason: Hypoglycemia Hydralazine HCl (Hydralazine 20 Mg/Ml Vial) 10 mg SLOW IVP Q4H PRN PRN Reason: SBP Greater Than 180 Last Admin: 04/26/20 15:45 Dose: 10 mg Documented by: Hydroxyzine HCl (Hydroxyzine 25 Mg Tab) 25 mg PER TUBE Q6H PRN PRN Reason: Anxiety Dextrose/Water (D5w) 1,000 mls @ 0 mls/hr IV .Q0M PRN PRN Reason: Hypoglycemia Insulin Glargine 20 units/ (Miscellaneous Medication) 0.2 mls @ 0 mls/hr SC HS [facility] Last Admin: 04/25/20 22:25 Dose: Not Given Documented by: Insulin Glargine 40 units/ (Miscellaneous Medication) 0.4 mls @ 0 mls/hr SC QAM [facility] Last Admin: 04/25/20 08:27 Dose: 0.4 mls Documented by: Insulin Human Lispro (Humalog 300 Units/3 Ml Vial) 0 units SC .BEDTIME SLIDING SC PRN PRN Reason: Bedtime Correctional Scale Last Admin: 04/23/20 10:57 Dose: 2 unit Documented by: Insulin Human Lispro (Humalog 300 Units/3 Ml Vial) 0 units SC .MODERATE SLIDING SC PRN PRN Reason: Moderate Correctional Scale Last Admin: 04/25/20 18:26 Dose: 2 unit Documented by: Melatonin (Melatonin 3 Mg Tab) 3 mg PO HS PRN PRN Reason: Insomnia Last Admin: 04/21/20 21:16 Dose: 3 mg Documented by: Nifedipine (Nifedipine Xl 60 Mg Tab) 60 mg PO DAILY [facility] Last Admin: 04/29/20 09:08 Dose: 60 mg Documented by: Nitroglycerin (Nitroglycerin 0.4 Mg Tab (25 Tab Bottle)) 0.4 mg SL Q5MIN PRN PRN Reason: Chest Pain Last Admin: 04/29/20 09:51 Dose: 0.4 mg Documented by: Ondansetron HCl (Ondansetron Odt 4 Mg Tab) 4 mg PO Q6H PRN PRN Reason: Nausea/Vomiting Last Admin: 04/24/20 01:43 Dose: 4 mg Documented by: Ondansetron HCl (Ondansetron Pf 4 Mg/2 Ml Vial) 4 mg IVP Q6H PRN PRN Reason: Nausea/Vomiting Last Admin: 04/28/20 10:18 Dose: 4 mg Documented by: Pantoprazole Sodium (Pantoprazole 40 Mg Tab) 40 mg PO DAILY [facility] Promethazine HCl (Promethazine Hcl 25 Mg/Ml Vial) 12.5 mg SLOW IVP Q4H PRN PRN Reason: Nausea Sertraline HCl (Sertraline Hcl 100 Mg Tab) 100 mg PO DAILY [facility] Last Admin: 04/29/20 09:08 Dose: 100 mg Documented by: Sodium Chloride (Flush - Normal Saline 10 Ml Syringe) 10 ml IVF PRN PRN PRN Reason: Saline Flush Last Admin: 04/23/20 21:26 Dose: 10 ml Documented by: Trazodone HCl (Trazodone Hcl 50 Mg Tab) 100 mg PO HS [facility] Last Admin: 04/28/20 22:38 Dose: 100 mg Documented by: Tuberculin PPD (Tuberculin Ppd 0.1 Ml Vial) 0.1 ml I-DERMAL ONE [facility] Stop: 05/02/20 09:46 Vital Signs & Weight: Vital Signs Temp Pulse Resp BP Pulse Ox 04/29/20 07:45 97.6 F 74 20 162/70 H 98 04/29/20 04:00 98.0 F 77 20 165/69 H Admit Weight 284 lb 6.4 oz Weight 277 lb 7 oz - Medication Contraindications No Anticoagulant reason: Anticoagulant not tolerated - Physical Exam General: alert & oriented x3 HEENT: mucus membranes moist Neck: supple neck Cardiac: regular rate and rhythm Lungs: clear to auscultation Neuro: grossly intact Abdomen: active bowel sounds Extremities: 1+ LE edema Skin: clear Musculoskeletal: no pain - Labs Result Diagrams: 04/26/20 00:00 04/29/20 03:27 Troponin/CKMB Troponin I 0.025 ng/mL (< 0.028) 04/15/20 15:57 - Telemetry Sinus rhythms and dysrhythmias: sinus rhythm - Assessment/Plan Assessment/Plan: 1. Paroxysmal afib/flutter. In sinus now. 2. Volume overload, improving. 3. Diastolic heart failure. Improved. 4. Cirrhosis of the liver, appears compensated by lab values 5. Hx of Esophageal varices, none seen on recent EGD 6. JOANNE on CKD. Likely ATN. Worsening. Now in HD. 7. Portal hypertensive gastropathy. 8. ileus. PLAN: - Remains in sinus. - Anemia from gastritis. - Would be high risk for any anticoagulation. Hold Eliquis indefinitely. Candidate for Watchman in the future. - Ileus being treated conservatively for now and films done yesterday showed no evidence of obstruction. - CV stable. Will follow from a distance. Please call with any questions.
[2020-04-29 12:49] LABS: Troponin I 0.667 ng/mL (< 0.028)
[2020-04-29] MEDS ORDERED: Heparin 25,000 units/D5W 500 ML IVPB SCH (13:00)
[2020-04-29] MEDS ORDERED: Heparin 10,000 UNITS/ 10 ML VIAL SLOW IVP SCH (13:00)
[2020-04-29 13:27] LABS: Hemoglobin 8.9 g/dL (12.0-16.0); Platelet Count 113 thou/uL (130-400)
[2020-04-29] MEDS ORDERED: Aspirin 81 mg Enteric Coated Tablet PO SCH (13:30)
[2020-04-29] MEDS: traZODone HCl 50 MG TAB PO SCH (19:49)
--- NOTE | 2020-04-29 20:36 | PRG ---
DATE OF SERVICE: 04/29/2020 SUBJECTIVE: The patient is seen, noted with the following vital signs. OBJECTIVE: VITAL SIGNS: Afebrile, temperature 98.1, pulse 74, respiratory rate of 18, O2 saturation of 96%, and blood pressure 146/65. HEENT: Unremarkable. CARDIOVASCULAR SYSTEM: First and second heart sounds were heard. RESPIRATORY SYSTEM: Clear to auscultation. DIGESTIVE SYSTEM: Revealed a benign abdomen. Positive bowel sounds. EXTREMITIES: No peripheral edema. SKIN: No new gross rash. LYMPHATIC: No peripheral lymphadenopathy. LABORATORY INVESTIGATION: Showed a hemoglobin 8.9. Chemistry showed a creatinine of 2.13 with BUN of 28. IMPRESSION: 1. [id number] kidney disease in the context of contrast-induced acute tubular necrosis. 2. Hypervolemia, responded well to dialysis with ultrafiltration. 3. Partial small-bowel obstruction. PLAN: 1. The patient's dialysis in place on hold today and we will continue to monitor the renal function for evidence of recovery. 2. Hemodialysis based on what the renal function shows. 3. Further management to be dependent on the clinical course. Job ID: [id number]
[2020-04-30] MEDS: Acetaminophen 325 MG TAB PO PRN (04:40)
[2020-04-30 05:40] LABS: Albumin 3.2 g/dL (3.4-4.8); Anion Gap 13 mmol/L (10-20); BUN (Urea Nitrogen) 33 mg/dL (9.8-20.1); BUN/Creatinine Ratio 10.89; Calc. Creatinine Clearance 36 mL/min (70-130); Calcium 8.1 mg/dL (7.8-10.44); Carbon Dioxide 29 mmol/L (23-31); Chloride 102 mmol/L (98-107); Glucose 154 mg/dL (80-115); Phosphorus 2.8 mg/dL (2.3-4.7); Potassium 3.9 mmol/L (3.5-5.1); Sodium 140 mmol/L (136-145)
--- NOTE | 2020-04-30 06:27 | PDOC.FM ---
- Subjective Subjective: Pt awake and alert this morning. We had a long discussion about placement upon discharge. She understands that she will need a lot of care that her granddaughter may not be able to provide, but she is scared to go back to her previous NH. She is worried about yeyo COVID and she feels she was not getting appropriate care. She would like to discuss options with the case filler. Tolerating diet. Denies N/V, CP, SOB. - Objective Vital Signs & Weight: Vital Signs (12 hours) Temp Pulse Resp BP Pulse Ox 04/30/20 03:33 97.5 F L 75 21 H 135/61 94 L 04/29/20 20:00 98.5 F 81 20 142/64 H 95 Weight Admit Weight 129.002 kg Weight 123.241 kg I&O: 04/28/20 04/29/20 04/30/20 06:59 06:59 06:59 Intake Total 50 1466 1400 Output Total 200 903 Balance -285 015 4437 Result Diagrams: 04/29/20 13:09 04/30/20 04:44 Phys Exam - Physical Examination Constitutional: NAD Neck: supple Respiratory: no wheezing, clear to auscultation bilateral Cardiovascular: RRR, no significant murmur Gastrointestinal: soft, non-tender Musculoskeletal: edema present Neurological: non-focal, moves all 4 limbs Psychiatric: normal affect, A&O x 3 Dx/Plan - Plan Plan: Acute hypoxic respiratory failure 2/2 likely new onset CHF w/exacerbation vs. cirrhosis - CXR: cardiomegaly, b/l pulm vascular enlargement, BNP 1000 - dependent pitting edema - O2: stable on 2L NC - ECHO: EF 60-65%, Grade 1/3 diastolic dysfunction - Cardiology and Nephro consulted; GI and EP have signed off - CXR: stable from previous exam, mild edema JOANNE on CKD -Cr 3.03 -Nephro consulted (04/17): placed dialysis catheter on 04/26 and started HD due to anuria and uremia, HD currently on hold to monitor for improvement and possible DC of dialysis -discontinued glipizide NSTEMI -CP yesterday, trop 0.67, ekg: new T wave inversions V2-V6 -consulted Dr Moreno: started Imdur and asa 81mg daily, no other anticoagulation at this time due to risk of GI bleed Suspected SBO vs Ileus -KUB: dilated loops of small bowel concerning for SBO -general surgery, Dr Braxton, consulted, appreciate recs -NG tube placed on 04/26, output 250mL overnight, NPO -SBFT: no signs of obstruction. -tolerating diet, passing flatus having b.m. Afib/flutter with RVR, resolved - cardiology, Dr. Moreno consulted on 04/13: indefinite hold on eliquis for now, consider watchman in future - EP, Dr. Edward: PO dilt and dig, consider watchman in future if she can tolerate short course of oral anticoagulation, needs f/u outpt - digoxin level elevated, stopped digoxin due to worsening kidney function - on diltiazem 60mg bid UTI -UCx: yeast -will do one time fluconazole Anemia - resolution of N/V with dark emesis, melena - GI consulted, EGD: portal HTN gastropathy, large armount of retained gastric contents, superficial pyloric erosion - protonix Cirrhosis 2/2 Hep C - treated -GI, Dr. Gaspar, consulted on 04/14: no fluid seen for paracentesis, resume furosemide once Cr improves -has had 1 paracentesis in the past -s/p rocephin for SBP ppx Hyperkalemia -resolved, K 3.8 -no EKG changes Hypertensive urgency, resolved - SBP 200 in ED, given hydralazine and nitro paste - Losartan DC'd due to renal function, hydralazine prn - will adjust po meds to optimize control of BP Contraction Alkalosis - likely 2/2 to diuresis COPD -s/p Azithromycin and ceftriaxone in ED, will not continue as pt is not in acute exacerbation -dc'd duoneb due to possible urinary retention, albuterol neb prn Chronic thrombocytopenia - At baseline, 2/2 liver disease Hypervolemic hyponatremia - Na 133 - Expect improvement with diuresis Elevated d-dimer - 2.24 with negative CTA DM -continue home meds, will adjust as needed due to pt decreased appetite -DC'd glipizide -accuchecks ACHS, mild SSI Dispo: Stable, currently on hold for HD, appreciate nephrology recs Addendum - Attending - Attending Attestation Date/Time: 04/30/20 1005 I personally evaluated the patient and discussed the management with Dr. Mtz. I agree with the History, Examination, Assessment and Plan documented above with any addition or exceptions noted below. Chest pain has improved/resolved today. She remains TTP over her chest, which she says reproduces the pain. Continue to monitor. She is urinating more. Nephrology following.
[2020-04-30] MEDS: Diltiazem HCl SR 60 mg Capsule PO SCH ×2 (09:39→21:00)
[2020-04-30] MEDS: Calcium Acetate 667 MG CAP PO SCH ×3 (09:39→17:15)
[2020-04-30] MEDS: busPIRone HCl 10 MG TAB PO SCH ×2 (09:39→21:00)
[2020-04-30] MEDS: HYDROcodone/Acetaminophen 7.5/325 mg Tablet PO SCH ×3 (09:39→21:00)
[2020-04-30] MEDS: ALPRAZolam 0.25 MG TAB PO SCH ×2 (09:39→21:00)
[2020-04-30] MEDS: NIFEdipine XL 60 MG TAB PO SCH (09:40)
[2020-04-30] MEDS: Alogliptin 25 MG TAB PO SCH (09:40)
[2020-04-30] MEDS: Aspirin 81 mg Enteric Coated Tablet PO SCH (09:40)
[2020-04-30] MEDS: Gabapentin 300 MG CAP PO SCH ×3 (09:40→20:59)
[2020-04-30] MEDS: HumaLOG 300 UNITS/3 ML VIAL SC PRN (11:08)
--- NOTE | 2020-04-30 12:24 | PDOC.CPN ---
- Subjective Date: 04/30/20 Time: 12:21 Interval history: She had an episode of chest pain yesterday agfternoon. She tells me it was painfull if ypou would touch her chest. Sounds MSK however her tropobnin was 0.6. - Review of Systems General: denies: fever/chills, weight/appetite/sleep changes, night sweats, fatigue Respiratory: denies: cough, congestion, shortness of breath, exercise intolerance Cardiovascular: denies: chest pain, palpitation, edema, paroxysmal nocturnal dyspnea, orthopnea Gastrointestinal: denies: nausea, vomiting, diarrhea, constipation, abd pain, GI bleeding Musculoskeletal: denies: pain, tenderness, stiffness, swelling, arthri tis/arthralgias Neurological: denies: numbness, syncope, seizure, weakness - Objective Allergies/Adverse Reactions: Allergies Allergy/AdvReac Type Severity Reaction Status Date / Time Sulfa (Sulfonamide Allergy Unknown Verified 07/31/19 22:07 Antibiotics) Visit Medications: Current Medications Acetaminophen (Acetaminophen 325 Mg Tab) 650 mg PO Q4H PRN PRN Reason: Headache/Fever/Mild Pain (1-3) Last Admin: 04/30/20 04:40 Dose: 650 mg Documented by: Hydrocodone Bitart/Acetaminophen (Hydrocodone/Acetaminophen 7.5/325 Mg Tablet) 1 tab PO TID [facility] Last Admin: 04/30/20 09:39 Dose: 1 tab Documented by: Albuterol Sulfate (Albuterol Sulfate 2.5 Mg/3 Ml Neb) 2.5 mg NEB [id number] PRN PRN Reason: Wheezing Albuterol/Ipratropium (Ipratropium/Albuterol Sulfate 3 Ml Neb) 3 ml NEB [id number] PRN PRN Reason: SOB &/or Wheezing Alogliptin Benzoate (Alogliptin 25 Mg Tab) 25 mg PO DAILY [facility] Last Admin: 04/30/20 09:40 Dose: 25 mg Documented by: Alprazolam (Alprazolam 0.25 Mg Tab) 0.25 mg PO BID [facility] Last Admin: 04/30/20 09:39 Dose: 0.25 mg Documented by: Aspirin (Aspirin 81 Mg Enteric Coated Tablet) 81 mg PO DAILY [facility] Last Admin: 04/30/20 09:40 Dose: 81 mg Documented by: Buspirone HCl (Buspirone Hcl 10 Mg Tab) 10 mg PO BID [facility] Last Admin: 04/30/20 09:39 Dose: 10 mg Documented by: Calcium Acetate (Calcium Acetate 667 Mg Cap) 1,334 mg PO TID-[facility] Last Admin: 04/30/20 11:07 Dose: 1,334 mg Documented by: Calcium Carbonate (Calcium Carbonate 500 Mg Chewtab) 1,000 mg PO Q4H PRN PRN Reason: Heartburn or Indigestion Last Admin: 04/14/20 20:05 Dose: 1,000 mg Documented by: Dextrose/Water (Dextrose 50% Abboject 50 Ml Syringe) 25 gm SLOW IVP PRN PRN PRN Reason: Hypoglycemia Diltiazem HCl (Diltiazem Hcl Sr 60 Mg Capsule) 60 mg PO BID [facility] Last Admin: 04/30/20 09:39 Dose: 60 mg Documented by: Gabapentin (Gabapentin 300 Mg Cap) 600 mg PO TID [facility] Last Admin: 04/30/20 09:40 Dose: 600 mg Documented by: Glucagon (Glucagon 1 Mg/Ml Vial) 1 mg IM PRN PRN PRN Reason: Hypoglycemia Hydralazine HCl (Hydralazine 20 Mg/Ml Vial) 10 mg SLOW IVP Q4H PRN PRN Reason: SBP Greater Than 180 Last Admin: 04/26/20 15:45 Dose: 10 mg Documented by: Hydroxyzine HCl (Hydroxyzine 25 Mg Tab) 25 mg PER TUBE Q6H PRN PRN Reason: Anxiety Dextrose/Water (D5w) 1,000 mls @ 0 mls/hr IV .Q0M PRN PRN Reason: Hypoglycemia Insulin Glargine 20 units/ (Miscellaneous Medication) 0.2 mls @ 0 mls/hr [facility] Last Admin: 04/25/20 22:25 Dose: Not Given Documented by: Insulin Glargine 40 units/ (Miscellaneous Medication) 0.4 mls @ 0 mls/hr SC [facility] Last Admin: 04/25/20 08:27 Dose: 0.4 mls Documented by: Insulin Human Lispro (Humalog 300 Units/3 Ml Vial) 0 units SC .BEDTIME SLIDING SC PRN PRN Reason: Bedtime Correctional Scale Last Admin: 04/23/20 10:57 Dose: 2 unit Documented by: Insulin Human Lispro (Humalog 300 Units/3 Ml Vial) 0 units SC .MODERATE SLIDING SC PRN PRN Reason: Moderate Correctional Scale Last Admin: 04/30/20 11:08 Dose: 4 unit Documented by: Isosorbide Mononitrate (Isosorbide Mononitrate Er 30 Mg Tab) 30 mg PO DAILY [facility] Last Admin: 04/30/20 09:40 Dose: 30 mg Documented by: Melatonin (Melatonin 3 Mg Tab) 3 mg PO HS PRN PRN Reason: Insomnia Last Admin: 04/21/20 21:16 Dose: 3 mg Documented by: Nifedipine (Nifedipine Xl 60 Mg Tab) 60 mg PO DAILY [facility] Last Admin: 04/30/20 09:40 Dose: 60 mg Documented by: Nitroglycerin (Nitroglycerin 0.4 Mg Tab (25 Tab Bottle)) 0.4 mg SL Q5MIN PRN PRN Reason: Chest Pain Last Admin: 04/29/20 09:51 Dose: 0.4 mg Documented by: Ondansetron HCl (Ondansetron Odt 4 Mg Tab) 4 mg PO Q6H PRN PRN Reason: Nausea/Vomiting Last Admin: 04/24/20 01:43 Dose: 4 mg Documented by: Ondansetron HCl (Ondansetron Pf 4 Mg/2 Ml Vial) 4 mg IVP Q6H PRN PRN Reason: Nausea/Vomiting Last Admin: 04/28/20 10:18 Dose: 4 mg Documented by: Pantoprazole Sodium (Pantoprazole 40 Mg Tab) 40 mg PO DAILY [facility] Last Admin: 04/30/20 09:39 Dose: 40 mg Documented by: Promethazine HCl (Promethazine Hcl 25 Mg/Ml Vial) 12.5 mg SLOW IVP Q4H PRN PRN Reason: Nausea Sertraline HCl (Sertraline Hcl 100 Mg Tab) 100 mg PO DAILY [facility] Last Admin: 04/30/20 09:40 Dose: 100 mg Documented by: Sodium Chloride (Flush - Normal Saline 10 Ml Syringe) 10 ml IVF PRN PRN PRN Reason: Saline Flush Last Admin: 04/23/20 21:26 Dose: 10 ml Documented by: Trazodone HCl (Trazodone Hcl 50 Mg Tab) 100 mg PO HS [facility] Last Admin: 04/29/20 19:49 Dose: 100 mg Documented by: Tuberculin PPD (Tuberculin Ppd 0.1 Ml Vial) 0.1 ml I-DERMAL ONE JAMES Stop: 05/02/20 09:46 Last Admin: 04/29/20 17:41 Dose: 0.1 ml Documented by: Vital Signs & Weight: Vital Signs Temp Pulse Resp BP Pulse Ox 04/30/20 11:20 97.6 F 75 20 135/62 96 04/30/20 07:30 97.7 F 76 18 136/64 95 04/30/20 03:33 97.5 F L 75 21 H 135/61 94 L Admit Weight 284 lb 6.4 oz Weight 271 lb 11.2 oz - Medication Contraindications No Anticoagulant reason: Anticoagulant not tolerated - Physical Exam General: alert & oriented x3 HEENT: mucus membranes moist Neck: supple neck Cardiac: regular rate and rhythm Lungs: clear to auscultation Neuro: grossly intact Abdomen: active bowel sounds Extremities: no edema Skin: clear Musculoskeletal: no pain - Labs Result Diagrams: 04/29/20 13:09 04/30/20 04:44 Troponin/CKMB Troponin I 0.667 ng/mL (< 0.028) H* 04/29/20 12:03 - Telemetry Sinus rhythms and dysrhythmias: sinus rhythm - Assessment/Plan Assessment/Plan: 1. Paroxysmal afib/flutter. Remains in sinus now. 2. Volume overload, improved. 3. Diastolic heart failure. Improved. 4. Cirrhosis of the liver, appears compensated by lab values 5. Hx of Esophageal varices, none seen on recent EGD 6. JOANNE on CKD. Likely ATN. Worsening. Now in HD. 7. Portal hypertensive gastropathy. 8. ileus. 9. Chest pain and positive troponins. PLAN: - Remains in sinus. - Anemia from gastritis. - Would be high risk for any anticoagulation. Hold Eliquis indefinitely. Candidate for Watchman in the future. - Ileus being treated conservatively for now and films done 2 days ago showed no evidence of obstruction. - Episode of chest pain may have been MSK as it is reproducible and troponin elevated due to HD versus a true cardiac event. We elected to not start heparin drip as she had a severe bleeding event recently and i think the risk of heparin outweights the benefit at this time. She currently remains pain free. Will get a repeat echo and will repeat enzymes.
[2020-04-30 13:47] LABS: CKMB 1.7 ng/mL (0-6.6)
--- NOTE | 2020-04-30 18:31 | EKG ---
Test Reason : Blood Pressure : / mmHG Vent. Rate : 074 BPM Atrial Rate : 074 BPM P-R Int : 192 ms QRS Dur : 098 ms QT Int : 310 ms P-R-T Axes : 040 005 178 degrees QTc Int : 344 ms Normal sinus rhythm Low voltage QRS Abnormal ECG When compared with ECG of 19-APR-2020 10:28, T wave inversion more evident in Lateral leads Confirmed by KYLE RICE, STed ([id number]) on 04/30/2020 6:31:15 PM Referred By: LASHAWN *R Confirmed By:DR. Agnes WRIGHT MD
--- NOTE | 2020-04-30 19:50 | PRG ---
DATE OF SERVICE: 04/30/2020 SUBJECTIVE: The patient is seen and noted with the following. OBJECTIVE: VITAL SIGNS: Afebrile, temperature 97.5, pulse 76, blood pressure 124/60, respiratory rate of 16, O2 saturation 98%. HEENT: Unremarkable. CARDIOVASCULAR SYSTEM: First and second heart sounds were heard. RESPIRATORY SYSTEM: Clear to auscultation. DIGESTIVE SYSTEM: Revealed a benign abdomen. Positive bowel sounds. EXTREMITIES: No peripheral edema. SKIN: No new gross rash. LYMPHATICS: No peripheral lymphadenopathy. LABORATORY INVESTIGATION: Showed a chemistry creatinine of 3.03, BUN of 33, and phosphorus of 2.8. IMPRESSION: 1. Acute tubular necrosis contrast-mediated on hemodialysis. 2. Hypervolemia. The patient seems to be euvolemic now status post ultrafiltration with hemodialysis. 3. Partial small bowel obstruction. PLAN: 1. We will hold the dialysis of this patient today and continue to monitor the renal function for potential evidence of recovery. 2. Renally dose all medications and avoid potentially nephrotoxic agents. 3. Further management to be dependent on the clinical course. Job ID: [id number]
[2020-04-30] MEDS: traZODone HCl 50 MG TAB PO SCH (20:59)
[2020-05-01] MEDS: Calcium Carbonate 500 MG ChewTAB PO PRN ×2 (04:11→09:45)
[2020-05-01] MEDS: HumaLOG 300 UNITS/3 ML VIAL SC PRN ×2 (06:10→17:26)
--- NOTE | 2020-05-01 06:16 | PDOC.FM ---
- Subjective Subjective: Pt is awake and alert, c/o increasing abdominal distention and abd pain. She says it is not nausea, she is tolerating her clear liquid diet. Had a bowel movement yesterday. She says she has spoken to her granddaughters and decided she would like to go back to a long term, albeit a different one than previous. She has been on hospice in the past and would like to be evaluated for hospice again. - Objective Vital Signs & Weight: Vital Signs (12 hours) Temp Pulse Resp BP Pulse Ox 05/01/20 04:00 97.3 F L 63 19 130/60 95 04/30/20 20:00 96 04/30/20 19:15 97.5 F L 76 16 124/60 98 Weight Admit Weight 129.002 kg Weight 124.284 kg I&O: 04/29/20 04/30/20 05/01/20 06:59 06:59 06:59 Intake Total 1466 1400 1440 Output Total 903 500 Balance 563 1400 940 Result Diagrams: 04/29/20 13:09 05/01/20 06:29 Phys Exam - Physical Examination Constitutional: NAD Neck: supple wheezing b/l Cardiovascular: RRR, no significant murmur Gastrointestinal: soft distended with mild tenderness to palpation diffusely 1+ pitting edema b/l Neurological: non-focal Psychiatric: normal affect, A&O x 3 Dx/Plan - Plan Plan: Acute hypoxic respiratory failure 2/2 likely new onset CHF w/exacerbation vs. cirrhosis - CXR: cardiomegaly, b/l pulm vascular enlargement, BNP 1000 - dependent pitting edema - O2: stable on 2L NC - ECHO: EF 60-65%, Grade 1/3 diastolic dysfunction - Cardiology and Nephro consulted; GI and EP have signed off - CXR: stable from previous exam, mild edema JOANNE on CKD -Cr 3.03 -Nephro consulted (04/17): placed dialysis catheter on 04/26 and started HD due to anuria and uremia, HD currently on hold to monitor for improvement and possible DC of dialysis -discontinued glipizide Chest Pain -CP on 04/30 was reproducible with palpation, trop 0.67, ekg: new T wave inversions V2-V6 -consulted Dr Moreno: trop likely elevated 2/2 dialysis, started Imdur and asa 81mg daily, no other anticoagulation at this time due to risk of GI bleed -likely MSK in origin Suspected SBO vs Ileus -KUB: dilated loops of small bowel concerning for SBO -general surgery, Dr Braxton, consulted, appreciate recs -NG tube placed on 04/26, output 250mL overnight, NPO -SBFT: no signs of obstruction. -tolerating diet, passing flatus having b.m. Afib/flutter with RVR - cardiology, Dr. Moreno consulted on 04/13: indefinite hold on eliquis for now, consider watchman in future - EP, Dr. Edward: PO dilt and dig, consider watchman in future if she can tolerate short course of oral anticoagulation, needs f/u outpt - stopped digoxin due to worsening kidney function - on diltiazem 60mg bid, pt continues to have episodes of a tach on tele monitor UTI -UCx: yeast -will do one time fluconazole Anemia - resolution of N/V with dark emesis, melena - GI consulted, EGD: portal HTN gastropathy, large armount of retained gastric contents, superficial pyloric erosion - protonix Cirrhosis 2/2 Hep C - treated -GI, Dr. Gaspar, consulted on 04/14: no fluid seen for paracentesis, resume furosemide once Cr improves -has had 1 paracentesis in the past -s/p rocephin for SBP ppx Hyperkalemia -resolved, K 3.8 -no EKG changes Hypertensive urgency, resolved - SBP 200 in ED, given hydralazine and nitro paste - Losartan DC'd due to renal function, hydralazine prn - will adjust po meds to optimize control of BP Contraction Alkalosis - likely 2/2 to diuresis COPD -s/p Azithromycin and ceftriaxone in ED, will not continue as pt is not in acute exacerbation -dc'd duoneb due to possible urinary retention, albuterol neb prn Chronic thrombocytopenia - At baseline, 2/2 liver disease Hypervolemic hyponatremia - Na 133 - Expect improvement with diuresis Elevated d-dimer - 2.24 with negative CTA DM -continue home meds, will adjust as needed due to pt decreased appetite -DC'd glipizide -accuchecks ACHS, mild SSI Dispo: Stable, currently on hold for HD, appreciate nephrology and cardiology recs
[2020-05-01] MEDS: Ondansetron PF 4 MG/2 ML Vial IVP PRN (06:20)
[2020-05-01 07:04] LABS: Albumin 3.3 g/dL (3.4-4.8); Anion Gap 11 mmol/L (10-20); BUN (Urea Nitrogen) 36 mg/dL (9.8-20.1); BUN/Creatinine Ratio 9.57; Calc. Creatinine Clearance 30 mL/min (70-130); Calcium 8.6 mg/dL (7.8-10.44); Carbon Dioxide 32 mmol/L (23-31); Chloride 99 mmol/L (98-107); Glucose 165 mg/dL (80-115); Phosphorus 3.4 mg/dL (2.3-4.7); Potassium 4.4 mmol/L (3.5-5.1); Sodium 138 mmol/L (136-145)
[2020-05-01] MEDS: Calcium Acetate 667 MG CAP PO SCH ×3 (08:49→15:52)
[2020-05-01] MEDS: Aspirin 81 mg Enteric Coated Tablet PO SCH (08:49)
[2020-05-01] MEDS: Alogliptin 25 MG TAB PO SCH (08:49)
[2020-05-01] MEDS: HYDROcodone/Acetaminophen 7.5/325 mg Tablet PO SCH ×3 (08:49→21:25)
[2020-05-01] MEDS: Gabapentin 300 MG CAP PO SCH ×3 (08:49→21:24)
[2020-05-01] MEDS: busPIRone HCl 10 MG TAB PO SCH ×2 (08:50→21:24)
[2020-05-01] MEDS: Diltiazem HCl SR 60 mg Capsule PO SCH ×2 (08:50→21:24)
[2020-05-01] MEDS: ALPRAZolam 0.25 MG TAB PO SCH ×2 (08:50→21:25)
[2020-05-01] MEDS: NIFEdipine XL 60 MG TAB PO SCH (08:50)
[2020-05-01] MEDS: Insulin Glargine 20 UNITS in Pre-Filled Syringe 1 EACH SC SCH ×2 (09:40→21:25)
--- NOTE | 2020-05-01 11:56 | PRG ---
DATE OF SERVICE: 05/01/2020 Ms. Puentes is a very unfortunate, pleasant 64-year-old lady with decompensated cirrhosis secondary to hepatitis C, which however has been treated. She is also followed by Dr. Simmons for worsening renal failure and dialysis. We will continue to follow with Dr. Simmons. Job ID: [id number]
--- NOTE | 2020-05-01 15:32 | PDOC.CPN ---
- Subjective Date: 05/01/20 Time: 15:30 Interval history: She is doing well. She continues to have chest pain but pain is reproducible. No other issues. - Review of Systems General: denies: fever/chills, weight/appetite/sleep changes, night sweats, fatigue Respiratory: denies: cough, congestion, shortness of breath, exercise into lerance Cardiovascular: reports: chest pain. denies: palpitation, edema, paroxysmal nocturnal dyspnea, orthopnea Gastrointestinal: denies: nausea, vomiting, diarrhea, constipation, abd pain, GI bleeding Musculoskeletal: denies: pain, tenderness, stiffness, swelling, arthritis/arthralgias Neurological: denies: numbness, syncope, seizure, weakness - Objective Allergies/Adverse Reactions: Allergies Allergy/AdvReac Type Severity Reaction Status Date / Time Sulfa (Sulfonamide Allergy Unknown Verified 07/31/19 22:07 Antibiotics) Visit Medications: Current Medications Acetaminophen (Acetaminophen 325 Mg Tab) 650 mg PO Q4H PRN PRN Reason: Headache/Fever/Mild Pain (1-3) Last Admin: 04/30/20 04:40 Dose: 650 mg Documented by: Hydrocodone Bitart/Acetaminophen (Hydrocodone/Acetaminophen 7.5/325 Mg Tablet) 1 tab PO TID [facility] Last Admin: 05/01/20 08:49 Dose: 1 tab Documented by: Albuterol Sulfate (Albuterol Sulfate 2.5 Mg/3 Ml Neb) 2.5 mg NEB [id number] PRN PRN Reason: Wheezing Albuterol/Ipratropium (Ipratropium/Albuterol Sulfate 3 Ml Neb) 3 ml NEB [id number] PRN PRN Reason: SOB &/or Wheezing Last Admin: 05/01/20 08:04 Dose: 3 ml Documented by: Alogliptin Benzoate (Alogliptin 25 Mg Tab) 25 mg PO DAILY [facility] Last Admin: 05/01/20 08:49 Dose: 25 mg Documented by: Alprazolam (Alprazolam 0.25 Mg Tab) 0.25 mg PO BID [facility] Last Admin: 05/01/20 08:50 Dose: 0.25 mg Documented by: Aspirin (Aspirin 81 Mg Enteric Coated Tablet) 81 mg PO DAILY [facility] Last Admin: 05/01/20 08:49 Dose: 81 mg Documented by: Buspirone HCl (Buspirone Hcl 10 Mg Tab) 10 mg PO BID [facility] Last Admin: 05/01/20 08:50 Dose: 10 mg Documented by: Calcium Acetate (Calcium Acetate 667 Mg Cap) 1,334 mg PO TID[facility] Last Admin: 05/01/20 11:26 Dose: 1,334 mg Documented by: Calcium Carbonate (Calcium Carbonate 500 Mg Chewtab) 1,000 mg PO Q4H PRN PRN Reason: Heartburn or Indigestion Last Admin: 05/01/20 09:45 Dose: 1,000 mg Documented by: Dextrose/Water (Dextrose 50% Abboject 50 Ml Syringe) 25 gm SLOW IVP PRN PRN PRN Reason: Hypoglycemia Diltiazem HCl (Diltiazem Hcl Sr 60 Mg Capsule) 60 mg PO BID [facility] Last Admin: 05/01/20 08:50 Dose: 60 mg Documented by: Gabapentin (Gabapentin 300 Mg Cap) 600 mg PO TID [facility] Last Admin: 05/01/20 08:49 Dose: 600 mg Documented by: Glucagon (Glucagon 1 Mg/Ml Vial) 1 mg IM PRN PRN PRN Reason: Hypoglycemia Hydralazine HCl (Hydralazine 20 Mg/Ml Vial) 10 mg SLOW IVP Q4H PRN PRN Reason: SBP Greater Than 180 Last Admin: 04/26/20 15:45 Dose: 10 mg Documented by: Hydroxyzine HCl (Hydroxyzine 25 Mg Tab) 25 mg PER TUBE Q6H PRN PRN Reason: Anxiety Dextrose/Water (D5w) 1,000 mls @ 0 mls/hr IV .Q0M PRN PRN Reason: Hypoglycemia Insulin Glargine 20 units/ (Miscellaneous Medication) 0.2 mls @ 0 mls/hr SC BID [facility] Last Admin: 05/01/20 09:40 Dose: 0.2 mls Documented by: Insulin Human Lispro (Humalog 300 Units/3 Ml Vial) 0 units SC .BEDTIME SLIDING SC PRN PRN Reason: Bedtime Correctional Scale Last Admin: 04/23/20 10:57 Dose: 2 unit Documented by: Insulin Human Lispro (Humalog 300 Units/3 Ml Vial) 0 units SC .MODERATE SLIDING SC PRN PRN Reason: Moderate Correctional Scale Last Admin: 05/01/20 06:10 Dose: 2 unit Documented by: Isosorbide Mononitrate (Isosorbide Mononitrate Er 30 Mg Tab) 30 mg PO DAILY [facility] Last Admin: 05/01/20 08:50 Dose: 30 mg Documented by: Melatonin (Melatonin 3 Mg Tab) 3 mg PO HS PRN PRN Reason: Insomnia Last Admin: 04/21/20 21:16 Dose: 3 mg Documented by: Nifedipine (Nifedipine Xl 60 Mg Tab) 60 mg PO DAILY [facility] Last Admin: 05/01/20 08:50 Dose: 60 mg Documented by: Nitroglycerin (Nitroglycerin 0.4 Mg Tab (25 Tab Bottle)) 0.4 mg SL Q5MIN PRN PRN Reason: Chest Pain Last Admin: 04/29/20 09:51 Dose: 0.4 mg Documented by: Ondansetron HCl (Ondansetron Odt 4 Mg Tab) 4 mg PO Q6H PRN PRN Reason: Nausea/Vomiting Last Admin: 04/24/20 01:43 Dose: 4 mg Documented by: Ondansetron HCl (Ondansetron Pf 4 Mg/2 Ml Vial) 4 mg IVP Q6H PRN PRN Reason: Nausea/Vomiting Last Admin: 05/01/20 06:20 Dose: 4 mg Documented by: Pantoprazole Sodium (Pantoprazole 40 Mg Tab) 40 mg PO DAILY [facility] Last Admin: 05/01/20 08:49 Dose: 40 mg Documented by: Promethazine HCl (Promethazine Hcl 25 Mg/Ml Vial) 12.5 mg SLOW IVP Q4H PRN PRN Reason: Nausea Sertraline HCl (Sertraline Hcl 100 Mg Tab) 100 mg PO DAILY [facility] Last Admin: 05/01/20 08:50 Dose: 100 mg Documented by: Sodium Chloride (Flush - Normal Saline 10 Ml Syringe) 10 ml IVF PRN PRN PRN Reason: Saline Flush Last Admin: 04/23/20 21:26 Dose: 10 ml Documented by: Trazodone HCl (Trazodone Hcl 50 Mg Tab) 100 mg PO HS [facility] Last Admin: 04/30/20 20:59 Dose: 100 mg Documented by: Tuberculin PPD (Tuberculin Ppd 0.1 Ml Vial) 0.1 ml I-DERMAL ONE [facility] Stop: 05/02/20 09:46 Last Admin: 04/29/20 17:41 Dose: 0.1 ml Documented by: Vital Signs & Weight: Vital Signs Temp Pulse Resp BP Pulse Ox 05/01/20 11:30 97.6 F 60 19 142/66 H 95 05/01/20 08:04 79 18 99 05/01/20 07:50 97.3 F L 57 L 18 146/70 H 97 05/01/20 04:00 97.3 F L 63 19 130/60 95 Admit Weight 284 lb 6.4 oz Weight 274 lb - Medication Contraindications No Anticoagulant reason: Anticoagulant not tolerated - Physical Exam General: alert & oriented x3 HEENT: mucus membranes moist Neck: supple neck Cardiac: regular rate and rhythm Lungs: normal breath sounds Neuro: grossly intact Abdomen: active bowel sounds Extremities: no edema Skin: clear Musculoskeletal: no pain - Labs Result Diagrams: 04/29/20 13:09 05/01/20 06:29 Troponin/CKMB CK-MB (CK-2) 1.7 ng/mL (0-6.6) 04/30/20 12:38 Troponin I 0.393 ng/mL (< 0.028) H* 04/30/20 12:38 - Telemetry Sinus rhythms and dysrhythmias: sinus rhythm - Assessment/Plan Assessment/Plan: 1. Paroxysmal afib/flutter. Remains in sinus now. 2. Volume overload, improved. 3. Diastolic heart failure. Improved. 4. Cirrhosis of the liver, appears compensated by lab values 5. Hx of Esophageal varices, none seen on recent EGD 6. JOANNE on CKD. Likely ATN. Worsening. Now in HD. 7. Portal hypertensive gastropathy. 8. Ileus. Resolved. 9. Chest pain and positive troponins. PLAN: - Remains in sinus. - Anemia from gastritis. - Would be high risk for any anticoagulation. Hold Eliquis indefinitely. Candidate for Watchman in the future. - Chest kumar reproducible and likely MSK. her troponin leveles are consistent with having ESRD. - Echo pending.
[2020-05-01] MEDS: traZODone HCl 50 MG TAB PO SCH (21:24)
[2020-05-02] MEDS: Acetaminophen 325 MG TAB PO PRN (04:43)
--- NOTE | 2020-05-02 06:11 | PDOC.FM ---
- Subjective Subjective: Pt resting comfortably. C/o worsening abd distention with mild pain. She is tolerating diet with no N/V. PT was limited due to her abdominal discomfort. C/o mild SOB. Denies CP Pt talked with CM yesterday and they gave her a list of nursing homes so she can decide where she would like to go from here. - Objective Vital Signs & Weight: Vital Signs (12 hours) Temp Pulse Resp BP Pulse Ox 05/02/20 04:42 97.7 F 60 20 133/60 94 L 05/01/20 19:55 98.3 F 62 20 153/68 H 97 Weight Admit Weight 129.002 kg Weight 125.758 kg I&O: 04/30/20 05/01/20 05/02/20 06:59 06:59 06:59 Intake Total 1400 1440 960 Output Total 500 0 Balance 1400 940 960 Result Diagrams: 05/02/20 06:37 05/02/20 06:37 Phys Exam - Physical Examination Constitutional: NAD Neck: supple Respiratory: no rhonchi, clear to auscultation bilateral Cardiovascular: RRR, no significant murmur distended, mildly tender to palpation mild LE edema Neurological: non-focal, moves all 4 limbs Psychiatric: normal affect, A&O x 3 Dx/Plan - Plan Plan: Acute hypoxic respiratory failure 2/2 likely new onset CHF w/exacerbation vs. cirrhosis - CXR: cardiomegaly, b/l pulm vascular enlargement, BNP 1000 - dependent pitting edema - O2: stable on 2L NC - ECHO: EF 60-65%, Grade 1/3 diastolic dysfunction - Cardiology and Nephro consulted; GI and EP have signed off - CXR: stable from previous exam, mild edema JOANNE on CKD -Cr 4.91, worsening -Nephro consulted (04/17): HD on hold to monitor for improvement -nurse states that plan is for dialysis today -discontinued glipizide Chest Pain -CP on 04/30 was reproducible with palpation, trop 0.67, ekg: new T wave inversions V2-V6 -consulted Dr Moreno: trop likely elevated 2/2 dialysis, started Imdur and asa 81mg daily, no other anticoagulation at this time due to risk of GI bleed -likely MSK in origin Suspected SBO vs Ileus -KUB: dilated loops of small bowel concerning for SBO -general surgery, Dr Braxton, consulted, appreciate recs -NG tube placed on 04/26, output 250mL overnight, NPO -SBFT: no signs of obstruction. -tolerating diet, passing flatus having b.m. Afib/flutter with RVR - cardiology, Dr. Moreno consulted on 04/13: indefinite hold on eliquis for now, consider watchman in future - EP, Dr. Edward: PO dilt and dig, consider watchman in future if she can tolerate short course of oral anticoagulation, needs f/u outpt - stopped digoxin due to worsening kidney function - on diltiazem 60mg bid, pt continues to have episodes of a tach on tele monitor UTI -UCx: yeast -will do one time fluconazole Anemia - resolution of N/V with dark emesis, melena - GI consulted, EGD: portal HTN gastropathy, large armount of retained gastric contents, superficial pyloric erosion - protonix Cirrhosis 2/2 Hep C - treated -GI, Dr. Gaspar, consulted on 04/14: no fluid seen for paracentesis, resume furosemide once Cr improves -has had 1 paracentesis in the past -s/p rocephin for SBP ppx Hyperkalemia -resolved, K 3.8 -no EKG changes Hypertensive urgency, resolved - SBP 200 in ED, given hydralazine and nitro paste - Losartan DC'd due to renal function, hydralazine prn - will adjust po meds to optimize control of BP Contraction Alkalosis - likely 2/2 to diuresis COPD -s/p Azithromycin and ceftriaxone in ED, will not continue as pt is not in acute exacerbation -dc'd duoneb due to possible urinary retention, albuterol neb prn Chronic thrombocytopenia - At baseline, 2/2 liver disease Hypervolemic hyponatremia - Na 133 - Expect improvement with diuresis Elevated d-dimer - 2.24 with negative CTA DM -continue home meds, will adjust as needed due to pt decreased appetite -DC'd glipizide -accuchecks ACHS, mild SSI Dispo: Kidney function appears to be worsening, dialysis likely today, appreciate nephrology and cardiology recs. Pt is making a choice of NH today and will let CM know.
[2020-05-02] MEDS: HumaLOG 300 UNITS/3 ML VIAL SC PRN (06:21)
[2020-05-02 07:19] LABS: #Eosinphils 0.1 thou/uL (0.0-0.7); #Lymphocytes 0.4 thou/uL (1.20-3.40); #Monocytes 0.4 thou/uL (0.11-0.59); #Neutrophils 4.4 thou/uL (1.40-6.50); %Eosinophils 1.7 % (0.0-10.0); %Lymphocytes 7.3 % (21.0-51.0); %Monocytes 7.4 % (0.0-10.0); %Neutrophils 83.7 % (42.0-75.0); Hemoglobin 8.6 g/dL (12.0-16.0); Mean Corpuscular HGB CONC 33.3 g/dL (32.0-36.0); Mean Corpuscular Hemoglobin 31.1 pg (27.0-31.0); Mean Corpuscular Volume 93.6 fL (78.0-98.0); Mean Platelet Volume 8.4 fL (7.4-10.4); Platelet Count 101 thou/uL (130-400); RBC Distribution Width 14.7 % (11.5-14.5); Red Blood Cell (RBC) Count 2.76 mill/uL (4.20-5.40); White Blood Cell (WBC) Count 5.2 thou/uL (4.8-10.8)
[2020-05-02 07:28] LABS: ALT (SGPT) 15 U/L (8-55); AST (SGOT) 19 U/L (5-34); Albumin 3.3 g/dL (3.4-4.8); Alkaline Phosphatase 66 U/L (40-110); Anion Gap 11 mmol/L (10-20); BUN (Urea Nitrogen) 43 mg/dL (9.8-20.1); Bilirubin, Total 0.4 mg/dL (0.2-1.2); Calc. Creatinine Clearance 23 mL/min (70-130); Calcium 9.4 mg/dL (7.8-10.44); Carbon Dioxide 32 mmol/L (23-31); Chloride 99 mmol/L (98-107); Globulin 4.3 g/dL (2.4-3.5); Glucose 187 mg/dL (80-115); Potassium 4.6 mmol/L (3.5-5.1); Protein, Total 7.6 g/dL (5.8-8.1); Sodium 137 mmol/L (136-145)
[2020-05-02] MEDS: HYDROcodone/Acetaminophen 7.5/325 mg Tablet PO SCH ×3 (07:40→21:45)
[2020-05-02 08:09] LABS: Hypochromia SLIGHT = 6-15 cells (100X) (0-5/hpf); MDiff Complete? YES; Ovalocytes SLIGHT = 2-5 cells (100X) (0-1/hpf); Platelet Morphology Comment Appears Decreased; Polychromasia SLIGHT = 2-3 cells (100X) (0-2/hpf)
[2020-05-02] MEDS ORDERED: Heparin 10,000 UNITS/ 10 ML VIAL ONE (10:40)
--- NOTE | 2020-05-02 12:34 | PRG ---
DATE OF SERVICE: 05/02/2020 She is currently in dialysis and states that she is feeling better with the dialysis. She is a very unfortunate lady with decompensated cirrhosis secondary to treated hepatitis C. She also developed renal failure necessitating dialysis, which as stated she is currently undergoing. I discussed the case with Dr. Mtz and agree with her assessment and plan. Job ID: [id number]
[2020-05-02] MEDS: Aspirin 81 mg Enteric Coated Tablet PO SCH (12:35)
[2020-05-02] MEDS: NIFEdipine XL 60 MG TAB PO SCH (12:35)
[2020-05-02] MEDS: Alogliptin 25 MG TAB PO SCH (12:35)
[2020-05-02] MEDS: Diltiazem HCl SR 60 mg Capsule PO SCH ×2 (12:35→21:43)
[2020-05-02] MEDS: Calcium Acetate 667 MG CAP PO SCH ×3 (12:36→17:36)
[2020-05-02] MEDS: Insulin Glargine 20 UNITS in Pre-Filled Syringe 1 EACH SC SCH ×2 (12:36→21:44)
[2020-05-02] MEDS: busPIRone HCl 10 MG TAB PO SCH ×2 (12:59→21:44)
[2020-05-02] MEDS: ALPRAZolam 0.25 MG TAB PO SCH ×2 (12:59→21:43)
[2020-05-02] MEDS: Gabapentin 300 MG CAP PO SCH ×3 (12:59→21:43)
--- NOTE | 2020-05-02 15:15 | PDOC.CPN ---
- Subjective Date: 05/02/20 Time: 15:13 Interval history: No new issues. No angina. - Review of Systems General: denies: fever/chills, weight/appetite/sleep changes, night sweats, fatigue Respiratory: denies: cough, congestion, shortness of breath, exercise intolerance Cardiovascular: denies: chest pain, palpitation, edema, paroxysmal nocturnal dyspnea, orthopnea Gastrointestinal: denies: nausea, vomiting, diarrhea, constipation, abd pain, GI bleeding Musculoskeletal: denies: pain, tenderness, stiffness, swelling, arthritis/arthralgias Neurological: denies: numbness, syncope, seizure, weakness - Objective Allergies/Adverse Reactions: Allergies Allergy/AdvReac Type Severity Reaction Status Date / Time Sulfa (Sulfonamide Allergy Unknown Verified 07/31/19 22:07 Antibiotics) Visit Medications: Current Medications Acetaminophen (Acetaminophen 325 Mg Tab) 650 mg PO Q4H PRN PRN Reason: Headache/Fever/Mild Pain (1-3) Last Admin: 05/02/20 04:43 Dose: 650 mg Documented by: Hydrocodone Bitart/Acetaminophen (Hydrocodone/Acetaminophen 7.5/325 Mg Tablet) 1 tab PO TID [facility] Last Admin: 05/02/20 07:40 Dose: 1 tab Documented by: Albuterol Sulfate (Albuterol Sulfate 2.5 Mg/3 Ml Neb) 2.5 mg NEB [id number] PRN PRN Reason: Wheezing Albuterol/Ipratropium (Ipratropium/Albuterol Sulfate 3 Ml Neb) 3 ml NEB [id number] PRN PRN Reason: SOB &/or Wheezing Last Admin: 05/01/20 08:04 Dose: 3 ml Documented by: Alogliptin Benzoate (Alogliptin 25 Mg Tab) 25 mg PO DAILY [facility] Last Admin: 05/02/20 12:35 Dose: 25 mg Documented by: Alprazolam (Alprazolam 0.25 Mg Tab) 0.25 mg PO BID [facility] Last Admin: 05/02/20 12:59 Dose: Not Given Documented by: Aspirin (Aspirin 81 Mg Enteric Coated Tablet) 81 mg PO DAILY [facility] Last Admin: 05/02/20 12:35 Dose: 81 mg Documented by: Buspirone HCl (Buspirone Hcl 10 Mg Tab) 10 mg PO BID [facility] Last Admin: 05/02/20 12:59 Dose: Not Given Documented by: Calcium Acetate (Calcium Acetate 667 Mg Cap) 1,334 mg PO TID[facility] Last Admin: 05/02/20 12:37 Dose: 1,334 mg Documented by: Calcium Carbonate (Calcium Carbonate 500 Mg Chewtab) 1,000 mg PO Q4H PRN PRN Reason: Heartburn or Indigestion Last Admin: 05/01/20 09:45 Dose: 1,000 mg Documented by: Dextrose/Water (Dextrose 50% Abboject 50 Ml Syringe) 25 gm SLOW IVP PRN PRN PRN Reason: Hypoglycemia Diltiazem HCl (Diltiazem Hcl Sr 60 Mg Capsule) 60 mg PO BID [facility] Last Admin: 05/02/20 12:35 Dose: 60 mg Documented by: Gabapentin (Gabapentin 300 Mg Cap) 600 mg PO TID [facility] Last Admin: 05/02/20 12:59 Dose: Not Given Documented by: Glucagon (Glucagon 1 Mg/Ml Vial) 1 mg IM PRN PRN PRN Reason: Hypoglycemia Hydralazine HCl (Hydralazine 20 Mg/Ml Vial) 10 mg SLOW IVP Q4H PRN PRN Reason: SBP Greater Than 180 Last Admin: 04/26/20 15:45 Dose: 10 mg Documented by: Hydroxyzine HCl (Hydroxyzine 25 Mg Tab) 25 mg PER TUBE Q6H PRN PRN Reason: Anxiety Dextrose/Water (D5w) 1,000 mls @ 0 mls/hr IV .Q0M PRN PRN Reason: Hypoglycemia Insulin Glargine 20 units/ (Miscellaneous Medication) 0.2 mls @ 0 mls/hr SC BID [facility] Last Admin: 05/02/20 12:36 Dose: 0.2 mls Documented by: Insulin Human Lispro (Humalog 300 Units/3 Ml Vial) 0 units SC .BEDTIME SLIDING SC PRN PRN Reason: Bedtime Correctional Scale Last Admin: 04/23/20 10:57 Dose: 2 unit Documented by: Insulin Human Lispro (Humalog 300 Units/3 Ml Vial) 0 units SC .MODERATE SLIDING SC PRN PRN Reason: Moderate Correctional Scale Last Admin: 05/02/20 06:21 Dose: 2 unit Documented by: Isosorbide Mononitrate (Isosorbide Mononitrate Er 30 Mg Tab) 30 mg PO DAILY [facility] Last Admin: 05/02/20 12:35 Dose: 30 mg Documented by: Melatonin (Melatonin 3 Mg Tab) 3 mg PO HS PRN PRN Reason: Insomnia Last Admin: 04/21/20 21:16 Dose: 3 mg Documented by: Nifedipine (Nifedipine Xl 60 Mg Tab) 60 mg PO DAILY [facility] Last Admin: 05/02/20 12:35 Dose: 60 mg Documented by: Nitroglycerin (Nitroglycerin 0.4 Mg Tab (25 Tab Bottle)) 0.4 mg SL Q5MIN PRN PRN Reason: Chest Pain Last Admin: 04/29/20 09:51 Dose: 0.4 mg Documented by: Ondansetron HCl (Ondansetron Odt 4 Mg Tab) 4 mg PO Q6H PRN PRN Reason: Nausea/Vomiting Last Admin: 04/24/20 01:43 Dose: 4 mg Documented by: Ondansetron HCl (Ondansetron Pf 4 Mg/2 Ml Vial) 4 mg IVP Q6H PRN PRN Reason: Nausea/Vomiting Last Admin: 05/01/20 06:20 Dose: 4 mg Documented by: Pantoprazole Sodium (Pantoprazole 40 Mg Tab) 40 mg PO DAILY [facility] Last Admin: 05/02/20 12:36 Dose: 40 mg Documented by: Promethazine HCl (Promethazine Hcl 25 Mg/Ml Vial) 12.5 mg SLOW IVP Q4H PRN PRN Reason: Nausea Sertraline HCl (Sertraline Hcl 100 Mg Tab) 100 mg PO DAILY [facility] Last Admin: 05/02/20 12:35 Dose: 100 mg Documented by: Sodium Chloride (Flush - Normal Saline 10 Ml Syringe) 10 ml IVF PRN PRN PRN Reason: Saline Flush Last Admin: 04/23/20 21:26 Dose: 10 ml Documented by: Trazodone HCl (Trazodone Hcl 50 Mg Tab) 100 mg PO HS [facility] Last Admin: 05/01/20 21:24 Dose: 100 mg Documented by: Vital Signs & Weight: Vital Signs Temp Pulse Resp BP Pulse Ox 05/02/20 15:00 98.0 F 68 20 135/61 96 05/02/20 12:35 59 L 05/02/20 12:00 98.2 F 79 19 126/79 98 05/02/20 07:34 97.9 F 59 L 18 133/60 97 05/02/20 04:42 97.7 F 60 20 133/60 94 L Admit Weight 284 lb 6.4 oz Weight 277 lb 4 oz - Medication Contraindications No Anticoagulant reason: Anticoagulant not tolerated - Physical Exam General: alert & oriented x3 HEENT: mucus membranes moist Neck: supple neck Cardiac: regular rate and rhythm Lungs: normal breath sounds Neuro: grossly intact Abdomen: active bowel sounds Extremities: no edema Skin: clear Musculoskeletal: no pain - Labs Result Diagrams: 05/02/20 06:37 05/02/20 06:37 Troponin/CKMB CK-MB (CK-2) 1.7 ng/mL (0-6.6) 04/30/20 12:38 Troponin I 0.393 ng/mL (< 0.028) H* 04/30/20 12:38 - Telemetry Sinus rhythms and dysrhythmias: sinus rhythm - Assessment/Plan Assessment/Plan: 1. Paroxysmal afib/flutter. Remains in sinus now. 2. Volume overload, improved. 3. Diastolic heart failure. Improved. 4. Cirrhosis of the liver, appears compensated by lab values 5. Hx of Esophageal varices, none seen on recent EGD 6. JOANNE on CKD. Likely ATN. Worsening. Now in HD. 7. Portal hypertensive gastropathy. 8. Ileus. Resolved. 9. Chest pain and positive troponins. PLAN: - Remains in sinus. - Anemia from gastritis. - Would be high risk for any anticoagulation. Hold Eliquis indefinitely. Candidate for Watchman in the future. - Chest kumar reproducible and likely MSK. - Echo unchanged from baseline. - Will sign off. Please call with any questions.
--- NOTE | 2020-05-02 16:48 | PRG ---
DATE OF SERVICE: 05/02/2020 SUBJECTIVE: The patient is seen and examined. Seems to be doing much better status post hemodialysis. OBJECTIVE: VITAL SIGNS: Noted with the following vital signs; afebrile, temperature 98.2, pulse 79, respiratory rate of 19, O2 saturation of 98%, with blood pressure 126/79. HEENT: Unremarkable. CARDIOVASCULAR SYSTEM: First and second heart sounds were heard. RESPIRATORY SYSTEM: Clear to auscultation. DIGESTIVE SYSTEM: Revealed obese abdomen. EXTREMITIES: No peripheral edema. SKIN: No new gross rash. LYMPHATICS: No peripheral lymphadenopathy. LABORATORY INVESTIGATION: Showed a hemoglobin of 8.6. Chemistry showed a creatinine of 4.91 with BUN of 43. IMPRESSION: 1. Contrast-induced acute tubular necrosis, still hemodialysis dependent. 2. Anemia. 3. Hypervolemia, responded well to ultrafiltration with dialysis. PLAN: 1. From all indications, the patient's renal functions are still not very optimal and still requiring hemodialysis support. Therefore, we will begin to arrange for outpatient dialysis. As a result, we will consult access surgeon for placement of a tunneled dialysis catheter and involve case work aide for outpatient dialysis placement. 2. Renally dose all medications. 3. Avoid potentially nephrotoxic agents. Job ID: [id number]
[2020-05-02] MEDS ORDERED: CEFAZOLIN 2 GM in Premix Bag 1 BAG IVPB SCH (17:30)
[2020-05-02] MEDS: traZODone HCl 50 MG TAB PO SCH (21:44)
--- NOTE | 2020-05-03 04:41 | CON ---
DATE OF CONSULTATION: HISTORY OF PRESENT ILLNESS: Jenniffer Puentes is a 64-year-old female, admitted this hospitalization, [facility] on 04/13/2020. She has deteriorated renal function. She has morbid obesity, metabolic syndrome, 5 feet tall, 52 BMI, history of cirrhosis from IV drug abuse, cocaine, heroin and other drugs in the 1980s last consumed. Ultrasound of abdomen reveals absence of ascites. This hospitalization, she has been seen by Cardiology, Dr. Moreno and Dr. Len Gaspar, Gastroenterology. Dr. Gaspar has performed upper endoscopy. Initially, she had an ultrasound on 04/04/2020, noting absence of any significant ascites. Echocardiogram on 04/30/2020, 55% to 60% ejection fraction, moderate tricuspid regurgitation. She is seen by Dr. Braxton because of suspected bowel obstruction, but small bowel follow-through performed was normal. On 04/28/2020, Dr. Moreno has been following her for paroxysmal atrial fibrillation and flutter down to sinus, volume overload, diastolic heart failure, history of varices noted by Dr. Gaspar, but none seen on recent EGD. History of portal hypertensive gastropathy, history of chest pain. Positive troponins. Dr. Moreno felt that she should not be anticoagulated and Eliquis discontinued and he has signed off. Her renal function has deteriorated and I have been asked to see her regarding placement of cuffed tunneled hemodialysis catheter and Dr. Simmons placed a temporary dialysis catheter in her groin. ALLERGIES: SULFA. SOCIAL HISTORY: Tobacco, continued use. Alcohol, socially. Drug use in the past, none currently for the last 20 years or more. MEDICATIONS: 1. Fentanyl patch. 2. Insulin. 3. Hydrocodone. 4. Abilify. 5. Buspirone. 6. Alprazolam. 7. Zoloft. 8. Zofran. 9. . 10. Colace. 11. Zyrtec. 12. Fosamax. 13. Protonix. 14. Nifedipine. 15. Lasix. 16. . 17. Digoxin. 18. PhosLo. PAST MEDICAL HISTORY: Includes morbid obesity, hepatitis C from drug use years past, COPD, ongoing tobacco abuse, diabetes mellitus type 2, hypertension, metabolic syndrome, diastolic dysfunction, chronic kidney disease, and end-stage renal disease. PAST SURGICAL HISTORY: Tubal ligation, tonsillectomy, cholecystectomy, appendectomy, upper endoscopy this hospitalization. No varices currently. REVIEW OF SYSTEMS: Noncontributory except as noted above. FAMILY HISTORY: Noncontributory. PHYSICAL EXAMINATION: VITAL SIGNS: Height 5 feet, 52 BMI. Temperature 98 degrees, pulse 68, and blood pressure 135/61. LUNGS: Clear to auscultation. CARDIAC: Regular rate and rhythm without murmur or gallop. ABDOMEN: Soft, protuberant, obese, morbid. EXTREMITIES: Palpable radial and ulnar pulses. Groin Trialysis catheter. No arm IV. Extremities have minimal edema. LABORATORY DATA: Sodium 137, potassium 4.6, BUN 43, creatinine 4.91. White count 5, hemoglobin 8.6, and platelet count 101,000. Bilirubin 0.4, AST and ALT are 19 and 15, and alkaline phosphatase 66. PT 14, INR 1. ASSESSMENT: End-stage renal disease. PLAN: 1. Placement of hemodialysis catheter arm fistula pending vein mapping. We will place a central line for poor IV access and use this hospitalization to enable removal of the groin catheter versus leaving the groin catheter until discharge. 2. Other medical problems as noted above. Job ID: [id number]
[2020-05-03] MEDS: Acetaminophen 325 MG TAB PO PRN (05:26)
--- NOTE | 2020-05-03 05:28 | PDOC.FM ---
- Subjective Subjective: Pt is resting comfortably. No acute events overnight. She had dialysis yesterday and said her abdominal pain was better. Nurse reports that she is getting HD catheter placed on Tuesday. Tolerating diet. - Objective Vital Signs & Weight: Vital Signs (12 hours) Temp Pulse Resp BP Pulse Ox 05/03/20 04:57 97 05/03/20 04:00 97.5 F L 58 L 18 148/66 H 97 05/02/20 19:42 98.6 F 67 20 144/62 H 96 Weight Admit Weight 129.002 kg Weight 120.9 kg I&O: 05/01/20 05/02/20 05/03/20 06:59 06:59 06:59 Intake Total 5337 014 5265 Output Total 500 0 0 Balance 294 809 6384 Result Diagrams: 05/02/20 06:37 05/02/20 06:37 Phys Exam - Physical Examination Constitutional: NAD Neck: supple Respiratory: no wheezing, clear to auscultation bilateral Cardiovascular: RRR, no significant murmur Gastrointestinal: soft, non-tender Neurological: non-focal, moves all 4 limbs Psychiatric: normal affect, A&O x 3 Dx/Plan - Plan Plan: Acute hypoxic respiratory failure 2/2 likely new onset CHF w/exacerbation vs. cirrhosis - CXR: cardiomegaly, b/l pulm vascular enlargement, BNP 1000 - dependent pitting edema - O2: stable on 2L NC - ECHO: EF 60-65%, Grade 1/3 diastolic dysfunction - Cardiology and Nephro consulted; GI and EP have signed off - CXR: stable from previous exam, mild edema JOANNE on CKD -Cr 4.91, worsening -Nephro consulted (04/17): s/p HD yesterday, planning for permanent HD -CM consulted: outpatient HD chair -gen surg, Dr Shell: vein mapping ordered for today, plan for catheter placement on Tuesday -discontinued glipizide Chest Pain -CP on 04/30 was reproducible with palpation, trop 0.67, ekg: new T wave inve rsions V2-V6 -consulted Dr Moreno: trop likely elevated 2/2 dialysis, started Imdur and asa 81mg daily, no other anticoagulation at this time due to risk of GI bleed -likely MSK in origin Suspected SBO vs Ileus -KUB: dilated loops of small bowel concerning for SBO -general surgery, Dr Braxton, consulted, appreciate recs -NG tube placed on 04/26, output 250mL overnight, NPO -SBFT: no signs of obstruction. -tolerating diet, passing flatus having b.m. Afib/flutter with RVR - cardiology, Dr. Moreno consulted on 04/13: indefinite hold on eliquis for now, consider watchman in future - EP, Dr. Edward: PO dilt and dig, consider watchman in future if she can tolerate short course of oral anticoagulation, needs f/u outpt - stopped digoxin due to worsening kidney function - on diltiazem 60mg bid, pt continues to have episodes of a tach on tele monitor UTI -UCx: yeast -will do one time fluconazole Anemia - resolution of N/V with dark emesis, melena - GI consulted, EGD: portal HTN gastropathy, large armount of retained gastric contents, superficial pyloric erosion - protonix Cirrhosis 2/2 Hep C - treated -GI, Dr. Gaspar, consulted on 04/14: no fluid seen for paracentesis, resume furosemide once Cr improves -has had 1 paracentesis in the past -s/p rocephin for SBP ppx Hyperkalemia -resolved, K 3.8 -no EKG changes Hypertensive urgency, resolved - SBP 200 in ED, given hydralazine and nitro paste - Losartan DC'd due to renal function, hydralazine prn - will adjust po meds to optimize control of BP Contraction Alkalosis - likely 2/2 to diuresis COPD -s/p Azithromycin and ceftriaxone in ED, will not continue as pt is not in acute exacerbation -dc'd duoneb due to possible urinary retention, albuterol neb prn Chronic thrombocytopenia - At baseline, 2/2 liver disease Hypervolemic hyponatremia - Na 133 - Expect improvement with diuresis Elevated d-dimer - 2.24 with negative CTA DM -continue home meds, will adjust as needed due to pt decreased appetite -DC'd glipizide -accuchecks ACHS, mild SSI Dispo: Kidney function appears to be worsening, dialysis likely today, appreciate nephrology and cardiology recs. Pt is making a choice of NH today and will let CM know. Addendum - Attending - Attending Attestation Date/Time: 05/03/20 1724 I personally evaluated the patient and discussed the management with Dr. Mtz. I agree with the History, Examination, Assessment and Plan documented above with any addition or exceptions noted below. Per case mgmt notes, family has agreed to return to [facility]. Dr. Shell will be placing dialysis fistula in coming days. Did not require pain meds last night.
[2020-05-03] MEDS: Calcium Acetate 667 MG CAP PO SCH ×3 (10:03→16:07)
[2020-05-03] MEDS: Aspirin 81 mg Enteric Coated Tablet PO SCH (10:04)
[2020-05-03] MEDS: Alogliptin 25 MG TAB PO SCH (10:04)
[2020-05-03] MEDS: busPIRone HCl 10 MG TAB PO SCH ×2 (10:04→20:42)
[2020-05-03] MEDS: Gabapentin 300 MG CAP PO SCH ×3 (10:05→20:40)
[2020-05-03] MEDS: Diltiazem HCl SR 60 mg Capsule PO SCH ×2 (10:05→20:42)
[2020-05-03] MEDS: Insulin Glargine 20 UNITS in Pre-Filled Syringe 1 EACH SC SCH ×2 (10:06→20:43)
[2020-05-03] MEDS: NIFEdipine XL 60 MG TAB PO SCH (10:08)
[2020-05-03] MEDS: Ondansetron PF 4 MG/2 ML Vial IVP PRN (10:10)
[2020-05-03] MEDS: ALPRAZolam 0.25 MG TAB PO SCH ×2 (10:35→20:43)
[2020-05-03] MEDS: HYDROcodone/Acetaminophen 7.5/325 mg Tablet PO SCH ×3 (10:35→20:40)
--- NOTE | 2020-05-03 10:54 | ULT ---
BILATERAL UPPER EXTREMITY VEIN MAPPING: HISTORY: End stage renal disease. Evaluation for dialysis access. FINDINGS: Right: CEPHALIC VEIN: Proximal humerus 3.8 mm Mid 3.9 mm Distal 3.4 mm Elbow 3.6 mm Proximal forearm 1.6 mm Mid forearm 1.8 mm Distal 1.3 mm BASILIC VEIN: Proximal humerus not visualized Mid not visualized Distal not visualized Elbow not visualized Proximal forearm 1.3 mm Mid forearm 1.3 mm Distal 1.8 mm Left: CEPHALIC VEIN: Proximal humerus 3.0 mm Mid 2.7 mm Distal 2.5 mm Elbow 2.6 mm Proximal forearm 1.1 mm Mid forearm 1.2 mm Distal 1.2 mm BASILIC VEIN: Proximal humerus 2.1 mm Mid 2.1 mm Distal 2.9 mm Elbow 2.6 mm Proximal forearm 2.1 mm Mid forearm 1.5 mm Distal 2.3 mm Right: Brachial artery 3.1 mm Radial artery 1.9 mm Ulnar artery 2.7 mm Left: Brachial artery 3.4 mm Radial artery 2.6 mm Ulnar artery 2.0 mm IMPRESSION: Vein mapping as above. POS: ROSALIE
[2020-05-03] MEDS ORDERED: ALPRAZolam 0.25 MG TAB PO SCH (12:00)
[2020-05-03] MEDS: HumaLOG 300 UNITS/3 ML VIAL SC PRN (12:12)
[2020-05-03] MEDS: traZODone HCl 50 MG TAB PO SCH (20:42)
--- NOTE | 2020-05-04 05:39 | PDOC.FM ---
- Subjective Subjective: Pt resting comfortably. She says she is not having any pain. Tolerating diet. Nurse said no acute events overnight. She is waiting for HD catheter placement tomorrow. - Objective Vital Signs & Weight: Vital Signs (12 hours) Temp Pulse Resp BP Pulse Ox 05/04/20 04:00 95 05/04/20 03:58 97.5 F L 53 L 20 134/62 95 05/03/20 19:30 98.7 F 71 20 174/71 H 94 L Weight Admit Weight 129.002 kg Weight 120.9 kg I&O: 05/02/20 05/03/20 05/04/20 06:59 06:59 06:59 Intake Total 960 1220 360 Output Total 0 0 Balance 960 1220 360 Result Diagrams: 05/02/20 06:37 05/04/20 05:49 Phys Exam - Physical Examination Constitutional: NAD Neck: supple Respiratory: no wheezing, clear to auscultation bilateral Cardiovascular: RRR, no significant murmur Gastrointestinal: soft mild b/l LE edema Neurological: non-focal, moves all 4 limbs Psychiatric: normal affect, A&O x 3 Dx/Plan - Plan Plan: Acute hypoxic respiratory failure 2/2 likely new onset CHF w/exacerbation vs. cirrhosis - CXR: cardiomegaly, b/l pulm vascular enlargement, BNP 1000 - dependent pitting edema - O2: stable on 1.5L NC - ECHO: EF 60-65%, Grade 1/3 diastolic dysfunction - Cardiology and Nephro consulted; GI and EP have signed off - CXR: stable from previous exam, mild edema JOANNE on CKD -Cr 4.91, worsening -Nephro consulted (04/17): s/p HD yesterday, planning for permanent HD -CM consulted: outpatient HD chair -gen surg, Dr Shell: plan for catheter placement on Tuesday -discontinued glipizide Chest Pain -CP on 04/30 was reproducible with palpation, trop 0.67, ekg: new T wave inversions V2-V6 -consulted Dr Moreno: trop likely elevated 2/2 dialysis, started Imdur and asa 81mg daily, no other anticoagulation at this time due to risk of GI bleed -likely MSK in origin Suspected SBO vs Ileus -KUB: dilated loops of small bowel concerning for SBO -general surgery, Dr Braxton, consulted, appreciate recs -NG tube placed on 04/26, output 250mL overnight, NPO -SBFT: no signs of obstruction. -tolerating diet, passing flatus having b.m. Afib/flutter with RVR - cardiology, Dr. Moreno consulted on 04/13: indefinite hold on eliquis for now, consider watchman in future - EP, Dr. Edward: PO dilt and dig, consider watchman in future if she can tolerate short course of oral anticoagulation, needs f/u outpt - stopped digoxin due to worsening kidney function - on diltiazem 60mg bid UTI -UCx: yeast -will do one time fluconazole Anemia - resolution of N/V with dark emesis, melena - GI consulted, EGD: portal HTN gastropathy, large armount of retained gastric contents, superficial pyloric erosion - protonix Cirrhosis 2/2 Hep C - treated -GI, Dr. Gaspar, consulted on 04/14: no fluid seen for paracentesis, resume furosemide once Cr improves -has had 1 paracentesis in the past -s/p rocephin for SBP ppx Hyperkalemia -resolved, K 3.8 -no EKG changes Hypertensive urgency, resolved - SBP 200 in ED, given hydralazine and nitro paste - Losartan DC'd due to renal function, hydralazine prn - will adjust po meds to optimize control of BP Contraction Alkalosis - likely 2/2 to diuresis COPD -s/p Azithromycin and ceftriaxone in ED, will not continue as pt is not in acute exacerbation -dc'd duoneb due to possible urinary retention, albuterol neb prn Chronic thrombocytopenia - At baseline, 2/2 liver disease Hypervolemic hyponatremia - Na 133 - Expect improvement with diuresis Elevated d-dimer - 2.24 with negative CTA DM -continue home meds, will adjust as needed due to pt decreased appetite -DC'd glipizide -accuchecks ACHS, mild SSI Dispo: Stable, plan is for hemodialysis catheter placement tomorrow, CM consulte d for outpt dialysis chair and help with getting patient back to [facility], Hospice/palliative care consulted per patient's request. Addendum - Attending - Attending Attestation Date/Time: 05/04/20 1228 I personally evaluated the patient and discussed the management with Dr. Mtz. I agree with the History, Examination, Assessment and Plan documented above with any addition or exceptions noted below. Patient is doing well. She slept well overnight. Have dialysis port placed tomorrow.
[2020-05-04 06:15] LABS: Albumin 3.3 g/dL (3.4-4.8); Anion Gap 11 mmol/L (10-20); BUN (Urea Nitrogen) 29 mg/dL (9.8-20.1); BUN/Creatinine Ratio 6.36; Calc. Creatinine Clearance 24 mL/min (70-130); Calcium 10.2 mg/dL (7.8-10.44); Carbon Dioxide 29 mmol/L (23-31); Chloride 98 mmol/L (98-107); Glucose 128 mg/dL (80-115); Phosphorus 3.4 mg/dL (2.3-4.7); Potassium 4.1 mmol/L (3.5-5.1); Sodium 134 mmol/L (136-145)
[2020-05-04] MEDS: NIFEdipine XL 60 MG TAB PO SCH (09:20)
[2020-05-04] MEDS: ALPRAZolam 0.25 MG TAB PO SCH ×2 (09:20→21:24)
[2020-05-04] MEDS: Calcium Acetate 667 MG CAP PO SCH ×3 (09:20→17:38)
[2020-05-04] MEDS: Aspirin 81 mg Enteric Coated Tablet PO SCH (09:20)
[2020-05-04] MEDS: Gabapentin 300 MG CAP PO SCH ×3 (09:20→21:25)
[2020-05-04] MEDS: Diltiazem HCl SR 60 mg Capsule PO SCH ×2 (09:20→21:25)
[2020-05-04] MEDS: HYDROcodone/Acetaminophen 7.5/325 mg Tablet PO SCH ×3 (09:21→21:25)
[2020-05-04] MEDS: Alogliptin 25 MG TAB PO SCH (09:22)
[2020-05-04] MEDS: Insulin Glargine 20 UNITS in Pre-Filled Syringe 1 EACH SC SCH ×2 (09:23→21:23)
[2020-05-04] MEDS: busPIRone HCl 10 MG TAB PO SCH ×2 (09:23→21:25)
--- NOTE | 2020-05-04 19:37 | PRG ---
DATE OF SERVICE: 05/04/2020 SUBJECTIVE: The patient is seen and examined. Seems to have distended abdomen again. Noted with the following vital signs. OBJECTIVE: VITAL SIGNS: Afebrile, temperature 98.3, pulse 70, respiratory rate of 19, O2 saturation of 98%, blood pressure 132/68. HEENT: Unremarkable. CARDIOVASCULAR SYSTEM: First and second heart sounds were heard. RESPIRATORY SYSTEM: Clear to auscultation. DIGESTIVE SYSTEM: Revealed a distended abdomen. EXTREMITIES: No peripheral edema. SKIN: No new gross rash. LABORATORY INVESTIGATION: Showed a creatinine of 4.56 with BUN of 29, sodium of 134. IMPRESSION: 1. Acute tubular necrosis, contrast induced, seems to be dependent on dialysis. 2. Mild hyponatremia, likely dilutional. 3. Abdominal distention, likely in the context of hypervolemia. PLAN: 1. The patient to be dialyzed, and we will try to schedule this patient to start dialysis very early in the morning possibly prior to tunneled dialysis catheter placement. However, if the patient gets caught down to the OR, can always stop dialysis at any point in time, but my emphasis now is to make this patient feel more comfortable by having undergo ultrafiltration. 2. Tunneled dialysis catheter to be placed in preparation for outpatient dialysis placement. Therefore, patient case manager has been consulted to work towards the disposition planning. 3. Further management to be dependent on the clinical course. Job ID: [id number]
[2020-05-04] MEDS: traZODone HCl 50 MG TAB PO SCH (21:25)
[2020-05-04] MEDS ORDERED: Insulin Glargine 10 UNITS in Pre-Filled Syringe 1 EACH SC SCH (21:45)
[2020-05-05] MEDS: Acetaminophen 325 MG TAB PO PRN (01:08)
[2020-05-05] MEDS: Melatonin 3 MG TAB PO PRN (01:09)
[2020-05-05 04:58] LABS: Anion Gap 11 mmol/L (10-20); BUN (Urea Nitrogen) 33 mg/dL (9.8-20.1); Calc. Creatinine Clearance 22 mL/min (70-130); Calcium 11.2 mg/dL (7.8-10.44); Carbon Dioxide 30 mmol/L (23-31); Chloride 97 mmol/L (98-107); Glucose 132 mg/dL (80-115); Potassium 4.4 mmol/L (3.5-5.1); Sodium 134 mmol/L (136-145)
[2020-05-05] MEDS: Gabapentin 300 MG CAP PO SCH ×3 (05:25→21:24)
[2020-05-05] MEDS: Aspirin 81 mg Enteric Coated Tablet PO SCH (05:26)
[2020-05-05] MEDS: Calcium Acetate 667 MG CAP PO SCH ×3 (05:26→18:22)
[2020-05-05] MEDS: busPIRone HCl 10 MG TAB PO SCH ×2 (05:26→21:24)
[2020-05-05] MEDS: Alogliptin 25 MG TAB PO SCH (05:26)
[2020-05-05] MEDS: ALPRAZolam 0.25 MG TAB PO SCH ×2 (05:26→21:24)
[2020-05-05] MEDS: Diltiazem HCl SR 60 mg Capsule PO SCH ×2 (05:26→21:25)
[2020-05-05] MEDS: HYDROcodone/Acetaminophen 7.5/325 mg Tablet PO SCH ×3 (05:27→21:24)
[2020-05-05] MEDS: NIFEdipine XL 60 MG TAB PO SCH (05:27)
--- NOTE | 2020-05-05 05:42 | PRG ---
DATE OF SERVICE: 05/04/2020 TRANSITION OF CARE NOTE: The patient is a 64-year-old female with past medical history of cirrhosis, COPD, and DM2, originally admitted for acute hypoxic respiratory failure secondary to fluid overload. There is a transition of care note on 04/20/2020, by Dr. Quyen Rodriguez. I will continue the transition of care from that point until now. The patient's fluid status was improved using Lasix. Nephrology continued to watch her kidney function. As her kidney function improved, diuresis was slowed down. The patient was also started on p.o. diltiazem and digoxin by Dr. Edward for the AFib/flutter with RVR. The patient's kidney function began to decline further. The receptionist doctor's office originally thought the kidney injury was contrast induced and the patient initially had improvement. The patient got to the point where her fluid in her abdomen began to increase making her have a lot of abdominal discomfort. She also became oliguric and uremic. Also, at this time, she was found to have an elevated digoxin level. Due to this and the bradycardia, both the p.o. diltiazem and digoxin were stopped. Once the patient's bradycardia resolved, she was then restarted on p.o. diltiazem at a decreased dose of [address] Simmons decided to start patient on hemodialysis to help with the kidney function and fluid retention. Patient responded well to hemodialysis with improvement in mentation and abdominal distention. After several hemodialysis treatments, Dr. Simmons decided to hold hemodialysis to watch the improvement of kidney function. Unfortunately without dialysis, kidney function continued to deteriorate ultimately leading to the decision of a more permanent hemodialysis access to be placed. On April 25, the night team was notified that the patient was having multiple episodes of emesis. An abdominal x-ray was done that showed evidence of possible small bowel obstruction. General Surgery was consulted and placed NG tube and put patient on bowel rest. On 04/28, a small- bowel follow-through was done which showed no evidence for small-bowel obstruction. NG tube was removed and the patient's diet was advanced as tolerated. On 04/29, the patient complained of chest pain that was suspicious for ACS, but on physical exam, it was reproducible with palpation of the chest wall. Troponins were ordered and were elevated and EKG showed T-wave inversions in lateral leads. Dr. Moreno saw the patient and stated that the chest pain was likely musculoskeletal in origin, less likely ACS. He felt the elevated troponin was due to dialysis. The patient's chest pain resolved. At the time of dictation of this note, active problems include new diagnosis of end-stage renal disease, requiring hemodialysis. The plan is for placement of hemodialysis catheter and AV fistula on Tuesday, 05/05. Case Management is consulted to help arrange for outpatient dialysis chair and placement of the patient in senior living in [place], where she had been before. GI, Cardiology, and Electrophysiology have all signed off, feeling patient is stable from their perspective. Of note, the patient still has not been restarted on anticoagulation due to risk of GI bleed. Job ID: [id number] MTDD
--- NOTE | 2020-05-05 08:40 | PDOC.FM ---
- Subjective Subjective: Patient doing well this AM, no acute concerns. Denies CP, SOB, N/V. - Objective MAR Reviewed: Yes Vital Signs & Weight: Vital Signs (12 hours) Temp Pulse Resp BP BP Pulse Ox 05/05/20 05:27 144/65 H 05/05/20 03:30 97.2 F L 55 L 12 144/65 H 99 05/05/20 03:15 98 Weight Admit Weight 129.002 kg Weight 124.3 kg I&O: 05/04/20 05/05/20 05/06/20 06:59 06:59 06:59 Intake Total 560 545 Output Total 0 110 Balance 560 435 Result Diagrams: 05/02/20 06:37 05/05/20 04:14 Phys Exam - Physical Examination Constitutional: NAD Respiratory: no wheezing, no rales, no rhonchi, clear to auscultation bilateral Cardiovascular: RRR, no significant murmur, no rub Gastrointestinal: soft, non-tender, positive bowel sounds Mild BL LE nonpitting edema Neurological: non-focal, moves all 4 limbs Dx/Plan - Plan Plan: Acute hypoxic respiratory failure 2/2 likely new onset CHF w/exacerbation vs. cirrhosis - CXR: cardiomegaly, b/l pulm vascular enlargement, BNP 1000 - dependent edema - O2: stable NC requirement - ECHO: EF 60-65%, Grade 1/3 diastolic dysfunction - Cardiology and Nephro consulted; GI and EP have signed off - CXR: stable from previous exam, mild edema JOANNE on CKD -Cr 4.91, worsening -Nephro consulted (04/17): s/p HD yesterday, planning for permanent HD -CM consulted: outpatient HD chair -gen surg, Dr Shell: plan for catheter placement today -discontinued glipizide Chest Pain -CP on 04/30 was reproducible with palpation, trop 0.67, ekg: new T wave inversions V2-V6 -consulted Dr Moreno: trop likely elevated 2/2 dialysis, started Imdur and asa 81mg daily, no other anticoagulation at this time due to risk of GI bleed -likely MSK in origin Suspected SBO vs Ileus -KUB: dilated loops of small bowel concerning for SBO -general surgery, Dr Braxton, consulted, appreciate recs -NG tube placed on 04/26, output 250mL overnight, NPO -SBFT: no signs of obstruction. -tolerating diet, Consider increasing bowel regimen today Afib/flutter with RVR - cardiology, Dr. Moreno consulted on 04/13: indefinite hold on eliquis for now, consider watchman in future - EP, Dr. Edward: PO dilt and dig, consider watchman in future if she can tolerate short course of oral anticoagulation, needs f/u outpt - stopped digoxin due to worsening kidney function - on diltiazem 60mg bid UTI -UCx: yeast -will do one time fluconazole Anemia - resolution of N/V with dark emesis, melena - GI consulted, EGD: portal HTN gastropathy, large armount of retained gastric contents, superficial pyloric erosion - protonix Cirrhosis 2/2 Hep C - treated -GI, Dr. Gaspar, consulted on 04/14: no fluid seen for paracentesis, resume furos emide once Cr improves -has had 1 paracentesis in the past -s/p rocephin for SBP ppx Hyperkalemia -resolved, K 3.8 -no EKG changes Hypertensive urgency, resolved - SBP 200 in ED, given hydralazine and nitro paste - Losartan DC'd due to renal function, hydralazine prn - will adjust po meds to optimize control of BP Contraction Alkalosis - likely 2/2 to diuresis COPD -s/p Azithromycin and ceftriaxone in ED, will not continue as pt is not in acute exacerbation -dc'd duoneb due to possible urinary retention, albuterol neb prn Chronic thrombocytopenia - At baseline, 2/2 liver disease Hypervolemic hyponatremia - Na 133 - Expect improvement with diuresis Elevated d-dimer - 2.24 with negative CTA DM -Decrease Lantus to 20 u QAM, Will adjust as needed due to pt decreased appetite -DC'd glipizide -accuchecks ACHS, mild SSI Dispo: Stable, plan is for hemodialysis catheter placement today. CM consulted for outpt dialysis chair and help with getting patient back to [facility], Hospice/palliative care consulted per patient's request. Addendum - Attending - Attending Attestation Date/Time: 05/05/20 [id number] I personally evaluated the patient and discussed the management with Dr. Lopez. I agree with the History, Examination, Assessment and Plan documented above with any addition or exceptions noted below. Seen in recovery today. Successful placement of tunneled IJ. Unable to place right arm AV fistula. Will attempt placement in left arm tomorrow with Gen Surg. CM to arranged HD outpt chair.
[2020-05-05] MEDS ORDERED: Polyethylene Glycol 3350 17 GM Packet PO PRN (08:52)
[2020-05-05] MEDS ORDERED: Heparin 10,000 UNITS/ 10 ML VIAL ONE ×2 (09:45→10:11)
[2020-05-05] MEDS ORDERED: Bupivacaine HCl 0.5%/Epinephrine 1:200,000/PF 30 ml Vial ONE (10:02)
[2020-05-05] MEDS ORDERED: PROPOFOL 200 MG/20 ML VIAL ONE (10:02)
[2020-05-05] MEDS ORDERED: Heparin 5,000 UNITS/ML VIAL ONE (10:11)
[2020-05-05] MEDS ORDERED: Protamine Sulfate 50 MG/5 ML VIAL ONE (10:11)
[2020-05-05] MEDS ORDERED: XYLOCAINE 2%-EPI 1:100,000 20 ML VIAL ONE (10:11)
[2020-05-05] MEDS ORDERED: Bupivacaine PF 0.5% 30 ML VIAL ONE (10:11)
[2020-05-05] MEDS ORDERED: Sodium Chloride 0.9% 30 ML ONE (10:12)
[2020-05-05] MEDS ORDERED: Ioversol 68 % 50 ML VIAL ONE (10:12)
[2020-05-05] MEDS ORDERED: Phenylephrine 10 MG/ML VIAL ONE (10:22)
[2020-05-05] MEDS ORDERED: Famotidine/PF 20 mg/2ml Vial ONE (10:22)
[2020-05-05] MEDS ORDERED: Propofol 500 MG/50 ML VIAL ONE (10:22)
[2020-05-05] MEDS ORDERED: Fentanyl 100 MCG/2 ML VIAL ONE (10:22)
[2020-05-05] MEDS ORDERED: Ondansetron HCl/PF 4 MG/2 ML Vial IVP PRN (11:35)
[2020-05-05] MEDS ORDERED: Promethazine HCl 25 MG/ML VIAL IM PRN (11:35)
[2020-05-05] MEDS ORDERED: PACU-Morphine 4MG/ML VIAL SLOW IVP PRN (11:35)
[2020-05-05] MEDS ORDERED: Promethazine HCl 25 MG/ML VIAL SLOW IVP PRN (11:35)
--- NOTE | 2020-05-05 12:16 | RAD ---
EXAM: CHEST ONE VIEW HISTORY: Post central line placement. COMPARISON: 04/26/2020 FINDINGS: Patient is rotated to the left which limits evaluation. Left internal jugular vein central venous cat heter is noted in place. The tip overlies the mediastinum and overlies expected location of the distal aspect of the innominate vein/SVC. A right internal jugular vein tunneled hemodialysis cathete r is noted in place with tip overlying the mediastinum and overlies expected location of the SVC. Cardiac silhouette is magnified by projection and patient rotation. Bronchovascular markings are incr eased, this may be related to shallow depth inspiration and portable technique. Similar finding was also seen on prior exam. No other interval change IMPRESSION: 1. Interval placement of left internal jugular vein central venous catheter and tunneled right buying intern al jugular vein hemodialysis catheter. Patient is rotated to the left which limits evaluation. Tips of each of these catheters overlies the mediastinum and overlie the expected location of the SVC. 2. Increased perihilar interstitial densities which could be related to accentuation by portable tech nique and shallow depth inspiration. An element of pulmonary edema is a possibility.
--- NOTE | 2020-05-05 12:23 | OP ---
DATE OF PROCEDURE: 05/05/2020 PREOPERATIVE DIAGNOSES: End-stage renal disease, morbid obesity, diabetes, cirrhosis, history of IV drug abuse, thrombosed nonvisualized basilic vein in right and superior right cephalic vein. POSTOPERATIVE DIAGNOSES: End-stage renal disease, morbid obesity, diabetes, cirrhosis, history of IV drug abuse, thrombosed nonvisualized basilic vein right and superior right cephalic vein, with inadequate cephalic vein in right arm. PROCEDURES PERFORMED: Right IJ cuffed tunneled hemodialysis catheter, left IJ central line, ultrasound and fluoroscopy used for placement of these. Exploration of right forearm finding the vein to be inadequate, cephalic, contrary to ultrasound vein mapping. No fistula formed. ANESTHESIA: Regional, TIVA, local 0.5% Marcaine 30 mL mixed with 1% Xylocaine with epinephrine 20 mL. Note: Plan at this time is to not place a prosthetic graft in the right arm as her veins in right arm are inadequate. Plan is to see her in the future as an outpatient and plan left arm fistula, possible prosthetic graft placement as an outpatient DESCRIPTION OF PROCEDURE: The patient was taken to the operating room, where under intravenous sedation and regional anesthesia, neck, chest, and right upper extremity were prepared with ChloraPrep and draped in routine fashion. Local anesthetic was infiltrated in the skin and subcutaneous tissue for placement of the lines. Using ultrasound guidance, the right and left internal jugular veins were cannulated with trocar catheter. J-wire was threaded. Trocar catheter was removed. Skin incision site enlarged sharply. Seldinger technique used to place a triple-lumen catheter on the left, securing it with 3-0 nylon suture. J-wire removed. Each port aspirated of blood, flushed with saline solution. Sterile dressing applied. On the right side, a stab incision made over the right chest. Using the tunneling device, the pre-curved [employer] cuffed tunneled hemodialysis catheter tunneled between the 2 incisions, placing the fabric cuff beneath the skin exit site. Catheter secured with 2 interrupted sutures of 3-0 nylon. Sterile dressings applied. Small and medium size dilators placed over the J-wire and removed. Dilator and Peel-Away sheath placed over the J-wire in superior vena cava, and J-wire and dilator removed. Catheter placed with Peel-Away sheath. Peel-Away sheath removed. Platysma approximated with 4-0 Monocryl, skin with subdermal 4-0 Monocryl and Anatone glue applied. Each port aspirated of blood, flushed with saline solution and heparinized saline solution, 1000 units of heparin per mL, indicating volume of the port. Sterile dressings applied. The patient tolerated the procedure well. Right upper extremity had been prepared with ChloraPrep and draped in routine fashion. Ultrasound vein mapping suggests the vein to be of adequate caliber, although basilic vein right was not visualized and thrombosed and small in different areas. Incision was made in the proximal volar forearm longitudinally, carried down through skin and subcutaneous tissue and the cephalic vein was very small, thought to be inadequate. Nonetheless, it was clipped on the hand side, transected, interrogated with coronary dilators, finding it to be occluded in the upper arm. It was clipped, excised, subcutaneous tissue was approximated with 3-0 Monocryl, skin with subdermal 4-0 Monocryl and Anatone glue applied. No fistula formed. Job ID: [id number]
--- NOTE | 2020-05-05 14:18 | PRG ---
DATE OF SERVICE: 05/05/2020 SUBJECTIVE: The patient undergoing tunneled dialysis catheter placement today with the following vital signs. OBJECTIVE: VITAL SIGNS: Afebrile, temperature 97.2, pulse 55, blood pressure 144/65, O2 sat of 99%. HEENT: Unremarkable. CARDIOVASCULAR SYSTEM: First and second heart sounds were heard. RESPIRATORY SYSTEM: Clear to auscultation. DIGESTIVE SYSTEM: Revealed a distended abdomen. EXTREMITIES: No significant peripheral edema. SKIN: No new gross rash. LYMPHATICS: No peripheral lymphadenopathy. IMPRESSION: 1. End-stage renal disease, still dependent on dialysis. 2. Contrast-induced acute tubular necrosis, which seems to have culminated into end-stage renal disease. 3. Hypervolemia, dependent on hemodialysis for ultrafiltration. 4. Obesity. PLAN: 1. The patient to be dialyzed today immediately after tunneled dialysis catheter placement with increased ultrafiltration as tolerated by hemodynamics. 2. manager environmental health and safety to continue to work on outpatient dialysis placement, especially now that the tunneled dialysis catheter is in place. 3. Renally dose all medications and avoid potentially-nephrotoxic agents. 4. Further management to be dependent on the clinical course. Job ID: [id number]
[2020-05-05 15:18] VITALS: BMI 51.7
[2020-05-05 17:06] LABS: HBSAg Index 0.24 S/CO (0-0.99); Hep B Surf Ag Non-Reactive S/CO (NonReactive)
[2020-05-05 18:20] LABS: HBSAB Concentration 12.93 mIU/mL
[2020-05-05] MEDS: Polyethylene Glycol 3350 17 GM Packet PO SCH (18:21)
[2020-05-05] MEDS: Insulin Glargine 20 UNITS in Pre-Filled Syringe 1 EACH SC SCH (18:21)
[2020-05-05 18:23] LABS: Hep B Core Total Index 0.99 S/CO (0-0.79)
[2020-05-05 18:24] LABS: Hep B Core Total Ab EQUIVOCAL (NonReactive)
[2020-05-05 18:25] LABS: Hep B Surf AB Reactive (NonReactive); Hep C IgG Ab Reflex HepC Qnt (NonReactive); Hep C Index 13.75 S/CO (0-0.79)
[2020-05-05] MEDS: traZODone HCl 50 MG TAB PO SCH (21:25)
[2020-05-05] MEDS ORDERED: Cyclobenzaprine 10 MG TAB PO SCH (22:45)
--- NOTE | 2020-05-06 05:59 | PDOC.FM ---
- Subjective Subjective: Patient reporting pain in neck and R arm s/p surgery. Also reporting diffuse abdominal pain and bloating. Endorses flatus with no recent BM. Did not receive laxatives/stool softeners yesterday. Denies CP/SOB. Reports lactulose has helped with constipation in the past. - Objective MAR Reviewed: Yes Vital Signs & Weight: Vital Signs (12 hours) Temp Pulse Resp BP Pulse Ox 05/06/20 04:00 97 F L 51 L 13 125/58 L 94 L 05/05/20 20:00 97.5 F L 48 L 20 113/55 L 92 L Weight Admit Weight 129.002 kg Weight 124.3 kg I&O: 05/04/20 05/05/20 05/06/20 06:59 06:59 06:59 Intake Total 560 545 Output Total 0 110 Balance 560 435 Result Diagrams: 05/02/20 06:37 05/06/20 08:26 Phys Exam - Physical Examination Constitutional: NAD Respiratory: no wheezing, no rales, no rhonchi, clear to auscultation bilateral Cardiovascular: RRR, no significant murmur, no rub moderate distension, high pitched bowel sounds, normoactive bowel sounds mild, diffuse tenderness to palpation Neurological: non-focal Dx/Plan - Plan Plan: Acute hypoxic respiratory failure 2/2 likely new onset CHF w/exacerbation vs. cirrhosis - CXR: cardiomegaly, b/l pulm vascular enlargement, BNP 1000 - dependent edema - O2: stable NC requirement - ECHO: EF 60-65%, Grade 1/3 diastolic dysfunction - Cardiology and Nephro consulted; GI and EP have signed off - CXR: stable from previous exam, mild edema Constipation - Stool softeners as scheduled, Lactulose today JOANNE on CKD -Cr 4.91, worsening -Nephro consulted (04/17): s/p HD yesterday, planning for permanent HD -CM consulted: outpatient HD chair -gen surg, Dr Shell: plan for catheter placement today -discontinued glipizide Chest Pain -CP on 04/30 was reproducible with palpation, trop 0.67, ekg: new T wave inversions V2-V6 -consulted Dr Moreno: trop likely elevated 2/2 dialysis, started Imdur and asa 81mg daily, no other anticoagulation at this time due to risk of GI bleed -likely MSK in origin Suspected SBO vs Ileus -KUB: dilated loops of small bowel concerning for SBO -general surgery, Dr Braxton, consulted, appreciate recs -NG tube placed on 04/26, output 250mL overnight, NPO -SBFT: no signs of obstruction. -tolerating diet, Consider increasing bowel regimen today Afib/flutter with RVR - cardiology, Dr. Moreno consulted on 04/13: indefinite hold on eliquis for now, consider watchman in future - EP, Dr. Edward: PO dilt and dig, consider watchman in future if she can tolerate short course of oral anticoagulation, needs f/u outpt - stopped digoxin due to worsening kidney function - on diltiazem 60mg bid UTI -UCx: yeast -will do one time fluconazole Anemia - resolution of N/V with dark emesis, melena - GI consulted, EGD: portal HTN gastropathy, large armount of retained gastric contents, superficial pyloric erosion - protonix Cirrhosis 2/2 Hep C - treated -GI, Dr. Gaspar, consulted on 04/14: no fluid seen for paracentesis, resume furosemide once Cr improves -has had 1 paracentesis in the past -s/p rocephin for SBP ppx Hyperkalemia -resolved, K 3.8 -no EKG changes Hypertensive urgency, resolved - SBP 200 in ED, given hydralazine and nitro paste - Losartan DC'd due to renal function, hydralazine prn - will adjust po meds to optimize control of BP Contraction Alkalosis - likely 2/2 to diuresis COPD -s/p Azithromycin and ceftriaxone in ED, will not continue as pt is not in acute exacerbation -dc'd duoneb due to possible urinary retention, albuterol neb prn Chronic thrombocytopenia - At baseline, 2/2 liver disease Hypervolemic hyponatremia - Na 133 - Expect improvement with diuresis Elevated d-dimer - 2.24 with negative CTA DM -Decrease Lantus to 20 u QAM, Will adjust as needed due to pt decreased appetite -DC'd glipizide -accuchecks ACHS, mild SSI Dispo: Stable, CM consulted for outpt dialysis chair and help with getting patient back to [facility], Hospice/palliative care consulted per patient's request. Addendum - Attending - Attending Attestation Date/Time: 05/06/20 9815 I personally evaluated the patient and discussed the management with Dr. [] I agree with the History, Examination, Assessment and Plan documented above with any addition or exceptions noted below. She is feeling well today although complaining of abdominal distention. Abdomen is grossly distended with mild resonance to percussion diffusely. Mild TTP diffusely. Will increase bowel regimen. Still passing gas so no concern for SBO at this time. consider repeat KUB if no improvement today. Lactulose to help wit h constipation.
[2020-05-06] MEDS: traMADol HCl 50 MG TAB PO PRN (06:17)
[2020-05-06 09:07] LABS: Anion Gap 10 mmol/L (10-20); BUN (Urea Nitrogen) 17 mg/dL (9.8-20.1); Calc. Creatinine Clearance 35 mL/min (70-130); Calcium 9.9 mg/dL (7.8-10.44); Carbon Dioxide 30 mmol/L (23-31); Chloride 99 mmol/L (98-107); Glucose 103 mg/dL (80-115); Magnesium 1.8 mg/dL (1.6-2.6); Phosphorus 3.2 mg/dL (2.3-4.7); Sodium 135 mmol/L (136-145)
[2020-05-06] MEDS: busPIRone HCl 10 MG TAB PO SCH ×2 (09:36→21:37)
[2020-05-06] MEDS: Alogliptin 25 MG TAB PO SCH (09:36)
[2020-05-06] MEDS: Aspirin 81 mg Enteric Coated Tablet PO SCH (09:36)
[2020-05-06] MEDS: ALPRAZolam 0.25 MG TAB PO SCH ×2 (09:37→21:37)
[2020-05-06] MEDS: NIFEdipine XL 60 MG TAB PO SCH (09:37)
[2020-05-06] MEDS: Gabapentin 300 MG CAP PO SCH ×3 (09:37→21:37)
[2020-05-06] MEDS: Calcium Acetate 667 MG CAP PO SCH ×3 (09:37→15:55)
[2020-05-06] MEDS: HYDROcodone/Acetaminophen 7.5/325 mg Tablet PO SCH ×3 (09:38→21:38)
[2020-05-06] MEDS: Polyethylene Glycol 3350 17 GM Packet PO SCH (09:39)
[2020-05-06] MEDS: Diltiazem HCl SR 60 mg Capsule PO SCH (09:39)
[2020-05-06] MEDS: Insulin Glargine 20 UNITS in Pre-Filled Syringe 1 EACH SC SCH (09:44)
[2020-05-06] MEDS: HumaLOG 300 UNITS/3 ML VIAL SC PRN (12:51)
--- NOTE | 2020-05-06 14:18 | PRG ---
DATE OF SERVICE: 05/06/2020 SUBJECTIVE: The patient noted with the following vital signs. OBJECTIVE: VITAL SIGNS: Afebrile, temperature 97.4, pulse 71, respiratory rate of 16, O2 saturations of 92%, blood pressure 141/63. HEENT: Unremarkable. CARDIOVASCULAR SYSTEM: First and second heart sounds were heard. RESPIRATORY SYSTEM: Clear to auscultation. DIGESTIVE SYSTEM: Revealed distended abdomen. EXTREMITIES: No peripheral edema. SKIN: No new gross rash. LYMPHATICS: No peripheral lymphadenopathy. IMPRESSION: 1. Contrast-induced acute tubular necrosis, culminated into end-stage renal disease. 2. Hypervolemia, on hemodialysis. 3. Congestive heart failure. 4. Obesity. 5. Liver cirrhosis. PLAN: 1. The patient was dialyzed yesterday with ultrafiltration as tolerated by hemodynamics. The patient's blood pressure was very labile. We will plan on dialyzing this patient again tomorrow with ultrafiltration as tolerated by hemodynamics. 2. manager competitive intelligence is working on disposition planning/outpatient dialysis placement. 3. Further management to be dependent on the clinical course. Job ID: [id number]
--- NOTE | 2020-05-06 15:10 | PRG ---
DATE OF SERVICE: 05/06/2020 Jenniffer Puentes underwent placement of a cuffed tunneled dialysis catheter yesterday and exploration of right arm finding veins to be inadequate. She has a history of IV drug abuse many years ago. Ultrasound vein mapping suggested veins in left arm may be available for a primary fistula. The patient has cirrhosis. She has acute renal failure secondary to probably contrast nephropathy, superimposed on chronic kidney disease secondary to cirrhosis, hypertension, diabetes, metabolic syndrome, and morbid obesity. At this point, we will not perform any further dialysis access procedures and hope for renal recovery. If her kidneys do not improve, she may need a left arm fistula or prosthetic graft in the future. At this point, I will see her as needed. Job ID: [id number]
[2020-05-06] MEDS ORDERED: Magnesium Citrate 300 ML BOT PO SCH (15:15)
[2020-05-06] MEDS ORDERED: Bisacodyl 10 MG SUPP PR SCH (15:15)
[2020-05-06] MEDS: traZODone HCl 50 MG TAB PO SCH (21:38)
[2020-05-07] MEDS: traMADol HCl 50 MG TAB PO PRN ×2 (02:58→07:44)
--- NOTE | 2020-05-07 05:57 | PDOC.FM ---
- Subjective Subjective: Patient reports bowel movement yesterday, improved abdominal pain. Denies CP, SOB, N/V. Had discussion about hospice with patient. She is interested in hospice options and would like to discuss with family. Discussed that hemodialysis may not be an option while on hospice. - Objective MAR Reviewed: Yes Vital Signs & Weight: Vital Signs (12 hours) Temp Pulse Resp BP Pulse Ox 05/07/20 04:00 97.9 F 59 L 18 138/72 96 05/06/20 20:00 97.8 F 68 16 144/67 H 96 Weight Admit Weight 129.002 kg Weight 119.295 kg I&O: 05/05/20 05/06/20 05/07/20 06:59 06:59 06:59 Intake Total 545 120 660 Output Total 110 Balance 435 120 660 Result Diagrams: 05/02/20 06:37 05/06/20 08:26 Phys Exam - Physical Examination Constitutional: NAD Respiratory: no wheezing, no rales, no rhonchi, clear to auscultation bilateral Cardiovascular: RRR, no significant murmur, no rub Gastrointestinal: soft, positive bowel sounds mildly distended, mildly tender Dx/Plan - Plan Plan: Acute hypoxic respiratory failure 2/2 likely new onset CHF w/exacerbation vs. cirrhosis - CXR: cardiomegaly, b/l pulm vascular enlargement, BNP 1000 - dependent edema - O2: stable NC requirement - ECHO: EF 60-65%, Grade 1/3 diastolic dysfunction - Cardiology and Nephro consulted; GI and EP have signed off - CXR: stable from previous exam, mild edema Constipation - Stool softeners as scheduled, Lactulose JOANNE on CKD -Cr 4.91, worsening -Nephro consulted (04/17): s/p HD yesterday, planning for permanent HD -CM consulted: outpatient HD chair -gen surg, Dr Shell: Tunnel catheter placed 05/05 -discontinued glipizide Chest Pain -CP on 04/30 was reproducible with palpation, trop 0.67, ekg: new T wave inversions V2-V6 -consulted Dr Moreno: trop likely elevated 2/2 dialysis, started Imdur and asa 81mg daily, no other anticoagulation at this time due to risk of GI bleed -likely MSK in origin Afib/flutter with RVR - cardiology, Dr. Moreno consulted on 04/13: indefinite hold on eliquis for now, consider watchman in future - EP, Dr. Edward: PO dilt and dig, consider watchman in future if she can tolerate short course of oral anticoagulation, needs f/u outpt - stopped digoxin due to worsening kidney function - stopped diltiazem 60mg bid 2/2 bradycardia - has hx of paroxysmal A fib, would like to have consistent rate control but difficult given bradycardia into upper 40s Anemia - resolution of N/V with dark emesis, melena - GI consulted, EGD: portal HTN gastropathy, large armount of retained gastric contents, superficial pyloric erosion - protonix Cirrhosis 2/2 Hep C - treated -GI, Dr. Gaspar, consulted on 04/14: no fluid seen for paracentesis, resume furosemide once Cr improves -has had 1 paracentesis in the past -s/p rocephin for SBP ppx Contraction Alkalosis - likely 2/2 to diuresis COPD -s/p Azithromycin and ceftriaxone in ED, will not continue as pt is not in acute exacerbation -dc'd duoneb due to possible urinary retention, albuterol neb prn Chronic thrombocytopenia - At baseline, 2/2 liver disease Hypervolemic hyponatremia - Na 133 - Expect improvement with diuresis Elevated d-dimer - 2.24 with negative CTA DM -Decrease Lantus to 20 u QAM, Will adjust as needed due to pt decreased appetite -DC'd glipizide -accuchecks ACHS, mild SSI Suspected SBO vs Ileus-resolved -KUB: dilated loops of small bowel concerning for SBO -general surgery, Dr Braxton, consulted, appreciate recs -NG tube placed on 04/26, output 250mL overnight, NPO -SBFT: no signs of obstruction. UTI-resolved -UCx: yeast -will do one time fluconazole Hyperkalemia-resolved -resolved, K 3.8 -no EKG changes Hypertensive urgency, resolved - SBP 200 in ED, given hydralazine and nitro paste - Losartan DC'd due to renal function, hydralazine prn - will adjust po meds to optimize control of BP Dispo: Stable, CM consulted for outpt dialysis chair and help with getting patient back to [facility], Hospice/palliative care consulted per patient's request. ready for DC pending OP dialysis. Addendum - Attending - Attending Attestation Date/Time: 05/07/20 2068 I personally evaluated the patient and discussed the management with Dr. Lopez. I agree with the History, Examination, Assessment and Plan documented above with any addition or exceptions noted below. HD chair pending. can d/c once arranged.
[2020-05-07] MEDS ORDERED: Carvedilol 3.125 MG TAB PO SCH ×2 (10:00→17:00)
[2020-05-07] MEDS ORDERED: Heparin 10,000 UNITS/ 10 ML VIAL ONE (10:15)
[2020-05-07] MEDS: Calcium Acetate 667 MG CAP PO SCH ×3 (11:01→17:41)
[2020-05-07] MEDS: Gabapentin 300 MG CAP PO SCH ×3 (11:01→20:23)
[2020-05-07] MEDS: HYDROcodone/Acetaminophen 7.5/325 mg Tablet PO SCH ×3 (11:02→20:24)
[2020-05-07] MEDS: Aspirin 81 mg Enteric Coated Tablet PO SCH (13:49)
[2020-05-07] MEDS: NIFEdipine XL 60 MG TAB PO SCH (13:49)
[2020-05-07] MEDS: Alogliptin 25 MG TAB PO SCH (13:49)
[2020-05-07] MEDS: Polyethylene Glycol 3350 17 GM Packet PO SCH (13:49)
[2020-05-07] MEDS: ALPRAZolam 0.25 MG TAB PO SCH ×2 (13:50→20:23)
[2020-05-07] MEDS: busPIRone HCl 10 MG TAB PO SCH ×2 (13:50→20:23)
[2020-05-07] MEDS: Insulin Glargine 20 UNITS in Pre-Filled Syringe 1 EACH SC SCH (13:51)
--- NOTE | 2020-05-07 14:44 | PRG ---
DATE OF SERVICE: 05/07/2020 OBJECTIVE: VITAL SIGNS: The patient noted with the following vital signs; afebrile, temperature 98.1, pulse 66, respiratory rate of 17, O2 saturations of 97%, blood pressure 128/59. HEENT: Unremarkable. CARDIOVASCULAR SYSTEM: First and second heart sounds were heard. RESPIRATORY SYSTEM: Clear to auscultation. DIGESTIVE SYSTEM: Revealed a distended abdomen. EXTREMITIES: No peripheral edema. LABORATORY INVESTIGATION: Showed a hemoglobin of 8.6. Chemistry showed a creatinine of 3.21. IMPRESSION: 1. Acute tubular necrosis, culminating to end-stage renal disease. 2. Liver cirrhosis. 3. Hypervolemia. 4. Obesity. PLAN: 1. The patient is undergoing hemodialysis with ultrafiltration as tolerated by hemodynamics. We will modify this patient's dialysis today to be able to lay emphasis on ultrafiltration of this patient to improve the well-being on this patient. 2. Outpatient dialysis placement being coordinated by the case operator. 3. Further management to be dependent on the clinical course. Job ID: [id number]
[2020-05-07 16:07] VITALS: BP 115/57
[2020-05-07] MEDS: traZODone HCl 50 MG TAB PO SCH (20:24)
[2020-05-07 21:43] VITALS: TEMP 97.5
--- NOTE | 2020-05-08 11:44 | DIS ---
DATE OF ADMISSION: 04/13/2020 DATE OF DISCHARGE: 05/07/2020 RESIDENT: Jorje Lopez MD ADMITTING ATTENDING: Stewart Suarez MD DISCHARGE ATTENDING: Adolph Crespo MD CONSULTS: 1. Cardiology, Dr. Moreno was consulted on 04/13/2020. 2. Electrophysiology, Dr. Edward, consulted on 04/13/2020. 3. Gastroenterology, Dr. Gaspar, consulted on 04/14/2020. 4. General Surgery, Dr. Braxton, consulted on 04/25/2020. 5. General Surgery, Dr. Shell, consulted on 05/02/2020. 6. Nephrology, Dr. Troy Dhaliwal, consulted on 04/17/2020. PROCEDURES: 1. The patient underwent a tunnel cath placement on 05/05/2020. Right AV fistula formation on the upper extremity was attempted, however, not completed due to differences in vasculature from vein mapping. The patient had echocardiogram on 04/30/2020, showing EF of 55% to 60% with left ventricular hypertrophy, mild mitral regurgitation, and mildly elevated pulmonary artery pressure. 2. Small-bowel x-ray on 04/28/2020, showing no evidence of obstruction. 3. Chest x-ray 04/26/2020, showing stable chest x-ray with cardiomegaly and bilateral vascular congestion with possible mild edema and left pleural effusion. Abdominal x-ray, 04/25/2020, shows distended air-filled loops of small bowel concerning for SBO. 4. Renal ultrasound done 04/19/2020, shows no focal solid renal lesion or hydronephrosis. Bilateral renal cysts. 5. The patient had endoscopy, EGD showing evidence of portal hypertensive gastropathy, esophagitis, and pyloric erosion. Also showed large amount of retained gastric contents. 6. Abdominal ultrasound 04/15/2020, showed no evidence of ascites. 7. Chest/thorax CTA on admission showed no evidence of PE. PRIMARY DIAGNOSIS: Acute hypoxic respiratory failure due to possible new onset CHF versus cirrhosis. SECONDARY DIAGNOSES: 1. Acute renal failure. 2. End-stage renal disease, on hemodialysis. 3. Constipation. 4. Chest pain. 5. Atrial fibrillation/flutter with RVR. 6. Paroxysmal atrial fibrillation. 7. Anemia. 8. Cirrhosis due to treated hepatitis C. 9. Chronic obstructive pulmonary disease. 10. Chronic thrombocytopenia. 11. Hypervolemic hyponatremia. 12. Elevated D-dimer with no evidence of pulmonary embolism. 13. Insulin-dependent diabetes mellitus. 14. Urinary tract infection. 15. Hyperkalemia. 16. Hypertensive urgency. DISCHARGE MEDICATIONS: 1. Fosamax 70 mg p.o. q.7 days. 2. Alprazolam 0.25 mg p.o. b.i.d. p.r.n. 3. Abilify 50 mg p.o. daily. 4. Aspirin 81 mg p.o. daily. 5. BuSpar 10 mg p.o. b.i.d. 6. PhosLo two caps p.o. t.i.d. with meals. 7. Coreg 3.125 mg p.o. b.i.d. 8. Zyrtec 10 mg p.o. p.r.n. daily. 9. Docusate 100 mg p.o. daily. 10. Fentanyl 12 mcg transdermal patch q.3 days. 11. [place] 7.5 mg/325 mg one tablet p.o. t.i.d. 12. Insulin Lantus 20 units subcutaneously q.a.m. 13. Imdur extended release 30 mg p.o. daily. 14. Lactulose 20 g p.o. t.i.d. 15. Loperamide 2 mg p.o. p.r.n. 16. Melatonin 3 mg p.o. at bedtime. 17. Nifedipine 60 mg p.o. daily. 18. Zofran 4 mg p.o. q.4 hours p.r.n. 19. Protonix 40 mg p.o. daily. 20. MiraLAX 17 g p.o. daily. 21. Zoloft 100 mg p.o. daily. 22. Trazodone 100 mg p.o. at bedtime. DISCONTINUED HOME MEDICATIONS: 1. Diltiazem was started and discontinued in the hospital. 2. Digoxin discontinued due to decreasing renal function. 3. Alogliptin discontinued. 4. Lasix discontinued. 5. Propranolol discontinued. 6. Lyrica discontinued. HISTORY OF PRESENT ILLNESS/HOSPITAL COURSE: The patient is a 64-year-old female with a history of cirrhosis with treated hepatitis C, COPD, and diabetes type 2, who presented initially with worsening shortness of breath. She came from [facility] in [place]. She was treated for UTI approximately 2 weeks before admission and then described increasing swelling in her extremities with orthopnea and a feeling of drowning. The patient was treated for acute hypoxic respiratory failure and improved. However, hospital stay was complicated by NSTEMI, concern for GI bleed, acute renal failure. For NSTEMI, cardiology was consulted. The patient went into atrial fibrillation/a flutter with RVR. The patient was treated with diltiazem, which was eventually stopped due to episodes of bradycardia and replaced with carvedilol. Echo was done with results as above. Cardiology recommended no anticoagulation. Dr. Moreno saw the patient while in hospital. Dr. Edward, our seo coordinator, also saw the patient and recommended outpatient followup with him. The patient was anemic and had endoscopy with results as above. Hemoglobin was stable throughout hospital stay. Acute renal failure initially thought due to changes in hemodynamic status. Nephrotoxic agents removed including digoxin. The patient was started on hemodialysis after no improvement in kidney function. The patient will continue outpatient dialysis as scheduled and follow with Dr. Troy Dhaliwal. At the time of discharge, the patient is stable on hemodialysis with other problems managed and stable. I had discussion with the patient multiple times about hospice care. Per the patient, she was previously on hospice and then came off hospice. At this time, after discussion with the patient and family, they do not want to follow up with hospice evaluation. The patient would like to continue dialysis at this time. DISPOSITION: Stable. DISCHARGE INSTRUCTIONS: 1. Location: [facility] in [place]. 2. Diet: Heart healthy, renal high-protein. 3. Activity: As tolerated. 4. Followup: The patient should follow up with Dr. Edward, electrophysiology, within 4 to 6 weeks. The patient should follow up with Dr. Shell, General Surgery, in 4 to 6 weeks for re-evaluation of AV fistula placement. The patient should follow up with Gastroenterology, Dr. Hubert david. The patient should follow up with Dr. Dhaliwal within 2 weeks. The patient should follow up with PCP within 2 weeks. The patient should receive physical therapy and occupational therapy while in longterm facility. Job ID: [id number]
== END 2020-05-07 10:50 | disposition home health service (06) | DRG 280 ==
LOC: ERS 23:11 → 2NO 04-13 02:36
PROVIDERS: ADMIT Student in an Organized Health Care Education/Training Program; ATTEND Family Medicine
PROC: 0DJ08ZZ Inspection of Upper Intestinal Tract, Via Natural or Artificial Opening Endoscopic (ICD-10-PCS; principal; 2020-04-18)
PROC: 06HY33Z Insertion of Infusion Device into Lower Vein, Percutaneous Approach (ICD-10-PCS; 2020-04-26)
PROC: 0JH63XZ Insertion of Tunneled Vascular Access Device into Chest Subcutaneous Tissue and Fascia, Percutaneous Approach (ICD-10-PCS; 2020-05-05)
PROC: 02HV33Z Insertion of Infusion Device into Superior Vena Cava, Percutaneous Approach (ICD-10-PCS; 2020-05-05)
DX: I13.0 Hypertensive heart and chronic kidney disease with heart failure and stage 1 through stage 4 chronic kidney disease, or unspecified chronic kidney disease (principal); J96.01 Acute respiratory failure with hypoxia; I21.4 Non-ST elevation (NSTEMI) myocardial infarction; I50.33 Acute on chronic diastolic (congestive) heart failure; N17.0 Acute kidney failure with tubular necrosis; N18.6 End stage renal disease; E87.1 Hypo-osmolality and hyponatremia; I48.92 Unspecified atrial flutter; E87.3 Alkalosis; R18.8 Other ascites; K76.6 Portal hypertension; Z68.42 Body mass index [BMI] 45.0-49.9, adult; K92.2 Gastrointestinal hemorrhage, unspecified; K56.7 Ileus, unspecified; K56.600 Partial intestinal obstruction, unspecified as to cause; E83.39 Other disorders of phosphorus metabolism; J44.9 Chronic obstructive pulmonary disease, unspecified; F31.9 Bipolar disorder, unspecified; F17.210 Nicotine dependence, cigarettes, uncomplicated; F41.9 Anxiety disorder, unspecified; K74.60 Unspecified cirrhosis of liver; R33.9 Retention of urine, unspecified; E11.22 Type 2 diabetes mellitus with diabetic chronic kidney disease; B19.20 Unspecified viral hepatitis C without hepatic coma; I16.0 Hypertensive urgency; N18.9 Chronic kidney disease, unspecified; E66.01 Morbid (severe) obesity due to excess calories; K21.00 Gastro-esophageal reflux disease with esophagitis, without bleeding; K25.9 Gastric ulcer, unspecified as acute or chronic, without hemorrhage or perforation; I48.0 Paroxysmal atrial fibrillation; K31.89 Other diseases of stomach and duodenum; D69.6 Thrombocytopenia, unspecified; Z90.49 Acquired absence of other specified parts of digestive tract; Z90.710 Acquired absence of both cervix and uterus; Z79.4 Long term (current) use of insulin; Z98.51 Tubal ligation status; Z88.2 Allergy status to sulfonamides; Z79.899 Other long term (current) drug therapy; Z79.01 Long term (current) use of anticoagulants
CPT/HCPCS: 36415; 36416; 71045; 71275; 74018; 74250; 76705; 76770; 80048; 80053; 80061; 80069; 80162; 81001; 81003; 81015; 82553; 82565; 83605; 83735; 83880; 84100; 84443; 84484; 85014; 85018; 85025; 85049; 85379; 85610; 85730; 86580; 86704; 86706; 86803; 87040; 87086; 87324; 87340; 87449; 87522; 90935; 93005; 93010; 93306; 93970; 94640; 94660; 96374; 96375; C1751; C1752; C9113; G0257; J0360; J0456; J0690; J0696; J1160; J1642; J1644; J1650; J1815; J1940; J2060; J2370; J2405; J2550; J2704; J2720; J2765; J2930; J3010; J3475; J3490; J7620; Q0162; Q9967; S0020; S0028; U0002

== ENCOUNTER 2020-06-03 09:59 | Day surgery (SDC) | payer MEDICARE, MEDICAID ==
[2020-06-02 10:35] VITALS: BMI 43.8
[2020-06-03 11:33] LABS: #Eosinphils 0.1 thou/uL (0.0-0.7); #Lymphocytes 0.7 thou/uL (1.20-3.40); #Monocytes 0.3 thou/uL (0.11-0.59); #Neutrophils 2.8 thou/uL (1.40-6.50); %Basophils 0.2 % (0.0-1.0); %Eosinophils 1.8 % (0.0-10.0); %Lymphocytes 17.8 % (21.0-51.0); %Monocytes 7.4 % (0.0-10.0); %Neutrophils 72.8 % (42.0-75.0); Hemoglobin 12.2 g/dL (12.0-16.0); Mean Corpuscular HGB CONC 31.3 g/dL (32.0-36.0); Mean Corpuscular Hemoglobin 29.1 pg (27.0-31.0); Platelet Count 57 thou/uL (130-400); RBC Distribution Width 16.9 % (11.5-14.5); Red Blood Cell (RBC) Count 4.19 mill/uL (4.20-5.40); White Blood Cell (WBC) Count 3.8 thou/uL (4.8-10.8)
[2020-06-03 11:53] LABS: MDiff Complete? YES; Platelet Morphology Comment Appears Decreased; Polychromasia SLIGHT = 2-3 cells (100X) (0-2/hpf)
[2020-06-03 12:04] LABS: Anion Gap 10 mmol/L (10-20); BUN (Urea Nitrogen) 16 mg/dL (9.8-20.1); Calc. Creatinine Clearance 63 mL/min (70-130); Calcium 7.6 mg/dL (7.8-10.44); Carbon Dioxide 26 mmol/L (23-31); Chloride 106 mmol/L (98-107); Glucose 254 mg/dL (80-115); Potassium 3.5 mmol/L (3.5-5.1); Sodium 138 mmol/L (136-145)
[2020-06-03] MEDS ORDERED: Ondansetron PF 4 MG/2 ML Vial ONE ×2 (12:08→13:17)
[2020-06-03] MEDS ORDERED: Fentanyl 100 MCG/2 ML VIAL ONE (12:47)
[2020-06-03] MEDS ORDERED: Lidocaine 2% Jelly 5 ML TUBE ONE (12:47)
[2020-06-03] MEDS ORDERED: XYLOCAINE 2%-EPI 1:100,000 20 ML VIAL ONE (12:55)
[2020-06-03] MEDS ORDERED: Bupivacaine PF 0.5% 30 ML VIAL ONE (12:55)
[2020-06-03] MEDS ORDERED: Protamine Sulfate 50 MG/5 ML VIAL ONE (12:56)
[2020-06-03] MEDS ORDERED: Heparin 5,000 UNITS/ML VIAL ONE (12:56)
[2020-06-03] MEDS ORDERED: Phenylephrine 10 MG/ML VIAL ONE (13:04)
[2020-06-03] MEDS ORDERED: Rocuronium Bromide 10 MG/ML (10ML VIAL) ONE (13:17)
[2020-06-03] MEDS ORDERED: Lidocaine 1% PF 5 ML VIAL ONE (13:17)
[2020-06-03] MEDS ORDERED: Labetalol HCl 100 MG/20 ML VIAL ONE (13:17)
[2020-06-03] MEDS ORDERED: PHENYLEPHRINE-NS 100 MCG/ML 10 ML SYRINGE ONE (13:17)
[2020-06-03] MEDS ORDERED: PROPOFOL 200 MG/20 ML VIAL ONE (13:17)
[2020-06-03] MEDS ORDERED: Esmolol 100 MG/10 ML VIAL ONE (13:17)
[2020-06-03] MEDS ORDERED: Dexamethasone 20 MG/5 ML VIAL ONE (13:17)
[2020-06-03] MEDS ORDERED: SUGAMMADEX SODIUM 500 MG/5 ML VIAL ONE (14:48)
[2020-06-03] MEDS ORDERED: Heparin 1,000 UNITS/ML VIAL ONE (16:28)
[2020-06-03] MEDS ORDERED: HYDROcodone/Acetaminophen 5/325 mg Tablet ONE (16:35)
== END 2020-06-03 17:11 ==
LOC: SDC 09:59
PROVIDERS: ATTEND Specialist
PROC: 03180JD Bypass Left Brachial Artery to Upper Arm Vein with Synthetic Substitute, Open Approach (ICD-10-PCS; principal; 2020-06-03)
DX: E11.22 Type 2 diabetes mellitus with diabetic chronic kidney disease (principal); N18.6 End stage renal disease; E03.9 Hypothyroidism, unspecified; E66.01 Morbid (severe) obesity due to excess calories; Z68.41 Body mass index [BMI] 40.0-44.9, adult; Z79.4 Long term (current) use of insulin; Z79.82 Long term (current) use of aspirin; Z79.83 Long term (current) use of bisphosphonates; Z79.899 Other long term (current) drug therapy; Z88.2 Allergy status to sulfonamides; Z99.2 Dependence on renal dialysis; Z99.3 Dependence on wheelchair
CPT/HCPCS: 80048; 85025; J0690; J1100; J1644; J2370; J2405; J2704; J2720; J3010; L8670; S0020

== ENCOUNTER 2020-06-12 16:36 | Inpatient (IN) | payer MEDICARE, MEDICAID ==
[2020-06-12 17:51] LABS: #Eosinphils 0.1 thou/uL (0.0-0.7); #Lymphocytes 0.8 thou/uL (1.20-3.40); #Monocytes 0.3 thou/uL (0.11-0.59); #Neutrophils 3.4 thou/uL (1.40-6.50); %Basophils 0.2 % (0.0-1.0); %Eosinophils 1.7 % (0.0-10.0); %Lymphocytes 16.6 % (21.0-51.0); %Monocytes 7.5 % (0.0-10.0); Hemoglobin 11.6 g/dL (12.0-16.0); Mean Corpuscular HGB CONC 32.8 g/dL (32.0-36.0); Mean Corpuscular Hemoglobin 30.5 pg (27.0-31.0); Mean Corpuscular Volume 93.1 fL (78.0-98.0); Mean Platelet Volume 8.2 fL (7.4-10.4); Platelet Count 98 thou/uL (130-400); RBC Distribution Width 17.3 % (11.5-14.5); Red Blood Cell (RBC) Count 3.79 mill/uL (4.20-5.40); White Blood Cell (WBC) Count 4.5 thou/uL (4.8-10.8)
[2020-06-12 18:11] LABS: ALT (SGPT) 9 U/L (8-55); AST (SGOT) 19 U/L (5-34); Albumin 3.6 g/dL (3.4-4.8); Alkaline Phosphatase 77 U/L (40-110); Anion Gap 12 mmol/L (10-20); BUN (Urea Nitrogen) 19 mg/dL (9.8-20.1); Bilirubin, Total 0.7 mg/dL (0.2-1.2); Calc. Creatinine Clearance 0 mL/min (70-130); Carbon Dioxide 23 mmol/L (23-31); Chloride 109 mmol/L (98-107); Globulin 3.6 g/dL (2.4-3.5); Glucose 153 mg/dL (80-115); Magnesium 1.2 mg/dL (1.6-2.6); Potassium 3.7 mmol/L (3.5-5.1); Protein, Total 7.2 g/dL (5.8-8.1); Sodium 140 mmol/L (136-145)
[2020-06-12 18:19] LABS: Calcium 5.9 mg/dL (7.8-10.44)
[2020-06-12 18:22] LABS: Bacteria/HPF None Seen HPF (None Seen); Bilirubin Negative (Negative); Blood, Urine 2+ (Negative); Clarity Clear (Clear); Glucose, Urine (Dipstick) 150 mg/dL (Negative); Ketone, Urine Negative (Negative); Leukocyte Negative Leu/uL (Negative); Nitrite Negative (Negative); Protein, Urine (Dipstick) 200 mg/dL (Neg-Trace); Specific Gravity, Urine 1.022 (1.002-1.036); Squamous Epithelial 0-3 HPF (0-3); Urobilinogen Normal mg/dL (Less than 2); WBC/HPF 0-3 HPF (0-3); pH, Urine 5.5 (5.0-9.0)
[2020-06-12] MEDS ORDERED: Calcium Gluc 4.6 MEQ/10 ML (100 MG/ML) ONE (19:03)
[2020-06-12] MEDS ORDERED: Magnesium 2 GM/50 ML BAG (IN WATER) ONE (19:03)
[2020-06-12] MEDS ORDERED: Metoprolol Tartrate 5 MG/5 ML VIAL ONE (20:37)
[2020-06-12] MEDS ORDERED: Ondansetron ODT 4 MG TAB PO PRN (20:38)
[2020-06-12] MEDS ORDERED: Lorazepam 0.5 MG TAB PO SCH (20:49)
[2020-06-12] MEDS ORDERED: Dextrose 5% in Water 1,000 ML IV PRN (21:03)
[2020-06-12] MEDS ORDERED: Dextrose 50% Abboject 50 ML SYRINGE SLOW IVP PRN (21:03)
[2020-06-12 22:11] LABS: ALT (SGPT) 10 U/L (8-55); AST (SGOT) 20 U/L (5-34); Albumin 3.6 g/dL (3.4-4.8); Alkaline Phosphatase 76 U/L (40-110); Anion Gap 12 mmol/L (10-20); BUN (Urea Nitrogen) 18 mg/dL (9.8-20.1); Bilirubin, Total 0.8 mg/dL (0.2-1.2); Calc. Creatinine Clearance 78 mL/min (70-130); Calcium 6.2 mg/dL (7.8-10.44); Carbon Dioxide 23 mmol/L (23-31); Chloride 108 mmol/L (98-107); Globulin 3.7 g/dL (2.4-3.5); Glucose 134 mg/dL (80-115); Magnesium 1.8 mg/dL (1.6-2.6); Potassium 3.6 mmol/L (3.5-5.1); Protein, Total 7.3 g/dL (5.8-8.1); Sodium 139 mmol/L (136-145)
[2020-06-12 22:14] LABS: Troponin I 0.013 ng/mL (< 0.028)
[2020-06-12] MEDS ORDERED: Calcium Gluc 4.6 MEQ/10 ML (100 MG/ML) SLOW IVP SCH (23:45)
[2020-06-13 00:26] LABS: Troponin I 0.012 ng/mL (< 0.028)
[2020-06-13 01:30] LABS: ALT (SGPT) 12 U/L (8-55); AST (SGOT) 23 U/L (5-34); Albumin 3.7 g/dL (3.4-4.8); Alkaline Phosphatase 83 U/L (40-110); Anion Gap 13 mmol/L (10-20); BUN (Urea Nitrogen) 18 mg/dL (9.8-20.1); Bilirubin, Total 0.9 mg/dL (0.2-1.2); Calc. Creatinine Clearance 74 mL/min (70-130); Calcium 6.8 mg/dL (7.8-10.44); Carbon Dioxide 20 mmol/L (23-31); Chloride 108 mmol/L (98-107); Globulin 4.1 g/dL (2.4-3.5); Glucose 145 mg/dL (80-115); Potassium 3.6 mmol/L (3.5-5.1); Protein, Total 7.8 g/dL (5.8-8.1); Sodium 137 mmol/L (136-145)
[2020-06-13] MEDS ORDERED: Calcium Carbonate 500 MG ChewTAB PO SCH (01:45)
[2020-06-13] MEDS ORDERED: Calcium Gluc 4.6 MEQ/10 ML (100 MG/ML) SLOW IVP SCH (02:00)
[2020-06-13] MEDS ORDERED: SODIUM CHLORIDE 0.9% IVPB SCH (02:30)
[2020-06-13] MEDS ORDERED: CALCIUM GLUCONATE IVPB SCH (02:30)
[2020-06-13] MEDS ORDERED: Magnesium 2 GM/50 ML 2 GM in Premix Bag 1 BAG IVPB SCH (02:45)
[2020-06-13] MEDS ORDERED: PHOS-NAK 1 PKT PACK PO SCH (03:15)
[2020-06-13] MEDS ORDERED: GUAIFENESIN SF SOLN 200 MG/10 ML UDCUP PO PRN (05:10)
[2020-06-13] MEDS ORDERED: Alendronate Sodium 70 mg Tablet PO SCH (05:15)
[2020-06-13 05:24] LABS: SARS-CoV-2 PCR by NAA Not Detected (NotDetected)
[2020-06-13 05:35] LABS: #Eosinphils 0.1 thou/uL (0.0-0.7); #Lymphocytes 0.7 thou/uL (1.20-3.40); #Monocytes 0.3 thou/uL (0.11-0.59); #Neutrophils 2.8 thou/uL (1.40-6.50); %Eosinophils 2.7 % (0.0-10.0); %Monocytes 8.7 % (0.0-10.0); %Neutrophils 70.7 % (42.0-75.0); Hemoglobin 10.9 g/dL (12.0-16.0); Mean Corpuscular HGB CONC 32.6 g/dL (32.0-36.0); Mean Corpuscular Hemoglobin 30.5 pg (27.0-31.0); Mean Corpuscular Volume 93.5 fL (78.0-98.0); Mean Platelet Volume 8.7 fL (7.4-10.4); Platelet Count 84 thou/uL (130-400); RBC Distribution Width 17.2 % (11.5-14.5); Red Blood Cell (RBC) Count 3.57 mill/uL (4.20-5.40)
[2020-06-13 05:59] LABS: ALT (SGPT) 11 U/L (8-55); AST (SGOT) 20 U/L (5-34); Albumin 3.1 g/dL (3.4-4.8); Alkaline Phosphatase 71 U/L (40-110); Anion Gap 15 mmol/L (10-20); BUN (Urea Nitrogen) 16 mg/dL (9.8-20.1); Bilirubin, Total 0.7 mg/dL (0.2-1.2); Calc. Creatinine Clearance 85 mL/min (70-130); Calcium 6.5 mg/dL (7.8-10.44); Carbon Dioxide 16 mmol/L (23-31); Chloride 109 mmol/L (98-107); Globulin 3.4 g/dL (2.4-3.5); Glucose 201 mg/dL (80-115); Magnesium 2.1 mg/dL (1.6-2.6); Potassium 3.2 mmol/L (3.5-5.1); Protein, Total 6.5 g/dL (5.8-8.1); Sodium 137 mmol/L (136-145)
[2020-06-13] MEDS: HumaLOG 300 UNITS/3 ML VIAL SC PRN ×3 (06:35→17:18)
[2020-06-13] MEDS ORDERED: Potassium Chloride 20 MEQ TAB PO SCH (07:00)
[2020-06-13] MEDS ORDERED: Carvedilol 3.125 MG TAB PO SCH ×2 (08:00→11:45)
[2020-06-13 08:04] LABS: Thyroid Stimulating Hormone 3.5813 uIU/mL (0.35-4.94); Vitamin D, 25 Hydroxy 12.5 ng/ml (> 30.0)
[2020-06-13] MEDS ORDERED: Enoxaparin Sodium 40 MG/0.4 ML SYRINGE SC SCH (09:00)
[2020-06-13] MEDS: Nitroglycerin 0.4 MG TAB (25 Tab Bottle) SL PRN ×3 (09:10→15:18)
[2020-06-13] MEDS: PHOS-NAK 1 PKT PACK PO SCH ×3 (09:20→21:13)
[2020-06-13] MEDS: Aripiprazole 15 MG TAB PO SCH (09:22)
[2020-06-13] MEDS: ALPRAZolam 0.5 MG TAB PO SCH ×2 (09:22→21:13)
[2020-06-13] MEDS: Aspirin 81 mg Enteric Coated Tablet PO SCH (09:23)
[2020-06-13] MEDS: Cholecalciferol 1,000 UNITS (25 MCG) TAB PO SCH (09:23)
[2020-06-13] MEDS: busPIRone HCl 10 MG TAB PO SCH ×2 (09:23→21:13)
[2020-06-13 09:29] LABS: ALT (SGPT) 10 U/L (8-55); AST (SGOT) 20 U/L (5-34); Albumin 3.5 g/dL (3.4-4.8); Alkaline Phosphatase 81 U/L (40-110); Anion Gap 12 mmol/L (10-20); BUN (Urea Nitrogen) 15 mg/dL (9.8-20.1); Bilirubin, Total 0.7 mg/dL (0.2-1.2); Calc. Creatinine Clearance 89 mL/min (70-130); Calcium 7.2 mg/dL (7.8-10.44); Carbon Dioxide 22 mmol/L (23-31); Chloride 109 mmol/L (98-107); Globulin 3.7 g/dL (2.4-3.5); Glucose 149 mg/dL (80-115); Potassium 3.6 mmol/L (3.5-5.1); Protein, Total 7.2 g/dL (5.8-8.1); Sodium 139 mmol/L (136-145)
[2020-06-13] MEDS ORDERED: Diltiazem HCl SR 60 mg Capsule PO SCH (09:30)
[2020-06-13 09:33] LABS: Troponin I 0.026 ng/mL (< 0.028)
[2020-06-13] MEDS ORDERED: Albuterol Sulfate 2.5 mg/3 ml Neb NEB PRN (09:49)
[2020-06-13] MEDS ORDERED: Calcium Carbonate 600 MG + Vit D TAB PO SCH ×2 (10:24→10:30)
[2020-06-13] MEDS: Polyethylene Glycol 3350 17 GM Packet PO SCH (10:35)
[2020-06-13] MEDS: Heparin 5,000 UNITS/ML VIAL SC SCH ×3 (12:46→21:28)
[2020-06-13 14:11] LABS: ALT (SGPT) 12 U/L (8-55); AST (SGOT) 22 U/L (5-34); Albumin 3.4 g/dL (3.4-4.8); Alkaline Phosphatase 80 U/L (40-110); Anion Gap 19 mmol/L (10-20); BUN (Urea Nitrogen) 15 mg/dL (9.8-20.1); Bilirubin, Total 0.8 mg/dL (0.2-1.2); Calc. Creatinine Clearance 87 mL/min (70-130); Calcium 7.2 mg/dL (7.8-10.44); Carbon Dioxide 15 mmol/L (23-31); Chloride 109 mmol/L (98-107); Globulin 3.8 g/dL (2.4-3.5); Glucose 147 mg/dL (80-115); Potassium 3.8 mmol/L (3.5-5.1); Protein, Total 7.2 g/dL (5.8-8.1); Sodium 139 mmol/L (136-145)
[2020-06-13 15:48] LABS: ALT (SGPT) 11 U/L (8-55); AST (SGOT) 20 U/L (5-34); Albumin 3.3 g/dL (3.4-4.8); Alkaline Phosphatase 76 U/L (40-110); Anion Gap 11 mmol/L (10-20); BUN (Urea Nitrogen) 15 mg/dL (9.8-20.1); Bilirubin, Total 0.8 mg/dL (0.2-1.2); Calc. Creatinine Clearance 89 mL/min (70-130); Calcium 7.1 mg/dL (7.8-10.44); Carbon Dioxide 20 mmol/L (23-31); Chloride 111 mmol/L (98-107); Globulin 3.4 g/dL (2.4-3.5); Glucose 214 mg/dL (80-115); Potassium 4.4 mmol/L (3.5-5.1); Protein, Total 6.7 g/dL (5.8-8.1); Sodium 138 mmol/L (136-145)
[2020-06-13] MEDS: Carvedilol 3.125 MG TAB PO SCH (17:13)
[2020-06-13] MEDS: Diltiazem HCl SR 60 mg Capsule PO SCH (21:13)
[2020-06-13] MEDS: traZODone HCl 50 MG TAB PO SCH (21:14)
[2020-06-14 07:24] LABS: Phosphorus 1.1 mg/dL (2.3-4.7)
[2020-06-14 07:25] LABS: ALT (SGPT) 11 U/L (8-55); AST (SGOT) 18 U/L (5-34); Albumin 3.1 g/dL (3.4-4.8); Alkaline Phosphatase 70 U/L (40-110); Anion Gap 14 mmol/L (10-20); BUN (Urea Nitrogen) 15 mg/dL (9.8-20.1); Bilirubin, Total 0.8 mg/dL (0.2-1.2); Calc. Creatinine Clearance 90 mL/min (70-130); Calcium 6.7 mg/dL (7.8-10.44); Carbon Dioxide 20 mmol/L (23-31); Chloride 110 mmol/L (98-107); Globulin 3.4 g/dL (2.4-3.5); Glucose 155 mg/dL (80-115); Potassium 3.4 mmol/L (3.5-5.1); Protein, Total 6.5 g/dL (5.8-8.1); Sodium 141 mmol/L (136-145)
[2020-06-14] MEDS ORDERED: Potassium Chloride 20 MEQ TAB PO SCH (08:00)
[2020-06-14 08:35] LABS: Magnesium 1.8 mg/dL (1.6-2.6)
[2020-06-14 08:37] LABS: Phosphorus 1.1 mg/dL (2.3-4.7)
[2020-06-14] MEDS ORDERED: Ergocalciferol 1.25 MG(50,000 UNITS) CAP PO SCH (09:00)
[2020-06-14] MEDS: ALPRAZolam 0.5 MG TAB PO SCH ×2 (09:45→20:37)
[2020-06-14] MEDS: Carvedilol 3.125 MG TAB PO SCH ×2 (09:48→16:42)
[2020-06-14] MEDS: Calcium Carbonate 600 MG + Vit D TAB PO SCH (09:48)
[2020-06-14] MEDS: Cholecalciferol 1,000 UNITS (25 MCG) TAB PO SCH (09:49)
[2020-06-14] MEDS: Aspirin 81 mg Enteric Coated Tablet PO SCH (09:49)
[2020-06-14] MEDS: Aripiprazole 15 MG TAB PO SCH (09:49)
[2020-06-14] MEDS: busPIRone HCl 10 MG TAB PO SCH ×2 (09:49→20:36)
[2020-06-14] MEDS: PHOS-NAK 1 PKT PACK PO SCH ×3 (09:50→20:36)
[2020-06-14] MEDS: Heparin 5,000 UNITS/ML VIAL SC SCH (10:04)
[2020-06-14] MEDS: Diltiazem HCl SR 60 mg Capsule PO SCH ×3 (10:05→20:37)
[2020-06-14] MEDS: HumaLOG 300 UNITS/3 ML VIAL SC PRN ×2 (10:38→16:42)
[2020-06-14] MEDS ORDERED: Magnesium 2 GM/50 ML 1 GM in Premix Bag 1 BAG IVPB SCH (10:45)
[2020-06-14] MEDS: Polyethylene Glycol 3350 17 GM Packet PO SCH (12:19)
[2020-06-14] MEDS: traZODone HCl 50 MG TAB PO SCH (20:37)
[2020-06-14] MEDS: Nitroglycerin 0.4 MG TAB (25 Tab Bottle) SL PRN (23:37)
[2020-06-15 04:47] LABS: Albumin 3.3 g/dL (3.4-4.8); Anion Gap 10 mmol/L (10-20); BUN (Urea Nitrogen) 16 mg/dL (9.8-20.1); BUN/Creatinine Ratio 13.22; Calc. Creatinine Clearance 78 mL/min (70-130); Calcium 6.4 mg/dL (7.8-10.44); Carbon Dioxide 23 mmol/L (23-31); Chloride 111 mmol/L (98-107); Glucose 186 mg/dL (80-115); Magnesium 1.9 mg/dL (1.6-2.6); Potassium 4.2 mmol/L (3.5-5.1); Sodium 140 mmol/L (136-145)
[2020-06-15] MEDS: HumaLOG 300 UNITS/3 ML VIAL SC PRN ×3 (06:45→16:28)
[2020-06-15] MEDS ORDERED: hydrOXYzine 25 MG TAB PO PRN (07:50)
[2020-06-15] MEDS ORDERED: HYDROcodone/Acetaminophen 7.5/325 mg Tablet PO SCH (08:00)
[2020-06-15] MEDS ORDERED: Calcium Gluconate 4.6 MEQ in Sodium Chloride 0.9% 100 ML IVPB SCH (08:24)
[2020-06-15] MEDS ORDERED: Sodium Phosphate 30 MMOL in Sodium Chloride 0.9% 250 ML 250 ML IVPB SCH (08:30)
[2020-06-15] MEDS: Calcium Carbonate 600 MG + Vit D TAB PO SCH (08:52)
[2020-06-15] MEDS: Carvedilol 3.125 MG TAB PO SCH ×2 (08:52→16:27)
[2020-06-15] MEDS: Aspirin 81 mg Enteric Coated Tablet PO SCH (08:53)
[2020-06-15] MEDS: Diltiazem HCl SR 60 mg Capsule PO SCH ×3 (08:53→20:19)
[2020-06-15] MEDS: Cholecalciferol 1,000 UNITS (25 MCG) TAB PO SCH (08:53)
[2020-06-15] MEDS: ALPRAZolam 0.5 MG TAB PO SCH ×2 (08:53→20:20)
[2020-06-15] MEDS: Aripiprazole 15 MG TAB PO SCH (08:53)
[2020-06-15] MEDS: busPIRone HCl 10 MG TAB PO SCH ×2 (08:53→20:19)
[2020-06-15] MEDS: Enoxaparin Sodium 40 MG/0.4 ML SYRINGE SC SCH (08:54)
[2020-06-15] MEDS: Polyethylene Glycol 3350 17 GM Packet PO SCH ×2 (08:54)
[2020-06-15] MEDS ORDERED: PHOS-NAK 1 PKT PACK PO SCH (09:00)
[2020-06-15] MEDS ORDERED: Calcium Carbonate 500 MG ChewTAB PO SCH (09:00)
[2020-06-15 13:10] LABS: #Eosinphils 0.1 thou/uL (0.0-0.7); #Lymphocytes 0.6 thou/uL (1.20-3.40); #Monocytes 0.3 thou/uL (0.11-0.59); #Neutrophils 2.3 thou/uL (1.40-6.50); %Basophils 0.3 % (0.0-1.0); %Eosinophils 2.5 % (0.0-10.0); %Lymphocytes 18.8 % (21.0-51.0); %Neutrophils 69.3 % (42.0-75.0); Hemoglobin 10.7 g/dL (12.0-16.0); Mean Corpuscular HGB CONC 33.4 g/dL (32.0-36.0); Mean Corpuscular Hemoglobin 31.5 pg (27.0-31.0); Mean Corpuscular Volume 94.2 fL (78.0-98.0); Platelet Count 73 thou/uL (130-400); RBC Distribution Width 17.4 % (11.5-14.5); White Blood Cell (WBC) Count 3.3 thou/uL (4.8-10.8)
[2020-06-15] MEDS: HYDROcodone/Acetaminophen 7.5/325 mg Tablet PO PRN (14:54)
[2020-06-15 17:12] LABS: ALT (SGPT) 12 U/L (8-55); AST (SGOT) 16 U/L (5-34); Albumin 3.1 g/dL (3.4-4.8); Alkaline Phosphatase 71 U/L (40-110); Anion Gap 12 mmol/L (10-20); BUN (Urea Nitrogen) 16 mg/dL (9.8-20.1); Bilirubin, Total 0.6 mg/dL (0.2-1.2); Calc. Creatinine Clearance 74 mL/min (70-130); Calcium 6.3 mg/dL (7.8-10.44); Carbon Dioxide 20 mmol/L (23-31); Chloride 112 mmol/L (98-107); Globulin 3.4 g/dL (2.4-3.5); Glucose 218 mg/dL (80-115); Phosphorus 2.6 mg/dL (2.3-4.7); Potassium 3.9 mmol/L (3.5-5.1); Protein, Total 6.5 g/dL (5.8-8.1); Sodium 140 mmol/L (136-145)
[2020-06-15] MEDS: traZODone HCl 50 MG TAB PO SCH (20:19)
[2020-06-16 04:46] LABS: Albumin 3.1 g/dL (3.4-4.8); Anion Gap 13 mmol/L (10-20); BUN (Urea Nitrogen) 15 mg/dL (9.8-20.1); BUN/Creatinine Ratio 11.36; Calc. Creatinine Clearance 72 mL/min (70-130); Calcium 6.1 mg/dL (7.8-10.44); Carbon Dioxide 19 mmol/L (23-31); Chloride 112 mmol/L (98-107); Glucose 143 mg/dL (80-115); Magnesium 1.8 mg/dL (1.6-2.6); Phosphorus 2.2 mg/dL (2.3-4.7); Potassium 4.1 mmol/L (3.5-5.1); Sodium 140 mmol/L (136-145)
[2020-06-16] MEDS: busPIRone HCl 10 MG TAB PO SCH ×2 (08:28→19:49)
[2020-06-16] MEDS: Aspirin 81 mg Enteric Coated Tablet PO SCH (08:28)
[2020-06-16] MEDS: Diltiazem HCl SR 60 mg Capsule PO SCH ×3 (08:29→19:49)
[2020-06-16] MEDS: Calcium Carbonate 600 MG + Vit D TAB PO SCH (08:29)
[2020-06-16] MEDS: Cholecalciferol 1,000 UNITS (25 MCG) TAB PO SCH (08:29)
[2020-06-16] MEDS: Carvedilol 3.125 MG TAB PO SCH ×2 (08:29→16:31)
[2020-06-16] MEDS: ALPRAZolam 0.5 MG TAB PO SCH ×2 (08:29→19:50)
[2020-06-16] MEDS: Aripiprazole 15 MG TAB PO SCH (08:30)
[2020-06-16] MEDS: Enoxaparin Sodium 40 MG/0.4 ML SYRINGE SC SCH (08:45)
[2020-06-16] MEDS: Polyethylene Glycol 3350 17 GM Packet PO SCH (08:52)
[2020-06-16] MEDS: Nystatin Cream 30 GM TUBE TOP SCH ×2 (10:42→19:56)
[2020-06-16] MEDS: HYDROcodone/Acetaminophen 7.5/325 mg Tablet PO PRN ×2 (13:29→19:50)
[2020-06-16] MEDS: HumaLOG 300 UNITS/3 ML VIAL SC PRN (16:36)
[2020-06-16] MEDS: Sodium Bicarbonate Tab 325 MG TAB PO SCH (19:49)
[2020-06-16] MEDS: Apixaban 5 MG TAB PO SCH (19:49)
[2020-06-16] MEDS: traZODone HCl 50 MG TAB PO SCH (19:56)
[2020-06-17 04:35] LABS: Hemoglobin 10.7 g/dL (12.0-16.0)
[2020-06-17 04:59] LABS: Albumin 3.1 g/dL (3.4-4.8); Anion Gap 13 mmol/L (10-20); BUN (Urea Nitrogen) 17 mg/dL (9.8-20.1); BUN/Creatinine Ratio 14.05; Calc. Creatinine Clearance 82 mL/min (70-130); Carbon Dioxide 18 mmol/L (23-31); Chloride 110 mmol/L (98-107); Glucose 161 mg/dL (80-115); Magnesium 1.7 mg/dL (1.6-2.6); Sodium 137 mmol/L (136-145)
[2020-06-17 05:04] LABS: Calcium 5.9 mg/dL (7.8-10.44); Phosphorus 1.9 mg/dL (2.3-4.7)
[2020-06-17] MEDS ORDERED: Potassium Phosphate 9 MMOL in Sodium Chloride 0.9% 100 ML IVPB SCH (07:30)
[2020-06-17] MEDS ORDERED: Calcium Gluconate 4.6 MEQ in Sodium Chloride 0.9% 100 ML IVPB SCH (07:30)
[2020-06-17] MEDS: Calcium Carbonate 500 MG ChewTAB PO SCH ×3 (09:40→21:09)
[2020-06-17] MEDS: ALPRAZolam 0.5 MG TAB PO SCH ×2 (09:41→21:16)
[2020-06-17] MEDS: Aripiprazole 15 MG TAB PO SCH (09:41)
[2020-06-17] MEDS: busPIRone HCl 10 MG TAB PO SCH ×2 (09:41→21:10)
[2020-06-17] MEDS: Apixaban 5 MG TAB PO SCH ×2 (09:41→21:10)
[2020-06-17] MEDS: Sodium Bicarbonate Tab 325 MG TAB PO SCH ×2 (09:41→21:09)
[2020-06-17] MEDS: Diltiazem HCl SR 60 mg Capsule PO SCH ×3 (09:41→21:11)
[2020-06-17] MEDS: PHOS-NAK 1 PKT PACK PO SCH (09:43)
[2020-06-17] MEDS: Polyethylene Glycol 3350 17 GM Packet PO SCH (09:44)
[2020-06-17] MEDS: HYDROcodone/Acetaminophen 7.5/325 mg Tablet PO PRN ×3 (09:47→21:16)
[2020-06-17] MEDS: Nystatin Cream 30 GM TUBE TOP SCH ×2 (09:49→21:16)
[2020-06-17] MEDS: Carvedilol 3.125 MG TAB PO SCH ×2 (09:50→17:00)
[2020-06-17] MEDS: Calcium Carbonate 600 MG + Vit D TAB PO SCH (10:01)
[2020-06-17] MEDS: Cholecalciferol 1,000 UNITS (25 MCG) TAB PO SCH (10:01)
[2020-06-17] MEDS ORDERED: Regadenoson 0.4 MG/5 ML SYRINGE ONE (10:26)
[2020-06-17 13:32] LABS: #Eosinphils 0.1 thou/uL (0.0-0.7); #Lymphocytes 0.5 thou/uL (1.20-3.40); #Monocytes 0.3 thou/uL (0.11-0.59); #Neutrophils 2.8 thou/uL (1.40-6.50); %Basophils 0.2 % (0.0-1.0); %Eosinophils 1.6 % (0.0-10.0); %Lymphocytes 14.6 % (21.0-51.0); %Monocytes 7.3 % (0.0-10.0); %Neutrophils 76.3 % (42.0-75.0); Hemoglobin 11.9 g/dL (12.0-16.0); Mean Corpuscular Hemoglobin 31.1 pg (27.0-31.0); Mean Corpuscular Volume 94.4 fL (78.0-98.0); Mean Platelet Volume 9.6 fL (7.4-10.4); Platelet Count 66 thou/uL (130-400); RBC Distribution Width 16.7 % (11.5-14.5); Red Blood Cell (RBC) Count 3.81 mill/uL (4.20-5.40); White Blood Cell (WBC) Count 3.6 thou/uL (4.8-10.8)
[2020-06-17] MEDS: HumaLOG 300 UNITS/3 ML VIAL SC PRN (17:00)
[2020-06-17] MEDS: traZODone HCl 50 MG TAB PO SCH (21:10)
[2020-06-17] MEDS: Atorvastatin Calcium 10 MG TAB PO SCH (21:10)
[2020-06-18 04:51] LABS: #Eosinphils 0.1 thou/uL (0.0-0.7); #Lymphocytes 0.7 thou/uL (1.20-3.40); #Monocytes 0.4 thou/uL (0.11-0.59); #Neutrophils 2.2 thou/uL (1.40-6.50); %Basophils 0.2 % (0.0-1.0); %Eosinophils 2.2 % (0.0-10.0); %Lymphocytes 20.5 % (21.0-51.0); %Monocytes 12.8 % (0.0-10.0); %Neutrophils 64.3 % (42.0-75.0); Hemoglobin 10.8 g/dL (12.0-16.0); Mean Corpuscular HGB CONC 32.8 g/dL (32.0-36.0); Mean Corpuscular Hemoglobin 31.4 pg (27.0-31.0); Mean Corpuscular Volume 95.7 fL (78.0-98.0); Mean Platelet Volume 9.3 fL (7.4-10.4); Platelet Count 72 thou/uL (130-400); RBC Distribution Width 16.9 % (11.5-14.5); Red Blood Cell (RBC) Count 3.43 mill/uL (4.20-5.40); White Blood Cell (WBC) Count 3.3 thou/uL (4.8-10.8)
[2020-06-18 05:15] LABS: Anion Gap 11 mmol/L (10-20); BUN (Urea Nitrogen) 18 mg/dL (9.8-20.1); BUN/Creatinine Ratio 13.85; Calc. Creatinine Clearance 77 mL/min (70-130); Calcium 6.3 mg/dL (7.8-10.44); Carbon Dioxide 21 mmol/L (23-31); Chloride 112 mmol/L (98-107); Glucose 213 mg/dL (80-115); Magnesium 1.6 mg/dL (1.6-2.6); Phosphorus 2.2 mg/dL (2.3-4.7); Potassium 4.7 mmol/L (3.5-5.1); Sodium 139 mmol/L (136-145)
[2020-06-18] MEDS: HumaLOG 300 UNITS/3 ML VIAL SC PRN ×3 (06:45→17:16)
[2020-06-18] MEDS ORDERED: Calcium Gluconate 4.6 MEQ in Sodium Chloride 0.9% 100 ML IVPB SCH (08:45)
[2020-06-18] MEDS ORDERED: Potassium Phosphate 9 MMOL in Sodium Chloride 0.9% 100 ML IVPB SCH (08:45)
[2020-06-18] MEDS: busPIRone HCl 10 MG TAB PO SCH ×2 (10:01→22:36)
[2020-06-18] MEDS: Sodium Bicarbonate Tab 325 MG TAB PO SCH ×2 (10:01→22:36)
[2020-06-18] MEDS: Carvedilol 3.125 MG TAB PO SCH ×2 (10:01→16:08)
[2020-06-18] MEDS: Calcitriol 0.25 MCG CAP PO SCH (10:01)
[2020-06-18] MEDS: ALPRAZolam 0.5 MG TAB PO SCH ×2 (10:01→22:37)
[2020-06-18] MEDS: Apixaban 5 MG TAB PO SCH ×2 (10:02→22:36)
[2020-06-18] MEDS: Diltiazem HCl SR 60 mg Capsule PO SCH ×2 (10:02→22:36)
[2020-06-18] MEDS: Calcium Carbonate 500 MG ChewTAB PO SCH ×3 (10:02→22:34)
[2020-06-18] MEDS: Aripiprazole 15 MG TAB PO SCH (10:03)
[2020-06-18] MEDS: PHOS-NAK 1 PKT PACK PO SCH ×3 (10:04→22:35)
[2020-06-18] MEDS: Nystatin Cream 30 GM TUBE TOP SCH ×2 (10:04→22:37)
[2020-06-18] MEDS: Polyethylene Glycol 3350 17 GM Packet PO SCH (10:05)
[2020-06-18] MEDS ORDERED: Diltiazem HCl SR 60 mg Capsule PO SCH (11:45)
[2020-06-18 12:37] VITALS: BMI 47.5
[2020-06-18] MEDS: HYDROcodone/Acetaminophen 7.5/325 mg Tablet PO PRN ×2 (16:12→22:35)
[2020-06-18] MEDS: Atorvastatin Calcium 10 MG TAB PO SCH (22:36)
[2020-06-18] MEDS: traZODone HCl 50 MG TAB PO SCH (22:36)
[2020-06-19 04:39] LABS: #Lymphocytes 0.6 thou/uL (1.20-3.40); #Monocytes 0.4 thou/uL (0.11-0.59); #Neutrophils 2.1 thou/uL (1.40-6.50); %Basophils 0.9 % (0.0-1.0); %Eosinophils 1.3 % (0.0-10.0); %Monocytes 12.4 % (0.0-10.0); %Neutrophils 67.5 % (42.0-75.0); Hemoglobin 10.3 g/dL (12.0-16.0); Mean Corpuscular Hemoglobin 31.6 pg (27.0-31.0); Mean Corpuscular Volume 95.6 fL (78.0-98.0); Platelet Count 69 thou/uL (130-400); RBC Distribution Width 16.5 % (11.5-14.5); Red Blood Cell (RBC) Count 3.26 mill/uL (4.20-5.40); White Blood Cell (WBC) Count 3.1 thou/uL (4.8-10.8)
[2020-06-19 04:50] LABS: Albumin 3.1 g/dL (3.4-4.8); Anion Gap 11 mmol/L (10-20); BUN (Urea Nitrogen) 22 mg/dL (9.8-20.1); BUN/Creatinine Ratio 16.18; Calc. Creatinine Clearance 75 mL/min (70-130); Calcium 6.6 mg/dL (7.8-10.44); Carbon Dioxide 20 mmol/L (23-31); Chloride 111 mmol/L (98-107); Glucose 271 mg/dL (80-115); Magnesium 1.6 mg/dL (1.6-2.6); Phosphorus 2.7 mg/dL (2.3-4.7); Sodium 137 mmol/L (136-145)
[2020-06-19] MEDS: HumaLOG 300 UNITS/3 ML VIAL SC PRN ×4 (06:27→21:16)
[2020-06-19] MEDS ORDERED: Calcium Gluconate 4.6 MEQ in Sodium Chloride 0.9% 100 ML IVPB SCH (08:43)
[2020-06-19] MEDS: Apixaban 5 MG TAB PO SCH ×2 (10:07→21:04)
[2020-06-19] MEDS: HYDROcodone/Acetaminophen 7.5/325 mg Tablet PO PRN ×3 (10:08→21:10)
[2020-06-19] MEDS: Sodium Bicarbonate Tab 325 MG TAB PO SCH ×2 (10:08→21:05)
[2020-06-19] MEDS: Aripiprazole 15 MG TAB PO SCH (10:08)
[2020-06-19] MEDS: busPIRone HCl 10 MG TAB PO SCH ×2 (10:09→21:04)
[2020-06-19] MEDS: Calcitriol 0.25 MCG CAP PO SCH (10:09)
[2020-06-19] MEDS: Carvedilol 3.125 MG TAB PO SCH ×2 (10:09→16:36)
[2020-06-19] MEDS: Calcium Carbonate 500 MG ChewTAB PO SCH ×3 (10:09→21:03)
[2020-06-19] MEDS: Diltiazem HCl SR 60 mg Capsule PO SCH ×2 (10:09→21:03)
[2020-06-19] MEDS: PHOS-NAK 1 PKT PACK PO SCH ×3 (10:10→21:05)
[2020-06-19] MEDS: ALPRAZolam 0.5 MG TAB PO SCH ×2 (10:10→21:11)
[2020-06-19] MEDS: Polyethylene Glycol 3350 17 GM Packet PO SCH (10:10)
[2020-06-19] MEDS: Nystatin Cream 30 GM TUBE TOP SCH ×2 (10:10→21:05)
[2020-06-19] MEDS: Lantus 1000 UNITS/10 ML VIAL SC SCH (10:11)
[2020-06-19] MEDS: Atorvastatin Calcium 10 MG TAB PO SCH (21:04)
[2020-06-19] MEDS: traZODone HCl 50 MG TAB PO SCH (21:05)
[2020-06-20 04:44] LABS: #Lymphocytes 0.6 thou/uL (1.20-3.40); #Monocytes 0.3 thou/uL (0.11-0.59); %Basophils 0.3 % (0.0-1.0); %Eosinophils 1.3 % (0.0-10.0); %Monocytes 10.8 % (0.0-10.0); %Neutrophils 67.6 % (42.0-75.0); Hemoglobin 10.1 g/dL (12.0-16.0); Mean Corpuscular HGB CONC 32.5 g/dL (32.0-36.0); Mean Corpuscular Hemoglobin 31.1 pg (27.0-31.0); Mean Corpuscular Volume 95.6 fL (78.0-98.0); Mean Platelet Volume 9.5 fL (7.4-10.4); Platelet Count 70 thou/uL (130-400); RBC Distribution Width 16.2 % (11.5-14.5); Red Blood Cell (RBC) Count 3.24 mill/uL (4.20-5.40)
[2020-06-20] MEDS: HumaLOG 300 UNITS/3 ML VIAL SC PRN ×3 (06:07→17:32)
[2020-06-20 09:20] LABS: ALT (SGPT) 13 U/L (8-55); AST (SGOT) 18 U/L (5-34); Albumin 3.1 g/dL (3.4-4.8); Alkaline Phosphatase 89 U/L (40-110); Anion Gap 13 mmol/L (10-20); BUN (Urea Nitrogen) 27 mg/dL (9.8-20.1); Bilirubin, Total 0.5 mg/dL (0.2-1.2); Calc. Creatinine Clearance 69 mL/min (70-130); Calcium 7.1 mg/dL (7.8-10.44); Carbon Dioxide 21 mmol/L (23-31); Chloride 110 mmol/L (98-107); Globulin 3.7 g/dL (2.4-3.5); Glucose 246 mg/dL (80-115); Potassium 5.3 mmol/L (3.5-5.1); Protein, Total 6.8 g/dL (5.8-8.1); Sodium 139 mmol/L (136-145)
[2020-06-20] MEDS: Sodium Bicarbonate Tab 325 MG TAB PO SCH ×2 (09:38→21:42)
[2020-06-20] MEDS: Diltiazem HCl SR 60 mg Capsule PO SCH ×2 (09:39→21:43)
[2020-06-20] MEDS: Calcium Carbonate 500 MG ChewTAB PO SCH ×3 (09:39→21:42)
[2020-06-20] MEDS: ALPRAZolam 0.5 MG TAB PO SCH ×2 (09:40→21:43)
[2020-06-20] MEDS: busPIRone HCl 10 MG TAB PO SCH ×2 (09:40→21:43)
[2020-06-20] MEDS: Carvedilol 3.125 MG TAB PO SCH ×2 (09:40→17:31)
[2020-06-20] MEDS: Apixaban 5 MG TAB PO SCH ×2 (09:41→21:42)
[2020-06-20] MEDS: Calcitriol 0.25 MCG CAP PO SCH (09:41)
[2020-06-20] MEDS: Aripiprazole 15 MG TAB PO SCH (09:41)
[2020-06-20] MEDS: Lantus 1000 UNITS/10 ML VIAL SC SCH (09:42)
[2020-06-20] MEDS: Polyethylene Glycol 3350 17 GM Packet PO SCH (09:42)
[2020-06-20] MEDS: Nystatin Cream 30 GM TUBE TOP SCH ×2 (09:43→21:43)
[2020-06-20] MEDS: PHOS-NAK 1 PKT PACK PO SCH (09:43)
[2020-06-20] MEDS: HYDROcodone/Acetaminophen 7.5/325 mg Tablet PO PRN ×2 (09:53→17:31)
[2020-06-20] MEDS ORDERED: Magnesium 2 GM/50 ML 2 GM in Premix Bag 1 BAG IVPB SCH (10:00)
[2020-06-20 14:32] LABS: Anion Gap 12 mmol/L (10-20); BUN (Urea Nitrogen) 28 mg/dL (9.8-20.1); Calc. Creatinine Clearance 73 mL/min (70-130); Calcium 7.3 mg/dL (7.8-10.44); Carbon Dioxide 23 mmol/L (23-31); Chloride 108 mmol/L (98-107); Glucose 256 mg/dL (80-115); Potassium 5.4 mmol/L (3.5-5.1); Sodium 138 mmol/L (136-145)
[2020-06-20] MEDS ORDERED: Insulin Regular 300 UNITS/3 ML VIAL SC SCH (14:45)
[2020-06-20 17:53] LABS: Anion Gap 12 mmol/L (10-20); BUN (Urea Nitrogen) 29 mg/dL (9.8-20.1); Calc. Creatinine Clearance 71 mL/min (70-130); Calcium 7.3 mg/dL (7.8-10.44); Carbon Dioxide 23 mmol/L (23-31); Chloride 108 mmol/L (98-107); Glucose 257 mg/dL (80-115); Magnesium 1.9 mg/dL (1.6-2.6); Potassium 5.4 mmol/L (3.5-5.1); Sodium 138 mmol/L (136-145)
[2020-06-20] MEDS: Atorvastatin Calcium 10 MG TAB PO SCH (21:42)
[2020-06-20] MEDS: traZODone HCl 50 MG TAB PO SCH (21:43)
[2020-06-21 04:55] LABS: #Eosinphils 0.1 thou/uL (0.0-0.7); #Lymphocytes 0.5 thou/uL (1.20-3.40); #Monocytes 0.3 thou/uL (0.11-0.59); %Basophils 0.7 % (0.0-1.0); %Eosinophils 2.4 % (0.0-10.0); %Lymphocytes 16.2 % (21.0-51.0); %Monocytes 10.4 % (0.0-10.0); %Neutrophils 70.2 % (42.0-75.0); Hemoglobin 10.3 g/dL (12.0-16.0); Mean Corpuscular Hemoglobin 30.6 pg (27.0-31.0); Mean Corpuscular Volume 95.6 fL (78.0-98.0); Mean Platelet Volume 9.6 fL (7.4-10.4); Platelet Count 72 thou/uL (130-400); RBC Distribution Width 15.9 % (11.5-14.5); Red Blood Cell (RBC) Count 3.35 mill/uL (4.20-5.40); White Blood Cell (WBC) Count 2.9 thou/uL (4.8-10.8)
[2020-06-21 05:14] LABS: ALT (SGPT) 13 U/L (8-55); AST (SGOT) 17 U/L (5-34); Albumin 3.2 g/dL (3.4-4.8); Alkaline Phosphatase 93 U/L (40-110); Anion Gap 14 mmol/L (10-20); BUN (Urea Nitrogen) 30 mg/dL (9.8-20.1); Bilirubin, Total 0.5 mg/dL (0.2-1.2); Calc. Creatinine Clearance 72 mL/min (70-130); Calcium 7.7 mg/dL (7.8-10.44); Carbon Dioxide 20 mmol/L (23-31); Chloride 109 mmol/L (98-107); Globulin 3.5 g/dL (2.4-3.5); Glucose 320 mg/dL (80-115); Magnesium 1.9 mg/dL (1.6-2.6); Potassium 5.4 mmol/L (3.5-5.1); Protein, Total 6.7 g/dL (5.8-8.1); Sodium 138 mmol/L (136-145)
[2020-06-21] MEDS: HumaLOG 300 UNITS/3 ML VIAL SC PRN ×4 (06:18→21:35)
[2020-06-21] MEDS: ALPRAZolam 0.5 MG TAB PO SCH ×2 (08:27→20:25)
[2020-06-21] MEDS: Aripiprazole 15 MG TAB PO SCH (08:28)
[2020-06-21] MEDS: Calcitriol 0.25 MCG CAP PO SCH (08:28)
[2020-06-21] MEDS: Apixaban 5 MG TAB PO SCH ×2 (08:28→20:25)
[2020-06-21] MEDS: Calcium Carbonate 500 MG ChewTAB PO SCH ×3 (08:28→20:25)
[2020-06-21] MEDS: Diltiazem HCl SR 60 mg Capsule PO SCH ×2 (08:29→20:25)
[2020-06-21] MEDS: Carvedilol 3.125 MG TAB PO SCH ×2 (08:29→16:29)
[2020-06-21] MEDS: busPIRone HCl 10 MG TAB PO SCH ×2 (08:29→20:25)
[2020-06-21] MEDS: Sodium Bicarbonate Tab 325 MG TAB PO SCH ×2 (08:30→20:26)
[2020-06-21] MEDS: Lantus 1000 UNITS/10 ML VIAL SC SCH (08:30)
[2020-06-21] MEDS: Nystatin Cream 30 GM TUBE TOP SCH ×2 (08:30→20:26)
[2020-06-21] MEDS: Polyethylene Glycol 3350 17 GM Packet PO SCH (08:31)
[2020-06-21] MEDS: HYDROcodone/Acetaminophen 7.5/325 mg Tablet PO PRN ×3 (08:39→21:31)
[2020-06-21] MEDS ORDERED: Insulin Regular 300 UNITS/3 ML VIAL IVP SCH (10:00)
[2020-06-21 12:50] LABS: Anion Gap 14 mmol/L (10-20); BUN (Urea Nitrogen) 29 mg/dL (9.8-20.1); Calc. Creatinine Clearance 74 mL/min (70-130); Calcium 7.9 mg/dL (7.8-10.44); Carbon Dioxide 20 mmol/L (23-31); Chloride 111 mmol/L (98-107); Glucose 229 mg/dL (80-115); Potassium 5.4 mmol/L (3.5-5.1); Sodium 140 mmol/L (136-145)
[2020-06-21] MEDS ORDERED: Furosemide 20 MG/2 ML VIAL SLOW IVP SCH (14:15)
[2020-06-21] MEDS ORDERED: Furosemide 40 MG/4 ML VIAL SLOW IVP SCH (16:00)
[2020-06-21 18:45] LABS: Anion Gap 12 mmol/L (10-20); BUN (Urea Nitrogen) 31 mg/dL (9.8-20.1); Calc. Creatinine Clearance 71 mL/min (70-130); Calcium 7.8 mg/dL (7.8-10.44); Carbon Dioxide 25 mmol/L (23-31); Chloride 109 mmol/L (98-107); Glucose 308 mg/dL (80-115); Potassium 5.7 mmol/L (3.5-5.1); Sodium 140 mmol/L (136-145)
[2020-06-21] MEDS: traZODone HCl 50 MG TAB PO SCH (20:26)
[2020-06-21] MEDS: Atorvastatin Calcium 10 MG TAB PO SCH (20:26)
[2020-06-21 23:03] LABS: Anion Gap 10 mmol/L (10-20); BUN (Urea Nitrogen) 31 mg/dL (9.8-20.1); Calc. Creatinine Clearance 69 mL/min (70-130); Calcium 7.8 mg/dL (7.8-10.44); Carbon Dioxide 27 mmol/L (23-31); Chloride 109 mmol/L (98-107); Glucose 330 mg/dL (80-115); Potassium 5.1 mmol/L (3.5-5.1); Sodium 141 mmol/L (136-145)
[2020-06-22 04:31] LABS: #Eosinphils 0.2 thou/uL (0.0-0.7); #Lymphocytes 0.5 thou/uL (1.20-3.40); #Monocytes 0.3 thou/uL (0.11-0.59); #Neutrophils 1.5 thou/uL (1.40-6.50); %Basophils 1.1 % (0.0-1.0); %Lymphocytes 18.6 % (21.0-51.0); %Monocytes 12.5 % (0.0-10.0); %Neutrophils 60.8 % (42.0-75.0); Hemoglobin 10.5 g/dL (12.0-16.0); Mean Corpuscular Hemoglobin 31.5 pg (27.0-31.0); Mean Corpuscular Volume 95.6 fL (78.0-98.0); Mean Platelet Volume 9.8 fL (7.4-10.4); Platelet Count 60 thou/uL (130-400); RBC Distribution Width 15.6 % (11.5-14.5); Red Blood Cell (RBC) Count 3.34 mill/uL (4.20-5.40); White Blood Cell (WBC) Count 2.4 thou/uL (4.8-10.8)
[2020-06-22 04:40] LABS: Anion Gap 15 mmol/L (10-20); BUN (Urea Nitrogen) 29 mg/dL (9.8-20.1); Calc. Creatinine Clearance 74 mL/min (70-130); Calcium 7.9 mg/dL (7.8-10.44); Carbon Dioxide 21 mmol/L (23-31); Chloride 110 mmol/L (98-107); Glucose 212 mg/dL (80-115); Magnesium 1.5 mg/dL (1.6-2.6); Potassium 4.7 mmol/L (3.5-5.1); Sodium 141 mmol/L (136-145)
[2020-06-22] MEDS: HumaLOG 300 UNITS/3 ML VIAL SC PRN ×3 (05:51→16:37)
[2020-06-22] MEDS: Furosemide 40 MG/4 ML VIAL SLOW IVP SCH ×2 (05:54→14:48)
[2020-06-22 07:35] VITALS: TEMP 98
[2020-06-22] MEDS ORDERED: Magnesium 2 GM/50 ML 2 GM in Premix Bag 1 BAG IVPB SCH (08:15)
[2020-06-22] MEDS: Carvedilol 3.125 MG TAB PO SCH ×2 (08:22→16:28)
[2020-06-22] MEDS: ALPRAZolam 0.5 MG TAB PO SCH ×2 (08:22→20:19)
[2020-06-22] MEDS: Sodium Bicarbonate Tab 325 MG TAB PO SCH ×3 (08:23→20:18)
[2020-06-22] MEDS: Apixaban 5 MG TAB PO SCH ×2 (08:23→20:19)
[2020-06-22] MEDS: Diltiazem HCl SR 60 mg Capsule PO SCH ×2 (08:23→20:19)
[2020-06-22] MEDS: Calcium Carbonate 500 MG ChewTAB PO SCH ×3 (08:23→20:18)
[2020-06-22] MEDS: Lantus 1000 UNITS/10 ML VIAL SC SCH (08:24)
[2020-06-22] MEDS: busPIRone HCl 10 MG TAB PO SCH ×2 (08:24→20:19)
[2020-06-22] MEDS: Aripiprazole 15 MG TAB PO SCH (08:24)
[2020-06-22] MEDS: Nystatin Cream 30 GM TUBE TOP SCH (08:24)
[2020-06-22] MEDS: Calcitriol 0.25 MCG CAP PO SCH (08:24)
[2020-06-22] MEDS: Polyethylene Glycol 3350 17 GM Packet PO SCH (08:25)
[2020-06-22] MEDS: HYDROcodone/Acetaminophen 7.5/325 mg Tablet PO PRN ×2 (08:39→16:10)
[2020-06-22 16:08] VITALS: BP 126/61
[2020-06-22] MEDS: traZODone HCl 50 MG TAB PO SCH (20:19)
[2020-06-22] MEDS: Atorvastatin Calcium 10 MG TAB PO SCH (20:19)
[2020-06-23] MEDS ORDERED: Lantus 1000 UNITS/10 ML VIAL SC SCH (09:00)
== END 2020-06-22 20:30 | DRG 308 ==
LOC: ERS 16:36 → 2SW 18:53 → OBSVTOIN 06-13 11:51 → 2NO 06-14 12:44
PROVIDERS: ADMIT Student in an Organized Health Care Education/Training Program; ATTEND Family Medicine
DX: I48.0 Paroxysmal atrial fibrillation (principal); I50.33 Acute on chronic diastolic (congestive) heart failure; Z68.42 Body mass index [BMI] 45.0-49.9, adult; N25.81 Secondary hyperparathyroidism of renal origin; I50.32 Chronic diastolic (congestive) heart failure; E87.2 Acidosis; K76.6 Portal hypertension; J44.9 Chronic obstructive pulmonary disease, unspecified; B18.2 Chronic viral hepatitis C; K74.60 Unspecified cirrhosis of liver; F41.9 Anxiety disorder, unspecified; F32.9 Major depressive disorder, single episode, unspecified; E66.01 Morbid (severe) obesity due to excess calories; E11.22 Type 2 diabetes mellitus with diabetic chronic kidney disease; G89.29 Other chronic pain; E11.649 Type 2 diabetes mellitus with hypoglycemia without coma; R19.7 Diarrhea, unspecified; I48.92 Unspecified atrial flutter; E55.9 Vitamin D deficiency, unspecified; I08.1 Rheumatic disorders of both mitral and tricuspid valves; K21.9 Gastro-esophageal reflux disease without esophagitis; K64.4 Residual hemorrhoidal skin tags; D63.1 Anemia in chronic kidney disease; K31.89 Other diseases of stomach and duodenum; D69.6 Thrombocytopenia, unspecified; I47.1 Supraventricular tachycardia; E87.5 Hyperkalemia; Z82.49 Family history of ischemic heart disease and other diseases of the circulatory system; Z79.899 Other long term (current) drug therapy; Z79.82 Long term (current) use of aspirin; Z99.81 Dependence on supplemental oxygen; Z88.2 Allergy status to sulfonamides; Z79.4 Long term (current) use of insulin; N18.30 Chronic kidney disease, stage 3 unspecified
CPT/HCPCS: 36415; 36416; 51701; 71045; 78452; 80048; 80053; 80069; 81003; 81015; 82274; 82306; 82553; 82652; 83630; 83735; 83880; 83970; 84100; 84134; 84443; 84484; 85025; 87015; 87045; 87046; 87206; 87324; 87427; 87449; 87635; 93005; 93010; 93017; 93923; 94640; 96365; 96366; 96372; 96375; 96376; A9500; G0378; J1644; J1650; J1815; J1940; J2001; J2785; J3475; J3490; J7050; J7620; U0003; U0005